=== PATIENT | male | born 1945 | race Caucasian/White ===

== ENCOUNTER 2019-08-21 16:12 | Inpatient (IN) ==
[2019-08-21] MEDS ORDERED: NITROGLYCERIN SL 0.4 MG/TAB TAB ONE (16:28)
[2019-08-21] MEDS: NITROGLYCERIN SL 0.4 MG/TAB TAB SL PRN ×3 (16:29→16:45)
[2019-08-21] MEDS ORDERED: ASPIRIN CHEW 324 MG PO STA (16:35)
--- NOTE | 2019-08-21 16:56 | XRay Report ---
XR chest 1V portable HISTORY: Atypical Chest Pain COMPARISON: Chest 07/01/2018. FINDINGS: The heart is mildly enlarged. There are poststernotomy changes. There are low lung volumes with elevation the right hemidiaphragm, unchanged. Suspect trace bilateral pleural effusions. Aggress clark interstitial and vascular thickening consistent with mild pulmonary edema. IMPRESSION: Cardiomegaly, trace bilateral pleural effusions, and mild interstitial pulmonary edema. ACT 112: Negative or not required by law. Electronically signed by: Thai Dixon M.D. 08/21/2019 4:55 PM
[2019-08-21] MEDS ORDERED: FUROSEMIDE 40 MG/4 ML VIAL IV STA (17:02)
[2019-08-21] MEDS ORDERED: NITROGLYCERIN 2% OINTMENT 30GM TUBE EXT ONE (17:22)
[2019-08-21] MEDS ORDERED: ONDANSETRON INJ 2 MG/ML 2 ML VIAL IV STA (17:40)
[2019-08-21] MEDS ORDERED: ONDANSETRON INJ 2 MG/ML 2 ML VIAL ONE (17:41)
[2019-08-21 17:42] LABS: Basophils # (auto) 0.01 K/uL (0-0.2); Basophils % (auto) 0.2 %; Eosinophils # (auto) 0.06 K/uL (0-0.5); Eosinophils % (auto) 1.3 %; Hematocrit (blood only) 28.6 % (42-52); Hemoglobin 9.6 g/dL (14.0-18.0); Immature Granulocytes # (auto) 0.04 K/uL (0.00-0.02); Immature Granulocytes % (auto) 0.9 %; Lymphocytes # (auto) 0.56 K/uL (1.2-3.4); Mean Corpuscular Hemoglobin 31.4 pg (25-34); Mean Corpuscular Hgb Conc 33.6 g/dL (32-36); Mean Corpuscular Volume 93.5 fL (80-100); Mean Platelet Volume 8.7 fL (7.4-10.4); Monocytes # (auto) 0.41 K/uL (0.11-0.59); Monocytes % (auto) 8.8 %; Neutrophils # (auto) 3.57 K/uL (1.4-6.5); Neutrophils % (auto) 76.8 %; Platelet Count 104 K/uL (130-400); RDW Standard Deviation 50.8 fL (36.4-46.3); Red Blood Count 3.06 M/uL (4.7-6.1); White Blood Count 4.65 K/uL (4.8-10.8)
[2019-08-21 17:53] LABS: INR 1.1 (0.9-1.1); Partial Thromboplastin Time 27.9 Seconds (21.0-31.0); Prothrombin Time 11.2 Seconds (9.0-12.0)
[2019-08-21 17:54] LABS: Albumin Level 3.6 gm/dl (3.4-5.0); Aspartate Aminotransferase 11 U/L (15-37); BUN Creatinine Ratio 19.9 (10-20); Blood Urea Nitrogen 33 mg/dl (7-18); Calcium 8.5 mg/dl (8.5-10.1); Carbon Dioxide 25 mmol/L (21-32); Chloride 111 mmol/L (98-107); Creatinine Clr Calc Pharmacy 38.5 ml/min; Est GFR (African American) 46.4; Glucose 149 mg/dl (70-99); Lipase 165 U/L (73-393); Sodium 140 mmol/L (136-145)
[2019-08-21 17:59] LABS: Alanine Aminotransferase 18 U/L (12-78); Albumin Globulin Ratio 1.3 (0.9-2); Alkaline Phosphatase 96 U/L (45-117); Bilirubin,Total 0.6 mg/dl (0.2-1); Globulin 2.7 gm/dl (2.5-4.0); Total Protein 6.3 gm/dl (6.4-8.2); Troponin I < 0.015 ng/ml (0-0.045)
[2019-08-21 18:01] LABS: Poikilocytosis Present
--- NOTE | 2019-08-21 19:51 | Emergency Department Note ---
Entered by Albina Hastings acting as a scribe for Soila Hayes MD History of Present Illness General Chief complaint: Chest Pain Stated complaint: CHEST PAIN Source: patient History of Present Illness Onset (ago): hour(s) (several) Location: chest (central) Radiation: non-radiation Severity: similar to prior episodes Pain Consistency: + other (persistent ) Associated symptoms: + other (positive worsening leg swelling); no shortness of breath The patient is a 74 year old male who presents to the Emergency Room with complaints of persistent central chest pain that began several hours prior to arrival. The patient denies radiation of his pain. The patient reports that this is similar to prior episodes of chest pain for him. He denies shortness of breath. The patient reports that he has worsening leg swelling. He states that he spilled half of his medication down the drain this morning and only took the medication that was remaining. The patient is not certain of exactly what pills he did take. The patient states that he has a history of heart disease. Home Medications Home Medications Medication Instructions Recorded Confirmed Type amlodipine [Norvasc] 10 mg PO QAM 03/24/18 08/21/19 History atorvastatin [Lipitor] 40 mg PO QAM 03/24/18 08/21/19 History clopidogrel [Plavix] 75 mg PO QAM 03/24/18 08/21/19 History cyanocobalamin (vitamin B-12) 1 ml IM MONTHLY 03/24/18 08/21/19 History isosorbide mononitrate 120 mg PO DAILY 03/24/18 08/21/19 History lisinopril 40 mg PO DAILY 03/24/18 08/21/19 History meclizine 25 mg PO TID PRN 03/24/18 08/21/19 History metformin 500 mg PO QAM 03/24/18 08/21/19 History nitroglycerin [Nitrostat] 0.4 mg SUBLINGUAL DIRECTED PRN 03/24/18 08/21/19 History potassium chloride [Klor-Con M10] 10 meq PO BID 03/24/18 08/21/19 History ranolazine [Ranexa] 500 mg PO BID 03/24/18 08/21/19 History tramadol 50 mg PO Q6H PRN 03/24/18 08/21/19 History aspirin 81 mg PO DAILY 08/21/19 08/21/19 History carvedilol 25 mg PO BID 08/21/19 08/21/19 History ferrous sulfate 325 mg PO Q OTHER DAY 08/21/19 08/21/19 History hydrochlorothiazide 25 mg PO QAM 08/21/19 08/21/19 History sucralfate 1 g PO BID 08/21/19 08/21/19 History Allergies Allergy/AdvReac Type Severity Reaction Status Date / Time hydralazine Allergy Hives Verified 08/21/19 18:56 Iodinated Contrast Media Allergy Unknown Verified 08/21/19 18:56 [Iodinated Contrast- Oral and IV Dye] Past Med/Surg History Medical History CAD (coronary artery disease) Chronic obstructive pulmonary disease mild--no inhaler Diabetes mellitus, type 2 History of common carotid artery stent placement 06/2017 @ [facility] [place], [place] Hyperlipidemia Hypertension Myocardial Infarction 1996 On anticoagulant therapy on plavix Osteoarthritis PVD (peripheral vascular disease) Stroke 08/27/2017--no deficits Thoracic ascending aortic aneurysm Surgical History Chest pain 07/09/18 CARDIAC CATH WITH 5 MORE HEART STENTS [place] [facility] [place] History of cardiac cath pt states he has had about 12 of them--last one "a couple years ago" History of cholecystectomy History of colonoscopy History of coronary artery bypass graft [place] [facility] [place] History of heart artery stent pt is unsure of how many heart stents, states around 39 stents total (including peripheral artery) History of left cataract extraction History of procedure for peripheral vascular disease pt states he has had about 6 with multiple stents placed History of tooth extraction wisdom teeth Family History Other Family history non-contributory Social History Preferred Language: Mongolian Communication Ability: Effective 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 and A total of 10 systems reviewed and were otherwise negative Physical Exam Vital Signs Vital Signs - 24 hr 08/21/19 16:22 08/21/19 16:25 08/21/19 16:29 Temperature 36.7 C Temperature Source Oral Pulse Rate 51 L 58 L Pulse Rate [Right Finger] Pulse Rate from SpO2 Sensor 51 L Pulse Rhythm Regular Pulse Strength Normal Respiratory Rate 23 22 Respiratory Effort / Characteristics Spontaneous Labored Non-Labored Spontaneous Respiratory Depth Retractive Normal Respiratory Pattern Regular Blood Pressure 171/78 H 171/78 H Blood Pressure [Right Arm] Blood Pressure Mean 113 109 Blood Pressure Mean [Right Arm] Blood Pressure Position Sitting Pulse Oximetry 92 90 92 Oxygen Delivery Method Room Air Room Air Oxygen Flow Rate 2 Sepsis Recent Fever Within 48 Hours No Sepsis New/Unexplained Change in Mental Status No Sepsis Action Taken by Nursing No Action Required Oxygen Flow Rate - Titration 2 Pulse Oximetry Post Tiitration 96 08/21/19 16:30 08/21/19 16:34 08/21/19 16:45 Temperature Temperature Source Pulse Rate 53 L 65 51 L Pulse Rate [Right Finger] Pulse Rate from SpO2 Sensor 53 L 54 L 51 L Pulse Rhythm Pulse Strength Respiratory Rate 22 23 19 Respiratory Effort / Characteristics Respiratory Depth Respiratory Pattern Blood Pressure 143/60 H Blood Pressure [Right Arm] Blood Pressure Mean 96 Blood Pressure Mean [Right Arm] Blood Pressure Position Pulse Oximetry 92 92 96 Oxygen Delivery Method Oxygen Flow Rate Sepsis Recent Fever Within 48 Hours Sepsis New/Unexplained Change in Mental Status Sepsis Action Taken by Nursing Oxygen Flow Rate - Titration Pulse Oximetry Post Tiitration 08/21/19 16:46 08/21/19 17:00 08/21/19 17:15 Temperature Temperature Source Pulse Rate 56 L 61 61 Pulse Rate [Right Finger] Pulse Rate from SpO2 Sensor 51 L 54 L 54 L Pulse Rhythm Pulse Strength Respiratory Rate 24 22 22 Respiratory Effort / Characteristics Respiratory Depth Respiratory Pattern Blood Pressure 152/59 H Blood Pressure [Right Arm] Blood Pressure Mean 110 Blood Pressure Mean [Right Arm] Blood Pressure Position Pulse Oximetry 96 98 98 Oxygen Delivery Method Oxygen Flow Rate Sepsis Recent Fever Within 48 Hours Sepsis New/Unexplained Change in Mental Status Sepsis Action Taken by Nursing Oxygen Flow Rate - Titration Pulse Oximetry Post Tiitration 08/21/19 17:16 08/21/19 17:30 08/21/19 17:31 Temperature Temperature Source Pulse Rate 61 Pulse Rate [Right Finger] Pulse Rate from SpO2 Sensor 53 L 53 L 54 L Pulse Rhythm Pulse Strength Respiratory Rate 21 20 21 Respiratory Effort / Characteristics Respiratory Depth Respiratory Pattern Blood Pressure 178/68 H 171/53 H Blood Pressure [Right Arm] Blood Pressure Mean 112 84 Blood Pressure Mean [Right Arm] Blood Pressure Position Pulse Oximetry 97 98 98 Oxygen Delivery Method Nasal Cannula Nasal Cannula Oxygen Flow Rate 2 2 Sepsis Recent Fever Within 48 Hours Sepsis New/Unexplained Change in Mental Status Sepsis Action Taken by Nursing Oxygen Flow Rate - Titration Pulse Oximetry Post Tiitration 08/21/19 17:45 08/21/19 17:46 08/21/19 18:00 Temperature Temperature Source Pulse Rate 53 L 53 L 48 L Pulse Rate [Right Finger] Pulse Rate from SpO2 Sensor Pulse Rhythm Pulse Strength Respiratory Rate 20 23 15 Respiratory Effort / Characteristics Respiratory Depth Respiratory Pattern Blood Pressure 181/72 H Blood Pressure [Right Arm] Blood Pressure Mean 100 Blood Pressure Mean [Right Arm] Blood Pressure Position Pulse Oximetry Oxygen Delivery Method Oxygen Flow Rate Sepsis Recent Fever Within 48 Hours Sepsis New/Unexplained Change in Mental Status Sepsis Action Taken by Nursing Oxygen Flow Rate - Titration Pulse Oximetry Post Tiitration 08/21/19 18:01 08/21/19 18:15 08/21/19 18:16 Temperature Temperature Source Pulse Rate 54 L 54 L 54 L Pulse Rate [Right Finger] Pulse Rate from SpO2 Sensor Pulse Rhythm Pulse Strength Respiratory Rate 22 17 24 Respiratory Effort / Characteristics Respiratory Depth Respiratory Pattern Blood Pressure 145/73 H 164/82 H Blood Pressure [Right Arm] Blood Pressure Mean 100 114 Blood Pressure Mean [Right Arm] Blood Pressure Position Pulse Oximetry Oxygen Delivery Method Oxygen Flow Rate Sepsis Recent Fever Within 48 Hours Sepsis New/Unexplained Change in Mental Status Sepsis Action Taken by Nursing Oxygen Flow Rate - Titration Pulse Oximetry Post Tiitration 08/21/19 18:30 08/21/19 18:31 08/21/19 19:06 Temperature Temperature Source Pulse Rate 52 L 53 L Pulse Rate [Right Finger] 52 L Pulse Rate from SpO2 Sensor Pulse Rhythm Pulse Strength Respiratory Rate 20 20 22 Respiratory Effort / Characteristics Respiratory Depth Respiratory Pattern Blood Pressure 183/82 H Blood Pressure [Right Arm] 195/87 H Blood Pressure Mean 97 Blood Pressure Mean [Right Arm] 123 Blood Pressure Position Pulse Oximetry 98 Oxygen Delivery Method Oxygen Flow Rate Sepsis Recent Fever Within 48 Hours Sepsis New/Unexplained Change in Mental Status Sepsis Action Taken by Nursing Oxygen Flow Rate - Titration Pulse Oximetry Post Tiitration Vital signs reviewed. General: Elderly, chronically ill-appearing 74 year old male, in no significant distress. HEENT: No scleral icterus, PERRLA, neck supple. Atraumatic. Cardiovascular: Regular rate and rhythm, no extra sounds. Pulmonary: Increased work of breathing, some accessory muscle use. Clear to auscultation bilaterally. Abdomen: Soft, nontender, nondistended, positive bowel sounds. Musculoskeletal: Atraumatic. Left greater than right lower extremity 2+ pitting edema. Neurologic: Patient awake alert and oriented x 3 Skin: Warm, dry, no rash Course Course 1631: Past medical records reviewed. The patient was evaluated in room B6. A complete history and physical exam was performed. 1908: I [facility] patient for further evaluation. Administered Medications Discontinued Medications Albuterol (Duoneb) 3 ml NEB NOW STA Stop: 08/22/19 01:16 Last Admin: 08/22/19 01:43 Dose: 3 ml Documented by: [id number] Amlodipine Besylate (Norvasc) 10 mg PO [facility] Stop: 09/21/19 00:14 Last Admin: 08/22/19 00:18 Dose: 10 mg Documented by: [id number] Aspirin (Aspirin) 324 mg PO NOW STA Stop: 08/21/19 16:36 Last Admin: 08/21/19 17:17 Dose: Not Given Documented by: [id number] Aspirin (Ecotrin Ectab) 81 mg PO DAILY [facility] Stop: 09/21/19 08:59 Last Admin: 08/22/19 10:40 Dose: 81 mg Documented by: [id number] At[facility]vastatin [facility] Stop: 09/21/19 08:59 Last Admin: 08/22/19 08:06 Dose: 40 mg Documented by: [id number] Carvedilol (Coreg) 25 mg PO BID [facility] Stop: 09/20/19 20:59 Last Admin: 08/22/19 08:07 Dose: 25 mg Documented by: [id number] Admin: 08/21/19 21:30 Dose: 25 mg Documented by: [id number] Clopidogrel Bis[facility]ate (Plavix) [facility] Stop: 09/21/19 08:59 Last Admin: 08/22/19 10:40 Dose: 75 mg Documented by: [id number] Ferrous Sulfate (Feosol) 325 mg PO Q2D QIAN Stop: 09/21/19 08:59 Last Admin: 08/22/19 08:07 Dose: Not Given Documented by: [id number] Furosemide (Lasix) 40 mg IV NOW STA Stop: 08/21/19 17:03 Last Admin: 08/21/19 17:33 Dose: 40 mg Documented by: [id number] Heparin Sodium/Dextrose () 1 ea IV Q15M [facility]; Protocol Stop: 08/22/19 08:30 Last Admin: 08/22/19 06:43 Dose: Not Given Documented by: [id number] Hydrochlorothiazide (Hctz) 12.5 mg PO NOW ONE Stop: 08/21/19 21:16 Last Admin: 08/21/19 21:32 Dose: 12.5 mg Documented by: [id number] Furosemide 60 mg/ Albumin (Human) 56 mls @ 54 mls/hr IV ONE ONE Stop: 08/22/19 02:15 Last Infusion: 08/22/19 02:47 Dose: 0 mls/hr Documented by: [id number] Admin: 08/22/19 01:59 Dose: 54 mls/hr Documented by: [id number] Heparin Sodium/Dextrose (Heparin Sodium/Dextrose) 25,000 units in 500 mls @ 21 mls/hr IV .[id number] [facility]; Protocol Stop: 09/21/19 06:29 Last Titration: 08/22/19 15:06 Dose: 1,050 units/hr, 21 mls/hr Documented by: [id number] Cosigned by: [id number] Titration: 08/22/19 13:26 Dose: 1,050 units/hr, 21 mls/hr Documented by: [id number] Cosigned by: [id number] Titration: 08/22/19 07:10 Dose: 900 units/hr, 18 mls/hr Documented by: [id number] Cosigned by: [id number] Admin: 08/22/19 06:41 Dose: 900 units/hr, 18 mls/hr Documented by: [id number] Cosigned by: [id number] Heparin Sodium (Porcine) 4,500 (units/ Syringe) 4.5 mls @ 10 mls/min IV NOW STA Stop: 08/22/19 13:31 Last Admin: 08/22/19 13:51 Dose: 10 mls/min Documented by: [id number] Cosigned by: [id number] Insulin Aspart (Novolog Flexpen) 0 units SC ACHS QIAN Stop: 09/20/19 20:59 Last Admin: 08/22/19 17:00 Dose: 2 units Documented by: [id number] Cosigned by: [id number] Admin: 08/22/19 11:47 Dose: Not Given Documented by: [id number] Cosigned by: [id number] Admin: 08/22/19 08:04 Dose: Not Given Documented by: [id number] Cosigned by: [id number] Admin: 08/21/19 21:31 Dose: Not Given Documented by: [id number] Cosigned by: [id number] Isosorbide Mononitrate (Imdur Extended Rel) 120 mg PO DAILY [facility] Stop: 09/21/19 02:29 Last Admin: 08/22/19 02:47 Dose: 120 mg Documented by: [id number] Levalbuterol HCl (Xopenex 1.25mg/3ml Neb) 1.25 mg INH Q4H PRN PRN Reason: Shortness Of Breath Or Wheezing Stop: 09/20/19 22:52 Last Admin: 08/22/19 17:13 Dose: 1.25 mg Documented by: [id number] Admin: 08/21/19 23:33 Dose: 1.25 mg Documented by: [id number] Metoprolol Tartrate (Lopressor) 2.5 mg IV NOW STA Stop: 08/22/19 01:00 Last Admin: 08/22/19 01:27 Dose: Not Given Documented by: [id number] Nitroglycerin (Nitrostat) 0.4 mg SL UD PRN PRN Reason: Chest Pain Stop: 09/20/19 16:25 Last Admin: 08/21/19 16:45 Dose: 0.4 mg Documented by: [id number] Admin: 08/21/19 16:35 Dose: 0.4 mg Documented by: [id number] Admin: 08/21/19 16:29 Dose: 0.4 mg Documented by: [id number] Nitroglycerin (Nitrostat) Confirm Administered Dose 1.2 mg .ROUTE .STK-MED ONE Stop: 08/21/19 16:29 Last Admin: 08/21/19 16:45 Dose: Not Given Documented by: [id number] Nitroglycerin (Nitro-Bid 2%) 1 inch EXT NOW ONE Stop: 08/21/19 17:23 Last Admin: 08/21/19 17:35 Dose: 1 inch Documented by: [id number] Nitroglycerin (Nitro-Bid 2%) 1 inch EXT Q6 QIAN Stop: 09/21/19 00:00 Last Admin: 08/22/19 11:50 Dose: 1 inch Documented by: [id number] Admin: 08/22/19 05:34 Dose: 1 inch Documented by: [id number] Admin: 08/22/19 00:15 Dose: 1 inch Documented by: [id number] Ondansetron HCl (Zofran) 4 mg IV NOW STA Stop: 08/21/19 17:41 Last Admin: 08/21/19 17:44 Dose: Not Given Documented by: [id number] Ondansetron HCl (Zofran) Confirm Administered Dose 4 mg .ROUTE .STK-MED ONE Stop: 08/21/19 17:42 Last Admin: 08/21/19 17:44 Dose: 4 mg Documented by: [id number] Ondansetron HCl (Zofran) 4 mg IV Q6H PRN PRN Reason: Nausea Stop: 09/20/19 20:46 Last Admin: 08/22/19 17:39 Dose: 4 mg Documented by: [id number] Potassium Chloride (Klor-Con M10) 10 meq PO BID QIAN Stop: 09/20/19 20:59 Last Admin: 08/21/19 21:30 Dose: 10 meq Documented by: [id number] Ranolazine (Ranexa) 500 mg PO BID [facility] Stop: 09/20/19 20:59 Last Admin: 08/22/19 08:07 Dose: 500 mg Documented by: [id number] Admin: 08/21/19 21:31 Dose: 500 mg Documented by: [id number] Sucralfate (Carafate Tab) 1 gm PO BID@0600,1800 [facility] Stop: 09/21/19 05:59 Last Admin: 08/22/19 05:29 Dose: 1 gm Documented by: [id number] Zolpidem Tartrate (Ambien) 5 mg PO HS PRN PRN Reason: Sleep Stop: 09/20/19 20:46 Last Admin: 08/21/19 21:38 Dose: 5 mg Documented by: [id number] Medical Decision Making Differential Diagnosis Differential diagnoses includes but is not limited to acute coronary syndrome, myocardial infarction, pericarditis, pulmonary embolus, aortic dissection, pneumonia, pneumothorax, musculoskeletal, shingles, esophageal. Medical Records Attestation: I reviewed the patient's medical records. Home Medications Current Medication List: was personally reviewed by me Laboratory Data Attestation: I reviewed the patient's lab results. Result diagrams: 08/22/19 03:58 08/22/19 03:58 Lab Results 08/21/19 08/21/19 08/21/19 Range/Units 17:31 17:31 17:31 WBC 4.65 L (4.8-10.8) K/uL RBC 3.06 L (4.7-6.1) M/uL Hgb 9.6 L (14.0-18.0) g/dL Hct 28.6 L (42-52) % MCV 93.5 (80-100) fL MCH 31.4 (25-34) pg MCHC 33.6 (32-36) g/dL RDW Std Deviation 50.8 H (36.4-46.3) fL RDW Coeff of Dary 15.0 H (11.5-14.5) % Plt Count 104 L (130-400) K/uL MPV 8.7 (7.4-10.4) fL Immature Gran % (Auto) 0.9 % Neut % (Auto) 76.8 % Lymph % (Auto) 12.0 % Rains % (Auto) 8.8 % Eos % (Auto) 1.3 % Baso % (Auto) 0.2 % Immature Gran # (Auto) 0.04 H (0.00-0.02) K/uL Neut # (Auto) 3.57 (1.4-6.5) K/uL Lymph # (Auto) 0.56 L (1.2-3.4) K/uL Rains # (Auto) 0.41 (0.11-0.59) K/uL Eos # (Auto) 0.06 (0-0.5) K/uL Baso # (Auto) 0.01 (0-0.2) K/uL Platelet Estimate (Normal) Poikilocytosis Present Tear Drop Cells PT 11.2 (9.0-12.0) Seconds INR 1.1 (0.9-1.1) APTT 27.9 (21.0-31.0) Seconds PTT Ratio 1.0 ABG pH (7.35-7.45) ABG pCO2 (35-46) mmHg ABG pO2 (80-95) mmHg ABG HCO3 (19-24) mmol/L ABG O2 Saturation (90-95) % ABG Base Excess (-9-1.8) mEq/L Ronnie Test (Pos) Barometric Pressure mm/Hg Oxygen Given Sodium 140 (136-145) mmol/L Potassium 5.0 (3.5-5.1) mmol/L Chloride 111 H (98-107) mmol/L Carbon Dioxide 25 (21-32) mmol/L Anion Gap 5.0 (3-11) BUN 33 H (7-18) mg/dl Creatinine 1.64 H (0.6-1.4) mg/dl Est Cr Clr Drug Dosing 38.5 ml/min Est GFR ( Amer) 46.4 Est GFR (Non-Af Amer) 40.0 BUN/Creatinine Ratio 19.9 (10-20) Glucose 149 H (70-99) mg/dl POC Glucose (70-99) mg/dl Calcium 8.5 (8.5-10.1) mg/dl Magnesium (1.8-2.4) mg/dl Total Bilirubin 0.6 (0.2-1) mg/dl AST 11 L (15-37) U/L ALT 18 (12-78) U/L Alkaline Phosphatase 96 (45-117) U/L Troponin I < 0.015 (0-0.045) ng/ml Total Protein 6.3 L (6.4-8.2) gm/dl Albumin 3.6 (3.4-5.0) gm/dl Globulin 2.7 (2.5-4.0) gm/dl Albumin/Globulin Ratio 1.3 (0.9-2) Lipase 165 (73-393) U/L TSH (0.300-4.500) uIu/ml 08/21/19 08/21/19 08/22/19 Range/Units 20:44 22:50 01:35 WBC (4.8-10.8) K/uL RBC (4.7-6.1) M/uL Hgb (14.0-18.0) g/dL Hct (42-52) % MCV (80-100) fL MCH (25-34) pg MCHC (32-36) g/dL RDW Std Deviation (36.4-46.3) fL RDW Coeff of Dary (11.5-14.5) % Plt Count (130-400) K/uL MPV (7.4-10.4) fL Immature Gran % (Auto) % Neut % (Auto) % Lymph % (Auto) % Rains % (Auto) % Eos % (Auto) % Baso % (Auto) % Immature Gran # (Auto) (0.00-0.02) K/uL Neut # (Auto) (1.4-6.5) K/uL Lymph # (Auto) (1.2-3.4) K/uL Rains # (Auto) (0.11-0.59) K/uL Eos # (Auto) (0-0.5) K/uL Baso # (Auto) (0-0.2) K/uL Platelet Estimate (Normal) Poikilocytosis Tear Drop Cells PT (9.0-12.0) Seconds INR (0.9-1.1) APTT (21.0-31.0) Seconds PTT Ratio ABG pH 7.42 (7.35-7.45) ABG pCO2 38 (35-46) mmHg ABG pO2 77 L (80-95) mmHg ABG HCO3 24 (19-24) mmol/L ABG O2 Saturation 95.7 H (90-95) % ABG Base Excess 0.0 (-9-1.8) mEq/L Ronnie Test POS (Pos) Barometric Pressure 726.0 mm/Hg Oxygen Given 4 L Sodium (136-145) mmol/L Potassium (3.5-5.1) mmol/L Chloride (98-107) mmol/L Carbon Dioxide (21-32) mmol/L Anion Gap (3-11) BUN (7-18) mg/dl Creatinine (0.6-1.4) mg/dl Est Cr Clr Drug Dosing ml/min Est GFR ( Amer) Est GFR (Non-Af Amer) BUN/Creatinine Ratio (10-20) Glucose (70-99) mg/dl POC Glucose 133 H (70-99) mg/dl Calcium (8.5-10.1) mg/dl Magnesium (1.8-2.4) mg/dl Total Bilirubin (0.2-1) mg/dl AST (15-37) U/L ALT (12-78) U/L Alkaline Phosphatase (45-117) U/L Troponin I 0.909 H* (0-0.045) ng/ml Total Protein (6.4-8.2) gm/dl Albumin (3.4-5.0) gm/dl Globulin (2.5-4.0) gm/dl Albumin/Globulin Ratio (0.9-2) Lipase (73-393) U/L TSH (0.300-4.500) uIu/ml 08/22/19 08/22/19 08/22/19 Range/Units 03:58 03:58 03:58 WBC 4.20 L (4.8-10.8) K/uL RBC 2.93 L (4.7-6.1) M/uL Hgb 9.1 L (14.0-18.0) g/dL Hct 27.5 L (42-52) % MCV 93.9 (80-100) fL MCH 31.1 (25-34) pg MCHC 33.1 (32-36) g/dL RDW Std Deviation 51.2 H (36.4-46.3) fL RDW Coeff of Dary 15.0 H (11.5-14.5) % Plt Count 94 L (130-400) K/uL MPV 8.3 (7.4-10.4) fL Immature Gran % (Auto) 0.7 % Neut % (Auto) 72.0 % Lymph % (Auto) 15.6 % Rains % (Auto) 10.4 % Eos % (Auto) 1.1 % Baso % (Auto) 0.2 % Immature Gran # (Auto) 0.03 H (0.00-0.02) K/uL Neut # (Auto) 3.24 (1.4-6.5) K/uL Lymph # (Auto) 0.70 L (1.2-3.4) K/uL Rains # (Auto) 0.47 (0.11-0.59) K/uL Eos # (Auto) 0.05 (0-0.5) K/uL Baso # (Auto) 0.01 (0-0.2) K/uL Platelet Estimate Decreased L (Normal) Poikilocytosis Tear Drop Cells 1+ PT (9.0-12.0) Seconds INR (0.9-1.1) APTT 28.1 (21.0-31.0) Seconds PTT Ratio 1.0 ABG pH (7.35-7.45) ABG pCO2 (35-46) mmHg ABG pO2 (80-95) mmHg ABG HCO3 (19-24) mmol/L ABG O2 Saturation (90-95) % ABG Base Excess (-9-1.8) mEq/L Ronnie Test (Pos) Barometric Pressure mm/Hg Oxygen Given Sodium 142 (136-145) mmol/L Potassium 4.7 (3.5-5.1) mmol/L Chloride 110 H (98-107) mmol/L Carbon Dioxide 28 (21-32) mmol/L Anion Gap 4.0 (3-11) BUN 33 H (7-18) mg/dl Creatinine 1.73 H (0.6-1.4) mg/dl Est Cr Clr Drug Dosing 38.0 ml/min Est GFR ( Amer) 43.5 Est GFR (Non-Af Amer) 37.5 BUN/Creatinine Ratio 18.8 (10-20) Glucose 101 H (70-99) mg/dl POC Glucose (70-99) mg/dl Calcium 8.5 (8.5-10.1) mg/dl Magnesium 2.2 (1.8-2.4) mg/dl Total Bilirubin (0.2-1) mg/dl AST (15-37) U/L ALT (12-78) U/L Alkaline Phosphatase (45-117) U/L Troponin I (0-0.045) ng/ml Total Protein (6.4-8.2) gm/dl Albumin (3.4-5.0) gm/dl Globulin (2.5-4.0) gm/dl Albumin/Globulin Ratio (0.9-2) Lipase (73-393) U/L TSH (0.300-4.500) uIu/ml 08/22/19 08/22/19 08/22/19 Range/Units 03:58 03:58 07:26 WBC (4.8-10.8) K/uL RBC (4.7-6.1) M/uL Hgb (14.0-18.0) g/dL Hct (42-52) % MCV (80-100) fL MCH (25-34) pg MCHC (32-36) g/dL RDW Std Deviation (36.4-46.3) fL RDW Coeff of Dary (11.5-14.5) % Plt Count (130-400) K/uL MPV (7.4-10.4) fL Immature Gran % (Auto) % Neut % (Auto) % Lymph % (Auto) % Rains % (Auto) % Eos % (Auto) % Baso % (Auto) % Immature Gran # (Auto) (0.00-0.02) K/uL Neut # (Auto) (1.4-6.5) K/uL Lymph # (Auto) (1.2-3.4) K/uL Rains # (Auto) (0.11-0.59) K/uL Eos # (Auto) (0-0.5) K/uL Baso # (Auto) (0-0.2) K/uL Platelet Estimate (Normal) Poikilocytosis Tear Drop Cells PT (9.0-12.0) Seconds INR (0.9-1.1) APTT (21.0-31.0) Seconds PTT Ratio ABG pH (7.35-7.45) ABG pCO2 (35-46) mmHg ABG pO2 (80-95) mmHg ABG HCO3 (19-24) mmol/L ABG O2 Saturation (90-95) % ABG Base Excess (-9-1.8) mEq/L Ronnie Test (Pos) Barometric Pressure mm/Hg Oxygen Given Sodium (136-145) mmol/L Potassium (3.5-5.1) mmol/L Chloride (98-107) mmol/L Carbon Dioxide (21-32) mmol/L Anion Gap (3-11) BUN (7-18) mg/dl Creatinine (0.6-1.4) mg/dl Est Cr Clr Drug Dosing ml/min Est GFR ( Amer) Est GFR (Non-Af Amer) BUN/Creatinine Ratio (10-20) Glucose (70-99) mg/dl POC Glucose 119 H (70-99) mg/dl Calcium (8.5-10.1) mg/dl Magnesium (1.8-2.4) mg/dl Total Bilirubin (0.2-1) mg/dl AST (15-37) U/L ALT (12-78) U/L Alkaline Phosphatase (45-117) U/L Troponin I 4.970 H* (0-0.045) ng/ml Total Protein (6.4-8.2) gm/dl Albumin (3.4-5.0) gm/dl Globulin (2.5-4.0) gm/dl Albumin/Globulin Ratio (0.9-2) Lipase (73-393) U/L TSH 1.100 (0.300-4.500) uIu/ml Imaging Data Radiologist's Impression: Radiology results as stated below per my review and the radiologist's interpretation: XR chest 1V portable HISTORY: Atypical Chest Pain COMPARISON: Chest 07/01/2018. FINDINGS: The heart is mildly enlarged. There are poststernotomy changes. There are low lung volumes with elevation the right hemidiaphragm, unchanged. Suspect trace bilateral pleural effusions. Aggressive interstitial and vascular t hickening consistent with mild pulmonary edema. IMPRESSION: Cardiomegaly, trace bilateral pleural effusions, and mild interstitial pulmonary edema. ACT 112: Negative or not required by law. Electronically signed by: Thai Dixon M.D. 08/21/2019 4:55 PM ECG Data Attestation: I personally reviewed and interpreted this ECG as follows: Indication: + chest pain Rate (beats per minute): 54 Rhythm: + sinus rhythm ECG Intervals/blocks: + First degree AV block and + Normal QT-c (447) ECG ST segments: + Nonspecific ST abnormalities Comparison ECG Date: from (07/02/18) Change: the following changes noted (T wave inversions are resolved in the anterior lateral leads) Additional Comments: REPEAT ECG: Sinus bradycardia with a rate of 52. 1st degree AV block. Normal QTC at 440. No significant change from previous. Blood Pressure Blood Pressure Findings: Elevated blood pressure Blood Pressure Disposition: further management by hospitalist DELMA Narrative This patient was evaluated and appeared to be in no significant distress. IV access was obtained and laboratory work was drawn. 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 Patient was given 324 mg of aspirin to chew. He was given sublingual nitroglycerin with some relief of his discomfort after 3 tablets. Topical nitroglycerin was placed. Patient's chest x-ray is read as pulmonary vascular congestion which fits the patient's clinical picture. He was given 40 mg of IV Lasix. Patient's laboratory work reveals a negative troponin. EKG reveals a sinus rhythm with a first-degree AV block and nonspecific ST abnormalities. There is no significant change from previous. Patient was reevaluated and was feeling improved. He was advised of the findings and agrees with the plan for hospitalization. Patient will be evaluated by the hospitalist service for further management. Impression & Plan Substernal chest pain, CHF (congestive heart failure) Discharge Plan Visit Data *Final* Discharge Date/Time: 08/21/19 20:30 Chief Complaint: Chest Pain Stated Complaint: CHEST PAIN ED Provider: Soila Hayes Discharge Problem: Substernal chest pain, CHF (congestive heart failure) Patient Disposition: Admitted As Inpatient Discharge Instructions Interventions: ED Discharge Assessment Last Done: 08/21/19 20:30 Discharge Problem: CHF (congestive heart failure) Qualifiers: Heart failure type: unspecified Heart failure chronicity: acute Qualified Code(s): I50.9 - Heart failure, unspecified The scribe's documentation has been prepared under my direction and personally reviewed by me in its entirety. I confirm that the note above accurately ref lects all work, treatment, procedures, and medical decision making performed by me.
[2019-08-21] MEDS ORDERED: NITROGLYCERIN SL 0.4 MG/TAB TAB SL PRN ×2 (20:47)
[2019-08-21] MEDS ORDERED: ALBUTEROL HFA 8 GM INHALER INH PRN (20:47)
[2019-08-21] MEDS ORDERED: MoRPHine SULFATE 2 MG/ML CARP IV PRN (20:47)
[2019-08-21] MEDS ORDERED: ACETAMINOPHEN 325 MG TAB PO PRN (20:47)
[2019-08-21] MEDS ORDERED: ONDANSETRON INJ 2 MG/ML 2 ML VIAL IV PRN (20:47)
[2019-08-21] MEDS ORDERED: ZOLPIDEM TARTRATE 5 MG TAB PO PRN (20:47)
[2019-08-21] MEDS ORDERED: TRAMADOL HCL 50 MG TABLET PO PRN (20:47)
[2019-08-21] MEDS ORDERED: MECLIZINE HCL 25 MG TAB PO PRN (20:56)
[2019-08-21] MEDS ORDERED: POTASSIUM CHLORIDE 10 MEQ TABCR PO SCH (21:00)
[2019-08-21] MEDS ORDERED: hydroCHLOROthiazide 25 MG TAB PO ONE (21:15)
--- NOTE | 2019-08-21 21:23 | Ultrasound Report ---
LEFT LOWER EXTREMITY VENOUS DOPPLER HISTORY: increasing edema of left lower extremity COMPARISON STUDY: None. FINDINGS: There is normal compressibility, flow, and augmentation within the left lower extremity norah p venous system. IMPRESSION: No DVT within the left lower extremity. ACT 112: Negative or not required by law. Electronically signed by: Thai Dixon M.D. 08/21/2019 9:21 PM
[2019-08-21] MEDS: carvediloL 25 MG TAB PO SCH (21:30)
[2019-08-21] MEDS: RANOLAZINE 500 MG ER TAB PO SCH (21:31)
[2019-08-21] MEDS: INSULIN ASPART 100 UNITS/ML 3 ML PEN SC SCH (21:31)
[2019-08-21] MEDS ORDERED: CARBOHYDRATES FOR HYPOGLYCEMIA PO PRN (21:45)
[2019-08-21] MEDS ORDERED: DEXTROSE 50% 50 ML SYRINGE IV PRN (21:45)
[2019-08-21] MEDS ORDERED: GLUCOSE 40% GEL 15 GM TUBE PO PRN (21:45)
[2019-08-21] MEDS ORDERED: GLUCAGON FOR INJ 1 MG VIAL SQ PRN (21:45)
[2019-08-21] MEDS ORDERED: GLUCOSE 10 TABS/TUBE PO PRN (21:45)
[2019-08-21] MEDS: LEVALBUTEROL HCL 1.25 MG/3 ML NEB INH PRN (23:33)
--- NOTE | 2019-08-22 00:07 | History and Physical Report ---
DATE OF ADMISSION: 08/21/2019 CHIEF COMPLAINT: Chest pain. HISTORY OF PRESENT ILLNESS: This is a 74-year-old male with past medical history significant for severe peripheral artery disease with multiple lower extremity interventions where he received drug-eluting balloon, drug-eluting stent to left popliteal and SFA; history of pancytopenia; history of hypertension; hyperlipidemia; type 2 diabetes; aortic insufficiency; carotid artery stenosis and status post right internal carotid artery stenting in 02/2018; renal artery stenosis and history of CABG in 1996 with multiple cardiac catheterizations. He was admitted to the [facility] on 07/02/2018 with chest pain. 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 A cardiac cath was done, which showed occluded bypass grafts and left main blockages and he was transferred to [place] for further intervention. In [place], he was deemed not a candidate for CABG and he was status post 5 stents placements. Since then, he is doing fine. He just recently had a workup with Cardiology, had says everything was looking okay and today after his lunch at 1:00 p.m., he noticed chest pain all over the chest, severe in nature, was sweating at that time. Denies any shortness of breath. He is always dizzy, but nothing more than his usual. He took his nitro at home, but nitro was old and it did not help him, so he came to the ER. In the ER, he was given nitro and nitro paste. The pain is much improved. He thinks the pain could also be from acid reflux as it happened after eating his lunch. Currently resting comfortably. Blood pressure somewhat running high. He states he still has discomfort and he says acid reflux medication might help.. Denies any cough. No headache, no blurred vision, no earache, no runny nose, no sore throat. Appetite is okay. No dysphagia. No nausea, no vomiting, no abdominal pain. Normal bowel and bladder movements. No hematuria or burning micturition. No black stools or blood in the stool. He complains his left lower extremity is more swollen than usual since last 1 week, but denies any pain in the lower extremities. He has chronic pain in the legs if he ambulates for long distance. ALLERGIES: HYDRALAZINE, IODINATED DIAGNOSTIC AGENTS. PAST MEDICAL HISTORY: As mentioned above. PAST SURGICAL HISTORY: Right common iliac angioplasty, right external iliac stent placement and right common femoral endarterectomy with Hemashield patch angioplasty in 2004, CABG in 1996, cardiac cath with drug-eluting stent first marginal branch in 02/2010 and drug-eluting stent to right coronary artery in 02/2010 and drug-eluting stent to ostial medial branch of left circumflex in 04/2011 and drug-eluting stent to ostium renal, PTCA and PDA in 02/2014. In 11/2007, he has PTCA with 6 stents placement. In 2005, he had drainage of right groin hematoma, EGDs, stent to SFA and popliteal, balloon angio to SFA in 2014, multiple angioplasties coronary and lower extremities, cataract surgeries, cholecystectomy, right external iliofemoral bypass, right carotid stent placement. MEDICATIONS: The patient currently is on hydrochlorothiazide 25 mg p.o. daily, aspirin 81 mg p.o. daily, Coreg 37.5 mg p.o. b.i.d., vitamin B12 as directed, ferrous sulfate 325 mg p.o. every other day, metformin ER 500 mg p.o. daily, tramadol 50 mg p.o. p.r.n., nitroglycerin 0.4 mg sublingual p.r.n., amlodipine 10 mg p.o. daily, atorvastatin 40 mg p.o. daily, Plavix 75 mg p.o. daily, Imdur 120 mg p.o. daily, lisinopril 40 mg p.o. daily, potassium chloride ER 10 mEq p.o. b.i.d., Ranexa 500 mg p.o. b.i.d., sucralfate 1 gram p.o. b.i.d., meclizine 25 mg p.o. t.i.d. p.r.n., albuterol p.r.n. FAMILY HISTORY: Significant for mother had cervical cancer, father had emphysema, brother has heart disorder, sister has heart attack and other sister has melanoma. SOCIAL HISTORY: , lives alone, walks with a cane and sometimes walker. Daughter lives close by. Former smoker, quit in 1995. Smoked 2 packs a day for 40 years, currently snuffs tobacco. No alcohol use, no drug use. REVIEW OF SYMPTOMS: As per HPI. Rest of the symptoms negative. PHYSICAL EXAMINATION: GENERAL: The patient is of moderate build, not in acute distress. VITAL SIGNS: Temperature 36.7, pulse 52, respiratory rate 22, blood pressure 195/87, oxygen 98% on 2 liters. HEENT: No pallor, no icterus. Pupils equal, round, reactive to light. NECK: No JVD, no neck masses, no carotid bruits. CARDIOVASCULAR SYSTEM: S1, S2 heard. Regular rate and rhythm. Bradycardia. No murmurs. RESPIRATORY SYSTEM: Normal AP diameter. No accessory muscle use. No wheezing, no crackles. ABDOMEN: Soft, bowel sounds present, nontender. No distention. CENTRAL NERVOUS SYSTEM: Cranial nerves II-XII grossly nonfocal. EXTREMITIES: lower extremity edema present more on left lower extremity. No erythema seen. LABORATORY DATA: WBC 4.6, hemoglobin 9.6, hematocrit 28.6, platelets 104. PT 11.2, INR 1.1, APTT 27.9. Sodium 140, potassium 5, chloride 111, CO2 25, BUN 33, creatinine 1.64, serum glucose 149, calcium 8.4. Total bilirubin 0.6, AST 11, ALT 18, alkaline phosphatase 96. Troponin I less than 0.015. Lipase 165. Chest x-ray: Cardiomegaly, trace bilateral pleural effusions and mild interstitial pulmonary edema. EKG: Junctional rhythm at 54, T-wave inversions seen at anterolateral leads. ASSESSMENT AND PLAN: This is a 74-year-old male who presents with chest pain. 1. Chest pain. History of multiple coronary interventions, CABG in 1996, multiple stents placed and last one in 06/2018. 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 Cardiac cath showed occluded CABG grafts and left main disease. He was transferred to [place] where he underwent 5 stents placement. He says he is doing okay. Recently seen by Cardiology where workup was negative. Currently, his EKG has showed some junctional rhythm, nonspecific changes and troponin is negative. Nitro paste helped his pain, which we will continue with the nitro paste and we will follow serial cardiac enzymes and echocardiogram and continue his home medications of aspirin, Plavix, statin, Coreg, Imdur and closely monitor and consult Cardiology in a.m. for further recommendations. 2. Possible CHF. He has lower extremity edema and chest x-ray with mild congestion. He got a dose of iv Lasix in the ER, recently hctz was increased to 25 mg daily which we will continue and we will follow his echocardiogram and closely monitor.Await cardio input. 3. Gastroesophageal reflux disease. The patient has sucralfate at home. He thinks the symptoms started after eating his lunch, so we will try Maalox. Continue sucralfate. 4. Peripheral vascular disease, multiple lower extremity intervention and also right coronary artery stent, on aspirin, Plavix and statin. 5. Diabetes, on metformin which we will hold and place on insulin sliding scale. Follow HbA1c. Follow blood sugars in the hospital. 6. History of chronic obstructive pulmonary disease, mild. Albuterol p.r.n. 7. History of hypertension. On hydrochlorothiazide, lisinopril, amlodipine, Imdur. Coreg dose 25 mg p.o. b.i.d. vs 37.5 mg b.i.d., now we will continue 25 mg b.i.d. as his heart rate is on the lower side and also the patient is continued on nitro paste. We will closely monitor his blood pressure and adjust the medications. 8. Hyperlipidemia. Continue statin. 9. Acute kidney injury on chronic kidney disease stage III, baseline creatinine around 1.4, prior creatinine 1.6. We will follow the labs in a.m. 10. History of CVA. On Plavix and statin. 11. History of pancytopenia, status post bone marrow biopsy in 2005 and was thought to be from pernicious anemia. Since then he is on vitamin B12 shots. Follows with Hem/Onc. Thought it could be multifactorial secondary to vitamin B12 deficiency, iron deficiency and chronic kidney disease and possibly splenomegaly is playing a role. 12. Left lower extremity edema, possible from CHF with left lower extremity more swollen than right, rule out deep venous thrombosis. Got a dose of Lasix. Follow echocardiogram. 13. Deep venous thrombosis prophylaxis. SCDs. DISPOSITION: Closely monitor in the tele floor. Level 1 full code. MTDD
[2019-08-22] MEDS ORDERED: HYDROmorphone INJ 0.5 MG/0.5 ML SYR IV PRN (00:11)
[2019-08-22] MEDS: NITROGLYCERIN 2% OINTMENT 30GM TUBE EXT SCH ×3 (00:15→11:50)
[2019-08-22] MEDS ORDERED: AMLODIPINE BESYLATE 5 MG TAB PO SCH ×2 (00:15→09:00)
[2019-08-22] MEDS ORDERED: METOPROLOL TARTRATE 1 MG/ML VIAL IV STA (00:59)
[2019-08-22] MEDS ORDERED: ALBUMIN 25% 50 ML with FUROSEMIDE 60 MG IV ONE (01:13)
[2019-08-22] MEDS ORDERED: ALBUT/IPRATROP 3MG/0.5MG NEB 3 ML VIAL NEB STA (01:15)
[2019-08-22 02:16] LABS: Allen Test POS (Pos); HCO3 ABG 24 mmol/L (19-24); Oxygen Saturation ABG 95.7 % (90-95); PCO2 ABG 38 mmHg (35-46); PO2 ABG 77 mmHg (80-95); pH ABG 7.42 (7.35-7.45)
[2019-08-22] MEDS ORDERED: ISOSORBIDE MONO EXTENDED REL 60 MG TABCR PO SCH ×2 (02:30→09:00)
[2019-08-22 04:22] LABS: Hematocrit (blood only) 27.5 % (42-52); Hemoglobin 9.1 g/dL (14.0-18.0); Mean Corpuscular Hemoglobin 31.1 pg (25-34); Mean Corpuscular Hgb Conc 33.1 g/dL (32-36); Mean Corpuscular Volume 93.9 fL (80-100); RDW Standard Deviation 51.2 fL (36.4-46.3); Red Blood Count 2.93 M/uL (4.7-6.1)
[2019-08-22 04:40] LABS: BUN Creatinine Ratio 18.8 (10-20); Calcium 8.5 mg/dl (8.5-10.1); Est GFR (African American) 43.5; Est GFR (Non-African American) 37.5; Magnesium 2.2 mg/dl (1.8-2.4); Partial Thromboplastin Time 28.1 Seconds (21.0-31.0); Potassium 4.7 mmol/L (3.5-5.1)
[2019-08-22 05:04] LABS: Basophils # (auto) 0.01 K/uL (0-0.2); Basophils % (auto) 0.2 %; Eosinophils # (auto) 0.05 K/uL (0-0.5); Eosinophils % (auto) 1.1 %; Immature Granulocytes # (auto) 0.03 K/uL (0.00-0.02); Immature Granulocytes % (auto) 0.7 %; Lymphocytes % (auto) 15.6 %; Mean Platelet Volume 8.3 fL (7.4-10.4); Monocytes # (auto) 0.47 K/uL (0.11-0.59); Monocytes % (auto) 10.4 %; Neutrophils # (auto) 3.24 K/uL (1.4-6.5); Platelet Count 94 K/uL (130-400); Platelet Estimate Decreased (Normal); Tear Drop Cells 1+
[2019-08-22] MEDS ORDERED: ATROPINE SULFATE 0.1 MG/ML 5ML SYR IV PRN (05:34)
[2019-08-22] MEDS ORDERED: SUCRALFATE 1 GM TAB PO SCH (06:00)
[2019-08-22] MEDS ORDERED: HEPARIN SODIUM/DEXTROSE 25,000 UNITS/500 ML BAG IV SCH (06:30)
[2019-08-22] MEDS ORDERED: Heparin IV Low Dose *NO* Bolus IV SCH (06:30)
--- NOTE | 2019-08-22 07:24 | XRay Report ---
XR chest 1V portable CLINICAL HISTORY: 74 years-old Male presenting with sob. TECHNIQUE: Portable upright AP view of the chest was obtained. COMPARISON: 08/21/2019. FINDINGS: Median sternotomy wires noted. Atherosclerosis of the aortic arch. Cardiac silhouette moderately enla rged as on prior exam. Mild pulmonary vascular prominence. Increased minimal bibasilar opacity. [place] tion of right hemidiaphragm unchanged. Trace left pleural effusion not excluded. No large pneumothora x. No advanced degenerative changes of the right glenohumeral joint. Upper abdomen normal. IMPRESSION: 1. Cardiomegaly. Minimal volume overload may be present. 2. Minimal vague bibasilar opacities likely atelectasis. 3. Suspected trace left pleural effusion. ACT 112: Negative or not required by law. Electronically signed by: Blayne Gunn M.D. 08/22/2019 7:22 AM
[2019-08-22] MEDS: INSULIN ASPART 100 UNITS/ML 3 ML PEN SC SCH ×3 (08:04→17:00)
[2019-08-22] MEDS: carvediloL 25 MG TAB PO SCH (08:07)
[2019-08-22] MEDS: RANOLAZINE 500 MG ER TAB PO SCH (08:07)
[2019-08-22] MEDS ORDERED: ALUMINUM/MAGNESIUM/SIMETH (MAALOX MAX) 30 ML UDC PO PRN (08:16)
[2019-08-22] MEDS ORDERED: ASPIRIN 81 MG ECTAB PO SCH (09:00)
[2019-08-22] MEDS ORDERED: hydroCHLOROthiazide 25 MG TAB PO SCH (09:00)
[2019-08-22] MEDS ORDERED: CLOPIDOGREL BISULFATE 75 MG TAB PO SCH (09:00)
[2019-08-22] MEDS ORDERED: lisinopriL 40 MG TAB PO SCH (09:00)
[2019-08-22] MEDS ORDERED: FERROUS SULFATE 325 MG TAB PO SCH (09:00)
[2019-08-22] MEDS ORDERED: ATORVASTATIN 40 MG TAB PO SCH (09:00)
--- NOTE | 2019-08-22 11:44 | Electrocardiogram Report ---
Test Reason : Blood Pressure : / mmHG Vent. Rate : 054 BPM Atrial Rate : 053 BPM P-R Int : 000 ms QRS Dur : 094 ms QT Int : 472 ms P-R-T Axes : 000 -19 116 degrees QTc Int : 447 ms Sinus bradycardia with 1st degree A-V block Abnormal ECG When compared with ECG of 02-JUL-2018 06:57, ST no longer depressed in Anterior leads T wave inversion less evident in Anterolateral leads Confirmed by Mayo Martel ([id number]) on 08/22/2019 11:44:42 AM Referred By: REFERRED SELF Confirmed By:Mayo Martel
--- NOTE | 2019-08-22 11:47 | Electrocardiogram Report ---
Test Reason : Blood Pressure : / mmHG Vent. Rate : 052 BPM Atrial Rate : 052 BPM P-R Int : 288 ms QRS Dur : 102 ms QT Int : 474 ms P-R-T Axes : 095 -13 119 degrees QTc Int : 440 ms Sinus bradycardia with 1st degree A-V block Abnormal ECG When compared with ECG of 21-AUG-2019 16:21, (unconfirmed) No significant change Confirmed by Mayo Martel ([id number]) on 08/22/2019 11:46:55 AM Referred By: REFERRED SELF Confirmed By:Mayo Martel
--- NOTE | 2019-08-22 12:03 | Cardiology Consultation ---
Date of Consultation August 22, 2019 Assessment & Plan (1) NSTEMI (non-ST elevated myocardial infarction): Continue current medication therapy with aspirin, clopidogrel, carvedilol, amlodipine, isosorbide mononitrate, Ranexa, and heparin infusion. He is to remain on atorvastatin. I had a long discussion with the patient as well as his daughter, Bailee, by phone. I recommend transfer to tertiary center for high risk cardiac catheterization which can be performed after his renal function is optimized. Patient and family were agreeable. I spoke to Dr. Rudi Jenkins ironing worker for the inpatient clinical cardiology service at [facility] who accepts the patient in transfer pending availability of bed. Patient is to be transferred by [facility] ground when a bed is available. His diet has been resumed for now. (2) HARJEET (acute kidney injury): Continue supportive care. He received furosemide yesterday. For now, rather than giving him IV fluids or diuretics, will hold off and follow his renal function panel. His creatinine is 1.7 at present, and his typical baseline is 1.4. (3) Contrast media allergy: He has a contrast allergy, and contrast prophylaxis is recommended. History of Present Illness Attending Physician: Zahraa Jacome, History of Present Illness Wilberto Jo is a 74 year old male seen in cardiology consultation per the request of Dr Portillo for the evaluation of a non-ST segment elevation acute coronary syndrome. The patient had previously lived in the [facility] and moved to [place] approximately 2 years ago after the of his spouse in order to be closer to his family here in [facility]. He has a history of complex coronary heart disease and peripheral arterial disease and has had the majority of his interventions performed at [facility] where he still follows with Dr Conrado Case whom he had most recently seen on 06/28/2019. The patient was in his normal state of health yesterday when he had a heavy meal that had been delivered by [employer]. At approximately 1 PM he developed symptoms that he felt were indigestion, with epigastric discomfort. He subsequently took 3-4 nitroglycerin tablets with only partial palliation of his discomfort and therefore he presented to the emergency room. EKG tracings perf ormed on a serial basis thus far since arrival have revealed sinus rhythm sinus bradycardia with lateral ST changes, that are less pronounced than the significant diffuse ST segment depression and T wave inversions noted when he was previously hospitalized at [facility] in June,. His initial troponin I was negative. It is subsequently trended up to 0.909, and 4.97 NG per mL. An echocardiogram performed this morning reveals a new septal and apical inferior wall motion abnormality compared to 2018, with low normal LVEF. The patient was comfortable at the time of my assessment, on a heparin infusion. With no reproduction of his angina. He does have a history of chronic stable angina and typically takes 1-2 nitroglycerin tablets per month, but his symptoms yesterday were out of proportion to his ordinary symptoms and more severe and lasted longer. Past Cardiac / Vascular History: Longstanding history of peripheral arterial disease with multiple lower extre mity interventions the most recent of which was performed in 2016 with drug- eluting balloon angioplasty and drug-eluting stenting of the left popliteal artery and SFA. He has a history of carotid artery stenosis status post stenting of the right internal carotid artery in February 2018 Chronic coronary heart disease with coronary artery bypass grafting in 1996 followed by multiple percutaneous coronary interventions. His most recent cardiac catheterization procedures to place in June 2018 at [facility] and [facility] at which time his grafts were noted to be occluded with significant progression of [place] vessel disease. He underwent bifurcating stenting of the distal left main into the ostium of the LAD and circumflex, drug-eluting stent to the mid right coronary artery, and 2 drug-eluting stents to the mid LAD. An attempt to cross a chronic total occlusion of the OM branch of the circumflex was unsuccessful, these interventions were performed at [facility] on 07/08/2018. Allergies Allergy/AdvReac Type Severity Reaction Status Date / Time hydralazine Allergy Hives Verified 08/21/19 18:56 Iodinated Contrast Media Allergy Unknown Verified 08/21/19 18:56 [Iodinated Contrast- Oral and IV Dye] Home Medications Home Medications Medication Instructions Recorded Confirmed Type amlodipine [Norvasc] 10 mg PO QAM 03/24/18 08/21/19 History atorvastatin [Lipitor] 40 mg PO QAM 03/24/18 08/21/19 History clopidogrel [Plavix] 75 mg PO QAM 03/24/18 08/21/19 History cyanocobalamin (vitamin B-12) 1 ml IM MONTHLY 03/24/18 08/21/19 History isosorbide mononitrate 120 mg PO DAILY 03/24/18 08/21/19 History lisinopril 40 mg PO DAILY 03/24/18 08/21/19 History meclizine 25 mg PO TID PRN 03/24/18 08/21/19 History metformin 500 mg PO QAM 03/24/18 08/21/19 History nitroglycerin [Nitrostat] 0.4 mg SUBLINGUAL DIRECTED PRN 03/24/18 08/21/19 History potassium chloride [Klor-Con M10] 10 meq PO BID 03/24/18 08/21/19 History ranolazine [Ranexa] 500 mg PO BID 03/24/18 08/21/19 History tramadol 50 mg PO Q6H PRN 03/24/18 08/21/19 History aspirin 81 mg PO DAILY 08/21/19 08/21/19 History carvedilol 25 mg PO BID 08/21/19 08/21/19 History ferrous sulfate 325 mg PO Q OTHER DAY 08/21/19 08/21/19 History hydrochlorothiazide 25 mg PO QAM 08/21/19 08/21/19 History sucralfate 1 g PO BID 08/21/19 08/21/19 History Patient History Medical History CAD (coronary artery disease) Chronic obstructive pulmonary disease mild--no inhaler Diabetes mellitus, type 2 History of common carotid artery stent placement 06/2017 @ [facility] [place], [place] Hyperlipidemia Hypertension Myocardial Infarction 1996 On anticoagulant therapy on plavix Osteoarthritis PVD (peripheral vascular disease) Stroke 08/27/2017--no deficits Thoracic ascending aortic aneurysm Surgical History Chest pain 07/09/18 CARDIAC CATH WITH 5 MORE HEART STENTS PLACED [facility] History of cardiac cath pt states he has had about 12 of them--last one "a couple years ago" History of cholecystectomy History of colonoscopy History of coronary artery bypass graft 1996 @ [facility] quadruple bypass History of heart artery stent pt is unsure of how many heart stents, states around 39 stents total (including peripheral artery) History of left cataract extraction History of procedure for peripheral vascular disease pt states he has had about 6 with multiple stents placed History of tooth extraction wisdom teeth Family History Other Family history non-contributory Social History Preferred Language: [place] Communication Ability: Effective Fitting Room Inspector Required: No Beliefs That Will Affect Care: None marital status: Single Current Living Situation: Family Current Living Situation Comment: LIVES AT [facility] Other Information That Helps Us Care for You: No Feels Safe at Home: Yes Safety Concerns: Feels Safe At This Time Smoking Status: Unknown if ever smoked Hx Alcohol Use: No Hx Substance Use: No Review of Systems Review of Systems: All systems reviewed & are unremarkable except as noted in HPI & below Physical Exam Physical Exam: Temp Pulse Resp BP Pulse Ox 36.5 C 46 L 18 118/60 95 08/22/19 07:41 08/22/19 11:10 08/22/19 07:41 08/22/19 07:41 08/22/19 07:41 Constitutional: WD/WN, vitals as above Respiratory: normal respiratory effort, lungs clear to auscultation Cardiovascular: RRR, no murmur, no edema Heart Sounds: no murmur Vessels: no JVD Extremities: + edema (Trace lower extremity edema) Gastrointestinal (Abdomen): normal bowel sounds, soft, nontender, no hepatosplenomegaly Neurologic: PERRL, EOMI, accommodation nl, no face palsy, no dysarthria Results & Data Vital Signs (Past 12 Hours) Vital Signs Temp Pulse Pulse Pulse Resp BP BP 08/22/19 11:10 46 L 08/22/19 07:41 36.5 C 63 18 118/60 08/22/19 05:38 152/64 H 08/22/19 04:08 37.0 C 56 L 19 145/71 H 08/22/19 02:48 139/56 L 08/22/19 01:43 57 L 22 08/22/19 01:27 53 L 159/67 H 08/22/19 01:10 52 L 08/22/19 00:06 60 22 169/85 H BP Pulse Ox 08/22/19 11:10 08/22/19 07:41 95 08/22/19 05:38 08/22/19 04:08 96 08/22/19 02:48 08/22/19 01:43 97 08/22/19 01:27 08/22/19 01:10 159/67 H 08/22/19 00:06 93 Laboratory Results Cardiac Enzymes 08/21/19 08/21/19 08/22/19 Range/Units 17:31 22:50 03:58 AST 11 L (15-37) U/L Troponin I < 0.015 0.909 H* 4.970 H* (0-0.045) ng/ml Coagulation 08/21/19 08/22/19 Range/Units 17:31 03:58 PT 11.2 (9.0-12.0) Seconds APTT 27.9 28.1 (21.0-31.0) Seconds CBC 08/21/19 08/22/19 Range/Units 17:31 03:58 WBC 4.65 L 4.20 L (4.8-10.8) K/uL RBC 3.06 L 2.93 L (4.7-6.1) M/uL Hgb 9.6 L 9.1 L (14.0-18.0) g/dL Hct 28.6 L 27.5 L (42-52) % Plt Count 104 L 94 L (130-400) K/uL Neut # (Auto) 3.57 3.24 (1.4-6.5) K/uL Lymph # (Auto) 0.56 L 0.70 L (1.2-3.4) K/uL [place] # (Auto) 0.41 0.47 (0.11-0.59) K/uL Eos # (Auto) 0.06 0.05 (0-0.5) K/uL Baso # (Auto) 0.01 0.01 (0-0.2) K/uL Comprehensive Metabolic Panel 08/21/19 08/22/19 Range/Units 17:31 03:58 Sodium 140 142 (136-145) mmol/L Potassium 5.0 4.7 (3.5-5.1) mmol/L Chloride 111 H 110 H (98-107) mmol/L Carbon Dioxide 25 28 (21-32) mmol/L BUN 33 H 33 H (7-18) mg/dl Creatinine 1.64 H 1.73 H (0.6-1.4) mg/dl Glucose 149 H 101 H (70-99) mg/dl Calcium 8.5 8.5 (8.5-10.1) mg/dl AST 11 L (15-37) U/L ALT 18 (12-78) U/L Alkaline Phosphatase 96 (45-117) U/L Total Protein 6.3 L (6.4-8.2) gm/dl Albumin 3.6 (3.4-5.0) gm/dl Intake and Output 08/21/19 08/22/19 08/22/19 22:59 06:59 14:59 Intake Total 150 / 206 56 / 206 8.7 / 8.7 Output Total 350 / 1130 780 / 1130 710 / 710 Balance -200 / -924 -724 / -924 -701.3 / -701.3 Intake: IV 56 / 56 8.7 / 8.7 Albumin 25% 50 ml @ 54 mls/hr 56 / 56 IV ONE ONE with Lasix 60 mg Rx# :[id number] HEPARIN SODIUM/DEXTROSE 25,000 8.7 / 8.7 units In 500 ml @ 900 UNITS/HR 18 mls/hr IV .Q[facility]H [facility] Rx#: [id number] Oral 150 / 150 Output: Urine 350 / 1130 780 / 1130 710 / 710 Other: Weight 89.18 kg 83.5 kg Diagnostic Findings Transthoracic echocardiogram performed today 08/22/2019 and reviewed independently: Mild concentric left ventricular hypertrophy is present. There is a moderate sized apical, septal, and anteroseptal wall motion abnormality with hypokinesis of the segments. The left ventricular ejection fraction is mildly reduced, 45-50%. Borderline to mild aortic valve stenosis is present. There is mild mitral regurgitation. There is mild tricuspid regurgitation. Mild pulmonary hypertension is present with pulmonary artery systolic pressure estimated to be 43 mmHg. Compared to the images obtained at the time of the prior study performed 07/01/2018 the septal wall motion abnormality is new. EKG performed today 08/22/2019 at 12:03 AM revealed sinus rhythm at 65 bpm with occasional PACs, lateral ST segment depression, less pronounced compared to 2018
--- NOTE | 2019-08-22 12:16 | Electrocardiogram Report ---
Test Reason : Blood Pressure : / mmHG Vent. Rate : 065 BPM Atrial Rate : 065 BPM P-R Int : 196 ms QRS Dur : 088 ms QT Int : 452 ms P-R-T Axes : 021 -12 127 degrees QTc Int : 470 ms Sinus rhythm with occasional Premature ventricular complexes and Premature atrial complexes Prolonged QT Abnormal ECG When compared with ECG of 21-AUG-2019 17:31, (unconfirmed) Premature ventricular complexes are now Present Premature atrial complexes are now Present HI interval has decreased T wave inversion more evident in Lateral leads Confirmed by Mayo Martel ([id number]) on 08/22/2019 12:15:29 PM Referred By: REFERRED SELF Confirmed By:Mayo Martel
--- NOTE | 2019-08-22 12:27 | Electrocardiogram Report ---
Test Reason : Blood Pressure : / mmHG Vent. Rate : 061 BPM Atrial Rate : 061 BPM P-R Int : 196 ms QRS Dur : 090 ms QT Int : 454 ms P-R-T Axes : 018 -16 143 degrees QTc Int : 457 ms Sinus rhythm with occasional Premature ventricular complexes Abnormal ECG When compared with ECG of 22-AUG-2019 00:03, (unconfirmed) Premature atrial complexes are no longer Present T wave inversion now evident in Anterior leads Confirmed by Mayo Martel ([id number]) on 08/22/2019 12:26:31 PM Referred By: REFERRED SELF Confirmed By:Mayo Martel
--- NOTE | 2019-08-22 12:35 | Discharge Summary ---
Date of Service August 22, 2019 Admission HPI Per Admitting Provider HISTORY OF PRESENT ILLNESS: This is a 74-year-old male with past medical history significant for severe peripheral artery disease with multiple lower extremity interventions where he received drug-eluting balloon, drug-eluting stent to left popliteal and SFA; history of pancytopenia; history of hypertension; hyperlipidemia; type 2 diabetes; aortic insufficiency; carotid artery stenosis and status post right internal carotid artery stenting in 02/2018; renal artery stenosis and history of CABG in 1996 with multiple cardiac catheterizations. He was admitted to the [facility] on 07/02/2018 with chest pain. 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 A cardiac cath was done, which showed occluded bypass grafts and left main blockages and he was transferred to [place] for further intervention. In [place], he was deemed not a candidate for CABG and he was status post 5 stents placements. Since then, he is doing fine. He just recently had a workup with Cardiology, had says everything was looking okay and today after his lunch at 1:00 p.m., he noticed chest pain all over the chest, severe in nature, was sweating at that time. Denies any shortness of breath. He is always dizzy, but nothing more than his usual. He took his nitro at home, but nitro was old and it did not help him, so he came to the ER. In the ER, he was given nitro and nitro paste. The pain is much improved. He thinks the pain could also be from acid reflux as it happened after eating his lunch. Currently resting comfortably. Blood pressure somewhat running high. He states he still has discomfort and he says acid reflux medication might help.. Denies any cough. No headache, no blurred vision, no earache, no runny nose, no sore throat. Appetite is okay. No dysphagia. No nausea, no vomiting, no abdominal pain. Normal bowel and bladder movements. No hematuria or burning micturition. No black stools or blood in the stool. He complains his left lower extremity is more swollen than usual since last 1 week, but denies any pain in the lower extremities. He has chronic pain in the legs if he ambulates for long distance. Admission Exam Per Admitting Provider PHYSICAL EXAMINATION: GENERAL: The patient is of moderate build, not in acute distress. VITAL SIGNS: Temperature 36.7, pulse 52, respiratory rate 22, blood pressure 195/87, oxygen 98% on 2 liters. HEENT: No pallor, no icterus. Pupils equal, round, reactive to light. NECK: No JVD, no neck masses, no carotid bruits. CARDIOVASCULAR SYSTEM: S1, S2 heard. Regular rate and rhythm. Bradycardia. No murmurs. RESPIRATORY SYSTEM: Normal AP diameter. No accessory muscle use. No wheezing, no crackles. ABDOMEN: Soft, bowel sounds present, nontender. No distention. CENTRAL NERVOUS SYSTEM: Cranial nerves II-XII grossly nonfocal. EXTREMITIES: lower extremity edema present more on left lower extremity. No erythema seen. Principal Diagnosis NSTEMI Discharge Data Allergies Allergy/AdvReac Type Severity Reaction Status Date / Time hydralazine Allergy Hives Verified 08/21/19 18:56 Iodinated Contrast Media Allergy Unknown Verified 08/21/19 18:56 [Iodinated Contrast- Oral and IV Dye] Consultations 08/21/19 19:13 ED Decision to Admit Stat 08/21/19 20:47 Consult Case Management - Discharge Planning Routine 08/22/19 08:00 Consult Cardiology Routine 08/22/19 12:30 Burn CD for patient Stat Ordered Studies 08/21/19 20:47 US venous doppler LE Routine Hospital Course (1) NSTEMI (non-ST elevated myocardial infarction): (2) HARJEET (acute kidney injury): 74-year-old man with known complex heart history presented with chest pain and was found to have a non-ST elevated myocardial infarction. A chest x-ray revealed trace bilateral effusions and mild interstitial pulmonary edema and 40 mg of Lasix IV was given. Additionally the patient reported increasing edema of the left lower extremity so a Doppler was performed revealing no evidence of DVT within the left lower extremity. EKG tracings during this hospitalization have revealed sinus rhythm with occasional bradycardia with lateral ST changes that are less pronounced in the significant diffuse ST segment depression and T wave inversions noted when he was previously hospitalized at this facility in June 2018. His troponin was initially negative and trended up to 0.909 and then 4.97. An echocardiogram revealed a new septal and inferior wall motion abnormality compared to 2018 with a low normal EF. A heparin drip was started overnight. He was continued on aspirin, clopidogrel, carvedilol, amlodipine, isosorbide mononitrate, Ranexa and atorvastatin. Cardiology was consulted and recommended transfer to tertiary care center for high risk cardiac cathete rization which could be performed after his renal function was optimized. The patient also has a contrast allergy, complicating the situation. His creatinine at admission was 1.6, the next morning was 1.7 with a baseline of 1.4. At time of discharge he was hemodynamically stable and afebrile and tolerating p.o. He was mentating and ambulating at baseline. He reported a 1 out of 10 chest pain that was significantly improved since admission. He was discharged to [facility] for further work-up and treatment. Close primary care follow-up was recommended once discharge from the hospital. Total Time Total Time Spent Total Time Spent (In Minutes): 60 Total Time Includes: Examination of the Patient, Discharge Planning, Medication Reconciliation and Communication With Other Providers Discharge Plan Discharge Items Patient Disposition: Transfer Acute Care Hospital Reason For Visit: CHEST PAIN Discharge Diagnosis: NSTEMI Activity: As commented below Activity Comment: per receiving facility Non-emergency contact: Primary Care Provider Call non-emergency contact if: you have any medication questions, your symptoms worsen, your pain is not controlled, your pain is worsening, your pain is unusual for you, your pain is concerning for you and you have a fever Follow-up/Referrals: Dalila Viera MD [Primary Care Provider] - 08/25/19 12:45 pm Diet: Carb Consistent or DM2 and Heart Healthy Addtl Attending Provider Instructions: You are being transferred to [facility] in [place], [place] for further workup and treatment of your chest pain. It is recommended that you follow-up with your primary care physician within one week of discharge from the hospital. It was a pleasure taking care of you! Please call if you have any questions or problems. You can reach a [facility] hospitalist on duty at [facility] 24 hours a day by calling [phone]. Take care of yourself. Zahraa Jacome, [facility]ist Pending Studies at Discharge: No Stand-Alone Forms: Call Back Authorization, My [facility] Skilled Items Patient informed of condition?: Yes DNR: No Discharge Level of Care: Other Communicable Disease: No Discharge Prognosis: Stable Lines: Peripheral IV Urinary Catheter: No Medications and DC Order Prescriptions: Continued atorvastatin [Lipitor] 40 mg Tablet 40 mg PO QAM RF: 0 metformin 500 mg Tablet 500 mg PO QAM RF: 0 clopidogrel [Plavix] 75 mg Tablet 75 mg PO QAM RF: 0 tramadol 50 mg Tablet 50 mg PO Q6H PRN (Reason: Pain) RF: 0 isosorbide mononitrate 60 mg Tablet Extended Release 24 Hr 120 mg PO DAILY RF: 0 meclizine 25 mg Tablet 25 mg PO TID PRN (Reason: Dizziness) RF: 0 amlodipine [Norvasc] 10 mg Tablet 10 mg PO QAM RF: 0 cyanocobalamin (vitamin B-12) 1,000 mcg/mL Solution 1 ml IM MONTHLY RF: 0 nitroglycerin [Nitrostat] 0.4 mg Tablet, Sublingual 0.4 mg Sublingual DIRECTED PRN (Reason: Chest Pain) RF: 0 lisinopril 40 mg Tablet 40 mg PO DAILY RF: 0 potassium chloride [Klor-Con M10] 10 mEq Tablet,Er Particles/Crystals 10 meq PO BID RF: 0 ranolazine [Ranexa] 1,000 mg Tablet Extended Release 12 Hr 500 mg PO BID RF: 0 sucralfate 1 gram tablet 1 g PO BID RF: 0 ferrous sulfate 325 mg (65 mg iron) tablet 325 mg PO Q OTHER DAY RF: 0 aspirin 81 mg tablet,chewable 81 mg PO DAILY RF: 0 hydrochlorothiazide 12.5 mg tablet 25 mg PO QAM RF: 0 carvedilol 25 mg tablet 25 mg PO BID RF: 0 Discharge Orders: Discharge Order (Routine); Ordered 08/22/19 Ordered By: Zahraa Jacome Admission Data Admit Date/Time: 08/22/19 09:20 Attending Provider: Zahraa Jacome Admit Provider: Damion Portillo Primary Care Provider: Dalila Viera Other Providers: Damion Portillo ; Noe Bacon ; Deric Smith ; Tommy Rock ; Ranjit Casarez ; Andreas Myers ; Timothy Puente ; Nupur Koenig ; Kaitlin Castro ; Beka Welch Other Interventions: Discharge Summary Assessment (RN) Last Done: 08/22/19 17:59 DC Date/Time DO NOT enter until pt leaves facility: 08/22/19 18:02
[2019-08-22 13:03] LABS: Partial Thromboplastin Ratio 1.4; Partial Thromboplastin Time 38.7 Seconds (21.0-31.0)
[2019-08-22] MEDS ORDERED: HEPARIN IV BOLUS 4,500 UNITS in SYRINGE 0 ML IV STA (13:30)
--- NOTE | 2019-08-22 17:01 | Hospitalist Progress Note ---
Date of Service August 22, 2019 Assessment & Plan (1) NSTEMI (non-ST elevated myocardial infarction): (2) HARJEET (acute kidney injury): 74-year-old man with known complex heart history presented with chest pain and was found to have a non-ST elevated myocardial infarction. A chest x-ray revealed trace bilateral effusions and mild interstitial pulmonary edema and 40 mg of Lasix IV was given. Additionally the patient reported increasing edema of the left lower extremity so a Doppler was performed revealing no evidence of DVT within the left lower extremity. EKG tracings during this hospitalization have revealed sinus rhythm with occasional bradycardia with lateral ST changes that are less pronounced in the significant diffuse ST segment depression and T wave inversions noted when he was previously hospitalized at this facility in June 2018. His troponin was initially negative and trended up to 0.909 and then 4.97. An echocardiogram revealed a new septal and inferior wall motion abnormality compared to 2018 with a low normal EF. A heparin drip was started overnight. He was continued on aspirin, clopidogrel, carvedilol, amlodipine, isosorbide mononitrate, Ranexa and atorvastatin. Cardiology was consulted and recommended transfer to tertiary care center for high risk cardiac catheterization which could be performed after his renal function was optimized. The patient also has a contrast allergy, complicating the situation. His creatinine at admission was 1.6, the next morning was 1.7 with a baseline of 1.4. At time of discharge he was hemodynamically stable and afebrile and tolerating p.o. He was mentating and ambulating at baseline. He reported a 1 out of 10 chest pain that was significantly improved since admission. He was discharged to [facility] for further work-up and treatment. Close primary care follow-up was recommended once discharge from the hospital. Results & Data ([facility]) Vital Signs (Past 12 Hours) Vital Signs Temp Pulse Pulse Pulse Resp BP Pulse Ox 08/22/19 16:00 59 L 08/22/19 15:49 36.4 C L 68 18 148/61 H 94 08/22/19 12:07 36.8 C 88 18 152/76 H 96 08/22/19 11:10 46 L 08/22/19 07:41 36.5 C 63 18 118/60 95 08/22/19 05:38 152/64 H
[2019-08-22] MEDS: LEVALBUTEROL HCL 1.25 MG/3 ML NEB INH PRN (17:13)
== END 2019-08-22 18:02 | disposition short-term general hospital (02) | DRG 281 ==
LOC: ED 16:12 → 2E 16:12

== ENCOUNTER 2019-09-16 09:24 | Inpatient (IN) ==
[2019-09-16] MEDS ORDERED: DIPHTHERIA/TETANUS/PERTUSSIS 0.5 ML SYR/VIAL IM ONE (09:33)
[2019-09-16] MEDS ORDERED: LIDOCAINE/EPINEPH/TETRACAINE 1 EA SYR EXT ONE (09:33)
[2019-09-16] MEDS ORDERED: LIDOCAINE/EPINEPH/TETRACAINE 1 EA SYR EXT STA (09:33)
--- NOTE | 2019-09-16 09:43 | Emergency Department Note ---
Entered by Albina Hastings acting as a scribe for Mayo Smith DO History of Present Illness General Chief complaint: Fall Stated complaint: fall/ facial lac Time Seen by Provider: 09/16/19 09:26 Source: patient and EMS Mode of arrival: EMS History of Present Illness Onset (ago): hour(s) (just prior to arrival ) Location: head (general) Pain Consistency: + other (episode ) Quality: + other (fall) Associated symptoms: + weakness (now resolved ) and + other (positive now resolved lightheaded; negative dizziness; negative leg swelling; negative neck pain; negative back pain; negative abdominal pain); no chest pain and no shortness of breath The patient is a 74 year old male who presents to the Emergency Room with complaints of an episode of a fall that occurred just prior to arrival. The patient reports that just prior to his fall he began to feel lightheaded and wea k. He states that he was going to take a shower but felt lightheaded so he went to lay down, but states that he did not make it to his bed. The patient states that he hurt his face at this time, but denies any other pain from his fall. He denies chest pain, shortness of breath, leg swelling, leg pain, neck pain, back pain, abdominal pain, and dizziness currently. The patient states that he was seen in the ED last month for an AK and had a stent placed. He reports that he was started on several new medications at this time. The patient reports that some of his medication was reduced last week. Per EMS, the patient had several empty bottles of Nitroglycerin at his bedside, but the patient denies taking this. The patient reports a history of a heart murmur. The patient states that he is unsure if his tetanus is up to date. Home Medications Home Medications Medication Instructions Recorded Confirmed Type amlodipine [Norvasc] 10 mg PO DAILY 03/24/18 09/16/19 History cyanocobalamin (vitamin B-12) 1 ml IM MONTHLY 03/24/18 09/16/19 History meclizine 25 mg PO TID PRN 03/24/18 09/16/19 History nitroglycerin [Nitrostat] 0.4 mg SUBLINGUAL DIRECTED PRN 03/24/18 09/16/19 History potassium chloride [Klor-Con M10] 10 meq PO BID 03/24/18 09/16/19 History ranolazine [Ranexa] 500 mg PO BID 03/24/18 09/16/19 History tramadol 50 mg PO Q6H PRN 03/24/18 09/16/19 History aspirin 81 mg PO QAM 08/21/19 09/16/19 History carvedilol 25 mg PO BID 08/21/19 09/16/19 History ferrous sulfate 325 mg PO Q2D 08/21/19 09/16/19 History atorvastatin 80 mg PO QAM 09/16/19 09/16/19 History furosemide 80 mg PO QAM 09/16/19 09/16/19 History isosorbide mononitrate 60 mg PO QAM 09/16/19 09/16/19 History ticagrelor [Brilinta] 90 mg PO BID 09/16/19 09/16/19 History Allergies Allergy/AdvReac Type Severity Reaction Status Date / Time hydralazine Allergy Hives Verified 09/16/19 11:07 Iodinated Contrast Media Allergy Unknown Verified 09/16/19 11:07 [Iodinated Contrast- Oral and IV Dye] Past Med/Surg History Medical History CAD (coronary artery disease) Chronic obstructive pulmonary disease mild--no inhaler Diabetes mellitus, type 2 History of common carotid artery stent placement 06/2017 @ [facility] [place], [place] Hyperlipidemia Hypertension Myocardial Infarction 1996 On anticoagulant therapy on plavix Osteoarthritis PVD (peripheral vascular disease) Stroke 08/27/2017--no deficits Thoracic ascending aortic aneurysm Surgical History Chest pain 07/09/18 [place]AC [place] WITH 5 MORE HE[place] [facility] [place] of cardiac cath pt states he has had about 12 of them--last one "a couple years ago" History of cholecystectomy History of colonoscopy History of coronary artery [place] [facility] [place] History of heart artery stent pt is unsure of how many heart stents, states around 39 stents total (including peripheral artery) History of left cataract extraction History of procedure for peripheral vascular disease pt states he has had about 6 with multiple stents placed History of tooth extraction wisdom teeth Family History Other Cancer Coronary heart disease Social History Preferred Language: Belarusian Communication Ability: Effective Director Of Laboratory Operations Required: No Beliefs That Will Affect Care: None marital status: Single Current Living Situation: Alone Current Living Situation Comment: [facility] Other Information That Helps Us Care for You: No Feels Safe at Home: Yes Smoking Status: Never smoker Tobacco Type: smokeless tobacco ; Cigarettes Per Day: quit 1997 ; Do You Dip or Chew Tobacco: Yes ; Second Hand Exposure: No ; Hx Alcohol Use: No Hx Substance Use: No Review of Systems See HPI for pertinent positives & negatives. and A total of 10 systems reviewed and were otherwise negative Physical Exam Vital Signs Vital Signs - 24 hr 09/16/19 09:33 09/16/19 10:45 09/16/19 12:00 Temperature 36.8 C Temperature Source Oral Pulse Rate 55 L Pulse Rate [Right Finger] 49 L 55 L Respiratory Rate 18 20 18 Respiratory Effort / Characteristics Non-Labored Spontaneous Non-Labored Spontaneous Non-Labored Spontaneous Respiratory Depth Normal Normal Normal Respiratory Pattern Regular Regular Blood Pressure 107/59 L Blood Pressure [Left Arm] 116/52 L 137/57 L Blood Pressure Mean 75 Blood Pressure Mean [Left Arm] 73 83 Blood Pressure Position Lying Blood Pressure Position [Left Arm] Sitting Lying Pulse Oximetry 95 98 94 Oxygen Delivery Method Room Air Room Air Room Air Sepsis Recent Fever Within 48 Hours No Sepsis New/Unexplained Change in Mental Status No Sepsis Action Taken by Nursing No Action Required GENERAL: The patient is awake and alert. He is somewhat anxious appearing and uncomfortable. EYES: The conjunctivae are clear. The pupils are round and reactive. EARS, NOSE, MOUTH AND THROAT: There is abrasions and lacerations noted to the face. There is laceration lateral to the right eyebrow. There is also a laceration on the right side of the nose. There is a small abrasion on the bridge of nose with significant swelling. There is clotted blood in both nares. No active bleeding was noted. NECK: The neck is nontender and supple. RESPIRATORY: Diminished breath sounds are noted throughout. There are rales noted in the right lung field. CARDIOVASCULAR: Bradycardic rate was noted to auscultation. There was a sys tolic murmur suggested. GASTROINTESTINAL: The abdomen is soft. Abdomen is nontender. MUSCULOSKELETAL/EXTREMITIES: There is no evidence of gross deformity full range of motion is noted in the hips and shoulders. SKIN: There is no obvious evidence of any rash. There is ecchymosis noted over the extremities upper and lower extremities. NEUROLOGIC: Patient is awake alert and oriented x3. Strength was symmetric. Procedures Laceration Laceration 1: Site: face (lateral to right eyebrow ) Side (If applicable): right Size (cm): 2 Description: linear Depth: simple, single layer Local Anesthetic: other anesthetic (let gel) Amount of anesthesia used (mL): 5 Pre-repair: irrigated extensively Skin layer closed with: other (dermabond) Laceration 2: Site: face (lateral border of right side of nose ) Side (If applicable): right Size (cm): 1 Description: linear Depth: simple, single layer Local Anesthetic: other anesthetic (let gel) Amount of anesthesia used (mL): 5 Pre-repair: irrigated extensively Skin layer closed with: other (dermabond) Course Course 0928: Past medical records reviewed. The patient was evaluated in room B2. A complete history and physical exam was performed. 1135: I checked on and updated the patient. I cleaned the patient up and put Dermabond on his face. 1138: Mercy Glynn PA-C was made aware of the patient. 1144: I discussed the case with Mercy Glynn PA-C who accepts the patient for further evaluation under Dr. Hernandez Hospitalist service. Administered Medications Amlodipine Besylate (Norvasc) 10 mg PO DAILY [facility] Stop: 10/17/19 08:59 Last Admin: 09/17/19 07:47 Dose: 10 mg Documented by: [id number] Aspirin (Ecotrin Ectab) 81 mg PO QAM QIAN Stop: 10/17/19 08:59 Last Admin: 09/17/19 07:47 Dose: 81 mg Documented by: [id number] Atorvastatin Calcium (Lipitor) 80 mg PO QAM QIAN Stop: 10/17/19 08:59 Last Admin: 09/17/19 07:47 Dose: 80 mg Documented by: [id number] Carvedilol (Coreg) 25 mg PO BID QIAN Stop: 10/16/19 20:59 Last Admin: 09/16/19 20:22 Dose: 25 mg Documented by: [id number] Ferrous Sulfate (Feosol) 325 mg PO Q2D@0900 [facility] Stop: 10/17/19 08:59 Last Admin: 09/17/19 07:47 Dose: 325 mg Documented by: [id number] Insulin Aspart (Novolog Flexpen) 0 units SC ACHS [facility] Stop: 10/16/19 16:29 Last Admin: 09/17/19 07:49 Dose: 4 units Documented by: [id number] Cosigned by: [id number] Admin: 09/16/19 20:22 Dose: 1 units Documented by: [id number] Cosigned by: [id number] Admin: 09/16/19 17:10 Dose: 3 units Documented by: [id number] Cosigned by: [id number] Isosorbide Mononitrate (Imdur Extended Rel) 60 mg PO QAM [facility] Stop: 10/17/19 08:59 Last Admin: 09/17/19 07:47 Dose: 60 mg Documented by: [id number] Ranolazine (Ranexa) 500 mg PO BID [facility] Stop: 10/16/19 20:59 Last Admin: 09/17/19 07:48 Dose: 500 mg Documented by: [id number] Admin: 09/16/19 20:22 Dose: 500 mg Documented by: [id number] Ticagrelor (Brilinta) 90 mg PO BID [facility] Stop: 10/16/19 20:59 Last Admin: 09/17/19 07:46 Dose: 90 mg Documented by: [id number] Admin: 09/16/19 20:22 Dose: 90 mg Documented by: [id number] Discontinued Medications Diphtheria/Pertussis/Tetanus Vacc (Adacel) 0.5 ml IM .ONCE ONE Stop: 09/16/19 09:34 Last Admin: 09/16/19 10:01 Dose: 0.5 ml Documented by: [id number] Sodium Chloride (Nss 1000ml) 500 mls @ 999 mls/hr IV .Q31M ONE Stop: 09/16/19 11:06 Last Infusion: 09/16/19 11:18 Dose: 0 mls/hr Documented by: [id number] Admin: 09/16/19 10:42 Dose: 999 mls/hr Documented by: [id number] Lidocaine (Let Gel 4%/1:100/0.5%) Confirm Administered Dose 1 ea EXT .STK-MED ONE Stop: 09/16/19 09:34 Last Admin: 09/16/19 09:45 Dose: Not Given Documented by: [id number] Lidocaine (Let Gel 4%/1:100/0.5%) 1 ea EXT NOW STA Stop: 09/16/19 09:34 Last Admin: 09/16/19 09:45 Dose: 1 ea Documented by: [id number] Medical Decision Making Differential Diagnosis Differential diagnosis includes etiologies such as vasovagal event, infection, hypoglycemia, electrolyte abnormalities, cardiac sources, intracerebral event, toxicologic, neurologic, as well as others were entertained. Medical Records Attestation: I reviewed the patient's medical records. Home Medications Current Medication List: was personally reviewed by me Laboratory Data Attestation: I reviewed the patient's lab results. Result diagrams: 09/17/19 05:57 09/17/19 05:57 Lab Results 09/16/19 09/16/19 09/16/19 Range/Units 09:45 09:45 09:45 WBC 7.88 (4.8-10.8) K/uL RBC 3.52 L (4.7-6.1) M/uL Hgb 10.8 L (14.0-18.0) g/dL Hct 32.6 L (42-52) % MCV 92.6 (80-100) fL MCH 30.7 (25-34) pg MCHC 33.1 (32-36) g/dL RDW Std Deviation 48.5 H (36.4-46.3) fL RDW Coeff of Dary 14.5 (11.5-14.5) % Plt Count 155 (130-400) K/uL MPV 8.6 (7.4-10.4) fL Immature Gran % (Auto) 1.0 % Neut % (Auto) 83.8 % Lymph % (Auto) 6.9 % [place] % (Auto) 7.5 % Eos % (Auto) 0.5 % Baso % (Auto) 0.3 % Immature Gran # (Auto) 0.08 H (0.00-0.02) K/uL Neut # (Auto) 6.61 H (1.4-6.5) K/uL Lymph # (Auto) 0.54 L (1.2-3.4) K/uL [place] # (Auto) 0.59 (0.11-0.59) K/uL Eos # (Auto) 0.04 (0-0.5) K/uL Baso # (Auto) 0.02 (0-0.2) K/uL PT 11.0 (9.0-12.0) Seconds INR 1.1 (0.9-1.1) Sodium 138 (136-145) mmol/L Potassium 4.6 (3.5-5.1) mmol/L Chloride 105 (98-107) mmol/L Carbon Dioxide 24 (21-32) mmol/L Anion Gap 9.0 (3-11) BUN 48 H (7-18) mg/dl Creatinine 2.75 H (0.6-1.4) mg/dl Est Cr Clr Drug Dosing 21.4 ml/min Est GFR ( Amer) 24.8 Est GFR (Non-Af Amer) 21.4 BUN/Creatinine Ratio 17.5 (10-20) Glucose 228 H (70-99) mg/dl Calcium 8.7 (8.5-10.1) mg/dl Magnesium 2.6 H (1.8-2.4) mg/dl Total Bilirubin 0.9 (0.2-1) mg/dl AST 13 L (15-37) U/L ALT 26 (12-78) U/L Alkaline Phosphatase 111 (45-117) U/L Total Creatine Kinase 55 (39-308) U/L CK-MB (CK-2) 1.4 (0.5-3.6) ng/ml CK/CKMB % Calc 2.5 (0-3.0) Troponin I < 0.015 (0-0.045) ng/ml Total Protein 6.9 (6.4-8.2) gm/dl Albumin 3.5 (3.4-5.0) gm/dl Globulin 3.4 (2.5-4.0) gm/dl Albumin/Globulin Ratio 1.0 (0.9-2) TSH 2.810 (0.300-4.500) uIu/ml Imaging Data Radiologist's Impression: Radiology results as stated below per my review and the radiologist's interpretation: SINGLE VIEW CHEST CLINICAL HISTORY: Generalized weakness. FINDINGS: An AP, portable, upright chest radiograph is compared to study dated 08/22/2019. The examination is degraded by portable technique and patient rotation. The patient is status post midline sternotomy. The heart is mildly en larged noting atherosclerotic calcification of the thoracic aorta. The pulmonary vasculature is noncongested. There is chronic elevation of the right hemidiaphragm with bibasilar scarring/atelectasis. No airspace consolidation or large pleural effusion is identified. No pneumothorax is seen. The skeletal structures are osteopenic. The bony thorax is grossly intact. Advanced arthritic change is noted in the right shoulder. Cholecystectomy clips are seen in the right upper quadrant. IMPRESSION: Mild cardiac enlargement with no acute cardiopulmonary abnormality. ACT 112: Negative or not required by law. Electronically signed by: J Carlos Whipple M.D. 09/16/2019 10:[address] SCAN OF THE BRAIN WITHOUT IV CONTRAST CLINICAL HISTORY: Fall. COMPARISON STUDY: No priors. TECHNIQUE: Unenhanced axial CT scan of the brain is performed from the vertex to the skull base. A dose lowering technique was utilized adhering to the principles of ALARA. FINDINGS: Brain parenchyma: There are age-related involutional changes noting mild subcortical and periventricular microangiopathic change. Left parieto-occipital encephalomalacia is consistent with a remote insult. A chronic lacunar infarct is identified in the right centrum semiovale. Chronic lacunar infarcts are also seen in the cerebellar hemispheres and the right internal capsule. There is no hemorrhage, mass effect, or evidence of acute territorial ischemia by CT criteria. West-white matter differentiation is preserved. No extra-axial fluid collection is seen. Ventricles, sulci, cisterns: Prominent secondary to involutional change. Intracranial vasculature: There is advanced atherosclerotic calcification of the cavernous carotid and vertebral arteries. Calvarium: The skeletal structures are osteopenic. There is no depressed calvarial fracture. Soft tissues: There is a small occipital scalp contusion. Sinuses and mastoids: Trace mucosal thickening is noted in the left maxillary antrum and the left sphenoid sinus. The remaining visualized paranasal sinuses are clear. The mastoid air cells are well pneumatized. Orbits: The bony orbits are grossly intact. There is evidence of bilateral ocular lens surgery. IMPRESSION: There is no hemorrhage, mass effect, or evidence of acute territorial ischemia by CT criteria. ACT 112: Negative or not required by law. Electronically signed by: J Carlos Whipple M.D. 09/16/2019 10:[address] SCAN OF THE FACIAL BONES WITHOUT IV CONTRAST CLINICAL HISTORY: Fall. COMPARISON STUDY: CT of the brain performed concurrently on 09/16/2019. TECHNIQUE: High-resolution CT scan of the facial bones is performed. Images are reviewed in the axial, sagittal, and coronal planes. IV contrast was not administered for this examination. A dose lowering technique was utilized adhering to the principles of ALARA. CT DOSE: 1718.28 mGy.cm FINDINGS: The skeletal structures are osteopenic. There is no evidence of facial bone fracture. The bony orbits are intact and the orbital contents are within normal limits noting previous bilateral ocular lens surgery. The zygomatic arches, nasal bones, and pterygoid plates are preserved. The maxilla and mandible are intact. Moderate to advanced degenerative change is noted at the temporomandibular joints. There are no layering blood products within the paranasal sinuses. There is trace mucosal thickening within the maxillary antra in the right frontal sinus. Mild mucosal thickening is noted in the left sphenoid sinus. The mastoid air cells are well pneumatized. Cerumen is noted in the external auditory canals. The visualized calvarium and upper cervical spine are maintained. Left parieto-occipital encephalomalacia is noted and consistent with a remote insult. Advanced atherosclerotic plaque is noted in the carotid bulbs. A stent is noted in the right internal carotid artery. Several dental caries are identified. Minimal soft tissue contusion overlies the right mandibular ramus. IMPRESSION: 1. There is no evidence of facial bone fracture. 2. There are numerous dental caries. Nonemergent follow-up with dentistry is recommended. ACT 112: Negative or not required by law. Electronically signed by: J Carlos Whipple M.D. 09/16/2019 11:[address] SCAN OF THE CERVICAL SPINE CLINICAL HISTORY: Fall. COMPARISON STUDY: No priors. TECHNIQUE: CT scan of the cervical spine is performed from the skull base to the upper thoracic spine. Images are reviewed in the axial, sagittal, and coronal planes. IV contrast was not administered for this examination. A dose lowering technique was utilized adhering to the principles of ALARA. FINDINGS: Skeletal structures: The skeletal structures are osteopenic. There is no evidence of fracture or subluxation involving the cervical spine. Vertebral body height is maintained. There is minimal anterolisthesis at C3-C4. Alignment is otherwise preserved. Small anterior osteophytes are seen throughout. The odontoid process and lateral masses are intact. The atlantoaxial articulation is preserved noting productive degenerative change. The spinous processes appear intact. There is moderate multilevel cervical spondylosis. Uncovertebral and facet arthropathy contribute to neural foraminal stenosis at several levels. Intervertebral discs: There is moderate disc space narrowing at C4-C5, C5-C6, and C6-C7. Central canal: Small posterior disc osteophyte complexes at C4-C5 and C5-C6 may contribute to minimal acquired compromise of the central canal. Soft tissues: The prevertebral and paraspinous soft tissues are within normal limits. There is advanced atherosclerotic calcification of the carotid arteries. Internal carotid artery stent is noted on the right. Calvarium: The visualized calvarium at the skull base appears intact. Brain parenchyma: Partially visualized brain parenchyma the skull base is within normal limits. Sinuses and mastoids: Mild mucosal thickening is noted in the maxillary antra and the left sphenoid sinus. The mastoid air cells are well pneumatized. Lung apices: Clear as visualized. IMPRESSION: 1. There is no evidence of fracture or subluxation involving the cervical spine. 2. Osteopenia and spondylotic change as above. ACT 112: Negative or not required by law. Electronically signed by: J Carlos Whipple M.D. 09/16/2019 10:44 AM ECG Data Attestation: I personally reviewed and interpreted this ECG as follows: Indication: + weakness Rate (beats per minute): 50 Rhythm: + sinus bradycardia ECG ST segments: + T-wave inversions (lateral and apical) ECG Findings: + LVH (bi voltage criteria ); no PACs and no PVCs Comparison ECG Date: from (08/22/19) Change: no significant change Blood Pressure Blood Pressure Findings: Low blood pressure Blood Pressure Disposition: further management by hospitalist [facility] Narrative The patient is a 74-year-old male who presented to the emergency department by ambulance after a fall. The patient's been having problems with weakness and dizziness especially upon standing. The patient was recently diagnosed with a cardiac condition and was started on multiple new medications including blood pressure medications as well as blood thinners. The patient had significant facial injury with lacerations over his face. The lacerations were repaired in usual fashion using Dermabond and let gel. I discussed the patient's laboratory and radiographic studies with him. He was treated with IV fluids in the e mergency department. He also had his tetanus shot updated. I discussed the patient's condition with him. At this time I do feel it is likely the new medications he was started on are the cause of the patient's dizziness. He was also found to have an elevation in his creatinine compared to baseline which could also lend itself to the patient's dizziness and falling. I was very concerned for the patient's overall condition. I discussed the patient's condition with the on-call [facility] hospitalist group. They have agreed to evaluate the patient in the emergency department for further management disposition. Impression & Plan Dizziness, Acute kidney injury, Fall, Facial contusion, Facial laceration, Bradycardia, Hypotension Discharge Plan Visit Data *Final* Discharge Date/Time: 09/16/19 12:52 Chief Complaint: Fall Stated Complaint: fall/ facial lac ED Provider: Mayo Smith Discharge Problem: Dizziness, Acute kidney injury, Fall, Facial contusion, Facial laceration, Bradycardia, Hypotension Patient Disposition: Admitted As Inpatient Discharge Instructions Interventions: ED Discharge Assessment Last Done: 09/16/19 12:52 Discharge Problem: Fall Qualifiers: Encounter type: initial encounter Qualified Code(s): W19.XXXA - Unspecified fall, initial encounter Facial contusion Qualifiers: Encounter type: initial encounter Qualified Code(s): S00.83XA - Contusion of other part of head, initial encounter Facial laceration Qualifiers: Encounter type: initial encounter Qualified Code(s): S01.81XA - Laceration without foreign body of other part of head, initial encounter Hypotension Qualifiers: Hypotension type: unspecified hypotension type Qualified Code(s): I95.9 - Hypotension, unspecified The scribe's documentation has been prepared under my direction and personally reviewed by me in its entirety. I confirm that the note above accurately reflects all work, treatment, procedures, and medical decision making performed by me.
[2019-09-16 09:58] LABS: Basophils # (auto) 0.02 K/uL (0-0.2); Basophils % (auto) 0.3 %; Eosinophils # (auto) 0.04 K/uL (0-0.5); Eosinophils % (auto) 0.5 %; Hematocrit (blood only) 32.6 % (42-52); Hemoglobin 10.8 g/dL (14.0-18.0); Immature Granulocytes # (auto) 0.08 K/uL (0.00-0.02); Lymphocytes # (auto) 0.54 K/uL (1.2-3.4); Lymphocytes % (auto) 6.9 %; Mean Corpuscular Hemoglobin 30.7 pg (25-34); Mean Corpuscular Hgb Conc 33.1 g/dL (32-36); Mean Corpuscular Volume 92.6 fL (80-100); Mean Platelet Volume 8.6 fL (7.4-10.4); Monocytes # (auto) 0.59 K/uL (0.11-0.59); Monocytes % (auto) 7.5 %; Neutrophils # (auto) 6.61 K/uL (1.4-6.5); Neutrophils % (auto) 83.8 %; Platelet Count 155 K/uL (130-400); RDW Coefficient of Variation 14.5 % (11.5-14.5); RDW Standard Deviation 48.5 fL (36.4-46.3); Red Blood Count 3.52 M/uL (4.7-6.1); White Blood Count 7.88 K/uL (4.8-10.8)
[2019-09-16 10:08] LABS: INR 1.1 (0.9-1.1)
--- NOTE | 2019-09-16 10:10 | XRay Report ---
SINGLE VIEW CHEST CLINICAL HISTORY: Generalized weakness. FINDINGS: An AP, portable, upright chest radiograph is compared to study dated 08/22/2019. The examinat ion is degraded by portable technique and patient rotation. The patient is status post midline sterno angel. The heart is mildly enlarged noting atherosclerotic calcification of the thoracic aorta. The pu lmonary vasculature is noncongested. There is chronic elevation of the right hemidiaphragm with bibas ilar scarring/atelectasis. No airspace consolidation or large pleural effusion is identified. No pneu mothorax is seen. The skeletal structures are osteopenic. The bony thorax is grossly intact. Advanced arthritic change is noted in the right shoulder. Cholecystectomy clips are seen in the right upper q uadrant. IMPRESSION: Mild cardiac enlargement with no acute cardiopulmonary abnormality. ACT 112: Negative or not required by law. Electronically signed by: J Carlos Whipple M.D. 09/16/2019 10:09 AM
[2019-09-16 10:16] LABS: Alanine Aminotransferase 26 U/L (12-78); Albumin Level 3.5 gm/dl (3.4-5.0); Aspartate Aminotransferase 13 U/L (15-37); BUN Creatinine Ratio 17.5 (10-20); Blood Urea Nitrogen 48 mg/dl (7-18); Calcium 8.7 mg/dl (8.5-10.1); Carbon Dioxide 24 mmol/L (21-32); Chloride 105 mmol/L (98-107); Creatinine Clr Calc Pharmacy 21.4 ml/min; Est GFR (African American) 24.8; Est GFR (Non-African American) 21.4; Glucose 228 mg/dl (70-99); Magnesium 2.6 mg/dl (1.8-2.4); Potassium 4.6 mmol/L (3.5-5.1); Sodium 138 mmol/L (136-145)
[2019-09-16 10:27] LABS: Alkaline Phosphatase 111 U/L (45-117); Bilirubin,Total 0.9 mg/dl (0.2-1); Creatine Kinase 55 U/L (39-308); Creatine Kinase MB 1.4 ng/ml (0.5-3.6); Globulin 3.4 gm/dl (2.5-4.0); Total Protein 6.9 gm/dl (6.4-8.2); Troponin I < 0.015 ng/ml (0-0.045)
[2019-09-16] MEDS ORDERED: SODIUM CHLORIDE 0.9% 1000ML 500 ML IV ONE (10:36)
--- NOTE | 2019-09-16 10:46 | CT Scan Report ---
CT SCAN OF THE CERVICAL SPINE CLINICAL HISTORY: Fall. COMPARISON STUDY: No priors. TECHNIQUE: CT scan of the cervical spine is performed from the skull base to the upper thoracic spine . Images are reviewed in the axial, sagittal, and coronal planes. IV contrast was not administered fo r this examination. A dose lowering technique was utilized adhering to the principles of ALARA. FINDINGS: Skeletal structures: The skeletal structures are osteopenic. There is no evidence of fracture or subl uxation involving the cervical spine. Vertebral body height is maintained. There is minimal anterolis thesis at C3-C4. Alignment is otherwise preserved. Small anterior osteophytes are seen throughout. Th e odontoid process and lateral masses are intact. The atlantoaxial articulation is preserved noting p roductive degenerative change. The spinous processes appear intact. There is moderate multilevel cerv ical spondylosis. Uncovertebral and facet arthropathy contribute to neural foraminal stenosis at jayshree ral levels. Intervertebral discs: There is moderate disc space narrowing at C4-C5, C5-C6, and C6-C7. Central canal: Small posterior disc osteophyte complexes at C4-C5 and C5-C6 may contribute to minimal acquired compromise of the central canal. Soft tissues: The prevertebral and paraspinous soft tissues are within normal limits. There is advanc ed atherosclerotic calcification of the carotid arteries. Internal carotid artery stent is noted on t he right. Calvarium: The visualized calvarium at the skull base appears intact. Brain parenchyma: Partially visualized brain parenchyma the skull base is within normal limits. Sinuses and mastoids: Mild mucosal thickening is noted in the maxillary antra and the left sphenoid s inus. The mastoid air cells are well pneumatized. Lung apices: Clear as visualized. IMPRESSION: 1. There is no evidence of fracture or subluxation involving the cervical spine. 2. Osteopenia and spondylotic change as above. ACT 112: Negative or not required by law. Electronically signed by: J Carlos Whipple M.D. 09/16/2019 10:44 AM
--- NOTE | 2019-09-16 10:49 | CT Scan Report ---
CT SCAN OF THE BRAIN WITHOUT IV CONTRAST CLINICAL HISTORY: Fall. COMPARISON STUDY: No priors. TECHNIQUE: Unenhanced axial CT scan of the brain is performed from the vertex to the skull base. A do se lowering technique was utilized adhering to the principles of ALARA. FINDINGS: Brain parenchyma: There are age-related involutional changes noting mild subcortical and periventric ular microangiopathic change. Left parieto-occipital encephalomalacia is consistent with a remote ins ult. A chronic lacunar infarct is identified in the right centrum semiovale. Chronic lacunar infarcts are also seen in the cerebellar hemispheres and the right internal capsule. There is no hemorrhage, mass effect, or evidence of acute territorial ischemia by CT criteria. West-white matter differentiat ion is preserved. No extra-axial fluid collection is seen. Ventricles, sulci, cisterns: Prominent secondary to involutional change. Intracranial vasculature: There is advanced atherosclerotic calcification of the cavernous carotid an d vertebral arteries. Calvarium: The skeletal structures are osteopenic. There is no depressed calvarial fracture. Soft tissues: There is a small occipital scalp contusion. Sinuses and mastoids: Trace mucosal thickening is noted in the left maxillary antrum and the left sph enoid sinus. The remaining visualized paranasal sinuses are clear. The mastoid air cells are well pne umatized. Orbits: The bony orbits are grossly intact. There is evidence of bilateral ocular lens surgery. IMPRESSION: There is no hemorrhage, mass effect, or evidence of acute territorial ischemia by CT allison shirley. ACT 112: Negative or not required by law. Electronically signed by: J Carlos Whipple M.D. 09/16/2019 10:47 AM
--- NOTE | 2019-09-16 11:03 | CT Scan Report ---
CT SCAN OF THE FACIAL BONES WITHOUT IV CONTRAST CLINICAL HISTORY: Fall. COMPARISON STUDY: CT of the brain performed concurrently on 09/16/2019. TECHNIQUE: High-resolution CT scan of the facial bones is performed. Images are reviewed in the axia l, sagittal, and coronal planes. IV contrast was not administered for this examination. A dose lower ing technique was utilized adhering to the principles of ALARA. CT DOSE: 1718.28 mGy.cm FINDINGS: The skeletal structures are osteopenic. There is no evidence of facial bone fracture. The b thai orbits are intact and the orbital contents are within normal limits noting previous bilateral ocu lar lens surgery. The zygomatic arches, nasal bones, and pterygoid plates are preserved. The maxilla and mandible are intact. Moderate to advanced degenerative change is noted at the temporomandibular j oints. There are no layering blood products within the paranasal sinuses. There is trace mucosal thic kening within the maxillary antra in the right frontal sinus. Mild mucosal thickening is noted in the left sphenoid sinus. The mastoid air cells are well pneumatized. Cerumen is noted in the external au ditory canals. The visualized calvarium and upper cervical spine are maintained. Left parieto-occipit al encephalomalacia is noted and consistent with a remote insult. Advanced atherosclerotic plaque is noted in the carotid bulbs. A stent is noted in the right internal carotid artery. Several dental car ies are identified. Minimal soft tissue contusion overlies the right mandibular ramus. IMPRESSION: 1. There is no evidence of facial bone fracture. 2. There are numerous dental caries. Nonemergent follow-up with dentistry is recommended. ACT 112: Negative or not required by law. Electronically signed by: J Carlos Whipple M.D. 09/16/2019 11:02 AM
--- NOTE | 2019-09-16 12:46 | History & Physical Report ---
Date of Service September 16, 2019 Assessment & Plan (1) Dizziness: (2) Fall: Pt is 74 y/o M with PMH significant CAD s/p CABG 1996, s/p angioplasty and stent to LAD in 08/2019, combined CHF, ischemic cardiomyopathy, DM II, HTN, HLD, carotid artery stenosis s/p right internal carotid artery stent 2017, PAD s/p stent left popliteal and SFA, pancytopenia, GERD, CKD III presented to ER with complaint of dizziness and fall. Patient reports chronic dizziness and lightheadedness, this morning walking in house when increased lightheaded and thinks passed out and fell hitting face on ground. Did not take BSG this morning, ate muffin for breakfast prior to fall. In ER afebrile, P: 55, R: 18, BP: 107/59, 94% on RA. No leukocytosis, H/H: 10.8/32.6, glucose: 228. Negative initial troponin. -In ER given 500ml NSS. Had facial lacerations closed with tissue adhesive. -Orthostatics -Tele to monitor to r/o arrhythmias, severe bradycardia -fall precautions -Trend troponin -CBC, BMP in am (3) Acute kidney injury: HARJEET on CKD III. Cr: 2.75. Recent Cr: 2.0 on 09/04/2019 and 2.4 on 08/26/2019 -Hold lasix for now -Monitor renal functions -Avoid nephrotoxic agents when possible -Nephrology consult (4) CAD (coronary artery disease): S/P CABG. Recent hospitalization at [facility] 08/21/2019-08/22/2019 for chest pain, and NSTEMI and was transferred to [facility] there he had balloon to LMCA and LAD with stent LAD. He developed acute respiratory failure thought secondary to fluid overload and was treated aggressively with diuretics. Patient followed up with his through freight engineer Dr Conrado [facility] on 09/06/2019 and his Imdur was decreased to 60 mg daily secondary to his reported dizziness. Denies CP Troponin negative -Continue atorvastatin, aspirin, Imdur, Ranexa, Brilinta, carvedilol -Trend troponin, if increasing consider cardiology consult (5) CHF (congestive heart failure): H/O combined CHF Echo 08/23/2019: Apical LV wall motion abnormality. Moderate LVH, EF: 40%, moderate enlargement of ascending aorta. Moderate pulmonary HTN. Currently appears euvolemic -Hold lasix for now and reassess in the morning (6) Diabetes mellitus, type 2: A1c: 5.2 on 08/23/2019 Off metformin secondary to worsening renal functions -Novolog sliding scale per protocol (7) Hypertension: -Continue amlodipine, carvedilol with holding parameters (8) Chronic anemia: H/H: 10.8/32. Hgb baseline 9-10 -monitor CBC DVT Prophylaxis -SCD Full Code as per discussion with pt Follows with Dr Nagel for routine care Pt was seen and care coordinated with Dr Garcia. See addendum History of Present Illness Chief Complaint: Dizziness and fall Primary Care Provider: Dalila Viera MD Pt is 74 y/o M with PMH significant CAD s/p CABG 1996, s/p angioplasty and stent to LAD in 08/2019, combined CHF, ischemic cardiomyopathy, DM II, HTN, HLD, carotid artery stenosis s/p right internal carotid artery stent 2017, PAD s/p stent left popliteal and SFA, pancytopenia, GERD, CKD III presented to ER with complaint of dizziness and fall. Patient reports chronic dizziness and lightheadedness which he thinks is sometimes worse with standing. Patient states this morning he ate muffin for breakfast. Around 8:00 AM he stood up to walk through his house when he became increasingly lightheaded and fell. Patient states he thinks he might of "blacked out" for a couple of seconds as he woke up on the floor. Patient denies any headache, vision changes. He denies any chest pain, palpitations prior to fall. Patient reports chronic intermittent shortness of breath at baseline and denies any increased shortness of breath. During transport to ER patient reports vomited twice. She reports chronic right shoulder pain denies any increased pain after fall. Patient denies neck pain. Reports has chronic pain in tailbone and denies any increased pain since fall. Denies any other pain to extremities. Denies fever/chills, diaphoresis, CALL, vision changes, neck pain, orthopnea, palpitations, cough, sore throat, choking, otalgia, rhinorrhea, abdominal pain, paresthesias, weakness, extremity weakness, extremity edema, rashes, urinary symptoms. Recent hospitalization at [facility] 08/21/2019-08/22/2019 for chest pain, and NSTEMI and was transferred to [facility] there he had balloon to LMCA and LAD with stent LAD. He developed acute respiratory failure thought secondary to fluid overload and was treated aggressively with diuretics. Patient reports since discharge no further chest pain. Patient followed up with his through freight engineer Dr Conrado Levi on 09/06/2019 and his Imdur was decreased to 60 mg daily secondary to his reported dizziness. There was discussion about brachytherapy however patient was not interested. Echo 08/23/2019: Apical LV wall motion abnormality. Moderate LVH, EF: 40%, moderate enlargement of ascending aorta. Moderate pulmonary HTN. Allergies Allergy/AdvReac Type Severity Reaction Status Date / Time hydralazine Allergy Hives Verified 09/16/19 11:07 Iodinated Contrast Media Allergy Unknown Verified 09/16/19 11:07 [Iodinated Contrast- Oral and IV Dye] Home Medications Home Medications Medication Instructions Recorded Confirmed Type amlodipine [Norvasc] 10 mg PO DAILY 03/24/18 09/16/19 History cyanocobalamin (vitamin B-12) 1 ml IM MONTHLY 03/24/18 09/16/19 History meclizine 25 mg PO TID PRN 03/24/18 09/16/19 History nitroglycerin [Nitrostat] 0.4 mg SUBLINGUAL DIRECTED PRN 03/24/18 09/16/19 History potassium chloride [Klor-Con M10] 10 meq PO BID 03/24/18 09/16/19 History ranolazine [Ranexa] 500 mg PO BID 03/24/18 09/16/19 History tramadol 50 mg PO Q6H PRN 03/24/18 09/16/19 History aspirin 81 mg PO QAM 08/21/19 09/16/19 History carvedilol 25 mg PO BID 08/21/19 09/16/19 History ferrous sulfate 325 mg PO Q2D 08/21/19 09/16/19 History atorvastatin 80 mg PO QAM 09/16/19 09/16/19 History furosemide 80 mg PO QAM 09/16/19 09/16/19 History isosorbide mononitrate 60 mg PO QAM 09/16/19 09/16/19 History ticagrelor [Brilinta] 90 mg PO BID 09/16/19 09/16/19 History Past Med/Surg History Medical History CAD (coronary artery disease) Chronic obstructive pulmonary disease mild--no inhaler Diabetes mellitus, type 2 History of common carotid artery stent placement 06/2017 @ [facility] [place], [place] Hyperlipidemia Hypertension Myocardial Infarction 1996 On anticoagulant therapy on plavix Osteoarthritis PVD (peripheral vascular disease) Stroke 08/27/2017--no deficits Thoracic ascending aortic aneurysm Surgical History Chest pain 07/09/18 CARDIAC CATH WITH 5 MORE HEART STENTS PLACED [facility] History of cardiac cath pt states he has had about 12 of them--last one "a couple years ago" History of cholecystectomy History of colonoscopy History of coronary artery bypass graft 1996 @ [facility] quadruple bypass History of heart artery stent pt is unsure of how many heart stents, states around 39 stents total (including peripheral artery) History of left cataract extraction History of procedure for peripheral vascular disease pt states he has had about 6 with multiple stents placed History of tooth extraction wisdom teeth Family History Other Cancer Coronary heart disease Social History Preferred Language: [place] Communication Ability: Effective Epic Willow Specialist Required: No Beliefs That Will Affect Care: None marital status: Single Current Living Situation: Alone Current Living Situation Comment: [facility] Other Information That Helps Us Care for You: No Feels Safe at Home: Yes Smoking Status: Never smoker Tobacco Type: smokeless tobacco ; Cigarettes Per Day: quit 1997 ; Do You Dip or Chew Tobacco: Yes ; Second Hand Exposure: No ; Hx Alcohol Use: No Hx Substance Use: No Review of Systems Review of Systems: All systems reviewed & are unremarkable except as noted in HPI & below Physical Exam Physical Exam: General: no acute distress, chronic ill appearing, WDWN Head: normocephalic, face: +Scattered petechiae, ecchymosis right lateral eye orbit, laceration right lateral orbit closed with tissue adhesive, +laceration right lateral nasal fold closed with tissue adhesive Eyes: PERRL, EOM's intact, conjunctiva non-injected, anicteric ENT: normal inspection external ears, nose, mucous membranes moist Neck: supple, trachea midline, non-tender, ROM intact Lungs: clear, no respiratory distress, no wheezing/rhonchi/rales CV: rate 52, regular rhythm, no JVD, no pretibial edema Abd: normal BS, soft, non-tender Back: No spinous process tenderness to palpation, no skin discoloration Ext: no cyanosis, no calf tenderness Neuro: A&O x 3, no focal deficits noted, normal affect Skin: warm, dry; green ecchymosis right anterior shoulder, ecchymosis bilateral dorsal hands, petechiae face, chest Results & Data Vital Signs (Past 12 Hours) Vital Signs Temp Pulse Pulse Resp BP BP Pulse Ox 09/16/19 12:00 55 L 18 137/57 L 94 09/16/19 10:45 49 L 20 116/52 L 98 09/16/19 09:33 36.8 C 55 L 18 107/59 L 95 Laboratory Results Short CBC 09/16/19 Range/Units 09:45 WBC 7.88 (4.8-10.8) K/uL Hgb 10.8 L (14.0-18.0) g/dL Hct 32.6 L (42-52) % Plt Count 155 (130-400) K/uL BMP 09/16/19 09:45 Sodium 138 Potassium 4.6 Chloride 105 Carbon Dioxide 24 BUN 48 H Creatinine 2.75 H Glucose 228 H Calcium 8.7 Cardiac Enzymes 09/16/19 09/16/19 Range/Units 09:45 14:58 Total Creatine Kinase 55 (39-308) U/L CK-MB (CK-2) 1.4 (0.5-3.6) ng/ml Troponin I < 0.015 < 0.015 (0-0.045) ng/ml Liver Function 09/16/19 Range/Units 09:45 Total Bilirubin 0.9 (0.2-1) mg/dl AST 13 L (15-37) U/L ALT 26 (12-78) U/L Alkaline Phosphatase 111 (45-117) U/L Albumin 3.5 (3.4-5.0) gm/dl Diagnostic Findings CT HEAD: IMPRESSION: There is no hemorrhage, mass effect, or evidence of acute territorial ischemia by CT criteria. CT FACE: IMPRESSION: 1. There is no evidence of facial bone fracture. 2. There are numerous dental caries. Nonemergent follow-up with dentistry is recommended. CT C-SPINE: IMPRESSION: 1. There is no evidence of fracture or subluxation involving the cervical spine. 2. Osteopenia and spondylotic change as above. CXR: IMPRESSION: Mild cardiac enlargement with no acute cardiopulmonary abnormality. ECG Rate (beats per minute): 50 Rhythm: sinus bradycardia Findings: + 1st degree AV block, + Q waves (Inferior) and + T-wave inversion (Septal, anterior, lateral ) Code Status & VTE Plan VTE Prophylaxis Plan VTE Prophylaxis will be ordered: Yes Supervising Physician Co-Signing Physician Notes I saw this patient with the physician dyer assistant, I participated in the history, physical, review of systems, and physical exam. I reviewed the medications with the patient and the physician dyer assistant and helped reconcile the medications. I helped take a detailed family and social history as well. I formulated the assessment and plan personally with the physician dyer assistant and went over it with the patient. Physical Exam Gen-AAO x 3, NAD, Afebrile Head-Head and Facial Trauma, EOMI, PERRLA, Anicteric Sclera, No Posterior Pharyngeal Erythema Neck-Supple, No JVD, No Thyromegaly, No Masses, No LAD, No Bruits Lungs-Clear to Auscultation Bilaterally, No Rales, No Rhonchi, No Wheezing, No Crepitus Chest-No S4, +S1, +S2, No S3, No Murmurs, No Rubs, No Gallops, No Ectopy Abdomen-Soft, Bowel Sounds Present, Non Tender, Non Distended, No Hepatomegaly, No Splenomegaly, No Palpable Masses, No Rebound, No Rigidity, No Guarding Musculoskeletal-Full Range of Motion Bilaterally, No CVAT Extremities-No Cyanosis, No Clubbing, No Edema Nuero-Cranial Nerves II-XII grossly intact, Motor WNL, DTRs WNL, Strength WNL, Non Focal Psych-Normal Mood (1) CHF (congestive heart failure) Heart failure chronicity: acute Heart failure type: unspecified Qualified Code(s): I50.9 - Heart failure, unspecified (2) Fall Encounter type: initial encounter Qualified Code(s): W19.XXXA - Unspecified fall, initial encounter
--- NOTE | 2019-09-16 12:53 | Electrocardiogram Report ---
Test Reason : Blood Pressure : / mmHG Vent. Rate : 050 BPM Atrial Rate : 050 BPM P-R Int : 312 ms QRS Dur : 100 ms QT Int : 520 ms P-R-T Axes : 075 -28 166 degrees QTc Int : 474 ms Sinus bradycardia with 1st degree A-V block Left ventricular hypertrophy with repolarization abnormality Inferior infarct , age undetermined ST and T changes consider anterolateral ischemia Abnormal ECG When compared with ECG of 22-AUG-2019 06:40, Premature ventricular complexes are no longer Present IN interval has increased Inferior infarct is now Present T wave inversion now evident in Inferior leads Confirmed by Tucker Foss ([id number]) on 09/16/2019 12:53:01 PM Referred By: REFERRED SELF Confirmed By:Tucker Foss
[2019-09-16] MEDS ORDERED: GLUCOSE 40% GEL 15 GM TUBE PO PRN (13:17)
[2019-09-16] MEDS ORDERED: GLUCAGON FOR INJ 1 MG VIAL SQ PRN (13:17)
[2019-09-16] MEDS ORDERED: NITROGLYCERIN SL 0.4 MG/TAB TAB SL PRN (13:17)
[2019-09-16] MEDS ORDERED: ACETAMINOPHEN 325 MG TAB PO PRN (13:17)
[2019-09-16] MEDS ORDERED: DEXTROSE 50% 50 ML SYRINGE IV PRN (13:17)
[2019-09-16] MEDS ORDERED: CARBOHYDRATES FOR HYPOGLYCEMIA PO PRN (13:17)
[2019-09-16] MEDS ORDERED: GLUCOSE 10 TABS/TUBE PO PRN (13:17)
[2019-09-16] MEDS: INSULIN ASPART 100 UNITS/ML 3 ML PEN SC SCH ×2 (17:10→20:22)
[2019-09-16] MEDS: RANOLAZINE 500 MG ER TAB PO SCH (20:22)
[2019-09-16] MEDS: TICAGRELOR 90 MG TAB PO SCH (20:22)
[2019-09-16] MEDS ORDERED: carvediloL 25 MG TAB PO SCH (21:00)
--- NOTE | 2019-09-17 00:58 | Communication Note ---
Date of Service: September 17, 2019 Made aware by RN all intermittent 2AV block Mobitz type II on the monitor since 11 PM last night. Patient comfortable as per RN. AP ? Symptomatic bradycardia as etiology of dizziness symptoms/possible syncopal event PCU transfer for closer monitoring Hold Coreg Pacer pads on Cardiology consult RE episodic 2AVB Mobitz type II Will relay to AM provider.
[2019-09-17 06:19] LABS: Hematocrit (blood only) 30.1 % (42-52); Hemoglobin 9.8 g/dL (14.0-18.0); Mean Corpuscular Hemoglobin 30.2 pg (25-34); Mean Corpuscular Hgb Conc 32.6 g/dL (32-36); Mean Corpuscular Volume 92.9 fL (80-100); Mean Platelet Volume 8.2 fL (7.4-10.4); Platelet Count 107 K/uL (130-400); RDW Coefficient of Variation 14.5 % (11.5-14.5); RDW Standard Deviation 49.3 fL (36.4-46.3); Red Blood Count 3.24 M/uL (4.7-6.1); White Blood Count 4.19 K/uL (4.8-10.8)
[2019-09-17 06:51] LABS: BUN Creatinine Ratio 17.2 (10-20); Calcium 8.7 mg/dl (8.5-10.1); Est GFR (African American) 27.2; Est GFR (Non-African American) 23.5; Magnesium 2.6 mg/dl (1.8-2.4); Potassium 4.5 mmol/L (3.5-5.1)
[2019-09-17 06:52] LABS: Phosphorus 4.1 mg/dl (2.5-4.9)
[2019-09-17] MEDS: TICAGRELOR 90 MG TAB PO SCH ×2 (07:46→21:16)
[2019-09-17] MEDS: ASPIRIN 81 MG ECTAB PO SCH (07:47)
[2019-09-17] MEDS: AMLODIPINE BESYLATE 5 MG TAB PO SCH (07:47)
[2019-09-17] MEDS: FERROUS SULFATE 325 MG TAB PO SCH (07:47)
[2019-09-17] MEDS: ISOSORBIDE MONO EXTENDED REL 60 MG TABCR PO SCH (07:47)
[2019-09-17] MEDS: ATORVASTATIN 40 MG TAB PO SCH (07:47)
[2019-09-17] MEDS: RANOLAZINE 500 MG ER TAB PO SCH ×2 (07:48→21:05)
[2019-09-17] MEDS: INSULIN ASPART 100 UNITS/ML 3 ML PEN SC SCH ×4 (07:49→22:04)
[2019-09-17 08:03] LABS: Appearance Urine Clear (Clear); Bacteria Urine Automated 1+ (Negative); Bilirubin Urine Negative (Negative); Blood Urine Negative (Negative); Color Urine Dark Yellow; Glucose Urine UA Negative (Negative); Ketones Urine Negative (Negative); Leukocyte Esterase Urine Trace (Negative); Nitrite Urine Negative (Negative); Protein Urine Negative (Negative); RBC Urine Automated 0-4 /hpf (0-4); Specific Gravity Urine 1.015 (1.000-1.030); Urobilinogen Urine Negative (Negative); pH Urine 5.5 (4.5-7.5)
--- NOTE | 2019-09-17 08:34 | Hospitalist Progress Note ---
Date of Service September 17, 2019 Assessment & Plan (1) Dizziness: (2) Fall: Pt is 74 y/o M with PMH significant CAD s/p CABG 1996, s/p angioplasty and stent to LAD in 08/2019, combined CHF, ischemic cardiomyopathy, DM II, HTN, HLD, carotid artery stenosis s/p right internal carotid artery stent 2017, PAD s/p stent left popliteal and SFA, pancytopenia, GERD, CKD III presented to ER with complaint of dizziness and fall. Patient reports chronic dizziness and lightheadedness, this morning walking in house when increased lightheaded and thinks passed out and fell hitting face on ground. Did not take BSG this morning, ate muffin for breakfast prior to fall. In ER afebrile, P: 55, R: 18, BP: 107/59, 94% on RA. No leukocytosis, H/H: 10.8/32.6, glucose: 228. Negative initial troponin. -In ER given 500ml NSS. Had facial lacerations closed with tissue adhesive. -Orthostatics -Tele to monitor to r/o arrhythmias, severe bradycardia -fall precautions (3) Acute kidney injury: HARJEET on CKD III. Cr: 2.75. Recent Cr: 2.0 on 09/04/2019 and 2.4 on 08/26/2019 -Hold lasix for now -Monitor renal functions -Avoid nephrotoxic agents when possible -Nephrology consult (4) CAD (coronary artery disease): S/P CABG. Recent hospitalization at [facility] 08/21/2019-08/22/2019 for chest pain, and NSTEMI and was transferred to [facility] there he had balloon to LMCA and LAD with stent LAD. He developed acute respiratory failure thought secondary to fluid overload and was treated aggressively with diuretics. Patient followed up with his mold cooler Dr Conrado Levi on 09/06/2019 and his Imdur was decreased to 60 mg daily secondary to his reported dizziness. Denies CP Troponin negative -Continue atorvastatin, aspirin, Imdur, Ranexa, Brilinta -Coreg Held and Cardiology Consulted (5) CHF (congestive heart failure): H/O combined CHF Echo 08/23/2019: Apical LV wall motion abnormality. Moderate LVH, EF: 40%, moderate enlargement of ascending aorta. Moderate pulmonary HTN. (6) Diabetes mellitus, type 2: A1c: 5.2 on 08/23/2019 Off metformin secondary to worsening renal functions -Novolog sliding scale per protocol (7) Hypertension: -Continue amlodipine, carvedilol with holding parameters (8) Chronic anemia: Hgb baseline 9-10 -monitor CBC DVT Prophylaxis -SCD Full Code as per discussion with pt Follows with Dr Nagel for routine care Admission and Anticipated Discharge Date Admission Date: September 16, 2019 Supervising Physician Co-Signing Physician Notes ROS-No Headache, No Visual Changes, No Nausea, No Vomiting, No Fever, No Chills, No Neck Pain or Stiffness, No Chest Pain, No Palpitations, No SOB, No HEBERT, No Cough, No Sputum, No Wheezing, No Abdominal Pain, No Diarrhea, No Hematemesis, No Hemoptysis, No Unexpected Weight Loss, No Flank pain, No Melena, No Hematochezia, No Frequency, No Urgency, No Burning, No Hematuria, No Rashes, No Diaphoresis. Appetite is Normal General: no acute distress, chronic ill appearing Head: normocephalic, face: +Scattered petechiae, ecchymosis right lateral eye orbit, laceration right lateral orbit closed with tissue adhesive, +laceration right lateral nasal fold closed with tissue adhesive Eyes: PERRL, EOM's intact, conjunctiva non-injected, anicteric ENT: normal inspection external ears, nose, mucous membranes moist Neck: supple, trachea midline, non-tender, ROM intact Lungs: clear, no respiratory distress, no wheezing/rhonchi/rales CV: rate 52, regular rhythm, no JVD, no pretibial edema Abd: normal BS, soft, non-tender Back: No spinous process tenderness to palpation, no skin discoloration Ext: no cyanosis, no calf tenderness Neuro: A&O x 3, no focal deficits noted, normal affect Skin: warm, dry; green ecchymosis right anterior shoulder, ecchymosis bilateral dorsal hands, petechiae face, chest Results & Data ([facility]) Vital Signs (Past 12 Hours) Vital Signs Temp Pulse Pulse Resp BP Pulse Ox 09/17/19 07:17 36.5 C 63 22 177/79 H 100 09/17/19 03:44 36.3 C L 58 L 20 135/81 95 09/17/19 02:00 66 09/16/19 22:42 36.8 C 61 19 119/75 90 09/16/19 22:36 61 (1) Fall Encounter type: initial encounter Qualified Code(s): W19.XXXA - Unspecified fall, initial encounter (2) CHF (congestive heart failure) Heart failure chronicity: acute Heart failure type: unspecified Qualified Code(s): I50.9 - Heart failure, unspecified
--- NOTE | 2019-09-17 10:09 | Cardiology Consultation ---
Date of Consultation September 17, 2019 Assessment & Plan (1) Syncope: Given clinical description and significant facial trauma this is concerning for an arrhythmogenic event. Patient states he has been chronically lightheaded for approximately 1 month now but this is his first syncopal event. Has had very brief episodes of Mobitz 1 with only a few dropped beats but no sustained arrhythmias. We will hold carvedilol today and likely restart at a lower dose in the a.m. The patient does have acute kidney injury and is orthostatic. Appreciate our nephrology colleagues input and will hold diuretics for now. We will follow volume status clinically. We will continue to monitor on telemetry. (2) Mobitz type 1 second degree atrioventricular block: Very transient in nature without any sustained periods We will continue to follow on telemetry. (3) Arteriosclerotic cardiovascular disease: Extensive history but stable at this time. (4) PAD (peripheral artery disease): Extensive history but stable at this time. (5) HARJEET (acute kidney injury): Appreciate our nephrology colleagues input. History of Present Illness Reason for Consultation: Transient 2nd degree AV block Requesting Physician: Dr. Garcia Attending Physician: Jeet Garcia, DO History of Present Illness It was my pleasure to see Mr. Jo in consultation today September 17, 2019. He is a very pleasant 74-year-old gentleman who normally follows with Dr. Case of [facility] cardiology practice for his history of complex coronary artery disease and peripheral arterial disease. He presented to [facility] on 09/16/2019 with a complaint of a syncopal event. He states that he has been lightheaded ever since discharge from [facility] earlier this month after he underwent intervention to his left main and LAD. He was seen in follow-up with Dr. Case and his Imdur was decreased which she states improved lightheadedness for a day or so however then it returns. He states he just feels lightheaded all the time but it is worsened with standing or quick movement of his head. Then on the morning of 09/16/2019 the patient had a small breakfast in his kitchen then was walking across his apartment when his lightheadedness suddenly worsened and he lost consciousness. He fell and suffered a significant contusion/abrasion of his right upper orbit. He summoned help from his assisted living facility and was transferred to [facility] emergency department. In the ER his work-up was unremarkable and he was admitted to telemetry. On telemetry he was found to have transient Mobitz 1 heart block and cardiology was consulted. His carvedilol has been held and he states that his lightheadedness has continued uninterrupted. He denies any other cardiac complaint of chest pain, shortness of breath, palpitations or dizziness. He states he is been compliant with his medications as an outpatient. PMHX: 1. extensive CAD (left main and significant 3 vessel disease w/ noted in-stent stenosis, c/b [place] in past s/p CABG x 3 1996 (all known to be occluded)), 2. peripheral vascular disease s/p stenting, carotid artery stenosis s/p stenting of right carotid artery 02/2018 2a. severe peripheral arterial disease with multiple prior lower extremity interventions, the most recent of which was performed in 2016 resulting in drug eluting balloon angioplasty and drug-eluting stenting and left popliteal artery and SFA, carotid artery stenosis status post SARAH stenting in February 2018, renal artery stenosis, 3. CVA in 2018 (no residual deficits), 4. mild COPD, 5. type 2 DM c/b peripheral neuropathy, 6. CKD stage III, 7. normocytic anemia, 8. HTN, 9. HLD 10. tobacco use history Allergies Allergy/AdvReac Type Severity Reaction Status Date / Time hydralazine Allergy Hives Verified 09/16/19 11:07 Iodinated Contrast Media Allergy Unknown Verified 09/16/19 11:07 [Iodinated Contrast- Oral and IV Dye] Home Medications Home Medications Medication Instructions Recorded Confirmed Type amlodipine [Norvasc] 10 mg PO DAILY 03/24/18 09/16/19 History cyanocobalamin (vitamin B-12) 1 ml IM MONTHLY 03/24/18 09/16/19 History meclizine 25 mg PO TID PRN 03/24/18 09/16/19 History nitroglycerin [Nitrostat] 0.4 mg SUBLINGUAL DIRECTED PRN 03/24/18 09/16/19 History potassium chloride [Klor-Con M10] 10 meq PO BID 03/24/18 09/16/19 History ranolazine [Ranexa] 500 mg PO BID 03/24/18 09/16/19 History tramadol 50 mg PO Q6H PRN 03/24/18 09/16/19 History aspirin 81 mg PO QAM 08/21/19 09/16/19 History carvedilol 25 mg PO BID 08/21/19 09/16/19 History ferrous sulfate 325 mg PO Q2D 08/21/19 09/16/19 History atorvastatin 80 mg PO QAM 09/16/19 09/16/19 History furosemide 80 mg PO QAM 09/16/19 09/16/19 History isosorbide mononitrate 60 mg PO QAM 09/16/19 09/16/19 History ticagrelor [Brilinta] 90 mg PO BID 09/16/19 09/16/19 History Patient History Medical History CAD (coronary artery disease) Chronic obstructive pulmonary disease mild--no inhaler Diabetes mellitus, type 2 History of common carotid artery stent placement 06/2017 @ [facility] [place], [place] Hyperlipidemia Hypertension Myocardial Infarction 1996 On anticoagulant therapy on plavix Osteoarthritis PVD (peripheral vascular disease) Stroke 08/27/2017--no deficits Thoracic ascending aortic aneurysm Surgical History Chest pain 07/09/18 CARDIAC CATH WITH 5 MORE HEART STENTS PLACED [facility] History of cardiac cath pt states he has had about 12 of them--last one "a couple years ago" History of cholecystectomy History of colonoscopy History of coronary artery bypass graft 1996 @ [facility] quadruple bypass History of heart artery stent pt is unsure of how many heart stents, states around 39 stents total (including peripheral artery) History of left cataract extraction History of procedure for peripheral vascular disease pt states he has had about 6 with multiple stents placed History of tooth extraction wisdom teeth Family History Other Cancer Coronary heart disease Social History Preferred Language: Telugu Communication Ability: Effective Underliner Required: No Beliefs That Will Affect Care: None marital status: Single Current Living Situation: Alone Current Living Situation Comment: [facility] Other Information That Helps Us Care for You: No Feels Safe at Home: Yes Smoking Status: Never smoker Tobacco Type: smokeless tobacco ; Cigarettes Per Day: quit 1997 ; Do You Dip or Chew Tobacco: Yes ; Second Hand Exposure: No ; Hx Alcohol Use: No Hx Substance Use: No Review of Systems Review of Systems: All systems reviewed & are unremarkable except as noted in HPI & below Physical Exam Physical Exam: General: Awake, alert and oriented x 3. No acute distress. HEENT: Normocephalic, atraumatic. Pupils equal, round and reactive to light and accommodation. Extraocular muscles are intact. Anicteric sclera. Moist mucous membranes. Neck: No JVD. No bruit. Cardiovascular: Regular. Positive S-4. Normal S-1 and S-2. No S-3. No murmurs or rubs. Pulmonary: Clear to auscultation B/L. No rales, rhonchi or wheezing Abdomen: Bowel sounds x 4, soft. No rebound, guarding or tenderness. No organomegaly. Extremities: No clubbing, cyanosis or edema. +2 pedal pulses bilaterally. Skin: Warm and dry. Results & Data ([facility]) Vital Signs (Past 12 Hours) Vital Signs Temp Pulse Pulse Resp BP Pulse Ox 09/17/19 08:00 60 09/17/19 07:17 36.5 C 63 22 177/79 H 100 09/17/19 03:44 36.3 C L 58 L 20 135/81 95 09/17/19 02:00 66 09/16/19 22:42 36.8 C 61 19 119/75 90 09/16/19 22:36 61 Diagnostic Findings Cardiac Catheterization 08/23/2019: 60% LMCA ISR s/p POT with a 4.5 x 12 mm NC balloon and kissing balloon inflation with a 3.0 x 12 mm NC balloons in the LMCA-LAD and LMCA-LCx at 8 kolton on each, 90% mid LAD ISR s/p POBA with 2.5 x 12 NC balloon 24 kolton, 90% distal LAD s/p PCI with a 2.5 x 15 mm resolute svetlana TAD SHANK SANDER of OM1 Mild luminal irregularities RCA patent prior stents TTE 08/23/2019: Interpretation Summary The examination is adequate to evaluate the referral indication. There is a new apical LV WMA. There is moderate LVH with EF qualitatively 40%. There is severe LA enlargement and significant LV diastolic dysfunction, The AV is better seen and significant is not present, There is moderate enlargement of the ascending aorta. There is moderate pulmonary HTN. The patient is on BIPAP. The rhythm is irregular probably sinus with frequent ectopy.
--- NOTE | 2019-09-17 10:53 | Consultation Report ---
DATE OF CONSULTATION: 09/17/2019 REASON FOR CONSULT: Acute renal failure on background CKD. HISTORY OF PRESENT ILLNESS: The patient is a 74-year-old male who presented to the hospital yesterday following a fall at home. He hit his face and has sustained some facial injury. In the Emergency Department, his creatinine was 2.75, which is slightly higher than his baseline of 2.0. Since admission, Lasix has been held. He did receive some IV fluid. This morning, labs is slightly better. Creatinine is down to 2.55. His blood pressure was low yesterday, but it is not low at this time. 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 Dose of Imdur was actually decreased just a week ago. Overnight, he was found to have second-degree Mobitz type block for which Cardiology has been consulted. The patient feels fairly good at this time. HOME MEDICATIONS: List was reviewed and includes amlodipine, vitamin B12, meclizine, nitroglycerin, potassium chloride 10 twice daily, Ranexa, tramadol, aspirin, carvedilol, iron sulfate, atorvastatin, Lasix 80 mg daily, isosorbide mononitrate, Brilinta. PAST MEDICAL AND SURGICAL HISTORY: Coronary artery disease, COPD, diabetes type 2, carotid artery stent placement, hyperlipidemia, hypertension, history of [place], history of stroke, peripheral vascular disease, thoracic ascending aortic aneurysm, cardiac catheterization with stents, cholecystectomy, coronary artery bypass graft. FAMILY HISTORY: Negative for renal disease. REVIEW OF SYSTEMS: As detailed in HPI and listed; otherwise, 12 systems reviewed and negative. SOCIAL HISTORY: The patient does not smoke, no alcohol. He is single after his . PHYSICAL EXAMINATION: GENERAL: Elderly white male who is not in any distress. He is awake, alert, oriented x3. HEENT: Mucous membrane moist. NECK: Supple. No jugular venous distention. CHEST: Bilateral clear to auscultation. CARDIOVASCULAR: S1, S2, regular. ABDOMEN: Soft, nontender. EXTREMITIES: Shows no edema. SKIN: Warm and dry. No rashes noted. LABORATORY TESTS: His baseline creatinine is anywhere from 1.7-2.0. On admission was slightly higher at 2.75, but this morning it is getting better and is down to 2.55. Blood work from this morning showed sodium 138, potassium 4.5, chloride 106, CO2 26, phosphorus 4.1, calcium 8.7, magnesium 2.6. Hemoglobin 9.8, platelet count 107. Chest x-ray unremarkable. ASSESSMENT AND PLAN: A 74-year-old male with significant cardiac disease, admitted following lightheadedness episode resulting in fall. He was found to have slight HARJEET on background CKD for which I have been consulted. 1. Acute renal failure. The acute component is fairly mild. His creatinine was 2.75 up from his baseline of around 2. At this time, he is urinating well and his creatinine has been trending towards his baseline. I expect further improvement. It is quite possible he may have been slightly volume depleted, but it does not appear he is actually volume depleted at this time. His blood pressure, if anything, is high and he has been eating and drinking fairly normally and has not had any diarrhea or vomiting, so I have hard time believing why he would get severely volume depleted. It is reasonable to hold Lasix for tonight; however, I do not think we should hold Lasix for too many days. 2. Syncope. Given that he was found to have second-degree AV block, we do have to rule out cardiac arrhythmia as the cause of his lightheadedness and syncope. RECOMMENDATIONS: 1. Continue to hold Lasix at least for today. 2. He will need to be restarted on Lasix within the next day or two. 3. Cardiology consult for possible cardiac arrhythmia. 4. Daily nephrology labs. [facility]
--- NOTE | 2019-09-17 12:54 | Electrocardiogram Report ---
Test Reason : Blood Pressure : / mmHG Vent. Rate : 064 BPM Atrial Rate : 064 BPM P-R Int : 342 ms QRS Dur : 096 ms QT Int : 446 ms P-R-T Axes : 078 -23 150 degrees QTc Int : 460 ms Sinus rhythm with 1st degree A-V block Left ventricular hypertrophy with repolarization abnormality Inferior infarct (cited on or before 16-SEP-2019) Diffuse T wave inversion consider anterior ishemia Abnormal ECG When compared with ECG of 16-SEP-2019 09:37, T wave inversion no longer evident in Inferior leads T wave inversion more evident in Lateral leads Confirmed by Tucker Foss ([id number] on 09/17/2019 12:53:39 PM Referred By: REFERRED SELF Confirmed By:Tucker Foss
[2019-09-18 06:43] LABS: Hematocrit (blood only) 30.9 % (42-52); Hemoglobin 10.2 g/dL (14.0-18.0); Mean Corpuscular Hemoglobin 30.6 pg (25-34); Mean Corpuscular Volume 92.8 fL (80-100); Mean Platelet Volume 8.3 fL (7.4-10.4); Platelet Count 109 K/uL (130-400); RDW Coefficient of Variation 14.7 % (11.5-14.5); RDW Standard Deviation 49.5 fL (36.4-46.3); Red Blood Count 3.33 M/uL (4.7-6.1); White Blood Count 4.06 K/uL (4.8-10.8)
[2019-09-18 07:23] LABS: BUN Creatinine Ratio 15.8 (10-20); Calcium 9.4 mg/dl (8.5-10.1); Creatinine Clr Calc Pharmacy 24.5 ml/min; Est GFR (African American) 29.3; Est GFR (Non-African American) 25.3; Potassium 4.1 mmol/L (3.5-5.1)
[2019-09-18] MEDS: TICAGRELOR 90 MG TAB PO SCH ×2 (07:55→20:07)
[2019-09-18] MEDS: RANOLAZINE 500 MG ER TAB PO SCH ×2 (07:55→20:07)
[2019-09-18] MEDS: ATORVASTATIN 40 MG TAB PO SCH (07:55)
[2019-09-18] MEDS: AMLODIPINE BESYLATE 5 MG TAB PO SCH (07:55)
[2019-09-18] MEDS: INSULIN ASPART 100 UNITS/ML 3 ML PEN SC SCH ×4 (07:56→20:09)
[2019-09-18] MEDS: ISOSORBIDE MONO EXTENDED REL 60 MG TABCR PO SCH (07:56)
[2019-09-18] MEDS: ASPIRIN 81 MG ECTAB PO SCH (07:56)
--- NOTE | 2019-09-18 08:24 | Hospitalist Progress Note ---
Date of Service September 18, 2019 Assessment & Plan (1) Dizziness: (2) Fall: Pt is 74 y/o M with PMH significant CAD s/p CABG 1996, s/p angioplasty and stent to LAD in 08/2019, combined CHF, ischemic cardiomyopathy, DM II, HTN, HLD, carotid artery stenosis s/p right internal carotid artery stent 2017, PAD s/p stent left popliteal and SFA, pancytopenia, GERD, CKD III presented to ER with complaint of dizziness and fall. Patient reports chronic dizziness and lightheadedness, this morning walking in house when increased lightheaded and thinks passed out and fell hitting face on ground. Did not take BSG this morning, ate muffin for breakfast prior to fall. In ER afebrile, P: 55, R: 18, BP: 107/59, 94% on RA. No leukocytosis, H/H: 10.8/32.6, glucose: 228. Negative initial troponin. -In ER given 500ml NSS. Had facial lacerations closed with tissue adhesive. -Orthostatics -+ bradycardia, coreg held, possibly restart at lower dose -fall precautions (3) Acute kidney injury: HARJEET on CKD III. Recent Cr: 2.0 on 09/04/2019 and 2.4 on 08/26/2019 -Hold lasix for now -Monitor renal functions -Avoid nephrotoxic agents when possible -Nephrology on case (4) CAD (coronary artery disease): S/P CABG. Recent hospitalization at [facility] 08/21/2019-08/22/2019 for chest pain, and NSTEMI and was transferred to [facility] there he had balloon to LMCA and LAD with stent LAD. He developed acute respiratory failure thought secondary to fluid overload and was treated aggressively with diuretics. 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 Denies CP Troponin negative -Continue atorvastatin, aspirin, Imdur, Ranexa, Brilinta -Coreg Held and Cardiology on case (5) CHF (congestive heart failure): H/O combined CHF Echo 08/23/2019: Apical LV wall motion abnormality. Moderate LVH, EF: 40%, moderate enlargement of ascending aorta. Moderate pulmonary HTN. (6) Diabetes mellitus, type 2: A1c: 5.2 on 08/23/2019 Off metformin secondary to worsening renal functions -Novolog sliding scale per protocol (7) Hypertension: -Continue amlodipine, Imdur, Add Hydralazine (8) Chronic anemia: Hgb baseline 9-10 -monitor CBC DVT Prophylaxis -SCD Full Code as per discussion with pt Follows with Dr Nagel for routine care Labs checked ROS-No Headache, No Visual Changes, No Nausea, No Vomiting, No Fever, No Chills, No Neck Pain or Stiffness, No Chest Pain, No Palpitations, No SOB, No HEBERT, No Cough, No Sputum, No Wheezing, No Abdominal Pain, No Diarrhea, No Hematemesis, No Hemoptysis, No Unexpected Weight Loss, No Flank pain, No Melena, No Hematochezia, No Frequency, No Urgency, No Burning, No Hematuria, No Rashes, No Diaphoresis. Appetite is Normal, feels a lot better Physical Exam Gen-AAO x 3, NAD, Afebrile, looks better Head-NCAT, EOMI, PERRLA, Anicteric Sclera, No Posterior Pharyngeal Erythema Neck-Supple, No JVD, No Thyromegaly, No Masses, No LAD, No Bruits Lungs-Clear to Auscultation Bilaterally, No Rales, No Rhonchi, No Wheezing, No Crepitus Chest-No S4, +S1, +S2, No S3, No Murmurs, No Rubs, No Gallops, No Ectopy Abdomen-Soft, Bowel Sounds Present, Non Tender, Non Distended, No Hepatomegaly, No Splenomegaly, No Palpable Masses, No Rebound, No Rigidity, No Guarding Musculoskeletal-Full Range of Motion Bilaterally, No CVAT Extremities-No Cyanosis, No Clubbing, No Edema Nuero-Cranial Nerves II-XII grossly intact, Motor WNL, DTRs WNL, Strength WNL, Non Focal Psych-Normal Mood Admission and Anticipated Discharge Date Admission Date: September 16, 2019 Results & Data ([facility]) Vital Signs (Past 12 Hours) Vital Signs Temp Pulse Pulse Resp BP Pulse Ox 09/18/19 07:45 36.4 C L 18 97 09/18/19 07:40 36.8 C 58 L 18 180/62 H 99 09/18/19 04:44 36.7 C 60 18 142/75 H 95 09/18/19 00:20 68 (1) CHF (congestive heart failure) Heart failure chronicity: acute Heart failure type: unspecified Qualified Code(s): I50.9 - Heart failure, unspecified (2) Fall Encounter type: initial encounter Qualified Code(s): W19.XXXA - Unspecified fall, initial encounter
--- NOTE | 2019-09-18 11:13 | Electrocardiogram Report ---
Test Reason : Blood Pressure : / mmHG Vent. Rate : 064 BPM Atrial Rate : 064 BPM P-R Int : 258 ms QRS Dur : 098 ms QT Int : 458 ms P-R-T Axes : 054 -25 155 degrees QTc Int : 472 ms Sinus rhythm with 1st degree A-V block with occasional Premature ventricular complexes Left ventricular hypertrophy with repolarization abnormality Inferior infarct (cited on or before 16-SEP-2019) Abnormal ECG When compared with ECG of 17-SEP-2019 01:05, Premature ventricular complexes are now Present Confirmed by Mayo Martel ([id number]) on 09/18/2019 11:12:32 AM Referred By: REFERRED SELF Confirmed By:Mayo Martel
[2019-09-18] MEDS: AMPICILLIN 1,000 MG in SODIUM CHLOR 0.9% AD-VAN 50 ML IV SCH ×3 (12:08→23:26)
--- NOTE | 2019-09-18 13:33 | Cardiology Progress Note ---
Date of Service September 18, 2019 Assessment & Plan (1) Syncope: Given clinical description and significant facial trauma this is concerning for an arrhythmogenic event. Patient states he has been chronically lightheaded for approximately 1 month now but this is his first syncopal event. Has had very brief episodes of Mobitz 1 with only a few dropped beats but no sustained arrhythmias. Doubt this arrhythmia caused a syncopal event. We will restart carvedilol at 12.5 mg and follow. The patient does have acute kidney injury and is orthostatic. Appreciate our nephrology colleagues input and will hold diuretics for now. We will follow volume status clinically. We will continue to monitor on telemetry. (2) Mobitz type 1 second degree atrioventricular block: Very transient in nature without any sustained periods We will continue to follow on telemetry. (3) Arteriosclerotic cardiovascular disease: Extensive history but stable at this time. (4) PAD (peripheral artery disease): Extensive history but stable at this time. (5) HARJEET (acute kidney injury): Appreciate our nephrology colleagues input. (6) BPV (benign positional vertigo): Based on his description of his lightheadedness/dizziness and continued symptoms I do believe there is a component of vertigo. I will ask physical therapy to evaluate him with Hallpike and Pablo maneuvers. Subjective Patient seen and examined states that he is doing okay. Continues to remain lightheaded particularly worsened with head movements. Denies any recurrent presyncope nor is he been experiencing any chest pain, shortness of breath, palpitations or syncope. Telemetry reviewed: Normal sinus rhythm/sinus bradycardia in the 50s. No sustained AV block no other arrhythmias. Review of Systems Review of Systems: All systems reviewed & are unremarkable except as noted in HPI & below Physical Exam Physical Exam: General: Awake, alert and oriented x 3. No acute distress. HEENT: Normocephalic, atraumatic. Pupils equal, round and reactive to light and accommodation. Extraocular muscles are intact. Anicteric sclera. Moist mucous membranes. Neck: No JVD. No bruit. Cardiovascular: Regular. Positive S-4. Normal S-1 and S-2. No S-3. 3/6 mid to late systolic ejection murmur, greatest at the right sternal border, second intercostal space with radiation to the bilateral carotids. No rubs. Pulmonary: Clear to auscultation bilaterally. No rales, rhonchi, or wheezing. Abdomen: Bowel sounds x 4, soft. No rebound, guarding or tenderness. No organomegaly. Extremities: No clubbing, cyanosis or edema. +2 pedal pulses bilaterally. Skin: Warm and dry. Results & Data Vital Signs (Past 12 Hours) Vital Signs Temp Pulse Resp BP BP Pulse Ox 09/18/19 11:50 37.0 C 92 H 18 129/58 L 95 09/18/19 07:45 36.4 C L 18 97 09/18/19 07:40 36.8 C 58 L 18 180/62 H 99 09/18/19 04:44 36.7 C 60 18 142/75 H 95
--- NOTE | 2019-09-18 17:17 | Nephrology Progress Note ---
Date of Service September 18, 2019 Assessment & Plan (1) Acute kidney injury: Patient with the acute kidney injury on CKD. Baseline creatinine of 1.7. Creatinine today at 2.4 which is slightly better than yesterday. Etiology of worsening renal function likely due to orthostasis. -continue holding Lasix. -no need for IV fluids as patient appears euvolemic now. -daily BMP and avoid nephrotoxins unless life saving. (2) Hypertension: Blood pressure is above target but given continuing orthostasis, avoid aggressive blood pressure control. Target systolic of 150-160 (3) Syncope: Patient with the syncope and found have Morbitz 2. Cardiology following patient closely and holding Coreg today. Appreciate recommendations from Cardiology Admission and Anticipated Discharge Date Admission Date: September 16, 2019 Subjective Patient feels dizzy on standing. He was also orthostatic at the time of my visit with the physical therapy. No shortness of breath. Creatinine is stable at 2.4. Review of Systems Review of Systems: All systems reviewed & are unremarkable except as noted in HPI & below Physical Exam Physical Exam: General exam: Appears comfortable, no acute distress HEENT: Pupils are equal and reactive to light. Has a bruise on the right eye Neck: No JVD, neck is supple trachea is midline Respiratory system: Clear breath sounds bilaterally. Gastrointestinal: Abdomen is soft, non distended, non tender, bowel sounds are present CVS: Regular rate and rhythm. No murmurs, rubs or gallops Musculoskeletal: No joint or muscle tenderness Extremities: Non tender, no edema, peripheral pulses are present Neuro: Oriented, no tremors, no focal neurological deficits Skin: No rashes Results & Data ([facility]) Vital Signs (Past 12 Hours) Vital Signs Temp Pulse Resp BP BP Pulse Ox 09/18/19 15:07 36.8 C 116 H 18 165/64 H 92 09/18/19 11:50 37.0 C 92 H 18 129/58 L 95 09/18/19 07:45 36.4 C L 18 97 09/18/19 07:40 36.8 C 58 L 18 180/62 H 99 Laboratory Results 09/18/19 06:10 09/18/19 06:10 WBC 4.06 L RBC 3.33 L MCV 92.8 MCH 30.6 MCHC 33.0 RDW Std Deviation 49.5 H RDW Coeff of Dary 14.7 H Plt Count 109 L MPV 8.3
[2019-09-19] MEDS: AMPICILLIN 1,000 MG in SODIUM CHLOR 0.9% AD-VAN 50 ML IV SCH ×4 (04:59→23:14)
[2019-09-19 06:23] LABS: Hematocrit (blood only) 29.1 % (42-52); Hemoglobin 9.5 g/dL (14.0-18.0); Mean Corpuscular Hemoglobin 30.3 pg (25-34); Mean Corpuscular Hgb Conc 32.6 g/dL (32-36); Mean Corpuscular Volume 92.7 fL (80-100); Mean Platelet Volume 8.4 fL (7.4-10.4); Platelet Count 100 K/uL (130-400); RDW Coefficient of Variation 14.7 % (11.5-14.5); RDW Standard Deviation 49.6 fL (36.4-46.3); Red Blood Count 3.14 M/uL (4.7-6.1)
[2019-09-19 06:49] LABS: BUN Creatinine Ratio 22.1 (10-20); Calcium 8.9 mg/dl (8.5-10.1); Creatinine Clr Calc Pharmacy 29.1 ml/min; Est GFR (African American) 36.1; Est GFR (Non-African American) 31.1; Potassium 4.1 mmol/L (3.5-5.1)
[2019-09-19 06:51] LABS: Albumin Globulin Ratio 0.9 (0.9-2); Bilirubin,Total 0.6 mg/dl (0.2-1); Globulin 3.2 gm/dl (2.5-4.0); Total Protein 6.2 gm/dl (6.4-8.2)
--- NOTE | 2019-09-19 06:54 | Hospitalist Progress Note ---
Date of Service September 19, 2019 Assessment & Plan (1) Dizziness: (2) Fall: Pt is 74 y/o M with PMH significant CAD s/p CABG 1996, s/p angioplasty and stent to LAD in 08/2019, combined CHF, ischemic cardiomyopathy, DM II, HTN, HLD, carotid artery stenosis s/p right internal carotid artery stent 2017, PAD s/p stent left popliteal and SFA, pancytopenia, GERD, CKD III presented to ER with complaint of dizziness and fall. Patient reports chronic dizziness and lightheadedness, this morning walking in house when increased lightheaded and thinks passed out and fell hitting face on ground. Did not take BSG this morning, ate muffin for breakfast prior to fall. In ER afebrile, P: 55, R: 18, BP: 107/59, 94% on RA. No leukocytosis, H/H: 10.8/32.6, glucose: 228. Negative initial troponin. -In ER given 500ml NSS. Had facial lacerations closed with tissue adhesive. -Orthostatics -+ bradycardia, coreg held, possibly restart at lower dose -fall precautions (3) Acute kidney injury: HARJEET on CKD III. Recent Cr: 2.0 on 09/04/2019 and 2.4 on 08/26/2019 -Hold lasix for now -Monitor renal functions -Avoid nephrotoxic agents when possible -Nephrology on case (4) CAD (coronary artery disease): S/P CABG. Recent hospitalization at [facility] 08/21/2019-08/22/2019 for chest pain, and NSTEMI and was transferred to [facility] [place] there he had balloon to LMCA and LAD with stent LAD. He developed acute respiratory failure thought secondary to fluid overload and was treated aggressively with diuretics. Patient followed up with his muffle operator Dr Conrado Levi on 09/06/2019 and his Imdur was decreased to 60 mg daily secondary to his reported dizziness. Denies CP Troponin negative -Continue atorvastatin, aspirin, Imdur, Ranexa, Brilinta -Coreg Held and Cardiology on case 7 Beat run of VT last night-check Lytes (5) CHF (congestive heart failure): Chronic combined systolic and diastolic CHF Echo 08/23/2019: Apical LV wall motion abnormality. Moderate LVH, EF: 40%, moderate enlargement of ascending aorta. Moderate pulmonary HTN. (6) Diabetes mellitus, type 2: A1c: 5.2 on 08/23/2019 Off metformin secondary to worsening renal functions -Novolog sliding scale per protocol (7) Hypertension: -Continue amlodipine, Imdur-BP control per Cards and Renal (8) Chronic anemia: Hgb baseline 9-10 -monitor CBC L Great toe pain-Check Uric acid and XRay DVT Prophylaxis -SCD Full Code as per discussion with pt Follows with Dr Nagel for routine care Labs checked ROS-No Headache, No Visual Changes, No Nausea, No Vomiting, No Fever, No Chills, No Neck Pain or Stiffness, No Chest Pain, No Palpitations, No SOB, No HEBERT, No Cough, No Sputum, No Wheezing, No Abdominal Pain, No Diarrhea, No Hematemesis, No Hemoptysis, No Unexpected Weight Loss, No Flank pain, No Melena, No Hematochezia, No Frequency, No Urgency, No Burning, No Hematuria, No Rashes, No Diaphoresis. Appetite is Normal, feels a lot better, c/o sever L great toe pain Physical Exam Gen-AAO x 3, NAD, Afebrile, looks better Head-NCAT, EOMI, PERRLA, Anicteric Sclera, No Posterior Pharyngeal Erythema Neck-Supple, No JVD, No Thyromegaly, No Masses, No LAD, No Bruits Lungs-Clear to Auscultation Bilaterally, No Rales, No Rhonchi, No Wheezing, No Crepitus Chest-No S4, +S1, +S2, No S3, No Murmurs, No Rubs, No Gallops, No Ectopy Abdomen-Soft, Bowel Sounds Present, Non Tender, Non Distended, No Hepatomegaly, No Splenomegaly, No Palpable Masses, No Rebound, No Rigidity, No Guarding Musculoskeletal-Full Range of Motion Bilaterally, No CVAT Extremities-No Cyanosis, No Clubbing, No Edema, L Great toe c Erythema Medially, +Eschar Nuero-Cranial Nerves II-XII grossly intact, Motor WNL, DTRs WNL, Strength WNL, Non Focal Psych-Normal Mood Admission and Anticipated Discharge Date Admission Date: September 16, 2019 Results & Data ([facility]) Vital Signs (Past 12 Hours) Vital Signs Temp Pulse Pulse Resp BP BP Pulse Ox 09/19/19 03:15 36.5 C 62 18 148/76 H 97 03/02/20 23:33 36.6 C 58 L 18 152/67 H 98 09/18/19 23:10 62 09/18/19 19:22 36.6 C 62 19 136/73 99 (1) Fall Encounter type: initial encounter Qualified Code(s): W19.XXXA - Unspecified fall, initial encounter (2) CHF (congestive heart failure) Heart failure chronicity: acute Heart failure type: unspecified Qualified Code(s): I50.9 - Heart failure, unspecified
[2019-09-19] MEDS: FERROUS SULFATE 325 MG TAB PO SCH (08:22)
[2019-09-19] MEDS: ASPIRIN 81 MG ECTAB PO SCH (08:22)
[2019-09-19] MEDS: TICAGRELOR 90 MG TAB PO SCH ×2 (08:22→19:55)
[2019-09-19] MEDS: ATORVASTATIN 40 MG TAB PO SCH (08:22)
[2019-09-19] MEDS: RANOLAZINE 500 MG ER TAB PO SCH ×2 (08:23→19:53)
[2019-09-19] MEDS: carvediloL 12.5 MG TAB PO SCH ×2 (08:28→19:53)
[2019-09-19] MEDS: INSULIN ASPART 100 UNITS/ML 3 ML PEN SC SCH ×4 (08:28→22:05)
--- NOTE | 2019-09-19 08:28 | Hospitalist Progress Note ---
Date of Service September 19, 2019 Assessment & Plan (1) Dizziness: (2) Fall: Pt is 74 y/o M with PMH significant CAD s/p CABG 1996, s/p angioplasty and stent to LAD in 08/2019, combined CHF, ischemic cardiomyopathy, DM II, HTN, HLD, carotid artery stenosis s/p right internal carotid artery stent 2017, PAD s/p stent left popliteal and SFA, pancytopenia, GERD, CKD III presented to ER with complaint of dizziness and fall. Patient reports chronic dizziness and lightheadedness, this morning walking in house when increased lightheaded and thinks passed out and fell hitting face on ground. Did not take BSG this morning, ate muffin for breakfast prior to fall. In ER afebrile, P: 55, R: 18, BP: 107/59, 94% on RA. No leukocytosis, H/H: 10.8/32.6, glucose: 228. Negative initial troponin. -In ER given 500ml NSS. Had facial lacerations closed with tissue adhesive. -Orthostatics -+ bradycardia, coreg held, possibly restart at lower dose -fall precautions (3) Acute kidney injury: HARJEET on CKD III. Recent Cr: 2.0 on 09/04/2019 and 2.4 on 08/26/2019 -Hold lasix for now -Monitor renal functions -Avoid nephrotoxic agents when possible -Nephrology on case (4) CAD (coronary artery disease): S/P CABG. Recent hospitalization at [facility] 08/21/2019-08/22/2019 for chest pain, and NSTEMI and was transferred to [facility] [place] there he had balloon to LMCA and LAD with stent LAD. He developed acute respiratory failure thought secondary to fluid overload and was treated aggressively with diuretics. Patient followed up with his stain maker Dr Conrado Levi on 09/06/2019 and his Imdur was decreased to 60 mg daily secondary to his reported dizziness. Denies CP Troponin negative -Continue atorvastatin, aspirin, Imdur, Ranexa, Brilinta -Coreg Held and Cardiology on case 7 Beat run of VT last night-check Lytes (5) CHF (congestive heart failure): Chronic combined systolic and diastolic CHF Echo 08/23/2019: Apical LV wall motion abnormality. Moderate LVH, EF: 40%, moderate enlargement of ascending aorta. Moderate pulmonary HTN. (6) Diabetes mellitus, type 2: A1c: 5.2 on 08/23/2019 Off metformin secondary to worsening renal functions -Novolog sliding scale per protocol (7) Hypertension: -Continue amlodipine, Imdur-BP control per Cards and Renal (8) Chronic anemia: Hgb baseline 9-10 -monitor CBC L Great toe pain-Check Uric acid and XRay DVT Prophylaxis -SCD Full Code as per discussion with pt Follows with Dr Nagel for routine care Labs checked ROS-No Headache, No Visual Changes, No Nausea, No Vomiting, No Fever, No Chills, No Neck Pain or Stiffness, No Chest Pain, No Palpitations, No SOB, No HEBERT, No Cough, No Sputum, No Wheezing, No Abdominal Pain, No Diarrhea, No Hematemesis, No Hemoptysis, No Unexpected Weight Loss, No Flank pain, No Melena, No Hematochezia, No Frequency, No Urgency, No Burning, No Hematuria, No Rashes, No Diaphoresis. Appetite is Normal, feels a lot better, c/o sever L great toe pain Physical Exam Gen-AAO x 3, NAD, Afebrile, looks better Head-NCAT, EOMI, PERRLA, Anicteric Sclera, No Posterior Pharyngeal Erythema Neck-Supple, No JVD, No Thyromegaly, No Masses, No LAD, No Bruits Lungs-Clear to Auscultation Bilaterally, No Rales, No Rhonchi, No Wheezing, No Crepitus Chest-No S4, +S1, +S2, No S3, No Murmurs, No Rubs, No Gallops, No Ectopy Abdomen-Soft, Bowel Sounds Present, Non Tender, Non Distended, No Hepatomegaly, No Splenomegaly, No Palpable Masses, No Rebound, No Rigidity, No Guarding Musculoskeletal-Full Range of Motion Bilaterally, No CVAT Extremities-No Cyanosis, No Clubbing, No Edema, L Great toe c Erythema Medially, +Eschar Nuero-Cranial Nerves II-XII grossly intact, Motor WNL, DTRs WNL, Strength WNL, Non Focal Psych-Normal Mood Admission and Anticipated Discharge Date Admission Date: September 16, 2019 Results & Data ([facility]) Vital Signs (Past 12 Hours) Vital Signs Temp Pulse Pulse Resp BP BP Pulse Ox 09/19/19 07:31 36.5 C 62 18 112/70 98 09/19/19 03:15 36.5 C 62 18 148/76 H 97 09/18/19 23:33 36.6 C 58 L 18 152/67 H 98 09/18/19 23:10 62 (1) Fall Encounter type: initial encounter Qualified Code(s): W19.XXXA - Unspecified fall, initial encounter (2) CHF (congestive heart failure) Heart failure chronicity: acute Heart failure type: unspecified Qualified Code(s): I50.9 - Heart failure, unspecified
[2019-09-19] MEDS: ISOSORBIDE MONO EXTENDED REL 60 MG TABCR PO SCH (08:51)
[2019-09-19] MEDS: AMLODIPINE BESYLATE 5 MG TAB PO SCH (08:51)
--- NOTE | 2019-09-19 11:10 | Electrocardiogram Report ---
Test Reason : Blood Pressure : / mmHG Vent. Rate : 063 BPM Atrial Rate : 063 BPM P-R Int : 248 ms QRS Dur : 110 ms QT Int : 448 ms P-R-T Axes : 060 -24 138 degrees QTc Int : 458 ms Sinus rhythm with 1st degree A-V block Left ventricular hypertrophy with repolarization abnormality Inferior infarct (cited on or before 16-SEP-2019) Abnormal ECG When compared with ECG of 18-SEP-2019 09:04, Premature ventricular complexes are no longer Present Confirmed by Mayo Martel ([id number]) on 09/19/2019 11:09:40 AM Referred By: REFERRED SELF Confirmed By:Mayo Martel
--- NOTE | 2019-09-19 11:47 | XRay Report ---
LEFT FIRST TOE 3 VIEWS HISTORY: Left Great toe pain COMPARISON: None. FINDINGS: There is no fracture or dislocation. Mild soft tissues of the first MTP joint. Moderate car tilage space narrowing with subchondral sclerosis and marginal osteophytes at the first MTP joint con sistent with degenerative change. Small focal subchondral lucency at the head of the first metatarsal may be due to the chronic degenerative change. Vascular calcifications are noted. No radiopaque fore ign bodies. 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 No fractures within the left first toe. ACT 112: Negative or not required by law. Electronically signed by: Thai Dixon M.D. 09/19/2019 11:46 AM
--- NOTE | 2019-09-19 12:49 | Cardiology Progress Note ---
Date of Service September 19, 2019 Assessment & Plan (1) Syncope: Given clinical description and significant facial trauma this is concerning for an arrhythmogenic event. Patient states he has been chronically lightheaded for approximately 1 month now but this is his first syncopal event. Has had very brief episodes of Mobitz 1 with only a few dropped beats but no sustained arrhythmias. Doubt this arrhythmia caused a syncopal event. Carvedilol restarted without significant bradycardia or block. At this point I am starting to question whether or not there was not significant components of vertigo and orthostasis to this event. No significant arrhythmias on telemetry. Okay to discharge from a cardiac standpoint on lower dose of carvedilol. We will arrange for outpatient telemetry monitoring upon discharge to be placed at our [facility] office. Would then recommend following up with primary geological e logger Dr. Case in the next 2 to 4 weeks. Okay to discharge from a cardiac standpoint. (2) Mobitz type 1 second degree atrioventricular block: Very transient in nature without any sustained periods We will continue to follow on telemetry. (3) Arteriosclerotic cardiovascular disease: Extensive history but stable at this time. (4) PAD (peripheral artery disease): Extensive history but stable at this time. (5) HARJEET (acute kidney injury): Appreciate our nephrology colleagues input. (6) BPV (benign positional vertigo): Symptoms greatly improved after first session with physical therapy. For further therapy today. Subjective Patient seen and examined states he is feeling much better today. States that his lightheadedness significantly improved after treatment with physical therapy on 09/18/2019 and is scheduled for further therapy today. Denies any chest pain, shortness of breath, palpitations or presyncope. Telemetry reviewed: Normal sinus rhythm without sustained arrhythmias or AV block. Review of Systems Review of Systems: All systems reviewed & are unremarkable except as noted in HPI & below Physical Exam Physical Exam: General: Awake, alert and oriented x 3. No acute distress. HEENT: Normocephalic, atraumatic. Pupils equal, round and reactive to light and accommodation. Extraocular muscles are intact. Anicteric sclera. Moist mucous membranes. Neck: No JVD. No bruit. Cardiovascular: Regular. Positive S-4. Normal S-1 and S-2. No S-3. 3/6 mid to late systolic ejection murmur, greatest at the right sternal border, second intercostal space with radiation to the bilateral carotids. No rubs. Pulmonary: Clear to auscultation bilaterally. No rales, rhonchi, or wheezing. Abdomen: Bowel sounds x 4, soft. No rebound, guarding or tenderness. No organomegaly. Extremities: No clubbing, cyanosis or edema. +2 pedal pulses bilaterally. Skin: Warm and dry. Results & Data Vital Signs (Past 12 Hours) Vital Signs Temp Pulse Resp BP BP Pulse Ox 09/19/19 12:15 36.4 C L 59 L 18 140/71 97 09/19/19 07:31 36.5 C 62 18 112/70 98 09/19/19 03:15 36.5 C 62 18 148/76 H 97
--- NOTE | 2019-09-19 14:09 | Nephrology Progress Note ---
Date of Service September 19, 2019 Assessment & Plan (1) Acute kidney injury: Patient with the acute kidney injury on CKD. Baseline creatinine of 1.7. Creatinine today at 2 from 2.4 yesterday. Etiology of worsening renal function likely due to orthostasis. -continue holding Lasix. -no need for IV fluids as patient appears euvolemic now. -daily BMP and avoid nephrotoxins unless life saving. (2) Hypertension: Blood pressure is acceptable, avoid aggressive blood pressure control. Target systolic of 140-150 (3) Syncope: Patient with the syncope and found have Morbitz 2. Cardiology following patient closely and holding Coreg today. Appreciate recommendations from Cardiology Admission and Anticipated Discharge Date Admission Date: September 16, 2019 Subjective Patient feels better today denies any shortness of breath or leg swelling. No dizziness on ambulating. Blood pressure is controlled now. Review of Systems Review of Systems: All systems reviewed & are unremarkable except as noted in HPI & below Physical Exam Physical Exam: General exam: Appears comfortable, no acute distress HEENT: Pupils are equal and reactive to light. Bruises on the right eye improving. Neck: No JVD, neck is supple trachea is midline Respiratory system: Clear breath sounds bilaterally. Gastrointestinal: Abdomen is soft, non distended, non tender, bowel sounds are present CVS: Regular rate and rhythm. No murmurs, rubs or gallops Musculoskeletal: No joint or muscle tenderness Extremities: Non tender, no edema, peripheral pulses are present Neuro: Oriented, no tremors, no focal neurological deficits Skin: No rashes Results & Data ([facility]) Vital Signs (Past 12 Hours) Vital Signs Temp Pulse Pulse Resp BP BP Pulse Ox 09/19/19 12:15 36.4 C L 59 L 18 140/71 97 09/19/19 08:00 64 09/19/19 07:31 36.5 C 62 18 112/70 98 09/19/19 03:15 36.5 C 62 18 148/76 H 97 Laboratory Results 09/19/19 06:01 09/19/19 09/19/19 06:01 06:01 WBC 5.50 RBC 3.14 L MCV 92.7 MCH 30.3 MCHC 32.6 RDW Std Deviation 49.6 H RDW Coeff of Dary 14.7 H Plt Count 100 L MPV 8.4 Albumin 3.0 L
[2019-09-19] MEDS: SODIUM CHLORIDE 0.9% 500 ML IV SCH (16:42)
[2019-09-19] MEDS: POLYETHYLENE (MIRALAX) 17 GM PACK PO PRN (19:52)
[2019-09-20] MEDS: SODIUM CHLORIDE 0.9% 500 ML IV SCH ×2 (04:50→17:17)
[2019-09-20] MEDS: AMPICILLIN 1,000 MG in SODIUM CHLOR 0.9% AD-VAN 50 ML IV SCH ×3 (04:50→16:57)
[2019-09-20] MEDS: INSULIN ASPART 100 UNITS/ML 3 ML PEN SC SCH ×3 (08:38→16:58)
[2019-09-20] MEDS: TICAGRELOR 90 MG TAB PO SCH ×2 (08:41→21:01)
[2019-09-20] MEDS: carvediloL 12.5 MG TAB PO SCH ×2 (08:42→20:39)
[2019-09-20] MEDS: ASPIRIN 81 MG ECTAB PO SCH (08:43)
[2019-09-20] MEDS: ISOSORBIDE MONO EXTENDED REL 60 MG TABCR PO SCH (08:44)
[2019-09-20] MEDS: ATORVASTATIN 40 MG TAB PO SCH (08:44)
[2019-09-20] MEDS: AMLODIPINE BESYLATE 5 MG TAB PO SCH (08:44)
[2019-09-20] MEDS: POLYETHYLENE (MIRALAX) 17 GM PACK PO PRN (08:46)
[2019-09-20] MEDS: RANOLAZINE 500 MG ER TAB PO SCH ×2 (08:46→20:39)
[2019-09-20 09:10] LABS: Hematocrit (blood only) 29.8 % (42-52); Hemoglobin 9.7 g/dL (14.0-18.0); Mean Corpuscular Hemoglobin 30.1 pg (25-34); Mean Corpuscular Hgb Conc 32.6 g/dL (32-36); Mean Corpuscular Volume 92.5 fL (80-100); RDW Coefficient of Variation 14.8 % (11.5-14.5); RDW Standard Deviation 49.3 fL (36.4-46.3); Red Blood Count 3.22 M/uL (4.7-6.1); White Blood Count 4.96 K/uL (4.8-10.8)
[2019-09-20 09:37] LABS: Mean Platelet Volume 8.2 fL (7.4-10.4); Platelet Count 93 K/uL (130-400)
[2019-09-20 09:38] LABS: Platelet Estimate Decreased (Normal)
[2019-09-20 09:43] LABS: BUN Creatinine Ratio 21.8 (10-20); Calcium 8.6 mg/dl (8.5-10.1); Creatinine Clr Calc Pharmacy 33.4 ml/min; Est GFR (African American) 42.6; Est GFR (Non-African American) 36.7; Potassium 4.4 mmol/L (3.5-5.1)
--- NOTE | 2019-09-20 15:21 | Nephrology Progress Note ---
Date of Service September 20, 2019 Assessment & Plan (1) Acute kidney injury: Patient with the acute kidney injury on CKD. Baseline creatinine of 1.7. Creatinine today at 1.7 from 2 yesterday. Etiology of worsening renal function likely due to orthostasis. -continue holding Lasix. -Consider stopping IV fluids as patient appears euvolemic now. -daily BMP and avoid nephrotoxins unless life saving. (2) Hypertension: Blood pressure is controlled, no orthostatic drop today, avoid aggressive blood pressure control. Target systolic of 140-150 (3) Syncope: Patient with the syncope and found have Morbitz 2. Cardiology following patient closely and adjusting Coreg dose. Appreciate recommendations from Cardiology Admission and Anticipated Discharge Date Admission Date: September 16, 2019 Subjective Still gets light headed on standing. No SOB or pain. Getting saline at 80/hr. Review of Systems Review of Systems: All systems reviewed & are unremarkable except as noted in HPI & below Physical Exam Physical Exam: General exam: Appears comfortable, no acute distress HEENT: Pupils are equal and reactive to light Neck: No JVD, neck is supple trachea is midline Respiratory system: Clear breath sounds bilaterally. Gastrointestinal: Abdomen is soft, non distended, non tender, bowel sounds are present CVS: Regular rate and rhythm. No murmurs, rubs or gallops Musculoskeletal: No joint or muscle tenderness Extremities: Non tender, no edema, peripheral pulses are present Neuro: Oriented, no tremors, no focal neurological deficits Skin: No rashes Results & Data ([facility]) Vital Signs (Past 12 Hours) Vital Signs Temp Pulse Pulse Resp BP Pulse Ox 09/20/19 13:14 100 09/20/19 11:10 36.6 C 65 18 121/69 100 09/20/19 08:12 60 09/20/19 07:42 36.6 C 65 16 152/77 H 99 Laboratory Results 09/20/19 08:54 09/20/19 08:54 WBC 4.96 RBC 3.22 L MCV 92.5 MCH 30.1 MCHC 32.6 RDW Std Deviation 49.3 H RDW Coeff of Dary 14.8 H Plt Count 93 L MPV 8.2
--- NOTE | 2019-09-20 16:29 | Cardiology Progress Note ---
Date of Service September 20, 2019 Assessment & Plan (1) Syncope: I am starting to question whether or not there was not significant components of vertigo and orthostasis to this event. No significant arrhythmias on telemetry even with reinstituting carvedilol. Lightheadedness significantly improved but not yet resolved. From my end I will decrease his amlodipine to 5 mg daily in the a.m., however, the patient was counseled the concern would be for recurrent chronic stable angina with further medication titration. We will arrange for outpatient telemetry monitoring upon discharge to be placed at our [place] office. Would then recommend following up with primary grill attendant Dr. Case in the next 2 to 4 weeks. Okay to discharge from a cardiac standpoint once patient feels appropriate for discharge. (2) Mobitz type 1 second degree atrioventricular block: Very transient in nature without any sustained periods We will continue to follow on telemetry. (3) Arteriosclerotic cardiovascular disease: Extensive history but stable at this time. (4) PAD (peripheral artery disease): Extensive history but stable at this time. (5) HARJEET (acute kidney injury): Appreciate our nephrology colleagues input. (6) BPV (benign positional vertigo): Symptoms greatly improved after first session with physical therapy. For further therapy today. Subjective Patient seen and examined states he is feeling much better today. States that his lightheadedness significantly improved after constellation of physical therapy, IV fluids and medication adjustments. Still with some lightheadedness particularly upon standing and vital signs remained orthostatic. Denies any chest pain, shortness of breath, palpitations or presyncope. Telemetry reviewed: Normal sinus rhythm without sustained arrhythmias or AV block. Review of Systems Review of Systems: All systems reviewed & are unremarkable except as noted in HPI & below Physical Exam Physical Exam: General: Awake, alert and oriented x 3. No acute distress. HEENT: Normocephalic, atraumatic. Pupils equal, round and reactive to light and accommodation. Extraocular muscles are intact. Anicteric sclera. Moist mucous membranes. Neck: No JVD. No bruit. Cardiovascular: Regular. Positive S-4. Normal S-1 and S-2. No S-3. 3/6 mid to late systolic ejection murmur, greatest at the right sternal border, second intercostal space with radiation to the bilateral carotids. No rubs. Pulmonary: Clear to auscultation bilaterally. No rales, rhonchi, or wheezing. Abdomen: Bowel sounds x 4, soft. No rebound, guarding or tenderness. No organomegaly. Extremities: No clubbing, cyanosis or edema. +2 pedal pulses bilaterally. Skin: Warm and dry. Results & Data Vital Signs (Past 12 Hours) Vital Signs Temp Pulse Pulse Resp BP Pulse Ox 09/20/19 15:53 36.5 C 61 16 130/68 99 09/20/19 13:14 100 09/20/19 11:10 36.6 C 65 18 121/69 100 09/20/19 08:12 60 09/20/19 07:42 36.6 C 65 16 152/77 H 99
--- NOTE | 2019-09-20 17:24 | Hospitalist Progress Note ---
Date of Service September 20, 2019 Assessment & Plan (1) Syncope: Syncopal event thought possibly 2/2 cardiac event, however, brief heart block resolved, and has not been an issue. He is still having orthostatic hypotension associated with dizziness, however. He is euvolemic so stopping fluids now. Consideration was given to adrenal insufficiency, however, patient is not severely hypotensive or bradycardic. TSH was within normal limits. There may be some autonomic dysfunction either related to age or to h/o diabetes. Cont with adjustment of medications and encouraged oral hydration with fluids. Appreciate Cardiology input. Cont monitoring on telemetry with outpatient cardiac followup as recommended. (2) Orthostatic dizziness: Plan as above. Cont checking orthostatics for now. (3) Acute kidney injury: Nephrology consulted. Cont holding Lasix and monitor renal function which is improving. (4) Fall: Fall 2/2 syncope and collapse. Minor head trauma to eye, wound is closed and healing well. (5) CAD (coronary artery disease): s/p CABG 08/22/2019 after transfer to [facility] for an NSTEMI. During the hospitalization he developed acute respiratory failure from fluid overload and was treated aggressively with diuretics. 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 No evidence of ACS this admission. Cont medical management with atorvastatin, ASA, Imdur, Ranexa and Brillinta. Coreg back on board at lower dose. (6) Diabetes mellitus, type 2: He is not a diabetic. Would discontinue metformin at discharge. (7) UTI (urinary tract infection): 2/2 E faecalis. Ampicillin x 3 days, change to Amoxicillin PO for an additional 4 days. (8) Hypertension: at goal, cont amlodipine at reduced dose 5mg daily and Imdur. Low sodium diet. (9) CHF (congestive heart failure): Chronic combined systolic and diastolic CHF. Appears euvolemic on exam. Echo 08/23/2019: Apical LV wall motion abnormality. Moderate LVH, EF: 40%, moderate enlargement of ascending aorta. Moderate pulmonary HTN. Cont holding Lasix (10) Chronic anemia: Multifactorial including recent hospitalization and major surgery. (11) DVT prophylaxis: SCDs. Will add heparin Full Code Dispo-to home when medically stable and Nephrology has cleared him to return home. Zahraa Jacome DO [facility] Hospitalist Admission and Anticipated Discharge Date Admission Date: September 16, 2019 Subjective Pt states he is feeling clinically better overall Describes his syncopal event as rising to a standing position too fast consistently positive orthostatics and reported lightheadedness by patient Tele reviewed with no events overnight and in sinus rhythm. On reduced amt of coreg. He is tolerating PO, denies chest pain, SOB Eye/head wound is healing well Review of Systems Review of Systems: All systems reviewed & are unremarkable except as noted in Subjective Physical Exam Physical Exam: CONSTITUTIONAL: WNWD, vitals as above, generally well- appearing EYES: normal conjunctivae, no scleral icterus ENT: MMM RESPIRATORY: clear to auscultation bilaterally, no crackles, rales or wheezes, normal respiratory effort CARDIOVASCULAR: regular rate and rhythm, S1 and 2 heard without murmurs, gallops or rubs, no JVD, no peripheral edema GASTROINTESTINAL: normal bowel sounds, soft, nontender, nondistended MUSCULOSKELETAL: strength 5/5 throughout, head is normocephalic with trauma over the left eye, well healed wound SKIN: warm and dry, wound as above, closed, no surrounding erythema. NEUROLOGIC: CN 2-12 grossly intact, no sensory deficit, normal cognition, normal speech, no gross neurologic deficits. PSYCHIATRIC: alert cooperative and oriented to person, place and time. Results & Data ([facility]) Vital Signs (Past 12 Hours) Vital Signs Temp Pulse Pulse Resp BP Pulse Ox 09/20/19 15:53 36.5 C 61 16 130/68 99 09/20/19 13:14 100 09/20/19 11:10 36.6 C 65 18 121/69 100 09/20/19 08:12 60 09/20/19 07:42 36.6 C 65 16 152/77 H 99 Laboratory Results Short CBC 09/20/19 Range/Units 08:54 WBC 4.96 (4.8-10.8) K/uL Hgb 9.7 L (14.0-18.0) g/dL Hct 29.8 L (42-52) % Plt Count 93 L (130-400) K/uL BMP 09/20/19 08:54 Sodium 136 Potassium 4.4 Chloride 107 Carbon Dioxide 23 BUN 38 H Creatinine 1.76 H Glucose 187 H Calcium 8.6 Medications Administered Current Inpatient Medications Acetaminophen (Tylenol) 650 mg PO Q4H PRN PRN Reason: Pain or Fever Stop: 10/16/19 13:16 Last Admin: 09/19/19 05:06 Dose: 650 mg Documented by: Amlodipine Besylate (Norvasc) 5 mg PO DAILY [facility] Stop: 10/21/19 08:59 Aspirin ([facility]rin [facility]ab) [facility] Stop: 10/17/19 08:59 Last Admin: 09/20/19 08:43 Dose: 81 mg Documented by: Atorvastatin Calcium (Lipitor) [facility] Stop: 10/17/19 08:59 Last Admin: 09/20/19 08:44 Dose: 80 mg Documented by: Carvedilol (Coreg) 25 mg PO BID [facility] Stop: 10/16/19 20:59 Last Admin: 09/16/19 20:22 Dose: 25 mg Documented by: Carvedilol (Coreg) 12.5 mg PO BID [facility] Stop: 10/19/19 08:59 Last Admin: 09/20/19 08:42 Dose: 12.5 mg Documented by: Dextrose (Dextrose 50%) 25 - 50 ml IV UD PRN; Protocol PRN Reason: Hypoglycemia Protocol Stop: 10/16/19 13:16 Ferrous Sulfate (Feosol) 325 mg PO Q2D@0900 [facility] Stop: 10/17/19 08:59 Last Admin: 09/19/19 08:22 Dose: 325 mg Documented by: Glucagon (Glucagen) 1 mg SQ UD PRN; Protocol PRN Reason: Hypoglycemia Protocol Stop: 10/16/19 13:16 Glucose (Dex4 Glucose) 4 - 8 tabs PO UD PRN; Protocol PRN Reason: Hypoglycemia Protocol Stop: 10/16/19 13:16 Glucose (Glucose 40%) 15 - 30 gm PO UD PRN; Protocol PRN Reason: Hypoglycemia Protocol Stop: 10/16/19 13:16 Ampicillin Sodium 1,000 mg/ (Sodium Chloride) 50 mls @ 100 mls/hr IV Q6H [facility]; Protocol Stop: 09/28/19 10:59 Last Admin: 09/20/19 16:57 Dose: 100 mls/hr Documented by: Insulin Aspart (Novolog Flexpen) 0 units SC ACHS [facility] Stop: 10/16/19 16:29 Last Admin: 09/20/19 16:58 Dose: 4 units Documented by: Isosorbide Mononitrate (Imdur Extended Rel) 60 mg PO QAM [facility] Stop: 10/17/19 08:59 Last Admin: 09/20/19 08:44 Dose: 60 mg Documented by: Miscellaneous (Carbohydrates For Hypoglycemia) 15 - 30 gm PO UD PRN PRN Reason: Hypoglycemia Protocol Stop: 10/16/19 13:16 Nitroglycerin (Nitrostat) 0.4 mg SL UD PRN PRN Reason: Chest Pain Stop: 10/16/19 13:16 Polyethylene Glycol (Miralax Powder Packet) 17 gm PO DAILY PRN PRN Reason: Constipation Stop: 10/16/19 13:16 Last Admin: 09/20/19 08:46 Dose: 17 gm Documented by: Ranolazine (Ranexa) 500 mg PO BID [facility] Stop: 10/16/19 20:59 Last Admin: 09/20/19 08:46 Dose: 500 mg Documented by: Ticagrelor (Brilinta) 90 mg PO BID [facility] Stop: 10/16/19 20:59 Last Admin: 09/20/19 08:41 Dose: 90 mg Documented by: (1) CHF (congestive heart failure) Heart failure chronicity: acute Heart failure type: unspecified Qualified Code(s): I50.9 - Heart failure, unspecified (2) Fall Encounter type: initial encounter Qualified Code(s): W19.XXXA - Unspecified fall, initial encounter
[2019-09-20] MEDS: AMOXICILLIN 500 MG CAP PO SCH (20:39)
[2019-09-21] MEDS: SODIUM CHLORIDE 0.9% 500 ML IV SCH (00:52)
[2019-09-21 08:03] LABS: Hematocrit (blood only) 28.7 % (42-52); Hemoglobin 9.4 g/dL (14.0-18.0); Mean Corpuscular Hemoglobin 30.6 pg (25-34); Mean Corpuscular Hgb Conc 32.8 g/dL (32-36); Mean Corpuscular Volume 93.5 fL (80-100); Mean Platelet Volume 8.6 fL (7.4-10.4); Platelet Count 100 K/uL (130-400); RDW Coefficient of Variation 14.9 % (11.5-14.5); RDW Standard Deviation 50.3 fL (36.4-46.3); Red Blood Count 3.07 M/uL (4.7-6.1); White Blood Count 4.29 K/uL (4.8-10.8)
[2019-09-21 08:04] LABS: BUN Creatinine Ratio 18.6 (10-20); Calcium 8.5 mg/dl (8.5-10.1); Creatinine Clr Calc Pharmacy 33.8 ml/min; Est GFR (African American) 43.2; Est GFR (Non-African American) 37.3
[2019-09-21] MEDS: RANOLAZINE 500 MG ER TAB PO SCH ×2 (08:31→20:13)
[2019-09-21] MEDS: carvediloL 12.5 MG TAB PO SCH (08:31)
[2019-09-21] MEDS: ASPIRIN 81 MG ECTAB PO SCH (08:32)
[2019-09-21] MEDS: FERROUS SULFATE 325 MG TAB PO SCH (08:32)
[2019-09-21] MEDS: AMOXICILLIN 500 MG CAP PO SCH ×2 (08:32→20:14)
[2019-09-21] MEDS: ATORVASTATIN 40 MG TAB PO SCH (08:32)
[2019-09-21] MEDS: TICAGRELOR 90 MG TAB PO SCH ×2 (08:32→20:13)
[2019-09-21] MEDS ORDERED: AMLODIPINE BESYLATE 5 MG TAB PO SCH (09:00)
--- NOTE | 2019-09-21 14:15 | Cardiology Progress Note ---
Date of Service September 21, 2019 Assessment & Plan (1) Syncope: Likely a combination of vertigo and orthostasis to this event. No significant arrhythmias on telemetry even with reinstituting carvedilol. Lightheadedness worsened today despite discontinuation of Imdur and decreasing amlodipine to 5 mg daily. I am not quite sure what to make of his continued lightheadedness at this point. No longer orthostatic Given the fact that he did have a head injury and question whether or not he may be suffering from a concussion at this point? We will discontinue amlodipine completely at this time so the patient is only on carvedilol 12.5 mg p.o. twice daily. Could further decrease dose however given his complex underlying coronary artery disease and discontinuation of all other antianginal medications would be concerned about recurrent angina. We will arrange for outpatient telemetry monitoring upon discharge to be placed at our [facility] office. Would then recommend following up with primary bed placement coordinator Dr. Case in the next 2 to 4 weeks. Okay to discharge from a cardiac standpoint once patient feels appropriate for discharge. (2) Mobitz type 1 second degree atrioventricular block: Very transient in nature without any sustained periods We will continue to follow on telemetry. (3) Arteriosclerotic cardiovascular disease: Extensive history but stable at this time. (4) PAD (peripheral artery disease): Extensive history but stable at this time. (5) HARJEET (acute kidney injury): Appreciate our nephrology colleagues input. Resolved, creatinine at baseline. (6) BPV (benign positional vertigo): Status post physical therapy Subjective Patient seen and examined states he is not feeling as well as today as he did yesterday. States he is more lightheaded and dizzy today. And still feels weak. Denies complaints of chest pain, shortness of breath, palpitations or syncope. Telemetry reviewed: Normal sinus rhythm without arrhythmia occasional PACs Review of Systems Review of Systems: All systems reviewed & are unremarkable except as noted in HPI & below Physical Exam Physical Exam: General: Awake, alert and oriented x 3. No acute distress. HEENT: Normocephalic, atraumatic. Pupils equal, round and reactive to light and accommodation. Extraocular muscles are intact. Anicteric sclera. Moist mucous membranes. Neck: No JVD. No bruit. Cardiovascular: Regular. Positive S-4. Normal S-1 and S-2. No S-3. 3/6 mid to late systolic ejection murmur, greatest at the right sternal border, second intercostal space with radiation to the bilateral carotids. No rubs. Pulmonary: Clear to auscultation bilaterally. No rales, rhonchi, or wheezing. Abdomen: Bowel sounds x 4, soft. No rebound, guarding or tenderness. No organomegaly. Extremities: No clubbing, cyanosis or edema. +2 pedal pulses bilaterally. Skin: Warm and dry. Results & Data Vital Signs (Past 12 Hours) Vital Signs Temp Pulse Resp BP BP Pulse Ox 09/21/19 11:14 36.4 C L 60 18 124/69 100 09/21/19 10:51 36.6 C 60 12 157/73 H 100 09/21/19 06:18 36.5 C 63 18 185/69 H 99 09/21/19 03:52 36.7 C 57 L 19 125/56 L 96
--- NOTE | 2019-09-21 15:49 | Nephrology Progress Note ---
Date of Service September 21, 2019 Assessment & Plan (1) Acute kidney injury: Patient with the acute kidney injury on CKD. Baseline creatinine of 1.7. Creatinine today at 1.7 stable. Etiology of worsening renal function likely due to orthostasis. -continue holding Lasix. -daily BMP and avoid nephrotoxins unless life saving. (2) Hypertension: Blood pressure is controlled although patient intermittently symptomatic, no orthostatic drop today, avoid aggressive blood pressure control. Target systolic of 140-150 (3) Syncope: Patient with the syncope and found have [place] 2. Cardiology following patient closely and adjusting Coreg dose versus switching to metoprolol. Case discussed with Dr. Bacon and Dr. Jacome Admission and Anticipated Discharge Date Admission Date: September 16, 2019 Subjective Patient feels better but intermittently getting lightheaded. No shortness of breath Review of Systems Review of Systems: All systems reviewed & are unremarkable except as noted in HPI & below Physical Exam Physical Exam: General exam: Appears comfortable, no acute distress HEENT: Pupils are equal and reactive to light Neck: No JVD, neck is supple trachea is midline Respiratory system: Clear breath sounds bilaterally. Gastrointestinal: Abdomen is soft, non distended, non tender, bowel sounds are present CVS: Regular rate and rhythm. No murmurs, rubs or gallops Musculoskeletal: No joint or muscle tenderness Extremities: Non tender, no edema, peripheral pulses are present Neuro: Oriented, no tremors, no focal neurological deficits Skin: No rashes Results & Data ([facility]) Vital Signs (Past 12 Hours) Vital Signs Temp Pulse Resp BP BP Pulse Ox 09/21/19 15:24 36.1 C L 58 L 18 150/76 H 98 09/21/19 14:53 100 09/21/19 11:14 36.4 C L 60 18 124/69 100 09/21/19 10:51 36.6 C 60 12 157/73 H 100 09/21/19 06:18 36.5 C 63 18 185/69 H 99 09/21/19 03:52 36.7 C 57 L 19 125/56 L 96 Laboratory Results 09/21/19 07:09 09/21/19 07:09 WBC 4.29 L RBC 3.07 L MCV 93.5 MCH 30.6 MCHC 32.8 RDW Std Deviation 50.3 H RDW Coeff of Dary 14.9 H Plt Count 100 L MPV 8.6
--- NOTE | 2019-09-21 16:09 | Hospitalist Progress Note ---
Date of Service September 21, 2019 Assessment & Plan (1) Syncope: Syncopal event thought possibly 2/2 cardiac event, however, brief heart block resolved, and has not been an issue. He had been diuresed during recent hospitalization, and was admitting in renal failure here, which may have also co ntributed or been a cause for his syncope and collapse. Some worsened dizziness today compared to yesterday. Cards stopping Imdur and Norvasc altogether. Pt wishes to stay until he is feeling better. Orthostatic hypotension resolved when rechecked in late morning. Will also decrease Coreg by 50% in setting of persistent symptoms and bradycardia overnight on telemetry. (2) Orthostatic dizziness: Plan as above. Still with some persistent dizziness with resolution of orthostatic hypotension. (3) Acute kidney injury: Nephrology consulted. Cont holding Lasix and monitor renal function which is improved overall but about the same today as yesterday-1.7 (4) Fall: Fall 2/2 syncope and collapse. Minor head trauma to eye, wound is closed and healing well. (5) CAD (coronary artery disease): s/p angioplasty with stent placement 08/22/2019 after transfer to [facility] for an NSTEMI. Has h/o CABG 20 years ago. During the hospitalization he developed acute respiratory failure from fluid overload and was treated ag gressively with diuretics. He reported dizziness at his Cardiology followup on 09/06/2019 and his beater lead reduced his Imdur to 60mg PO daily. No evidence of ACS this admission. Cont medical management with atorvastatin, ASA, Ranexa and Brillinta. Reduce Coreg to 6.25mg BID (6) Diabetes mellitus, type 2: He is not a diabetic. Would discontinue metformin at discharge. (7) UTI (urinary tract infection): 2/2 E faecalis. Ampicillin x 3 days, changed to Amoxicillin PO for an additional 4 days. (8) Hypertension: at goal 140-150 systolic until syncopal episodes have resolved consistently. Low sodium diet. (9) CHF (congestive heart failure): Chronic combined systolic and diastolic CHF. Appears euvolemic on exam. Echo 08/23/2019: Apical LV wall motion abnormality. Moderate LVH, EF: 40%, moderate enlargement of ascending aorta. Moderate pulmonary HTN. Cont holding Lasix (10) Chronic anemia: Multifactorial including recent hospitalization and major surgery. (11) Thrombocytopenia: chronic, workup as outpatient. (12) DVT prophylaxis: SCDs. Hold chemoprophylaxis in setting of thrombocytopenia. Full Code Dispo-to home when medically stable and Nephrology has cleared him to return home. DO [facility] Admission and Anticipated Discharge Date Admission Date: September 16, 2019 Subjective pt doing well today but reports an increased amount of lightheadedness +orthostatics in the morning which resolved in the later morning when rechecked. tele review reviewed some dropped beats and blocked PACs with the heart rate in the 40-60 bpm range denies chest pain Review of Systems Review of Systems: All systems reviewed & are unremarkable except as noted in Subjective Physical Exam Physical Exam: CONSTITUTIONAL: WNWD, vitals as above, generally well- appearing EYES: normal conjunctivae, no scleral icterus ENT: MMM RESPIRATORY: clear to auscultation bilaterally, no crackles, rales or wheezes, normal respiratory effort CARDIOVASCULAR: regular rate and rhythm, S1 and 2 heard without murmurs, gallops or rubs, no JVD, no peripheral edema GASTROINTESTINAL: normal bowel sounds, soft, nontender, nondistended MUSCULOSKELETAL: strength 5/5 throughout, head is normocephalic with trauma over the left eye, well healed wound SKIN: warm and dry, wound as above, closed, no surrounding erythema. NEUROLOGIC: CN 2-12 grossly intact, no sensory deficit, normal cognition, normal speech, no gross neurologic deficits. PSYCHIATRIC: alert cooperative and oriented to person, place and time. Results & Data ([facility]) Vital Signs (Past 12 Hours) Vital Signs Temp Pulse Resp BP BP Pulse Ox 09/21/19 15:24 36.1 C L 58 L 18 150/76 H 98 09/21/19 14:53 100 09/21/19 11:14 36.4 C L 60 18 124/69 100 09/21/19 10:51 36.6 C 60 12 157/73 H 100 09/21/19 06:18 36.5 C 63 18 185/69 H 99 Laboratory Results Short CBC 09/21/19 Range/Units 07:09 WBC 4.29 L (4.8-10.8) K/uL Hgb 9.4 L (14.0-18.0) g/dL Hct 28.7 L (42-52) % Plt Count 100 L (130-400) K/uL BMP 09/21/19 07:09 Sodium 138 Potassium 4.0 Chloride 110 H Carbon Dioxide 22 BUN 32 H Creatinine 1.74 H Glucose 121 H Calcium 8.5 Medications Administered Current Inpatient Medications Acetaminophen (Tylenol) 650 mg PO Q4H PRN PRN Reason: Pain or Fever Stop: 10/16/19 13:16 Last Admin: 09/19/19 05:06 Dose: 650 mg Documented by: Amoxicillin (Amoxil) 1,000 mg PO BID [facility]; Protocol Stop: 09/24/19 09:01 Last Admin: 09/21/19 08:32 Dose: 1,000 mg Documented by: Aspirin (Ecotrin Ectab) [facility] Stop: 10/17/19 08:59 Last Admin: 09/21/19 08:32 Dose: 81 mg Documented by: Atorvastatin Calcium (Lipitor) 80 [facility] Stop: 10/17/19 08:59 Last Admin: 09/21/19 08:32 Dose: 80 mg Documented by: Carvedilol (Coreg) 6.25 mg PO BID [facility] Stop: 10/21/19 20:59 Ferrous Sulfate (Feosol) 325 mg PO Q2D@0900 [facility] Stop: 10/17/19 08:59 Last Admin: 09/21/19 08:32 Dose: 325 mg Documented by: Nitroglycerin (Nitrostat) 0.4 mg SL UD PRN PRN Reason: Chest Pain Stop: 10/16/19 13:16 Polyethylene Glycol (Miralax Powder Packet) 17 gm PO DAILY PRN PRN Reason: Constipation Stop: 10/16/19 13:16 Last Admin: 09/20/19 08:46 Dose: 17 gm Documented by: Ranolazine (Ranexa) 500 mg PO BID [facility] Stop: 10/16/19 20:59 Last Admin: 09/21/19 08:31 Dose: 500 mg Documented by: Ticagrelor (Brilinta) 90 mg PO BID [facility] Stop: 10/16/19 20:59 Last Admin: 09/21/19 08:32 Dose: 90 mg Documented by: (1) CHF (congestive heart failure) Heart failure chronicity: acute Heart failure type: unspecified Qualified Code(s): I50.9 - Heart failure, unspecified (2) Fall Encounter type: initial encounter Qualified Code(s): W19.XXXA - Unspecified fall, initial encounter
[2019-09-21] MEDS: carvediloL 6.25 MG TAB PO SCH (20:16)
[2019-09-22 07:32] LABS: BUN Creatinine Ratio 18.7 (10-20); Creatinine Clr Calc Pharmacy 34.8 ml/min; Est GFR (African American) 44.7; Est GFR (Non-African American) 38.6; Potassium 4.1 mmol/L (3.5-5.1)
[2019-09-22] MEDS: carvediloL 6.25 MG TAB PO SCH (08:10)
[2019-09-22] MEDS: ATORVASTATIN 40 MG TAB PO SCH (08:10)
[2019-09-22] MEDS: RANOLAZINE 500 MG ER TAB PO SCH (08:11)
[2019-09-22] MEDS: TICAGRELOR 90 MG TAB PO SCH (08:11)
[2019-09-22] MEDS: ASPIRIN 81 MG ECTAB PO SCH (08:11)
[2019-09-22] MEDS: AMOXICILLIN 500 MG CAP PO SCH (08:11)
--- NOTE | 2019-09-22 12:47 | Cardiology Progress Note ---
Date of Service September 22, 2019 Assessment & Plan (1) Syncope: Likely a combination of vertigo and orthostasis to this event. No significant arrhythmias on telemetry even with reinstituting carvedilol. Now on only minimal medication including carvedilol 6.25 mg twice daily. Lightheadedness has finally resolved. No anginal symptoms. Would not make any medication changes at this time. Given that the patient has been on telemetry since August I do not believe outpatient telemetry is necessary at this point. Would recommend following up with primary inspector line Dr. Case in the next 2 to 4 weeks. Okay to discharge from a cardiac standpoint once patient feels appropriate for discharge. (2) Mobitz type 1 second degree atrioventricular block: Resolved with decreased beta-ramona dose (3) Arteriosclerotic cardiovascular disease: Extensive history but stable at this time. (4) PAD (peripheral artery disease): Extensive history but stable at this time. (5) HARJEET (acute kidney injury): Appreciate our nephrology colleagues input. Resolved, creatinine at baseline. (6) BPV (benign positional vertigo): Status post physical therapy Subjective Patient seen and examined, states he feels well today. States that lighthea dedness is almost not noticeable and feeling well. Denies any chest pain, shortness of breath, palpitations, lightheadedness, dizziness or syncope. Telemetry reviewed: Normal sinus rhythm without arrhythmia. Review of Systems Review of Systems: All systems reviewed & are unremarkable except as noted in HPI & below Physical Exam Physical Exam: General: Awake, alert and oriented x 3. No acute distress. HEENT: Normocephalic, atraumatic. Pupils equal, round and reactive to light and accommodation. Extraocular muscles are intact. Anicteric sclera. Moist mucous membranes. Neck: No JVD. No bruit. Cardiovascular: Regular. Positive S-4. Normal S-1 and S-2. No S-3. No murmurs or rubs. Pulmonary: Clear to auscultation B/L. No rales, rhonchi or wheezing Abdomen: Bowel sounds x 4, soft. No rebound, guarding or tenderness. No organomegaly. Extremities: No clubbing, cyanosis or edema. +2 pedal pulses bilaterally. Skin: Warm and dry. Results & Data Vital Signs (Past 12 Hours) Vital Signs Temp Pulse Pulse Resp BP BP Pulse Ox 03/06/20 11:03 36.7 C 57 L 19 187/74 H 100 09/22/19 08:00 63 09/22/19 07:44 36.6 C 65 18 152/78 H 95 09/22/19 06:08 36.5 C 69 18 185/80 H 98 09/22/19 03:36 36.9 C 55 L 20 158/73 H 98 09/22/19 01:31 56 L
--- NOTE | 2019-09-22 16:03 | Electrocardiogram Report ---
Test Reason : Blood Pressure : / mmHG Vent. Rate : 059 BPM Atrial Rate : 059 BPM P-R Int : 254 ms QRS Dur : 106 ms QT Int : 466 ms P-R-T Axes : 063 -24 210 degrees QTc Int : 461 ms Sinus bradycardia with 1st degree A-V block with occasional Premature ventricular complexes Left ventricular hypertrophy with repolarization abnormality ( R in aVL , [place] product ) Abnormal ECG When compared with ECG of 19-SEP-2019 08:27, Premature ventricular complexes are now Present T wave inversion now evident in Inferior leads Confirmed by Mayo Martel ([id number]) on 09/22/2019 4:03:13 PM Referred By: REFERRED SELF Confirmed By:Mayo Martel
[2019-09-22] MEDS ORDERED: cloNIDine HCL 0.1 MG TAB PO STA (16:09)
[2019-09-22] MEDS ORDERED: AMLODIPINE BESYLATE 5 MG TAB PO STA (16:18)
--- NOTE | 2019-09-22 16:40 | Nephrology Progress Note ---
Date of Service September 22, 2019 Assessment & Plan (1) Acute kidney injury: Patient with the acute kidney injury on CKD. Baseline creatinine of 1.7. Creatinine today at 1.7 stable. Etiology of worsening renal function likely due to orthostasis. -continue holding Lasix. -daily BMP and avoid nephrotoxins unless life saving. -from renal standpoint patient can be discharged. He can follow up in the renal Clinic with myself or 1 of my colleagues in 2-4 weeks. (2) Hypertension: Blood pressure is a little high today after reducing Coreg to 6.25 twice daily. Amlodipine 2.5 mg was added this afternoon, avoid aggressive blood pressure control. Target systolic of 140-150 (3) Syncope: Patient with the syncope and found have [place] 2. Cardiology following patient closely and adjusting Coreg dose. Case discussed with Dr. Bacon and Dr. Jacome Admission and Anticipated Discharge Date Admission Date: September 16, 2019 Subjective Patient feels better today no dizziness. Creatinine is stable. He is eager to be discharged but blood pressure is still fluctuating. Review of Systems Review of Systems: All systems reviewed & are unremarkable except as noted in HPI & below Physical Exam Physical Exam: General exam: Appears comfortable, no acute distress HEENT: Pupils are equal and reactive to light. Bruise on the right eye Neck: No JVD, neck is supple trachea is midline Respiratory system: Clear breath sounds bilaterally. Gastrointestinal: Abdomen is soft, non distended, non tender, bowel sounds are present CVS: Regular rate and rhythm. No murmurs, rubs or gallops Musculoskeletal: No joint or muscle tenderness Extremities: Non tender, no edema, peripheral pulses are present Neuro: Oriented, no tremors, no focal neurological deficits Skin: No rashes Results & Data ([facility]) Vital Signs (Past 12 Hours) Vital Signs Temp Pulse Pulse Resp BP BP Pulse Ox 09/22/19 16:36 58 L 09/22/19 16:09 171/81 H 09/22/19 15:08 36.7 C 56 L 18 182/68 H 100 09/22/19 11:03 36.7 C 57 L 19 187/74 H 100 09/22/19 08:00 63 09/22/19 07:44 36.6 C 65 18 152/78 H 95 09/22/19 06:08 36.5 C 69 18 185/80 H 98 Laboratory Results 09/22/19 06:47
[2019-09-22] MEDS ORDERED: AMLODIPINE BESYLATE 5 MG TAB PO ONE (17:00)
--- NOTE | 2019-09-22 17:30 | Discharge Summary ---
Date of Service September 22, 2019 Admission HPI Per Admitting Provider Pt is 74 y/o M with PMH significant CAD s/p CABG 1996, s/p angioplasty and stent to LAD in 08/2019, combined CHF, ischemic cardiomyopathy, DM II, HTN, HLD, carotid artery stenosis s/p right internal carotid artery stent 2017, PAD s/p stent left popliteal and SFA, pancytopenia, GERD, CKD III presented to ER with complaint of dizziness and fall. Patient reports chronic dizziness and lightheadedness which he thinks is sometimes worse with standing. Patient states this morning he ate muffin for breakfast. Around 8:00 AM he stood up to walk through his house when he became increasingly lightheaded and fell. Patient states he thinks he might of "blacked out" for a couple of seconds as he woke up on the floor. Patient denies any headache, vision changes. He denies any chest pain, palpitations prior to fall. Patient reports chronic intermittent shortness of breath at baseline and denies any increased shortness of breath. During transport to ER patient reports vomited twice. She reports chronic right shoulder pain denies any increased pain after fall. Patient denies neck pain. Reports has chronic pain in tailbone and denies any increased pain since fall. Denies any other pain to extremities. Denies fever/chills, diaphoresis, CALL, vision changes, neck pain, orthopnea, palpitations, cough, sore throat, choking, otalgia, rhinorrhea, abdominal pain, paresthesias, weakness, extremity weakness, extremity edema, rashes, urinary symptoms. Recent hospitalization at [facility] 08/21/2019-08/22/2019 for chest pain, and NSTEMI and was transferred to [facility] there he had balloon to LMCA and LAD with stent LAD. He developed acute respiratory failure thought secondary to fluid overload and was treated aggressively with diuretics. Patient reports since discharge no further chest pain. Patient followed up with his mail room clerk Dr Conrado Levi on 09/06/2019 and his Imdur was decreased to 60 mg daily secondary to his reported dizziness. There was discussion about brachytherapy however patient was not interested. Echo 08/23/2019: Apical LV wall motion abnormality. Moderate LVH, EF: 40%, moderate enlargement of ascending aorta. Moderate pulmonary HTN. Admission Exam Per Admitting Provider General: no acute distress, chronic ill appearing, WDWN Head: normocephalic, face: +Scattered petechiae, ecchymosis right lateral eye orbit, laceration right lateral orbit closed with tissue adhesive, +laceration right lateral nasal fold closed with tissue adhesive Eyes: PERRL, EOM's intact, conjunctiva non-injected, anicteric ENT: normal inspection external ears, nose, mucous membranes moist Neck: supple, trachea midline, non-tender, ROM intact Lungs: clear, no respiratory distress, no wheezing/rhonchi/rales CV: rate 52, regular rhythm, no JVD, no pretibial edema Abd: normal BS, soft, non-tender Back: No spinous process tenderness to palpation, no skin discoloration Ext: no cyanosis, no calf tenderness Neuro: A&O x 3, no focal deficits noted, normal affect Skin: warm, dry; green ecchymosis right anterior shoulder, ecchymosis bilateral dorsal hands, petechiae face, chest Principal Diagnosis Syncope Orthostatic dizziness HTN Head laceration 2/2 fall HARJEET UTI Thrombocytopenia Discharge Exam CONSTITUTIONAL: WNWD, vitals as above, generally well-appearing EYES: normal conjunctivae, no scleral icterus ENT: MMM RESPIRATORY: clear to auscultation bilaterally, no crackles, rales or wheezes, normal respiratory effort CARDIOVASCULAR: regular rate and rhythm, S1 and 2 heard without murmurs, gallops or rubs, no JVD, no peripheral edema GASTROINTESTINAL: normal bowel sounds, soft, nontender, nondistended MUSCULOSKELETAL: strength 5/5 throughout, head is normocephalic with trauma over the left eye, well healed wound SKIN: warm and dry, wound as above, closed, no surrounding erythema. NEUROLOGIC: CN 2-12 grossly intact, no sensory deficit, normal cognition, normal speech, no gross neurologic deficits. PSYCHIATRIC: alert cooperative and oriented to person, place and time. Discharge Data Allergies Allergy/AdvReac Type Severity Reaction Status Date / Time hydralazine Allergy Hives Verified 09/16/19 11:07 Iodinated Contrast Media Allergy Unknown Verified 09/16/19 11:07 [Iodinated Contrast- Oral and IV Dye] Consultations 09/16/19 11:47 ED Decision to Admit Stat 09/16/19 13:17 Consult Case Management - Discharge Planning Routine 09/16/19 14:41 Consult Nephrology Routine 09/17/19 04:44 Consult Cardiology Routine Ordered Studies 09/16/19 09:33 CT cervical spine wo con Stat CT facial bones wo con Stat CT head/brain wo con Stat Hospital Course (1) Syncope: Syncopal event thought possibly 2/2 cardiac event, however, brief heart block resolved, and has not been an issue. He had been diuresed during recent hospitalization, and was admitting in renal failure here, which may have also contributed or been a cause for his syncope and collapse. Some persistent dizziness during hospitalization was likely multifactorial including medication side effect-amlodipine, imdur and coreg were adjusted during stay--and persistent orthostatic hypotension. The patient was also using metformin, however, has a consistent A1C in the low 5s, and this was discontinued at discharge. UTI was also found and treated this admission. Cards stopping Imdur and Norvasc altogether. Orthostatic hypotension resolved with medication adjustments and fluids. (2) Orthostatic dizziness: (3) Acute kidney injury: Resolved to baseline creatinine 1.7. Lasix was discontinued at discharge with [facility] Nephrology followup recommended in 1-2 weeks. (4) Fall: Minor head trauma to eye, wound is closed and healing well. (5) CAD (coronary artery disease): s/p angioplasty with stent placement 08/22/2019 after transfer to [facility] for an NSTEMI. Has h/o CABG 20 years ago. During this previous hospitalization he had developed acute respiratory failure from fluid overload and was treated aggressively with diuretics. He reported dizziness at his Cardiology followup on 09/06/2019 and his mail room clerk reduced his Imdur to 60mg PO daily. This was all [employer]ELOPER to this facility for the current admission. No evidence of ACS this admission. CAD was managed medically during this admis andre. (6) UTI (urinary tract infection): 2/2 E faecalis. Ampicillin x 3 days, changed to Amoxicillin PO for an additional 4 days. Total Time Total Time Spent Total Time Spent (In Minutes): 60 Total Time Includes: Examination of the Patient, Discharge Planning, Medication Reconciliation and Communication With Other Providers Discharge Plan Discharge Items Patient Disposition: Transfer Snf Fac Reason For Visit: HARJEET Discharge Diagnosis: Syncope Orthostatic dizziness HTN Head laceration 2/2 fall HARJEET UTI Thrombocytopenia Condition on Discharge: Good Activity: Resume your previous activity Non-emergency contact: Primary Care Provider Call non-emergency contact if: you have any medication questions, your symptoms worsen, your pain is not controlled, your pain is worsening, your pain is unusual for you, your pain is concerning for you and you have a fever Follow-up/Referrals: Dalila Viera MD [Primary Care Provider] - Diet: Low Sodium (2gm) Addtl Attending Provider Instructions: Please take all medications as instructed on discharge list below. It is recommended that you have a follow-up with your primary care provider within one week to recheck your blood pressure, ensure you are doing well after leaving the hospital, monitor your dizziness symptoms and recheck orthostatic vitals signs on you. Please follow-up with your primary mail room clerk to adjust your cardiac medications within the next 4 weeks. It was a pleasure taking care of you! Please call if you have any questions or problems. You can reach a [facility] hospitalist on duty at [facility] 24 hours a day by calling [phone]. Take care of yourself. Zahraa Jacome, [place] Hospitalist Pending Studies at Discharge: No Stand-Alone Forms: [facility] Skilled Items Patient informed of condition?: Yes DNR: No Discharge Level of Care: Skilled Communicable Disease: No Discharge Prognosis: Stable Lines: None Urinary Catheter: No Medications and DC Order Prescriptions: New carvedilol 6.25 mg Tablet 6.25 mg PO BID Qty: 60 RF: 0 amlodipine [Norvasc] 2.5 mg tablet 2.5 mg PO DAILY Qty: 30 RF: 1 Continued tramadol 50 mg Tablet 50 mg PO Q6H PRN (Reason: Pain) RF: 0 cyanocobalamin (vitamin B-12) 1,000 mcg/mL Solution 1 ml IM MONTHLY RF: 0 nitroglycerin [Nitrostat] 0.4 mg Tablet, Sublingual 0.4 mg Sublingual DIRECTED PRN (Reason: Chest Pain) RF: 0 ranolazine [Ranexa] 1,000 mg Tablet Extended Release 12 Hr 500 mg PO BID RF: 0 atorvastatin 80 mg tablet 80 mg PO QAM RF: 0 Brilinta 90 mg tablet 90 mg PO BID RF: 0 ferrous sulfate 325 mg (65 mg iron) tablet 325 mg PO Q2D RF: 0 aspirin 81 mg tablet,chewable 81 mg PO QAM RF: 0 Discontinued meclizine 25 mg Tablet 25 mg PO TID PRN (Reason: Dizziness) RF: 0 amlodipine [Norvasc] 10 mg Tablet 10 mg PO DAILY RF: 0 potassium chloride [Klor-Con M10] 10 mEq Tablet,Er Particles/Crystals 10 meq PO BID RF: 0 furosemide 40 mg tablet 80 mg PO QAM RF: 0 isosorbide mononitrate 30 mg tablet extended release 24 hr 60 mg PO QAM RF: 0 carvedilol 25 mg tablet 25 mg PO BID RF: 0 Discharge Orders: Discharge Order (Routine); Ordered 09/22/19 Ordered By: Zahraa Jacome Admission Data Admit Date/Time: 09/16/19 12:27 Attending Provider: Zahraa Jacome Admit Provider: Jeet Garcia Primary Care Provider: Dalila Viera Other Providers: Marito Martinez ; Noe Bacon Other Interventions: Discharge Summary Assessment (RN) Last Done: 09/22/19 17:20 DC Date/Time DO NOT enter until pt leaves facility: 09/22/19 18:07
== END 2019-09-22 18:07 | DRG 682 ==
LOC: ED 09:24 → 2N 12:27 → SUATTDRO 12:27 → 2N 12:52 → 2S 09-17 01:59

== ENCOUNTER 2021-07-21 02:00 | Inpatient (IN) ==
[2021-07-21] MEDS ORDERED: ALBUT/IPRATROP 3MG/0.5MG NEB 3 ML VIAL NEB STA (02:06)
--- NOTE | 2021-07-21 02:15 | Emergency Department Note ---
History of Present Illness General Chief complaint: Shortness of Breath/Dyspnea Stated complaint: Weakness, SOB Time Seen by Provider: 07/21/21 02:01 History of Present Illness This 76-year-old history who tested negative for Covid recently presents to the ER complaining of increasing shortness of breath and cough for the past week. Patient is vaccinated and posted for Covid Location: Chest Quality: Hard to breathe Severity: Moderate Duration: Past few days Timing: Started a week ago Context: Symptoms got acutely worse and patient came in Modifying factors: better with albuterol; worse with activity Patient normally wears 2 L but sats in the low 90s and EMS bumped him up to 3- 1/2. He felt slightly better. EMS gave an albuterol nebulizer. Patient complains of cough and dyspnea with leg swelling. He is on Lasix daily for heart failure. Patient has chest pain, fevers, abdominal pain, vomiting, diarrhea. Home Medications Medication Instructions Recorded Confirmed Type albuterol sulfate 90 mcg/actuation 2 puff INHALATION Q4 PRN 07/21/21 07/21/21 History aerosol inhaler amlodipine 5 mg tablet 5 mg PO QPM 07/21/21 07/21/21 History atorvastatin 80 mg tablet 80 mg PO QAM 07/21/21 07/21/21 History calcium carbonate 600 mg-vitamin 1 tab PO DAILY 07/21/21 07/21/21 History D3 20 mcg (800 unit) tablet carvedilol 6.25 mg tablet 6.25 mg PO BID 07/21/21 07/21/21 History cholecalciferol (vitamin D3) 25 25 mcg PO DAILY 07/21/21 07/21/21 History mcg (1,000 unit) tablet (Vitamin D3) cilostazol 50 mg tablet 50 mg PO BID 07/21/21 07/21/21 History clopidogrel 75 mg tablet (Plavix) 75 mg PO DAILY 07/21/21 07/21/21 History cyanocobalamin (vitamin B-12) 1,000 mcg IM MO 07/21/21 07/21/21 History 1,000 mcg/mL injection solution dexamethasone 4 mg tablet 6 mg PO DAILY 07/21/21 07/21/21 History fluticasone propionate 220 2 puff INHALATION BID 07/21/21 07/21/21 History mcg/actuation HFA aerosol inhaler (Flovent HFA) guaifenesin 600 mg tablet, 600 mg PO Q12H PRN 07/21/21 07/21/21 History extended release 12 hr (Mucinex) iron,carbonyl 65 mg-vitamin C 125 1 tab PO Q OTHER DAY 07/21/21 07/21/21 History mg tablet,delayed release (Vitron-C) meclizine 12.5 mg tablet 12.5 mg PO BID 07/21/21 07/21/21 History mometasone 50 mcg/actuation nasal 2 spray INTRANASAL DAILY 07/21/21 07/21/21 History spray (Nasonex) nitroglycerin 0.4 mg sublingual 0.4 mg SUBLINGUAL UD PRN 07/21/21 07/21/21 History tablet (Nitrostat) potassium chloride 20 mEq 20 meq PO MOWEFR 07/21/21 07/21/21 History tablet,extended release(part/cryst) ranolazine 500 mg tablet,extended 500 mg PO BID 07/21/21 07/21/21 History release,12 hr sennosides 8.6 mg-docusate sodium 2 tab-cap PO BID 07/21/21 07/21/21 History 50 mg capsule (Senna Plus) torsemide 10 mg tablet 10 mg PO MOWEFR 07/21/21 07/21/21 History tramadol 50 mg tablet 50 mg PO DAILY PRN 07/21/21 07/21/21 History Allergies Allergy/AdvReac Type Severity Reaction Status Date / Time hydralazine Allergy Hives Verified 07/21/21 03:17 Iodinated Contrast Media Allergy Unknown Verified 07/21/21 03:17 [Iodinated Contrast- Oral and IV Dye] Past Med/Surg History Medical History (Updated 07/21/21 @ 03:01 by Nayeli Hartman PA-C) CAD (coronary artery disease) Chronic obstructive pulmonary disease mild--no inhaler Diabetes mellitus, type 2 History of common carotid artery stent placement 06/2017 @ [facility] [place] Hyperlipidemia Hypertension Myocardial Infarction 1996 On anticoagulant therapy on plavix Osteoarthritis PVD (peripheral vascular disease) Stroke 08/27/2017--no deficits Thoracic ascending aortic aneurysm Surgical History Chest pain 07/09/18 CARDIAC CATH WITH 5 MORE HEART STENTS [facility]ACED [facility] [place] History of cardiac cath pt states he has had about 12 of them--last one "a couple years ago" History of cholecystectomy History of colonoscopy History of coronary artery bypass graft 1996 @ [facility] [place] quadruple bypass History of heart artery stent pt is unsure of how many heart stents, states around 39 stents total (i ncluding peripheral artery) History of left cataract extraction History of procedure for peripheral vascular disease pt states he has had about 6 with multiple stents placed History of tooth extraction wisdom teeth Family History Other Cancer Coronary heart disease Social History Smoking Status: Unknown if ever smoked Tobacco Type: Cigarettes Cigarettes Per Day: quit 1997; Second Hand Exposure: No; Hx Alcohol Use: No Hx Substance Use: No Preferred Language: Latvian Communication Ability: Effective Informatics Consultant Required: No Beliefs That Will Affect Care: None marital status: Single Current Living Situation: Alone Current Living Situation Comment: [facility] Feels Safe at Home: Yes Assistive Devices: None Review of Systems A total of 10 systems reviewed and were otherwise negative Physical Exam Vital Signs Vital Signs - 24 hr 07/21/21 02:15 07/21/21 02:19 Temperature 37.4 C Temperature Source Oral Pulse Rate 91 H 90 Pulse Rate [Left Radial] 78 Pulse Rhythm Regular Regular Pulse Rhythm [Left Radial] Regular Pulse Strength Normal Pulse Strength [Left Radial] Normal Respiratory Rate 24 24 Respiratory Effort / Characteristics Grunting Labored Non-Labored Respiratory Depth Shallow Normal Respiratory Pattern Grunting Tachypnea Regular Blood Pressure 184/91 H Blood Pressure [Left Arm] 184/91 H Blood Pressure Mean 122 Blood Pressure Mean [Left Arm] 122 Blood Pressure Position Lying Blood Pressure Position [Left Arm] Lying Pulse Oximetry 91 91 Oxygen Delivery Method Nasal Cannula Nasal Cannula Oxygen Flow Rate 3 3 Sepsis Recent Fever Within 48 Hours No Sepsis New/Unexplained Change in Mental Status No Sepsis Action Taken by Nursing No Action Required VITALS: Vitals are noted on the nurse's note and reviewed by myself. Vital signs stable. GENERAL: Elderly male with audible wheeze working to breathe in moderate acute distress, SKIN: The skin was without rashes, erythema, edema, or bruising. There is no tenting of the skin. Capillary reflex less than 2 seconds. HEAD: Normocephalic atraumatic. EARS: External auditory canals clear, EYES: Pupils equal round and reactive to light and accommodation. Conjunctivae without injection, sclerae without icterus. Extraocular movements intact. NOSE: Patent, turbinates without inflammation or discharge. MOUTH: Mucous membranes moist. Pharynx without erythema or exudate. Uvula midline. Airway patent. Tongue does not deviate. NECK: Supple without nuchal rigidity. No lymphadenopathy. No thyromegaly. Cervical spine is nontender. No JVD. HEART: Regular rate and rhythm without murmurs gallops or rubs. LUNGS: Diffuse inspiratory and end expiratory wheezes, bibasilar rales, + accessory muscle use. ABDOMEN: Positive bowel sounds x 4. Normal tympanic percussion. Soft, nontender, without masses or organomegaly. Wilkerson sign negative. No guarding or rebound tenderness. No CVA tenderness MUSCULOSKELETAL: No muscle atrophy noted. +1 pitting edema up to the mid tib- fib bilaterally NEURO: Patient was alert and oriented to person place and time. Normal sen sation to light and sharp touch. No focal neurological deficits. Course Administered Medications Discontinued Medications Albuterol (Albut/Ipratrop 3mg/0.5mg Neb 3 Ml Vial) 3 ml NEB NOW STA; Protocol Stop: 07/21/21 02:07 Last Admin: 07/21/21 02:11 Dose: 3 ml Documented by: [id number] Furosemide (Furosemide 40 Mg/4 Ml Vial) 40 mg IV ONE ONE Stop: 07/21/21 02:32 Last Admin: 07/21/21 02:37 Dose: 40 mg Documented by: [id number] Methylprednisolone (Methylprednisolone 125 Mg/2 Ml Vial) 125 mg IV NOW STA Stop: 07/21/21 02:51 Last Admin: 07/21/21 02:54 Dose: 125 mg Documented by: [id number] Nitroglycerin (Nitroglycerin 2% Ointment 30gm Tube) 0.5 inch EXT NOW ONE Stop: 07/21/21 02:32 Last Admin: 07/21/21 02:37 Dose: 0.5 inch Documented by: [id number] Medical Decision Making Medical Records Attestation: I reviewed the patient's medical records. Home Medications Current Medication List: was personally reviewed by me Laboratory Data Attestation: I reviewed the patient's lab results. Result diagrams: 07/21/21 02:14 07/21/21 02:14 Lab Results 07/21/21 07/21/21 07/21/21 Range/Units 02:09 02:14 02:14 WBC 8.80 (4.8-10.8) K/uL RBC 4.33 L (4.7-6.1) M/uL Hgb 10.8 L (14.0-18.0) g/dL POC Hgb (14.0-18.0) g/dl Hct 35.4 L (42-52) % POC Hct (42-52) % MCV 81.8 (80-100) fL MCH 24.9 L (25-34) pg MCHC 30.5 L (32-36) g/dL RDW Std Deviation 52.6 H (36.4-46.3) fL RDW Coeff of Dary 17.4 H (11.5-14.5) % Plt Count 91 L (130-400) K/uL MPV 8.7 (7.4-10.4) fL Immature Gran % (Auto) 0.3 % Neut % (Auto) 88.8 % Lymph % (Auto) 4.3 % [place] % (Auto) 5.1 % Eos % (Auto) 1.5 % Baso % (Auto) 0.0 % Neut # (Auto) 7.81 H (1.4-6.5) K/uL Lymph # (Auto) 0.38 L (1.2-3.4) K/uL [place] # (Auto) 0.45 (0.11-0.59) K/uL Eos # (Auto) 0.13 (0-0.5) K/uL Baso # (Auto) 0.00 (0-0.2) K/uL Immature Gran # (Auto) 0.03 H (0.00-0.02) K/uL Platelet Estimate Decreased L (Normal) Echinocytes 1+ APTT (21.0-31.0) Seconds PTT Ratio POC Sodium (135-144) mmol/L Sodium 139 (136-145) mmol/L POC Potassium (3.3-5.0) mmol/L Potassium 4.4 (3.5-5.1) mmol/L POC Chloride (101-112) mmol/L Chloride 107 (98-107) mmol/L Carbon Dioxide 25 (21-32) mmol/L POC Total CO2 (24-31) mmol/L Anion Gap 7.0 (3-11) POC Anion Gap (16-25) mmol/L POC BUN (7-18) mg/dl BUN 33 H (7-18) mg/dl Creatinine 1.60 H (0.6-1.4) mg/dl POC Creatinine (0.6-1.3) mg/dl Est Cr Clr Drug Dosing 39.5 ml/min Est GFR ( Amer) 47.1 ml/min Est GFR (Non-Af Amer) 40.7 ml/min BUN/Creatinine Ratio 20.5 H (10-20) Glucose 250 H (70-99) mg/dl POC Glucose (70-99) mg/dl POC Glucose (other) (70-99) mg/dl Calcium 8.8 (8.5-10.1) mg/dl POC Ioniz Calcium Jason (1.12-1.32) mmol/l Magnesium 2.1 (1.8-2.4) mg/dl Total Bilirubin 0.7 (0.2-1) mg/dl AST 9 L (15-37) U/L ALT 20 (12-78) Alkaline Phosphatase 107 (45-117) U/L Troponin I 0.036 (0-0.045) ng/ml NT-Pro-B Natriuret Pep 20403 H (0-1800) pg/ml Total Protein 6.7 (6.4-8.2) gm/dl Albumin 3.2 L (3.4-5.0) gm/dl Globulin 3.5 (2.5-4.0) gm/dl Albumin/Globulin Ratio 0.9 (0.9-2) Lipase 306 (73-393) U/L TSH 0.145 L (0.300-4.500) uIu/ml SARS-CoV-2 (PCR) POSITIVE A* (Negative) Influenza Type A (PCR) Negative (Neg) Influenza Type B (PCR) Negative (Neg) RSV (RT-PCR) Negative (Neg) 07/21/21 07/21/21 07/21/21 Range/Units 02:15 02:19 04:15 WBC (4.8-10.8) K/uL RBC (4.7-6.1) M/uL Hgb (14.0-18.0) g/dL POC Hgb 11.6 L (14.0-18.0) g/dl Hct (42-52) % POC Hct 34 L (42-52) % MCV (80-100) fL MCH (25-34) pg MCHC (32-36) g/dL RDW Std Deviation (36.4-46.3) fL RDW Coeff of Dary (11.5-14.5) % Plt Count (130-400) K/uL MPV (7.4-10.4) fL Immature Gran % (Auto) % Neut % (Auto) % Lymph % (Auto) % [place] % (Auto) % Eos % (Auto) % Baso % (Auto) % Neut # (Auto) (1.4-6.5) K/uL Lymph # (Auto) (1.2-3.4) K/uL [place] # (Auto) (0.11-0.59) K/uL Eos # (Auto) (0-0.5) K/uL Baso # (Auto) (0-0.2) K/uL Immature Gran # (Auto) (0.00-0.02) K/uL Platelet Estimate (Normal) Echinocytes APTT 27.1 (21.0-31.0) Seconds PTT Ratio 1.0 POC Sodium 140 (135-144) mmol/L Sodium (136-145) mmol/L POC Potassium 4.3 (3.3-5.0) mmol/L Potassium (3.5-5.1) mmol/L POC Chloride 104 (101-112) mmol/L Chloride (98-107) mmol/L Carbon Dioxide (21-32) mmol/L POC Total CO2 23 L (24-31) mmol/L Anion Gap (3-11) POC Anion Gap 18.0 (16-25) mmol/L POC BUN 31 H (7-18) mg/dl BUN (7-18) mg/dl Creatinine (0.6-1.4) mg/dl POC Creatinine 1.5 H (0.6-1.3) mg/dl Est Cr Clr Drug Dosing ml/min Est GFR ( Amer) ml/min Est GFR (Non-Af Amer) ml/min BUN/Creatinine Ratio (10-20) Glucose (70-99) mg/dl POC Glucose 204 H (70-99) mg/dl POC Glucose (other) 249 H (70-99) mg/dl Calcium (8.5-10.1) mg/dl POC Ioniz Calcium Jason 1.23 (1.12-1.32) mmol/l Magnesium (1.8-2.4) mg/dl Total Bilirubin (0.2-1) mg/dl AST (15-37) U/L ALT (12-78) Alkaline Phosphatase (45-117) U/L Troponin I (0-0.045) ng/ml NT-Pro-B Natriuret Pep (0-1800) pg/ml Total Protein (6.4-8.2) gm/dl Albumin (3.4-5.0) gm/dl Globulin (2.5-4.0) gm/dl Albumin/Globulin Ratio (0.9-2) Lipase (73-393) U/L TSH (0.300-4.500) uIu/ml SARS-CoV-2 (PCR) (Negative) Influenza Type A (PCR) (Neg) Influenza Type B (PCR) (Neg) RSV (RT-PCR) (Neg) Imaging Data Attestation: I personally reviewed and interpreted this imaging study as follows: MDM Narrative Prior records/ancillary studies reviewed. Triage Nursing notes reviewed. Additional history obtained from EMS The patient's history was concerning for respiratory difficulties. Differential diagnosis: Etiologies such as infections, reactive airway disease, pneumonia, pneumothorax, COPD, CHF, cardiac ischemia, pulmonary embolism, musculoskeletal, gastrointestinal, as well as others were entertained. Physical examination: As above. ER treatment provided: An order was placed for continuous cardiac monitoring. The monitor shows a rate of 60-1 20 with a sinus rhythm. Nebulizer, steroids, nitro, Lasix On reassessment the patient felt better. Diagnostic interpretation by me: The electrocardiogram was ordered for dyspnea EKG: Normal sinus, left axis, poor baseline, Q waves in the inferior leads, T wave inversions in 1 and aVL, rate of 92. EKG compared to prior EKG from 2019 with no acute changes noted. Impression normal sinus rhythm with left axis deviation and persistent T wave inversions in the anterior leads interpreted by myself I think arrhythmia is unlikely. EKG shows normal sinus rhythm with no interval abnormalities such as QT prolongation or WPW. There are no findings to suggest Brugada syndrome. Cardiac monitoring in the emergency department reveals no tachycardic or bradycardic dysrhythmia. Hypertrophic cardiomyopathy was considered but there are no clear historical elements pointing toward this. EKG is not suggestive. The QRS voltage is not extremely large and there are no suggestive Q waves. The labs revealed elevated BNP. Hyperglycemia w/o DKA. Positive Covid Imaging studies: Chest x-ray with pulmonary congestion concerning for CHF without pneumothorax per my interpretation Consultation: A consultation was placed with the hospitalist. The case was discussed and diagnostics were reviewed. The patient was evaluated in the ER for further treatment. This appears to be consistent with CHF exacerbation with COPD and Covid. Patient is vaccinated. He felt much better to be medicated as above. His breathing greatly improved. Medicine was consulted. He will be admitted. By the evaluation outlined above emergent etiologies such as pneumothorax, musculoskeletal, serious bacterial infections, as well as others were deemed relatively unlikely. The pt informed about the findings as listed above. All questions were answered and pleased with the treatment. The chart was completed utilizing [employer] Speech voice recognition software. Grammatical errors, random word insertions, pronoun errors, and incomplete sentences are an occassional consequence of this system due to software limitations, ambient noise, and hardware issues. Any formal questions or concerns about the content, text, or information contained within the body of this dictation should be directly addressed to the physician research program assistant for clarification. Impression & Plan COVID-19, CHF (congestive heart failure), Acute exacerbation of chronic obstructive airways disease Discharge Plan Visit Data Chief Complaint: Shortness of Breath/Dyspnea Stated Complaint: Weakness, SOB ED Provider: Soila Hayes ED Midlevel Provider: Nayeli Hartman Discharge Problem: COVID-19, CHF (congestive heart failure), Acute exacerbation of chronic obstructive airways disease Patient Disposition: Admitted As Inpatient Condition: Fair Forms Stand Alone Forms: My [facility] [employer] Prescriptions Prescriptions: No Action atorvastatin 80 mg tablet 80 mg PO QAM RF: 0 carvedilol 6.25 mg tablet 6.25 mg PO BID RF: 0 torsemide 10 mg tablet 10 mg PO MOWEFR RF: 0 meclizine 12.5 mg Tablet 12.5 mg PO BID RF: 0 clopidogrel [Plavix] 75 mg Tablet 75 mg PO DAILY RF: 0 amlodipine 5 mg tablet 5 mg PO QPM RF: 0 tramadol 50 mg Tablet 50 mg PO DAILY PRN (Reason: Pain) RF: 0 potassium chloride 20 mEq tablet,ER particles/crystals 20 meq PO MOWEFR RF: 0 cyanocobalamin (vitamin B-12) 1,000 mcg/mL Solution 1,000 mcg IM MO RF: 0 dexamethasone 4 mg tablet 6 mg PO DAILY RF: 0 nitroglycerin [Nitrostat] 0.4 mg Tablet, Sublingual 0.4 mg sublingual UD PRN (Reason: Chest Pain) RF: 0 mometasone [Nasonex] 50 mcg/actuation [place],Non-Aerosol 2 spray INTRANASAL DAILY RF: 0 Flovent HFA 220 mcg/actuation HFA aerosol inhaler 2 puff INHALATION BID RF: 0 albuterol sulfate 90 mcg/actuation HFA aerosol inhaler 2 puff INHALATION Q4 PRN (Reason: Wheezing) RF: 0 ranolazine 500 mg tablet extended release 12 hr 500 mg PO BID RF: 0 cholecalciferol (vitamin D3) [Vitamin D3] 25 mcg (1,000 unit) Tablet 25 mcg PO DAILY RF: 0 calcium carbonate-vitamin D3 600 mg-20 mcg (800 unit) tablet 1 tab PO DAILY RF: 0 Vitron-C 65 mg iron- 125 mg tablet,delayed release (DR/EC) 1 tab PO Q OTHER DAY RF: 0 guaifenesin [Mucinex] 600 mg Tablet Extended Release 12hr 600 mg PO Q12H PRN (Reason: Congestion) RF: 0 Senna Plus 8.6-50 mg Capsule 2 tab-cap PO BID RF: 0 cilostazol 50 mg tablet 50 mg PO BID RF: 0 Referrals Referrals: Dalila Viera MD [Primary Care Provider] -
[2021-07-21 02:31] LABS: iSTAT Creatinine 1.5 mg/dl (0.6-1.3); iSTAT Hemoglobin 11.6 g/dl (14.0-18.0); iSTAT Ionized Calcium 1.23 mmol/l (1.12-1.32); iSTAT Potassium 4.3 mmol/L (3.3-5.0)
[2021-07-21] MEDS ORDERED: FUROSEMIDE 40 MG/4 ML VIAL IV ONE ×2 (02:31→13:42)
[2021-07-21] MEDS ORDERED: NITROGLYCERIN 2% OINTMENT 30GM TUBE EXT ONE (02:31)
--- NOTE | 2021-07-21 02:33 | Emergency Department Note ---
ED Visit Note I have personally seen and evaluated the patient with the PA. Pt's CXR is c/w CHF. Pt has tested positive for COVID 19. He was feeling improved after a duoneb tx and IV steroids. He was also given IV lasix. I agree with the diagnosis and management decisions and have been personally involved in the case. Pt was d/w the hospitalist service for further management. Please see Peggy Hartman PA-C's notes for further details of the history, physical and visit. .
[2021-07-21 02:40] LABS: Albumin Level 3.2 gm/dl (3.4-5.0); BUN Creatinine Ratio 20.5 (10-20); Calcium 8.8 mg/dl (8.5-10.1); Creatinine Clr Calc Pharmacy 39.5 ml/min; Est GFR (African American) 47.1 ml/min; Est GFR (Non-African American) 40.7 ml/min; Potassium 4.4 mmol/L (3.5-5.1)
[2021-07-21 02:45] LABS: Albumin Globulin Ratio 0.9 (0.9-2); Bilirubin,Total 0.7 mg/dl (0.2-1); Globulin 3.5 gm/dl (2.5-4.0); Total Protein 6.7 gm/dl (6.4-8.2); Troponin I 0.036 ng/ml (0-0.045)
[2021-07-21 02:46] LABS: Hematocrit (blood only) 35.4 % (42-52); Hemoglobin 10.8 g/dL (14.0-18.0); Mean Corpuscular Hemoglobin 24.9 pg (25-34); Mean Corpuscular Hgb Conc 30.5 g/dL (32-36); Mean Corpuscular Volume 81.8 fL (80-100); Mean Platelet Volume 8.7 fL (7.4-10.4); Platelet Count 91 K/uL (130-400); RDW Coefficient of Variation 17.4 % (11.5-14.5); RDW Standard Deviation 52.6 fL (36.4-46.3); Red Blood Count 4.33 M/uL (4.7-6.1)
[2021-07-21 02:48] LABS: Echinocytes 1+; Eosinophils # (auto) 0.13 K/uL (0-0.5); Eosinophils % (auto) 1.5 %; Immature Granulocytes # (auto) 0.03 K/uL (0.00-0.02); Immature Granulocytes % (auto) 0.3 %; Lymphocytes # (auto) 0.38 K/uL (1.2-3.4); Lymphocytes % (auto) 4.3 %; Monocytes # (auto) 0.45 K/uL (0.11-0.59); Monocytes % (auto) 5.1 %; Neutrophils # (auto) 7.81 K/uL (1.4-6.5); Neutrophils % (auto) 88.8 %; Platelet Estimate Decreased (Normal)
[2021-07-21] MEDS ORDERED: methylPREDNISolone 125 MG/2 ML VIAL IV STA (02:50)
[2021-07-21 02:54] LABS: Influenza A virus by PCR Negative (Neg); Influenza B virus by PCR Negative (Neg); RSV by PCR Negative (Neg)
[2021-07-21 02:57] LABS: SARS CoV2 RNA(COVID-19) InHosp POSITIVE (Negative)
[2021-07-21 03:21] LABS: Magnesium 2.1 mg/dl (1.8-2.4)
[2021-07-21] MEDS ORDERED: amLODIPine BESYLATE 5 MG TAB PO STA (03:23)
[2021-07-21 03:26] LABS: Partial Thromboplastin Time 27.1 Seconds (21.0-31.0)
[2021-07-21] MEDS ORDERED: DOXYCYCLINE HYCLATE 100 MG in DEXTROSE 5% 100 ML IV STA (03:50)
[2021-07-21] MEDS ORDERED: INSULIN GLARGINE SOLOSTAR 100 UNITS/ML 3 ML PEN SC STA (03:50)
[2021-07-21] MEDS ORDERED: GLUCOSE 10 TABS/TUBE PO PRN (04:00)
[2021-07-21] MEDS ORDERED: DEXTROSE 50% 50 ML SYRINGE IV PRN (04:00)
[2021-07-21] MEDS ORDERED: GLUCAGON FOR INJ 1 MG VIAL SQ PRN (04:00)
[2021-07-21] MEDS ORDERED: CARBOHYDRATES FOR HYPOGLYCEMIA PO PRN (04:00)
[2021-07-21] MEDS ORDERED: GLUCOSE 40% GEL 15 GM TUBE PO PRN (04:00)
--- NOTE | 2021-07-21 04:03 | History & Physical Report ---
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 hx CAD status post CABG/PVD status post surgery HTN, elevated secondary to illness DM 2 diet-controlled, patient hyperglycemic secondary to outpatient Decadron Rx, hemoglobin A1c of 5.22 February 2021 chronic anemia, hemoglobin at baseline chronic thrombocytopenia past tobacco abuse Medical telemetry Supplemental O2 Baseline ABG Decadron, doxycycline, MDI RTC Pulmonary consult if without improvement Follow troponin; TTE, Cardiology consult if with progression Facilitate home BP meds, may need titration Basal insulin, ISS BG goal 1 10-1 40, carb count coverage, update hemoglobin A1c DVT prophylaxis Heparin subcu Full code Text document was generated using [employer] voice recognition software. It may contain grammatical or spelling errors. Kindly contact undersigned for clarification of any documentation item in question. History of Present Illness Chief Complaint: Worsening cough, shortness of breath Primary Care Provider: Dalila Viera MD History obtained from patient, family, and records. Medical history significant for chronic systolic heart failure (EF 45 to 50%, TTE 2020), valvular heart disease (mild AR/MR, severe on recent TTE), pulmonary hypertension, CAD status post CABG, PVD status post surgery, HTN, COPD, DM 2 diet-controlled, CRI (baseline creatinine 1.5-1.6), BPH, chronic anemia (baseline hemoglobin 9-10), chronic thrombocytopenia, past tobacco abuse. Last confinement September 2019 for syncope secondary to orthostatic dizziness. 1 week history of cough symptoms later noted to be junky with a headache, nausea, body aches, worsening shortness of breath on exertion. O2 sats 87% while walking at home. Possible COVID-19 exposure. Patient has completed COVID-19 vaccination along with booster. Outpatient COVID-19 test was negative. Outpatient CXR showed improving congestion as per note. No fluid retention as per patient. Weight stable as per patient. Decadron initiated for bronchitis by outpatient provider. Patient had worsening symptoms over the last week without chest pain or fluid retention. No fever, no chills. At the ER, patient given Solu-Medrol, neb treatment for COPD exacerbation. Nitropaste and Lasix given for possible CHF. 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 Allergies Allergy/AdvReac Type Severity Reaction Status Date / Time hydralazine Allergy Hives Verified 07/21/21 03:17 Iodinated Contrast Media Allergy Unknown Verified 07/21/21 03:17 [Iodinated Contrast- Oral and IV Dye] Home Medications Medication Instructions Recorded Confirmed Type albuterol sulfate 90 mcg/actuation 2 puff INHALATION Q4 PRN 07/21/21 07/21/21 History aerosol inhaler amlodipine 5 mg tablet 5 mg PO QPM 07/21/21 07/21/21 History atorvastatin 80 mg tablet 80 mg PO QAM 07/21/21 07/21/21 History calcium carbonate 600 mg-vitamin 1 tab PO DAILY 07/21/21 07/21/21 History D3 20 mcg (800 unit) tablet carvedilol 6.25 mg tablet 6.25 mg PO BID 07/21/21 07/21/21 History cholecalciferol (vitamin D3) 25 25 mcg PO DAILY 07/21/21 07/21/21 History mcg (1,000 unit) tablet (Vitamin D3) cilostazol 50 mg tablet 50 mg PO BID 07/21/21 07/21/21 History clopidogrel 75 mg tablet (Plavix) 75 mg PO DAILY 07/21/21 07/21/21 History cyanocobalamin (vitamin B-12) 1,000 mcg IM MO 07/21/21 07/21/21 History 1,000 mcg/mL injection solution dexamethasone 4 mg tablet 6 mg PO DAILY 07/21/21 07/21/21 History fluticasone propionate 220 2 puff INHALATION BID 07/21/21 07/21/21 History mcg/actuation HFA aerosol inhaler (Flovent HFA) guaifenesin 600 mg tablet, 600 mg PO Q12H PRN 07/21/21 07/21/21 History extended release 12 hr (Mucinex) iron,carbonyl 65 mg-vitamin C 125 1 tab PO Q OTHER DAY 07/21/21 07/21/21 History mg tablet,delayed release (Vitron-C) meclizine 12.5 mg tablet 12.5 mg PO BID 07/21/21 07/21/21 History mometasone 50 mcg/actuation nasal 2 spray INTRANASAL DAILY 07/21/21 07/21/21 History spray (Nasonex) nitroglycerin 0.4 mg sublingual 0.4 mg SUBLINGUAL UD PRN 07/21/21 07/21/21 History tablet (Nitrostat) potassium chloride 20 mEq 20 meq PO MOWEFR 07/21/21 07/21/21 History tablet,extended release(part/cryst) ranolazine 500 mg tablet,extended 500 mg PO BID 07/21/21 07/21/21 History release,12 hr sennosides 8.6 mg-docusate sodium 2 tab-cap PO BID 07/21/21 07/21/21 History 50 mg capsule (Senna Plus) torsemide 10 mg tablet 10 mg PO MOWEFR 07/21/21 07/21/21 History tramadol 50 mg tablet 50 mg PO DAILY PRN 07/21/21 07/21/21 History Past Med/Surg History Medical History (Updated 07/21/21 @ 08:04 by Mukesh Wise MD) CAD (coronary artery disease) Chronic obstructive pulmonary disease mild--no inhaler Diabetes mellitus, type 2 History of common carotid artery stent placement 06/2017 @ [facility] in [place], [place] Hyperlipidemia Hypertension Myocardial Infarction 1996 On anticoagulant therapy on plavix Osteoarthritis PVD (peripheral vascular disease) Stroke 08/27/2017--no deficits Thoracic ascending aortic aneurysm Surgical History Chest pain 07/09/18 CARDIAC CATH WITH 5 MORE HEART STENTS PLACED [facility] [place] History of cardiac cath pt states he has had about 12 of them--last one "a couple years ago" History of cholecystectomy History of colonoscopy History of coronary artery bypass graft 1996 @ [facility] – [place] quadruple bypass History of heart artery stent pt is unsure of how many heart stents, states around 39 stents total (including peripheral artery) History of left cataract extraction History of procedure for peripheral vascular disease pt states he has had about 6 with multiple stents placed History of tooth extraction wisdom teeth Family History Other Cancer Coronary heart disease Social History Smoking Status: Unknown if ever smoked Tobacco Type: Cigarettes Cigarettes Per Day: quit 1997; Second Hand Exposure: No; Hx Alcohol Use: No Hx Substance Use: No Preferred Language: Hungarian Communication Ability: Effective Rocket 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 Tester Required: No Beliefs That Will Affect Care: None marital status: Single Current Living Situation: Alone Current Living Situation Comment: [facility] Feels Safe at Home: Yes Assistive Devices: None Review of Systems Review of Systems: As per HPI, all 10 systems reviewed, all other ROS negative Physical Exam Physical Exam: GENERAL: uncomfortable, chronically ill, minimal respiratory distress SKIN: Pallor , warm HEENT: Bespectacled, pale palpebral conjunctivae, no ptosis, dry buccal mucosa, nasal cannula in place NECK : Supple, no tenderness CHEST : Decreased breath sounds, expiratory wheezes, no tenderness HEART : RRR, systolic murmur ABDOMEN: Some distention, nontender EXTREMITIES : Minimal LE swelling, no LE tenderness, no other conspicuous deformities noted NEUROLOGIC : Coherent, no facial asymmetry, no other gross focality Results & Data Results & Data ([facility]) Vital Signs (Past 12 Hours) Vital Signs Temp Pulse Pulse Resp BP BP Pulse Ox 07/21/21 02:19 90 78 24 184/91 H 91 07/21/21 02:15 37.4 C 91 H 24 184/91 H 91 Laboratory Results Laboratory Results WBC 8.80 K/uL (4.8-10.8) 07/21/21 02:14 RBC 4.33 M/uL (4.7-6.1) L 07/21/21 02:14 Hgb 10.8 g/dL (14.0-18.0) L 07/21/21 02:14 POC Hgb 11.6 g/dl (14.0-18.0) L 07/21/21 02:19 Hct 35.4 % (42-52) L 07/21/21 02:14 POC Hct 34 % (42-52) L 07/21/21 02:19 MCV 81.8 fL (80-100) 07/21/21 02:14 MCH 24.9 pg (25-34) L 07/21/21 02:14 MCHC 30.5 g/dL (32-36) L 07/21/21 02:14 RDW Std Deviation 52.6 fL (36.4-46.3) H 07/21/21 02:14 RDW Coeff of Dary 17.4 % (11.5-14.5) H 07/21/21 02:14 Plt Count 91 K/uL (130-400) L 07/21/21 02:14 MPV 8.7 fL (7.4-10.4) 07/21/21 02:14 Immature Gran % (Auto) 0.3 % 07/21/21 02:14 Neut % (Auto) 88.8 % 07/21/21 02:14 Lymph % (Auto) 4.3 % 07/21/21 02:14 [place] % (Auto) 5.1 % 07/21/21 02:14 Eos % (Auto) 1.5 % 07/21/21 02:14 Baso % (Auto) 0.0 % 07/21/21 02:14 Neut # (Auto) 7.81 K/uL (1.4-6.5) H 07/21/21 02:14 Lymph # (Auto) 0.38 K/uL (1.2-3.4) L 07/21/21 02:14 [place] # (Auto) 0.45 K/uL (0.11-0.59) 07/21/21 02:14 Eos # (Auto) 0.13 K/uL (0-0.5) 07/21/21 02:14 Baso # (Auto) 0.00 K/uL (0-0.2) 07/21/21 02:14 Immature Gran # (Auto) 0.03 K/uL (0.00-0.02) H 07/21/21 02:14 Platelet Estimate Decreased (Normal) L 07/21/21 02:14 Echinocytes 1+ 07/21/21 02:14 APTT 27.1 Seconds (21.0-31.0) 07/21/21 02:15 PTT Ratio 1.0 07/21/21 02:15 POC Sodium 140 mmol/L (135-144) 07/21/21 02:19 Sodium 139 mmol/L (136-145) 07/21/21 02:14 POC Potassium 4.3 mmol/L (3.3-5.0) 07/21/21 02:19 Potassium 4.4 mmol/L (3.5-5.1) 07/21/21 02:14 POC Chloride 104 mmol/L (101-112) 07/21/21 02:19 Chloride 107 mmol/L (98-107) 07/21/21 02:14 Carbon Dioxide 25 mmol/L (21-32) 07/21/21 02:14 POC Total CO2 23 mmol/L (24-31) L 07/21/21 02:19 Anion Gap 7.0 (3-11) 07/21/21 02:14 POC Anion Gap 18.0 mmol/L (16-25) 07/21/21 02:19 POC BUN 31 mg/dl (7-18) H 07/21/21 02:19 BUN 33 mg/dl (7-18) H 07/21/21 02:14 Creatinine 1.60 mg/dl (0.6-1.4) H 07/21/21 02:14 POC Creatinine 1.5 mg/dl (0.6-1.3) H 07/21/21 02:19 Est Cr Clr Drug Dosing 39.5 ml/min 07/21/21 02:14 Est GFR ( Amer) 47.1 ml/min 07/21/21 02:14 Est GFR (Non-Af Amer) 40.7 ml/min 07/21/21 02:14 BUN/Creatinine Ratio 20.5 (10-20) H 07/21/21 02:14 Glucose 250 mg/dl (70-99) H 07/21/21 02:14 POC Glucose (other) 249 mg/dl (70-99) H 07/21/21 02:19 Calcium 8.8 mg/dl (8.5-10.1) 07/21/21 02:14 POC Ioniz Calcium Jason 1.23 mmol/l (1.12-1.32) 07/21/21 02:19 Magnesium 2.1 mg/dl (1.8-2.4) 07/21/21 02:14 Total Bilirubin 0.7 mg/dl (0.2-1) 07/21/21 02:14 AST 9 U/L (15-37) L 07/21/21 02:14 ALT 20 (12-78) 07/21/21 02:14 Alkaline Phosphatase 107 U/L (45-117) 07/21/21 02:14 Troponin I 0.036 ng/ml (0-0.045) 07/21/21 02:14 NT-Pro-B Natriuret Pep 51632 pg/ml (0-1800) H 07/21/21 02:14 Total Protein 6.7 gm/dl (6.4-8.2) 07/21/21 02:14 Albumin 3.2 gm/dl (3.4-5.0) L 07/21/21 02:14 Globulin 3.5 gm/dl (2.5-4.0) 07/21/21 02:14 Albumin/Globulin Ratio 0.9 (0.9-2) 07/21/21 02:14 Lipase 306 U/L (73-393) 07/21/21 02:14 SARS-CoV-2 (PCR) POSITIVE (Negative) A* 07/21/21 02:09 Influenza Type A (PCR) Negative (Neg) 07/21/21 02:09 Influenza Type B (PCR) Negative (Neg) 07/21/21 02:09 RSV (RT-PCR) Negative (Neg) 07/21/21 02:09 Diagnostic Findings Chest x-ray as per my interpretation bilateral infiltrates EKG as per my interpretation :Rate 90, NSR, LAD, LAFB, 1 AVB, LVH, T wave abn ormalities lateral leads Code Status & VTE Plan VTE Prophylaxis Plan VTE Prophylaxis will be ordered: Yes
[2021-07-21 04:13] LABS: Thyroid Stimulating Hormone 0.145 uIu/ml (0.300-4.500)
[2021-07-21 04:26] LABS: T4 Free Thyroxine 1.24 ng/dl (0.8-1.6)
[2021-07-21] MEDS: INSULIN ASPART PER UNIT SC SCH ×4 (04:34→21:29)
[2021-07-21] MEDS ORDERED: NITROGLYCERIN SL 0.4 MG/TAB TAB SL PRN (05:28)
[2021-07-21] MEDS ORDERED: ACETAMINOPHEN 325 MG TAB PO PRN (05:28)
[2021-07-21] MEDS ORDERED: LEVALBUTEROL 1.25MG/0.5ML NEB INH PRN (05:28)
[2021-07-21] MEDS ORDERED: IPRATROPIUM BROMIDE NEB SOLN 0.02% 2.5 ML VIAL INH PRN (05:28)
[2021-07-21] MEDS ORDERED: PROMETHAZINE HCL 12.5 MG in SODIUM CHLORIDE 0.9% 50 ML IV PRN (05:28)
[2021-07-21] MEDS ORDERED: XOPENEX/ATROVENT 1.25mg/0.5MG NEB COMBO NEB PRN (05:28)
[2021-07-21] MEDS ORDERED: traMADol HCL 50 MG TABLET PO PRN (05:28)
[2021-07-21] MEDS: HEPARIN SOD 5,000 UNIT/0.5 ML VIAL SQ SCH ×3 (06:15→21:35)
[2021-07-21] MEDS ORDERED: carvediloL 6.25 MG TAB PO SCH ×2 (07:10→09:00)
[2021-07-21] MEDS: LEVALBUTEROL TARTRATE 15 GM HFA.AER.AD INH SCH ×2 (07:32→11:06)
[2021-07-21 07:38] LABS: Estimated Average Glucose 140 mg/dl; Hemoglobin A1C 6.5 % (4.5-5.6)
--- NOTE | 2021-07-21 08:37 | XRay Report ---
XR chest 1V portable CLINICAL HISTORY: Atypical chest pain TECHNIQUE: Single frontal radiograph of the chest was obtained. Comparison: Comparison is made to chest one view 10/06/2019 FINDINGS: No lines and tubes are seen. Cardiomegaly is noted. Bilateral airspace opacities are seen most promin ent in the right upper lobe and left lower lobe. No evidence of pleural effusion or pneumothorax. IMPRESSION: Multifocal airspace opacities may represent atelectasis, pneumonia, and/or aspiration. ACT 112: Negative or not required by law. Electronically signed by: Wyatt Arora M.D. 07/21/2021 8:36 AM
[2021-07-21] MEDS: RANOLAZINE 500 MG ER TAB PO SCH ×2 (08:52→21:37)
[2021-07-21] MEDS: ATORVASTATIN 40 MG TAB PO SCH (08:53)
[2021-07-21] MEDS: CLOPIDOGREL BISULFATE 75 MG TAB PO SCH (08:53)
[2021-07-21] MEDS: cilostazoL 100 MG TAB PO SCH ×2 (08:54→21:37)
[2021-07-21] MEDS: CYANOCOBALAMIN 1000 MCG/ML VIAL IM SCH (08:54)
[2021-07-21] MEDS: FLUTICASONE PROPIONATE NA SPR 16 GM BTL SCH (08:55)
[2021-07-21] MEDS ORDERED: RANOLAZINE 500 MG ER TAB PO SCH (09:00)
[2021-07-21] MEDS ORDERED: TORSEMIDE 10 MG TAB PO SCH (09:00)
[2021-07-21] MEDS: DOCUSATE SODIUM/SENNA 50/8.6MG TAB PO SCH ×2 (10:21→21:35)
--- NOTE | 2021-07-21 13:13 | Electrocardiogram Report ---
Test Reason : Blood Pressure : / mmHG Vent. Rate : 092 BPM Atrial Rate : 092 BPM P-R Int : 250 ms QRS Dur : 078 ms QT Int : 362 ms P-R-T Axes : 071 -24 134 degrees QTc Int : 447 ms Sinus rhythm with 1st degree A-V block with Premature supraventricular complexes Left ventricular hypertrophy with repolarization abnormality Abnormal ECG When compared with ECG of 06-OCT-2019 12:30, Premature ventricular complexes are no longer Present Premature supraventricular complexes are now Present Vent. rate has increased BY 31 BPM T wave inversion no longer evident in Anterior leads Confirmed by Mayo Martel ([id number]) on 07/21/2021 1:13:31 PM Referred By: REFERRED SELF Confirmed By:Mayo Martel
[2021-07-21] MEDS ORDERED: LABETALOL HCL IV 5 MG/ML 20ML IV STA (13:22)
[2021-07-21] MEDS ORDERED: guaiFENesin/CODEINE 100MG/10MG 5ML UDC PO ONE (13:41)
--- NOTE | 2021-07-21 14:17 | Hospitalist Progress Note ---
Date of Service July 21, 2021 Assessment & Plan (1) Hypertensive urgency: Plan: Elevated blood pressure in the 190s consistently overnight despite Lasix, Nitropaste, amlodipine. Steroids may be contributing. Has type I sensitivity to hydralazine. Will give labetalol now and continue close monitoring of blood pressure to get him within range. We will give an additional dose of Lasix now with increased work of breathing and slight trace edema. Patient also did not receive Torsemide which he typically takes on Mondays. He declines a urinary catheter and there is no output recorded. Encourage strict ins and outs in order to gauge patient's response to therapy. Daily weights and low-sodium diet. In setting of chronic systolic heart failure, known valvular disease, pulmonary HTN and cardiac disease, will consult cardiology to assist with management. (2) Pneumonia due to COVID-19 virus: Plan: cont steroids per plan below. (3) Hypoxia: Plan: Patient with underlying COPD and pulmonary hypertension presents with COVID-19 pneumonia. Mildly hypoxic and doing well on dexamethasone. Bronchodilator therapy as needed. There is no wheezing or evidence of COPD exacerbation at this time. Patient appears to have a viral pneumonia. Continue steroid therapy and supportive care. Rocephin AC as needed started. Patient encouraged to prone. (4) Chronic systolic heart failure: Plan: chronic systolic heart failure (EF 45 to 50%, TTE 2020), appears hypervolemic but not in acute failure. No evidence of acute pulmonary edema. Cont low salt diet, daily weights. 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 twice daily, ranolazine 500 mg p.o. twice daily, Plavix, Lipitor 80 mg p.o. every morning, cilostazol (for PAD) (6) Diabetes mellitus, type 2: Plan: DM 2 diet-controlled, patient hyperglycemic secondary to outpatient Decadron Rx, hemoglobin A1c of 5.22 February 2021. Will tighten insulin control to scale #3 while on IV steroids. (7) DVT prophylaxis: Plan: Heparin Full code Disposition-pending improvement medically, then per PT/OT recommendations. Zahraa Jacome DO [facility] Hospitalist Admission and Anticipated Discharge Date Admission Date: July 21, 2021 Subjective 76-year-old man presents with approximately 1 week of symptoms of malaise, shortness of breath, cough. Work-up reveals evidence of COVID-19 pneumonia. He is requiring approximately 2 L/min of oxygen supplementation and has some labored breathing. He has not yet prone but is eager to do this. He is hypertensive with a systolic blood pressure in the 190s. Overnight he received nitroglycerin 0.5 inch external paste and 40 mg of IV Lasix. Blood pressure did not improve and the patient experienced headache. Overall he denies symptoms of HTN, however, he is using accessory muscles to breathe. No urinary output has been recorded however patient reports that he has urinated frequently throughout the morning. Patient declines urinary catheter. Review of Systems Review of Systems: All systems were reviewed and negative except as indicated above. Physical Exam Physical Exam: CONSTITUTIONAL: WNWD, vitals as above, generally ill- appearing, using accessory muscles of respiration. EYES: PERRL, normal conjunctivae, no scleral icterus ENT: external ear and nose normal, MMM NECK: trachea midline RESPIRATORY: clear to auscultation bilaterally, no crackles, rales or wheezes, normal respiratory effort CARDIOVASCULAR: regular rate and rhythm, S1 and 2 heard without murmurs, gallops or rubs, no JVD, trace peripheral edema bilaterally/ CHEST: inspection of chest was normal GASTROINTESTINAL: soft, nontender, ND, no guarding MUSCULOSKELETAL: strength 5/5 throughout, head is normocephalic and atraumatic SKIN: warm and dry, NEUROLOGIC: CN 2-12 grossly intact, no sensory deficit, normal cognition, normal speech, no tremor, no gross focal deficits. PSYCHIATRIC: alert cooperative and oriented to person, place and time. Results & Data Results & Data ([facility]) Vital Signs (Past 12 Hours) Vital Signs Pulse Pulse Resp BP BP Pulse Ox 07/21/21 13:01 81 20 192/104 H 92 07/21/21 13:00 82 18 90 07/21/21 12:30 84 20 92 07/21/21 12:00 65 19 185/75 H 93 07/21/21 11:30 72 20 95 07/21/21 11:06 73 16 94 07/21/21 11:00 78 19 179/95 H 93 07/21/21 10:30 114 H 23 95 07/21/21 10:00 77 19 188/97 H 94 07/21/21 09:30 80 20 93 07/21/21 09:00 63 20 187/95 H 94 07/21/21 08:00 66 20 167/78 H 94 07/21/21 07:33 68 20 92 07/21/21 06:40 196/74 H 07/21/21 06:37 76 18 196/74 H 96 07/21/21 02:19 90 78 24 184/91 H 91 Laboratory Results Short CBC 07/21/21 Range/Units 02:14 WBC 8.80 (4.8-10.8) K/uL Hgb 10.8 L (14.0-18.0) g/dL Hct 35.4 L (42-52) % Plt Count 91 L (130-400) K/uL BMP 07/21/21 02:14 Sodium 139 Potassium 4.4 Chloride 107 Carbon Dioxide 25 BUN 33 H Creatinine 1.60 H Glucose 250 H Calcium 8.8 Cardiac Enzymes 07/21/21 07/21/21 Range/Units 02:14 04:06 Troponin I 0.036 0.028 (0-0.045) ng/ml Liver Function 07/21/21 Range/Units 02:14 Total Bilirubin 0.7 (0.2-1) mg/dl AST 9 L (15-37) U/L ALT 20 (12-78) Alkaline Phosphatase 107 (45-117) U/L Albumin 3.2 L (3.4-5.0) gm/dl Diagnostic Findings Chest X-Ray 07/21/21 02:06 XR chest 1V portable CLINICAL HISTORY: Atypical chest pain TECHNIQUE: Single frontal radiograph of the chest was obtained. Comparison: Comparison is made to chest one view 10/06/2019 FINDINGS: No lines and tubes are seen. Cardiomegaly is noted. Bilateral airspace opacities are seen most prominent in the right upper lobe and left lower lobe. No evidence of pleural effusion or pneumothorax. IMPRESSION: Multifocal airspace opacities may represent atelectasis, pneumonia, and/or aspiration. ACT 112: Negative or not required by law. Electronically signed by: Wyatt Arora M.D. 07/21/2021 8:36 AM Medications Administered Current Inpatient Medications Acetaminophen (Acetaminophen 325 Mg Tab) 650 mg PO Q4H PRN PRN Reason: Pain or Fever Stop: 08/20/21 05:27 Amlodipine Besylate (Amlodipine Besylate 5 Mg Tab) 5 mg PO QPM [facility] Stop: 08/20/21 20:59 Atorvastatin Calcium (Atorvastatin 40 Mg Tab) 80 mg PO QAM [facility] Stop: 08/20/21 08:59 Last Admin: 07/21/21 08:53 Dose: 80 mg Documented by: Carvedilol (Carvedilol 6.25 Mg Tab) 6.25 mg PO BID [facility] Stop: 08/20/21 07:09 Last Admin: 07/21/21 08:53 Dose: 6.25 mg Documented by: Cilostazol (Cilostazol 100 Mg Tab) 50 mg PO BID [facility] Stop: 08/20/21 08:59 Last Admin: 07/21/21 08:54 Dose: 50 mg Documented by: Clopidogrel Bisulfate (Clopidogrel Bisulfate 75 Mg Tab) 75 mg PO DAILY [facility] Stop: 08/20/21 08:59 Last Admin: 07/21/21 08:53 Dose: 75 mg Documented by: Cyanocobalamin (Cyanocobalamin 1000 Mcg/Ml Vial) 1,000 mcg IM MO [facility] Stop: 08/20/21 08:59 Last Admin: 07/21/21 08:54 Dose: 1,000 mcg Documented by: Dextrose (Dextrose 50% 50 Ml Syringe) 25 - 50 ml IV UD PRN; Protocol PRN Reason: Hypoglycemia Protocol Stop: 08/20/21 03:59 Doxycycline Hyclate (Doxycycline Hyclate 100 Mg Cap) 100 mg PO BID [facility] Stop: 07/28/21 20:59 Fluticasone Propionate (Fluticasone Propionate Na Spr 16 Gm Btl) 2 sprays NA DAILY [facility] Stop: 08/20/21 08:59 Last Admin: 07/21/21 08:55 Dose: 2 sprays Documented by: Glucagon (Glucagon For Inj 1 Mg Vial) 1 mg SQ UD PRN; Protocol PRN Reason: Hypoglycemia Protocol Stop: 08/20/21 03:59 Glucose (Glucose 10 Tabs/Tube) 4 - 8 tabs PO UD PRN; Protocol PRN Reason: Hypoglycemia Protocol Stop: 08/20/21 03:59 Glucose (Glucose 40% Gel 15 Gm Tube) 15 - 30 gm PO UD PRN; Protocol PRN Reason: Hypoglycemia Protocol Stop: 08/20/21 03:59 Guaifenesin/Codeine Phosphate (Guaifenesin/Codeine 200mg/20mg 10ml Udc) 10 ml PO Q6H PRN PRN Reason: Cough Stop: 08/20/21 13:40 Heparin Sodium (Porcine) (Heparin Sod 5,000 Unit/0.5 Ml Vial) 5,000 units SQ Q8 [facility] Stop: 08/20/21 05:59 Last Admin: 07/21/21 06:15 Dose: 5,000 units Documented by: Dexamethasone 6 mg/ Syringe 1.5 mls @ 1 mls/min IV DAILY [facility] Stop: 08/21/21 08:59 Promethazine HCl 12.5 mg/ (Sodium Chloride) 50.5 mls @ 202 mls/hr IV Q6H PRN PRN Reason: Nausea And Vomiting Stop: 08/20/21 05:27 Insulin Aspart (Insulin Aspart Per Unit) 0 units SC ACHS [facility] Stop: 08/20/21 03:59 Last Admin: 07/21/21 04:34 Dose: 3 units Documented by: Insulin Glargine (Insulin Glargine Solostar 100 Units/Ml 3 Ml Pen) 10 units SC DAILY [facility] Stop: 08/21/21 08:59 Ipratropium Simpson (Ipratropium Simpson Neb Soln 0.02% 2.5 Ml Vial) 0.5 mg INH Q4H PRN PRN Reason: sob/wheezing Stop: 08/20/21 05:27 Levalbuterol HCl (Levalbuterol 1.25mg/0.5ml Neb) 1.25 mg INH Q4H PRN PRN Reason: sob/wheezing Stop: 08/20/21 05:27 Miscellaneous (Carbohydrates For Hypoglycemia ) 15 - 30 gm PO UD PRN PRN Reason: Hypoglycemia Protocol Stop: 08/20/21 03:59 Nitroglycerin (Nitroglycerin Sl 0.4 Mg/Tab Tab) 0.4 mg SL UD PRN PRN Reason: Chest Pain Stop: 08/20/21 05:27 Ranolazine (Ranolazine 500 Mg Er Tab) 500 mg PO BID [facility] Stop: 08/20/21 07:09 Last Admin: 07/21/21 08:52 Dose: 500 mg Documented by: Senna/Docusate Sodium (Docusate Sodium/Senna 50/8.6mg Tab) 2 tab PO BID [facility] Stop: 08/20/21 08:59 Last Admin: 07/21/21 10:21 Dose: Not Given Documented by: Torsemide (Torsemide 10 Mg Tab) 10 mg PO MOWEFR [facility] Stop: 08/22/21 08:59 Tramadol HCl (Tramadol Hcl 50 Mg Tablet) 25 - 50 mg PO Q4H PRN PRN Reason: Pain Stop: 08/20/21 05:27
--- NOTE | 2021-07-21 15:42 | Cardiology Consultation ---
Date of Consultation July 21, 2021 Assessment & Plan (1) ASVD (arteriosclerotic vascular disease): (2) CAD (coronary artery disease): (3) Ischemic cardiomyopathy: (4) Pneumonia due to COVID-19 virus: (5) PAD (peripheral artery disease): (6) Renal vascular disease: This patient has severe diffuse vascular disease as outlined in HPI. He also has a history of COPD with pulmonary hypertension. Difficult to control systemic hypertension due to renal vascular disease. He now has tested positive for Covid and likely had's Covid pneumonia. He is being treated for the Covid. From a cardiovascular standpoint he is clinically stable however he does have marked hypertension which will be difficult to control due to the renal vascular disease. I have increased his carvedilol to 12.5 mg twice daily and increased his amlodipine to 10 mg daily. Otherwise he is clinically stable. History of Present Illness Attending Physician: Zahraa Jacome, History of Present Illness This is a 76-year-old male patient with an extensive cardiovascular history and COPD. He is usually followed by [facility] cardiology. He has a history of an ischemic cardiomyopathy with an estimated left ventricular ejection fraction of around 40%. He has known pulmonary hypertension from previous COPD and is status post CVA. He has had multiple coronary interventions and previous coronary artery bypass surgery, he has had stenting of his right carotid and a history of renal artery stenosis. Multiple interventions on his lower extremities due to peripheral vascular disease. In the past he has been followed by [facility] at home due to his high risk of readmission. The patient has not felt well for approximately the past 7 to 10 days. He did have symptoms that he felt was consistent with Covid and was tested last week with the testing being negative. He continued to have symptoms with a headache myalgias and progressive shortness of breath. He presented to the emergency department and this time he tested positive for Covid. He has had no chest pain and he states from a cardiac standpoint he is doing well. Allergies Allergy/AdvReac Type Severity Reaction Status Date / Time hydralazine Allergy Hives Verified 07/21/21 03:17 Iodinated Contrast Media Allergy Unknown Verified 07/21/21 03:17 [Iodinated Contrast- Oral and IV Dye] Home Medications Medication Instructions Recorded Confirmed Type albuterol sulfate 90 mcg/actuation 2 puff INHALATION Q4 PRN 07/21/21 07/21/21 History aerosol inhaler amlodipine 5 mg tablet 5 mg PO QPM 07/21/21 07/21/21 History atorvastatin 80 mg tablet 80 mg PO QAM 07/21/21 07/21/21 History calcium carbonate 600 mg-vitamin 1 tab PO DAILY 07/21/21 07/21/21 History D3 20 mcg (800 unit) tablet carvedilol 6.25 mg tablet 6.25 mg PO BID 07/21/21 07/21/21 History cholecalciferol (vitamin D3) 25 25 mcg PO DAILY 07/21/21 07/21/21 History mcg (1,000 unit) tablet (Vitamin D3) cilostazol 50 mg tablet 50 mg PO BID 07/21/21 07/21/21 History clopidogrel 75 mg tablet (Plavix) 75 mg PO DAILY 07/21/21 07/21/21 History cyanocobalamin (vitamin B-12) 1,000 mcg IM MO 07/21/21 07/21/21 History 1,000 mcg/mL injection solution dexamethasone 4 mg tablet 6 mg PO DAILY 07/21/21 07/21/21 History fluticasone propionate 220 2 puff INHALATION BID 07/21/21 07/21/21 History mcg/actuation HFA aerosol inhaler (Flovent HFA) guaifenesin 600 mg tablet, 600 mg PO Q12H PRN 07/21/21 07/21/21 History extended release 12 hr (Mucinex) iron,carbonyl 65 mg-vitamin C 125 1 tab PO Q OTHER DAY 07/21/21 07/21/21 History mg tablet,delayed release (Vitron-C) meclizine 12.5 mg tablet 12.5 mg PO BID 07/21/21 07/21/21 History mometasone 50 mcg/actuation nasal 2 spray INTRANASAL DAILY 07/21/21 07/21/21 History spray (Nasonex) nitroglycerin 0.4 mg sublingual 0.4 mg SUBLINGUAL UD PRN 07/21/21 07/21/21 History tablet (Nitrostat) potassium chloride 20 mEq 20 meq PO MOWEFR 07/21/21 07/21/21 History tablet,extended release(part/cryst) ranolazine 500 mg tablet,extended 500 mg PO BID 07/21/21 07/21/21 History release,12 hr sennosides 8.6 mg-docusate sodium 2 tab-cap PO BID 07/21/21 07/21/21 History 50 mg capsule (Senna Plus) torsemide 10 mg tablet 10 mg PO MOWEFR 07/21/21 07/21/21 History tramadol 50 mg tablet 50 mg PO DAILY PRN 07/21/21 07/21/21 History Patient History Medical History (Updated 07/21/21 @ 16:14 by Andreas Myers DO) CAD (coronary artery disease) Chronic obstructive pulmonary disease mild--no inhaler Diabetes mellitus, type 2 History of common carotid artery stent placement 06/2017 @ [facility] in [place], [place] Hyperlipidemia Hypertension Myocardial Infarction 1996 On anticoagulant therapy on plavix Osteoarthritis PVD (peripheral vascular disease) Stroke 08/27/2017--no deficits Thoracic ascending aortic aneurysm Surgical History Chest pain 07/09/18 CARDIAC CATH WITH 5 MORE HEART STENTS [place] [facility] [place] of cardiac cath pt states he has had about 12 of them--last one "a couple years ago" History of cholecystectomy History of colonoscopy History of coronary artery bypass graft [place] [facility] [place] History of heart artery stent pt is unsure of how many heart stents, states around 39 stents total (including peripheral artery) History of left cataract extraction History of procedure for peripheral vascular disease pt states he has had about 6 with multiple stents placed History of tooth extraction wisdom teeth Family History Other Cancer Coronary heart disease Social History Smoking Status: Former smoker Tobacco Type: Cigarettes Cigarettes Per Day: quit 1997; Second Hand Exposure: No; Hx Alcohol Use: No Hx Substance Use: No Preferred Language: Uzbek Communication Ability: Effective Insights Manager Required: No Beliefs That Will Affect Care: None marital status: Single Current Living Situation: Alone Current Living Situation Comment: [facility] Feels Safe at Home: Yes Safety Concerns: Feels Safe At This Time Assistive Devices: Glasses and Walker Review of Systems Review of Systems: Review of Systems: See HPI for pertinent positives. All other 10 point review of systems are negative. Physical Exam Physical Exam: General: no acute distress and stated age Head: normocephalic, no masses, lesions, tenderness or abnormalities Eyes: conjunctiva are pink and non-injected, sclera clear Neck: supple, no adenopathy, no bruits, normal jugular venous pulse, no hepatojugular reflux Chest: normal shape and normal respiratory effort Lungs: clear to auscultation and percussion Cardiac Exam: - regular rate & rhythm, no murmurs gallops or rubs - normal S1, normal S2 Pulses: 2(+) throughout Abdomen: abdomen soft, non-tender, no abnormal masses and no hepatosplenomegaly Musculoskeletal: no gait disturbance, no joint inflammation, no deforming arthritis Extremities: no edema and no cyanosis Neuro: grossly normal exam Results & Data ([facility]) Vital Signs (Past 12 Hours) Vital Signs Pulse Pulse Resp BP BP Pulse Ox 07/21/21 13:01 81 20 192/104 H 92 07/21/21 13:00 82 18 90 07/21/21 12:30 84 20 92 07/21/21 12:00 65 19 185/75 H 93 07/21/21 11:30 72 20 95 07/21/21 11:06 73 16 94 07/21/21 11:00 78 19 179/95 H 93 07/21/21 10:30 114 H 23 95 07/21/21 10:00 77 19 188/97 H 94 07/21/21 09:30 80 20 93 07/21/21 09:00 63 20 187/95 H 94 07/21/21 08:00 66 20 167/78 H 94 07/21/21 07:33 68 20 92 07/21/21 06:40 196/74 H 07/21/21 06:37 76 18 196/74 H 96 Laboratory Results Laboratory Results - last 24 hr 07/21/21 07/21/21 07/21/21 02:09 02:14 02:14 WBC 8.80 RBC 4.33 L Hgb 10.8 L POC Hgb Hct 35.4 L POC Hct MCV 81.8 MCH 24.9 L MCHC 30.5 L RDW Std Deviation 52.6 H RDW Coeff of Dary 17.4 H Plt Count 91 L MPV 8.7 Immature Gran % (Auto) 0.3 Neut % (Auto) 88.8 Lymph % (Auto) 4.3 Dixon % (Auto) 5.1 Eos % (Auto) 1.5 Baso % (Auto) 0.0 Neut # (Auto) 7.81 H Lymph # (Auto) 0.38 L Dixon # (Auto) 0.45 Eos # (Auto) 0.13 Baso # (Auto) 0.00 Immature Gran # (Auto) 0.03 H Platelet Estimate Decreased L Echinocytes 1+ APTT PTT Ratio ABG pH ABG pCO2 ABG pO2 ABG HCO3 ABG O2 Saturation ABG Base Excess Ronnie Test Barometric Pressure Oxygen Given POC Sodium Sodium 139 POC Potassium Potassium 4.4 POC Chloride Chloride 107 Carbon Dioxide 25 POC Total CO2 Anion Gap 7.0 POC Anion Gap POC BUN BUN 33 H Creatinine 1.60 H POC Creatinine Est Cr Clr Drug Dosing 39.5 Est GFR ( Amer) 47.1 Est GFR (Non-Af Amer) 40.7 BUN/Creatinine Ratio 20.5 H Glucose 250 H POC Glucose POC Glucose (other) Estimat Average Glucose Hemoglobin A1c Calcium 8.8 POC Ioniz Calcium Jason Magnesium 2.1 Total Bilirubin 0.7 AST 9 L ALT 20 Alkaline Phosphatase 107 Troponin I 0.036 NT-Pro-B Natriuret Pep 79309 H Total Protein 6.7 Albumin 3.2 L Globulin 3.5 Albumin/Globulin Ratio 0.9 Lipase 306 TSH 0.145 L Free T4 1.24 SARS-CoV-2 (PCR) POSITIVE A* Influenza Type A (PCR) Negative Influenza Type B (PCR) Negative RSV (RT-PCR) Negative 07/21/21 07/21/21 07/21/21 02:14 02:15 02:19 WBC RBC Hgb POC Hgb 11.6 L Hct POC Hct 34 L MCV MCH MCHC RDW Std Deviation RDW Coeff of Dary Plt Count MPV Immature Gran % (Auto) Neut % (Auto) Lymph % (Auto) Dixon % (Auto) Eos % (Auto) Baso % (Auto) Neut # (Auto) Lymph # (Auto) Dixon # (Auto) Eos # (Auto) Baso # (Auto) Immature Gran # (Auto) Platelet Estimate Echinocytes APTT 27.1 PTT Ratio 1.0 ABG pH ABG pCO2 ABG pO2 ABG HCO3 ABG O2 Saturation ABG Base Excess Ronnie Test Barometric Pressure Oxygen Given POC Sodium 140 Sodium POC Potassium 4.3 Potassium POC Chloride 104 Chloride Carbon Dioxide POC Total CO2 23 L Anion Gap POC Anion Gap 18.0 POC BUN 31 H BUN Creatinine POC Creatinine 1.5 H Est Cr Clr Drug Dosing Est GFR ( Amer) Est GFR (Non-Af Amer) BUN/Creatinine Ratio Glucose POC Glucose POC Glucose (other) 249 H Estimat Average Glucose 140 Hemoglobin A1c 6.5 H Calcium POC Ioniz Calcium Jason 1.23 Magnesium Total Bilirubin AST ALT Alkaline Phosphatase Troponin I NT-Pro-B Natriuret Pep Total Protein Albumin Globulin Albumin/Globulin Ratio Lipase TSH Free T4 SARS-CoV-2 (PCR) Influenza Type A (PCR) Influenza Type B (PCR) RSV (RT-PCR) 07/21/21 07/21/21 07/21/21 04:06 04:06 04:15 WBC RBC Hgb POC Hgb Hct POC Hct MCV MCH MCHC RDW Std Deviation RDW Coeff of Dary Plt Count MPV Immature Gran % (Auto) Neut % (Auto) Lymph % (Auto) Dixon % (Auto) Eos % (Auto) Baso % (Auto) Neut # (Auto) Lymph # (Auto) Dixon # (Auto) Eos # (Auto) Baso # (Auto) Immature Gran # (Auto) Platelet Estimate Echinocytes APTT PTT Ratio ABG pH Cancelled ABG pCO2 Cancelled ABG pO2 Cancelled ABG HCO3 Cancelled ABG O2 Saturation Cancelled ABG Base Excess Cancelled Ronnie Test Cancelled Barometric Pressure Cancelled Oxygen Given Cancelled POC Sodium Sodium POC Potassium Potassium POC Chloride Chloride Carbon Dioxide POC Total CO2 Anion Gap POC Anion Gap POC BUN BUN Creatinine POC Creatinine Est Cr Clr Drug Dosing Est GFR ( Amer) Est GFR (Non-Af Amer) BUN/Creatinine Ratio Glucose POC Glucose 204 H POC Glucose (other) Estimat Average Glucose Hemoglobin A1c Calcium POC Ioniz Calcium Jason Magnesium Total Bilirubin AST ALT Alkaline Phosphatase Troponin I 0.028 NT-Pro-B Natriuret Pep Total Protein Albumin Globulin Albumin/Globulin Ratio Lipase TSH Free T4 SARS-CoV-2 (PCR) Influenza Type A (PCR) Influenza Type B (PCR) RSV (RT-PCR) 07/21/21 07/21/21 08:51 15:54 WBC RBC Hgb POC Hgb Hct POC Hct MCV MCH MCHC RDW Std Deviation RDW Coeff of Dary Plt Count MPV Immature Gran % (Auto) Neut % (Auto) Lymph % (Auto) Dixon % (Auto) Eos % (Auto) Baso % (Auto) Neut # (Auto) Lymph # (Auto) Dixon # (Auto) Eos # (Auto) Baso # (Auto) Immature Gran # (Auto) Platelet Estimate Echinocytes APTT PTT Ratio ABG pH ABG pCO2 ABG pO2 ABG HCO3 ABG O2 Saturation ABG Base Excess Ronnie Test Barometric Pressure Oxygen Given POC Sodium Sodium POC Potassium Potassium POC Chloride Chloride Carbon Dioxide POC Total CO2 Anion Gap POC Anion Gap POC BUN BUN Creatinine POC Creatinine Est Cr Clr Drug Dosing Est GFR ( Amer) Est GFR (Non-Af Amer) BUN/Creatinine Ratio Glucose POC Glucose 183 H 311 H* POC Glucose (other) Estimat Average Glucose Hemoglobin A1c Calcium POC Ioniz Calcium Jason Magnesium Total Bilirubin AST ALT Alkaline Phosphatase Troponin I NT-Pro-B Natriuret Pep Total Protein Albumin Globulin Albumin/Globulin Ratio Lipase TSH Free T4 SARS-CoV-2 (PCR) Influenza Type A (PCR) Influenza Type B (PCR) RSV (RT-PCR) Medications Administered Current Inpatient Medications Acetaminophen (Acetaminophen 325 Mg Tab) 650 mg PO Q4H PRN PRN Reason: Pain or Fever Stop: 08/20/21 05:27 Amlodipine Besylate (Amlodipine Besylate 5 Mg Tab) 5 mg PO QPM QIAN Stop: 08/20/21 20:59 Atorvastatin Calcium (Atorvastatin 40 Mg Tab) 80 mg PO QAM QIAN Stop: 08/20/21 08:59 Last Admin: 07/21/21 08:53 Dose: 80 mg Documented by: Carvedilol (Carvedilol 6.25 Mg Tab) 6.25 mg PO BID QIAN Stop: 08/20/21 07:09 Last Admin: 07/21/21 08:53 Dose: 6.25 mg Documented by: Cilostazol (Cilostazol 100 Mg Tab) 50 mg PO BID QIAN Stop: 08/20/21 08:59 Last Admin: 07/21/21 08:54 Dose: 50 mg Documented by: Clopidogrel Bisulfate (Clopidogrel Bisulfate 75 Mg Tab) 75 mg PO DAILY QIAN Stop: 08/20/21 08:59 Last Admin: 07/21/21 08:53 Dose: 75 mg Documented by: Cyanocobalamin (Cyanocobalamin 1000 Mcg/Ml Vial) 1,000 mcg IM MO QIAN Stop: 08/20/21 08:59 Last Admin: 07/21/21 08:54 Dose: 1,000 mcg Documented by: Dextrose (Dextrose 50% 50 Ml Syringe) 25 - 50 ml IV UD PRN; Protocol PRN Reason: Hypoglycemia Protocol Stop: 08/20/21 03:59 Doxycycline Hyclate (Doxycycline Hyclate 100 Mg Cap) 100 mg PO BID [facility] Stop: 07/28/21 20:59 Fluticasone Propionate (Fluticasone Propionate Na Spr 16 Gm Btl) 2 sprays NA DAILY QIAN Stop: 08/20/21 08:59 Last Admin: 07/21/21 08:55 Dose: 2 sprays Documented by: Glucagon (Glucagon For Inj 1 Mg Vial) 1 mg SQ UD PRN; Protocol PRN Reason: Hypoglycemia Protocol Stop: 08/20/21 03:59 Glucose (Glucose 10 Tabs/Tube) 4 - 8 tabs PO UD PRN; Protocol PRN Reason: Hypoglycemia Protocol Stop: 08/20/21 03:59 Glucose (Glucose 40% Gel 15 Gm Tube) 15 - 30 gm PO UD PRN; Protocol PRN Reason: Hypoglycemia Protocol Stop: 08/20/21 03:59 Guaifenesin/Codeine Phosphate (Guaifenesin/Codeine 200mg/20mg 10ml Udc) 10 ml PO Q6H PRN PRN Reason: Cough Stop: 08/20/21 13:40 Heparin Sodium (Porcine) (Heparin Sod 5,000 Unit/0.5 Ml Vial) 5,000 units SQ Q8 QIAN Stop: 08/20/21 05:59 Last Admin: 07/21/21 15:41 Dose: 5,000 units Documented by: Dexamethasone 6 mg/ Syringe 1.5 mls @ 1 mls/min IV DAILY [facility] Stop: 08/21/21 08:59 Promethazine HCl 12.5 mg/ (Sodium Chloride) 50.5 mls @ 202 mls/hr IV Q6H PRN PRN Reason: Nausea And Vomiting Stop: 08/20/21 05:27 Insulin Aspart (Insulin Aspart Per Unit) 0 units SC ACHS [facility] Stop: 08/20/21 03:59 Last Admin: 07/21/21 04:34 Dose: 3 units Documented by: Insulin Glargine (Insulin Glargine Solostar 100 Units/Ml 3 Ml Pen) 20 units SC BID [facility] Stop: 08/20/21 20:59 Ipratropium [place] (Ipratropium [place] Neb Soln 0.02% 2.5 Ml Vial) 0.5 mg INH Q4H PRN PRN Reason: sob/wheezing Stop: 08/20/21 05:27 Levalbuterol HCl (Levalbuterol 1.25mg/0.5ml Neb) 1.25 mg INH Q4H PRN PRN Reason: sob/wheezing Stop: 08/20/21 05:27 Miscellaneous (Carbohydrates For Hypoglycemia ) 15 - 30 gm PO UD PRN PRN Reason: Hypoglycemia Protocol Stop: 08/20/21 03:59 Nitroglycerin (Nitroglycerin Sl 0.4 Mg/Tab Tab) 0.4 mg SL UD PRN PRN Reason: Chest Pain Stop: 08/20/21 05:27 Ranolazine (Ranolazine 500 Mg Er Tab) 500 mg PO BID [facility] Stop: 08/20/21 07:09 Last Admin: 07/21/21 08:52 Dose: 500 mg Documented by: Senna/Docusate Sodium (Docusate Sodium/Senna 50/8.6mg Tab) 2 tab PO BID [facility] Stop: 08/20/21 08:59 Last Admin: 07/21/21 10:21 Dose: Not Given Documented by: Torsemide (Torsemide 10 Mg Tab) 10 mg PO MOWEFR [facility] Stop: 08/22/21 08:59 Tramadol HCl (Tramadol Hcl 50 Mg Tablet) 25 - 50 mg PO Q4H PRN PRN Reason: Pain Stop: 08/20/21 05:27
[2021-07-21] MEDS ORDERED: amLODIPine BESYLATE 5 MG TAB PO SCH (21:00)
[2021-07-21] MEDS: INSULIN GLARGINE SOLOSTAR 100 UNITS/ML 3 ML PEN SC SCH (21:29)
[2021-07-21] MEDS: amLODIPine BESYLATE 5 MG TAB PO SCH (21:36)
[2021-07-21] MEDS: DOXYCYCLINE HYCLATE 100 MG CAP PO SCH (21:36)
[2021-07-21] MEDS: carvediloL 12.5 MG TAB PO SCH (21:36)
[2021-07-22] MEDS: HEPARIN SOD 5,000 UNIT/0.5 ML VIAL SQ SCH ×3 (05:53→20:35)
[2021-07-22] MEDS: cilostazoL 100 MG TAB PO SCH ×2 (08:15→20:35)
[2021-07-22] MEDS: dexAMETHasone 6 MG in SYRINGE 0 ML IV SCH (08:16)
[2021-07-22] MEDS: carvediloL 12.5 MG TAB PO SCH ×2 (08:16→20:33)
[2021-07-22] MEDS: RANOLAZINE 500 MG ER TAB PO SCH ×2 (08:16→20:35)
[2021-07-22] MEDS: CLOPIDOGREL BISULFATE 75 MG TAB PO SCH (08:17)
[2021-07-22] MEDS: DOXYCYCLINE HYCLATE 100 MG CAP PO SCH ×2 (08:17→20:34)
[2021-07-22] MEDS: DOCUSATE SODIUM/SENNA 50/8.6MG TAB PO SCH ×2 (08:17→20:37)
[2021-07-22] MEDS: FLUTICASONE PROPIONATE NA SPR 16 GM BTL SCH (08:18)
[2021-07-22] MEDS: ATORVASTATIN 40 MG TAB PO SCH (08:18)
[2021-07-22] MEDS: INSULIN GLARGINE SOLOSTAR 100 UNITS/ML 3 ML PEN SC SCH ×2 (08:27→20:37)
[2021-07-22] MEDS: INSULIN ASPART PER UNIT SC SCH ×4 (08:27→20:28)
[2021-07-22] MEDS ORDERED: INSULIN GLARGINE SOLOSTAR 100 UNITS/ML 3 ML PEN SC SCH (09:00)
--- NOTE | 2021-07-22 18:20 | Hospitalist Progress Note ---
Date of Service July 22, 2021 Assessment & Plan (1) Hypertensive urgency: Plan: BP improved with adjustments per cardiology. Has type I sensitivity to hydralazine. Holding home torsemide and giving PRN Lasix now with increased work of breathing and worsened LE edema. Consider side effect of norvasc possibly contributing to edema?Continues with condom catheter which is helping with strict ins/outs. Daily weights and low-sodium diet. In setting of chronic systolic heart failure, known valvular disease, pulmonary HTN and cardiac disease, cardiology was consulted and feels he is at his baseline with respect to his chronic comorbidities. Cont close monitoring of BP. (2) Pneumonia due to COVID-19 virus: Plan: cont steroids per plan below. (3) Hypoxia: Plan: Patient with underlying COPD and pulmonary hypertension presents with COVID-19 pneumonia. Mildly hypoxic and doing well on dexamethasone. Bronchodilator ther apy as needed. There is no wheezing or evidence of COPD exacerbation at this time. Patient appears to have a viral pneumonia. Continue steroid therapy and supportive care. Rocephin AC as needed started. Patient encouraged to prone. (4) Chronic systolic heart failure: Plan: chronic systolic heart failure (EF 45 to 50%, TTE 2020), appears hypervolemic but not in acute failure. No evidence of acute pulmonary edema. Cont low salt diet, daily weights. valvular heart disease (mild AR/MR, severe ), patient follows with [facility] (5) CAD (coronary artery disease): Plan: hx CAD status post CABG/PVD status post surgery, cont medical management per home regimen including Coreg, ranolazine, Plavix, Lipitor and cilostazol. (6) Diabetes mellitus, type 2: Plan: DM 2 diet-controlled, patient hyperglycemic secondary to outpatient Decadron Rx, hemoglobin A1c of 5.22 February 2021. Will tighten insulin control to scale #3 while on IV steroids. May need to de-escalate if hypoglycemia is noted. (7) DVT prophylaxis: Plan: Heparin Full code Disposition-pending improvement medically, then per PT/OT recommendations. Zahraa Jacome DO [facility] Hospitalist Admission and Anticipated Discharge Date Admission Date: July 21, 2021 Subjective 76-year-old man presents with hypertensive urgency and Covid pneumonia. Patient reports feeling better and breathing better Noted continued use of accessory muscles with breathing Denies any chest pain Blood pressure is improved Tolerating p.o. Afebrile Review of Systems Review of Systems: All systems were reviewed and negative except as indicated above. Physical Exam Physical Exam: CONSTITUTIONAL: WNWD, vitals as above, NAD EYES: normal conjunctivae, no scleral icterus ENT: external ear and nose normal, MMM NECK: trachea midline RESPIRATORY: clear to auscultation bilaterally, no crackles, rales or wheezes, normal respiratory effort CARDIOVASCULAR: regular rate and rhythm, S1 and 2 heard without murmurs, gallops or rubs, no JVD, increased peripheral edema, now 3+ pitting edema bilaterally CHEST: inspection of chest was normal GASTROINTESTINAL: soft, nontender, ND, no guarding MUSCULOSKELETAL: strength 5/5 throughout, head is normocephalic and atraumatic SKIN: warm and dry, NEUROLOGIC: CN 2-12 grossly intact, no sensory deficit, normal cognition, normal speech, no tremor, no gross focal deficits. PSYCHIATRIC: alert cooperative and oriented to person, place and time. Results & Data Results & Data ([facility]) Vital Signs (Past 12 Hours) Vital Signs Temp Pulse Resp BP Pulse Ox 07/22/21 15:46 36.3 C L 74 18 134/75 98 07/22/21 13:35 97 07/22/21 11:13 36.9 C 74 20 157/76 H 95 07/22/21 08:02 36.7 C 77 18 163/73 H 96 Medications Administered Current Inpatient Medications Acetaminophen (Acetaminophen 325 Mg Tab) 650 mg PO Q4H PRN PRN Reason: Pain or Fever Stop: 08/20/21 05:27 Amlodipine Besylate (Amlodipine Besylate 5 Mg Tab) 10 mg PO QPM QIAN Stop: 08/20/21 20:59 Last Admin: 07/21/21 21:36 Dose: 10 mg Documented by: Atorvastatin Calcium (Atorvastatin 40 Mg Tab) 80 mg PO QAM QIAN Stop: 08/20/21 08:59 Last Admin: 07/22/21 08:18 Dose: 80 mg Documented by: Carvedilol (Carvedilol 12.5 Mg Tab) 12.5 mg PO BID QIAN Stop: 08/20/21 20:59 Last Admin: 07/22/21 08:16 Dose: 12.5 mg Documented by: Cilostazol (Cilostazol 100 Mg Tab) 50 mg PO BID QIAN Stop: 08/20/21 08:59 Last Admin: 07/22/21 08:15 Dose: 50 mg Documented by: Clopidogrel Bisulfate (Clopidogrel Bisulfate 75 Mg Tab) 75 mg PO DAILY [facility] Stop: 08/20/21 08:59 Last Admin: 07/22/21 08:17 Dose: 75 mg Documented by: Cyanocobalamin (Cyanocobalamin 1000 Mcg/Ml Vial) 1,000 mcg IM MO QIAN Stop: 08/20/21 08:59 Last Admin: 07/21/21 08:54 Dose: 1,000 mcg Documented by: Dextrose (Dextrose 50% 50 Ml Syringe) 25 - 50 ml IV UD PRN; Protocol PRN Reason: Hypoglycemia Protocol Stop: 08/20/21 03:59 Doxycycline Hyclate (Doxycycline Hyclate 100 Mg Cap) 100 mg PO BID [facility] Stop: 07/28/21 20:59 Last Admin: 07/22/21 08:17 Dose: 100 mg Documented by: Fluticasone Propionate (Fluticasone Propionate Na Spr 16 Gm Btl) 2 sprays NA DAILY QIAN Stop: 08/20/21 08:59 Last Admin: 07/22/21 08:18 Dose: 2 sprays Documented by: Glucagon (Glucagon For Inj 1 Mg Vial) 1 mg SQ UD PRN; Protocol PRN Reason: Hypoglycemia Protocol Stop: 08/20/21 03:59 Glucose (Glucose 10 Tabs/Tube) 4 - 8 tabs PO UD PRN; Protocol PRN Reason: Hypoglycemia Protocol Stop: 08/20/21 03:59 Glucose (Glucose 40% Gel 15 Gm Tube) 15 - 30 gm PO UD PRN; Protocol PRN Reason: Hypoglycemia Protocol Stop: 08/20/21 03:59 Guaifenesin/Codeine Phosphate (Guaifenesin/Codeine 200mg/20mg 10ml Udc) 10 ml PO Q6H PRN PRN Reason: Cough Stop: 08/20/21 13:40 Heparin Sodium (Porcine) (Heparin Sod 5,000 Unit/0.5 Ml Vial) 5,000 units SQ Q8 QIAN Stop: 08/20/21 05:59 Last Admin: 07/22/21 13:43 Dose: 5,000 units Documented by: Dexamethasone 6 mg/ Syringe 1.5 mls @ 1 mls/min IV DAILY [facility] Stop: 08/21/21 08:59 Last Admin: 07/22/21 08:16 Dose: 1 mls/min Documented by: Promethazine HCl 12.5 mg/ (Sodium Chloride) 50.5 mls @ 202 mls/hr IV Q6H PRN PRN Reason: Nausea And Vomiting Stop: 08/20/21 05:27 Insulin Aspart (Insulin Aspart Per Unit) 0 units SC ACHS [facility] Stop: 08/20/21 03:59 Last Admin: 07/22/21 17:09 Dose: 5 units Documented by: Insulin Glargine (Insulin Glargine Solostar 100 Units/Ml 3 Ml Pen) 20 units SC BID [facility] Stop: 08/20/21 20:59 Last Admin: 07/22/21 08:27 Dose: 20 units Documented by: Ipratropium [place] (Ipratropium [place] Neb Soln 0.02% 2.5 Ml Vial) 0.5 mg INH Q4H PRN PRN Reason: sob/wheezing Stop: 08/20/21 05:27 Levalbuterol HCl (Levalbuterol 1.25mg/0.5ml Neb) 1.25 mg INH Q4H PRN PRN Reason: sob/wheezing Stop: 08/20/21 05:27 Miscellaneous (Carbohydrates For Hypoglycemia ) 15 - 30 gm PO UD PRN PRN Reason: Hypoglycemia Protocol Stop: 08/20/21 03:59 Nitroglycerin (Nitroglycerin Sl 0.4 Mg/Tab Tab) 0.4 mg SL UD PRN PRN Reason: Chest Pain Stop: 08/20/21 05:27 Ranolazine (Ranolazine 500 Mg Er Tab) 500 mg PO BID [facility] Stop: 08/20/21 07:09 Last Admin: 07/22/21 08:16 Dose: 500 mg Documented by: Senna/Docusate Sodium (Docusate Sodium/Senna 50/8.6mg Tab) 2 tab PO BID [facility] Stop: 08/20/21 08:59 Last Admin: 07/22/21 08:17 Dose: 2 tab Documented by: Torsemide (Torsemide 10 Mg Tab) 10 mg PO MOWEFR [facility] Stop: 08/22/21 08:59 Tramadol HCl (Tramadol Hcl 50 Mg Tablet) 25 - 50 mg PO Q4H PRN PRN Reason: Pain Stop: 08/20/21 05:27
[2021-07-22] MEDS: amLODIPine BESYLATE 5 MG TAB PO SCH (20:33)
[2021-07-22] MEDS ORDERED: FUROSEMIDE INJ 20 MG/2 ML VIAL IV ONE (20:54)
[2021-07-23] MEDS: HEPARIN SOD 5,000 UNIT/0.5 ML VIAL SQ SCH ×3 (05:35→21:32)
[2021-07-23 06:50] LABS: BUN Creatinine Ratio 29.8 (10-20); Calcium 8.6 mg/dl (8.5-10.1); Creatinine Clr Calc Pharmacy 38.8 ml/min; Est GFR (African American) 46.8 ml/min; Est GFR (Non-African American) 40.4 ml/min; Potassium 3.8 mmol/L (3.5-5.1)
[2021-07-23 06:52] LABS: C Reactive Protein 4.47 mg/dl (0-0.29)
[2021-07-23 06:54] LABS: Hematocrit (blood only) 32.7 % (42-52); Hemoglobin 10.2 g/dL (14.0-18.0); Mean Corpuscular Hemoglobin 24.9 pg (25-34); Mean Corpuscular Hgb Conc 31.2 g/dL (32-36); Mean Corpuscular Volume 79.8 fL (80-100); Mean Platelet Volume 9.3 fL (7.4-10.4); Platelet Count 153 K/uL (130-400); RDW Standard Deviation 49.7 fL (36.4-46.3); White Blood Count 8.96 K/uL (4.8-10.8)
[2021-07-23] MEDS: CLOPIDOGREL BISULFATE 75 MG TAB PO SCH (08:33)
[2021-07-23] MEDS: ATORVASTATIN 40 MG TAB PO SCH (08:33)
[2021-07-23] MEDS: dexAMETHasone 6 MG in SYRINGE 0 ML IV SCH (08:33)
[2021-07-23] MEDS: DOXYCYCLINE HYCLATE 100 MG CAP PO SCH ×2 (08:33→21:32)
[2021-07-23] MEDS: carvediloL 12.5 MG TAB PO SCH (08:33)
[2021-07-23] MEDS: RANOLAZINE 500 MG ER TAB PO SCH ×2 (08:33→21:32)
[2021-07-23] MEDS: cilostazoL 100 MG TAB PO SCH ×2 (08:35→21:33)
[2021-07-23] MEDS: FLUTICASONE PROPIONATE NA SPR 16 GM BTL SCH (08:35)
[2021-07-23] MEDS: INSULIN ASPART PER UNIT SC SCH ×4 (08:38→20:35)
[2021-07-23] MEDS: DOCUSATE SODIUM/SENNA 50/8.6MG TAB PO SCH ×2 (08:39→21:32)
[2021-07-23] MEDS ORDERED: TORSEMIDE 10 MG TAB PO SCH (09:00)
--- NOTE | 2021-07-23 09:16 | XRay Report ---
XR chest 1V portable HISTORY: Shortness of breath. covid pneumonia, reassess vasc congestion COMPARISON: Chest 07/21/2021. FINDINGS: No pneumothorax. No pleural effusions. The heart is mildly enlarged. There are poststernoto my changes. Patchy hazy airspace opacities within the right midlung zone and left lower lobe have sli ghtly improved. No evidence for pulmonary edema. IMPRESSION: Slight improvement in the patchy bilateral airspace opacities consistent with a viral pneumonia. ACT 112: Negative or not required by law. Electronically signed by: Thai Dixon M.D. 07/23/2021 9:14 AM
[2021-07-23] MEDS ORDERED: FUROSEMIDE INJ 20 MG/2 ML VIAL IV ONE (10:14)
--- NOTE | 2021-07-23 12:19 | Cardiology Progress Note ---
Date of Service July 23, 2021 Assessment & Plan (1) ASVD (arteriosclerotic vascular disease): (2) CAD (coronary artery disease): (3) Ischemic cardiomyopathy: (4) Pneumonia due to COVID-19 virus: (5) PAD (peripheral artery disease): (6) Renal vascular disease: Plan: The patient is stable from a cardiac standpoint. He expresses no cardiac problems. He denies chest pain. His blood pressure does seem to be up a bit and I will increase his carvedilol. Admission and Anticipated Discharge Date Admission Date: July 21, 2021 Subjective The patient is alert and states he feels better. Review of Systems Review of Systems: Review of Systems: See HPI for pertinent positives. All other 10 point review of systems are negative. Physical Exam Physical Exam: General: no acute distress and stated age Head: normocephalic, no masses, lesions, tenderness or abnormalities Eyes: conjunctiva are pink and non-injected, sclera clear Neck: supple, no adenopathy, no bruits, normal jugular venous pulse, no hepatojugular reflux Chest: normal shape and normal respiratory effort Lungs: clear to auscultation and percussion Cardiac Exam: - regular rate & rhythm, no murmurs gallops or rubs - normal S1, normal S2 Pulses: 2(+) throughout Abdomen: abdomen soft, non-tender, no abnormal masses and no hepatosplenomegaly Musculoskeletal: no gait disturbance, no joint inflammation, no deforming arthritis Extremities: no edema and no cyanosis Neuro: grossly normal exam Results & Data ([facility]) Vital Signs (Past 12 Hours) Vital Signs Temp Pulse Pulse Resp BP BP Pulse Ox 07/23/21 11:23 36.4 C L 71 20 178/67 H 98 07/23/21 10:34 69 07/23/21 09:56 148/99 H 07/23/21 07:44 36.6 C 74 20 185/60 H 91 07/23/21 03:15 36.8 C 73 24 139/64 97 Laboratory Results Laboratory Results - last 24 hr 07/22/21 07/22/21 07/23/21 16:42 20:06 05:50 WBC 8.96 RBC 4.10 L Hgb 10.2 L Hct 32.7 L MCV 79.8 L MCH 24.9 L MCHC 31.2 L RDW Std Deviation 49.7 H RDW Coeff of Dary 17.0 H Plt Count 153 MPV 9.3 Sodium Potassium Chloride Carbon Dioxide Anion Gap BUN Creatinine Est Cr Clr Drug Dosing Est GFR ( Amer) Est GFR (Non-Af Amer) BUN/Creatinine Ratio Glucose POC Glucose 141 H 139 H Calcium C-Reactive Protein 07/23/21 07/23/21 07/23/21 05:50 07:56 07:58 WBC RBC Hgb Hct MCV MCH MCHC RDW Std Deviation RDW Coeff of Dary Plt Count MPV Sodium 137 Potassium 3.8 Chloride 107 Carbon Dioxide 23 Anion Gap 7.0 BUN 48 H Creatinine 1.61 H Est Cr Clr Drug Dosing 38.8 Est GFR ( Amer) 46.8 Est GFR (Non-Af Amer) 40.4 BUN/Creatinine Ratio 29.8 H Glucose 64 L POC Glucose 67 L* 71 Calcium 8.6 C-Reactive Protein 4.47 H 07/23/21 11:43 WBC RBC Hgb Hct MCV MCH MCHC RDW Std Deviation RDW Coeff of [place]ary Plt Count MPV Sodium Potassium Chloride Carbon Dioxide Anion Gap BUN Creatinine Est Cr Clr Drug Dosing Est GFR ( Amer) Est GFR (Non-Af Amer) BUN/Creatinine Ratio Glucose POC Glucose 111 H Calcium C-Reactive Protein Medications Administered Current Inpatient Medications Acetaminophen (Acetaminophen 325 Mg Tab) 650 mg PO Q4H PRN PRN Reason: Pain or Fever Stop: 08/20/21 05:27 Amlodipine Besylate (Amlodipine Besylate 5 Mg Tab) 10 mg PO QPM [facility] Stop: 08/20/21 20:59 Last Admin: 07/22/21 20:33 Dose: 10 mg Documented by: Atorvastatin Calcium (Atorvastatin 40 Mg Tab) 80 mg PO QAM [facility] Stop: 08/20/21 08:59 Last Admin: 07/23/21 08:33 Dose: 80 mg Documented by: Carvedilol (Carvedilol 12.5 Mg Tab) 12.5 mg PO BID [facility] Stop: 08/20/21 20:59 Last Admin: 07/23/21 08:33 Dose: 12.5 mg Documented by: Cilostazol (Cilostazol 100 Mg Tab) 50 mg PO BID [facility] Stop: 08/20/21 08:59 Last Admin: 07/23/21 08:35 Dose: 50 mg Documented by: Clopidogrel Bisulfate (Clopidogrel Bisulfate 75 Mg Tab) 75 mg PO DAILY [facility] Stop: 08/20/21 08:59 Last Admin: 07/23/21 08:33 Dose: 75 mg Documented by: Cyanocobalamin (Cyanocobalamin 1000 Mcg/Ml Vial) 1,000 mcg IM MO [facility] Stop: 08/20/21 08:59 Last Admin: 07/21/21 08:54 Dose: 1,000 mcg Documented by: Dextrose (Dextrose 50% 50 Ml Syringe) 25 - 50 ml IV UD PRN; Protocol PRN Reason: Hypoglycemia Protocol Stop: 08/20/21 03:59 Doxycycline Hyclate (Doxycycline Hyclate 100 Mg Cap) 100 mg PO BID [facility] Stop: 07/28/21 20:59 Last Admin: 07/23/21 08:33 Dose: 100 mg Documented by: Fluticasone Propionate (Fluticasone Propionate Na Spr 16 Gm Btl) 2 sprays NA DAILY [facility] Stop: 08/20/21 08:59 Last Admin: 07/23/21 08:35 Dose: 2 sprays Documented by: Glucagon (Glucagon For Inj 1 Mg Vial) 1 mg SQ UD PRN; Protocol PRN Reason: Hypoglycemia Protocol Stop: 08/20/21 03:59 Glucose (Glucose 10 Tabs/Tube) 4 - 8 tabs PO UD PRN; Protocol PRN Reason: Hypoglycemia Protocol Stop: 08/20/21 03:59 Glucose (Glucose 40% Gel 15 Gm Tube) 15 - 30 gm PO UD PRN; Protocol PRN Reason: Hypoglycemia Protocol Stop: 08/20/21 03:59 Guaifenesin/Codeine Phosphate (Guaifenesin/Codeine 200mg/20mg 10ml Udc) 10 ml PO Q6H PRN PRN Reason: Cough Stop: 08/20/21 13:40 Heparin Sodium (Porcine) (Heparin Sod 5,000 Unit/0.5 Ml Vial) 5,000 units SQ Q8 [facility] Stop: 08/20/21 05:59 Last Admin: 07/23/21 05:35 Dose: 5,000 units Documented by: Dexamethasone 6 mg/ Syringe 1.5 mls @ 1 mls/min IV DAILY [facility] Stop: 08/21/21 08:59 Last Admin: 07/23/21 08:33 Dose: 1 mls/min Documented by: Promethazine HCl 12.5 mg/ (Sodium Chloride) 50.5 mls @ 202 mls/hr IV Q6H PRN PRN Reason: Nausea And Vomiting Stop: 08/20/21 05:27 Insulin Aspart (Insulin Aspart Per Unit) 0 units SC ACHS [facility] Stop: 08/20/21 03:59 Last Admin: 07/23/21 08:38 Dose: Not Given Documented by: Insulin Glargine (Insulin Glargine Solostar 100 Units/Ml 3 Ml Pen) 10 units SC HS [facility] Stop: 08/22/21 20:59 Ipratropium [place] (Ipratropium [place] Neb Soln 0.02% 2.5 Ml Vial) 0.5 mg INH Q4H PRN PRN Reason: sob/wheezing Stop: 08/20/21 05:27 Levalbuterol HCl (Levalbuterol 1.25mg/0.5ml Neb) 1.25 mg INH Q4H PRN PRN Reason: sob/wheezing Stop: 08/20/21 05:27 Miscellaneous (Carbohydrates For Hypoglycemia ) 15 - 30 gm PO UD PRN PRN Reason: Hypoglycemia Protocol Stop: 08/20/21 03:59 Nitroglycerin (Nitroglycerin Sl 0.4 Mg/Tab Tab) 0.4 mg SL UD PRN PRN Reason: Chest Pain Stop: 08/20/21 05:27 Ranolazine (Ranolazine 500 Mg Er Tab) 500 mg PO BID [facility] Stop: 08/20/21 07:09 Last Admin: 07/23/21 08:33 Dose: 500 mg Documented by: Senna/Docusate Sodium (Docusate Sodium/Senna 50/8.6mg Tab) 2 tab PO BID [facility] Stop: 08/20/21 08:59 Last Admin: 07/23/21 08:39 Dose: 2 tab Documented by: Torsemide (Torsemide 10 Mg Tab) 10 mg PO MOWEFR [facility] Stop: 08/22/21 08:59 Tramadol HCl (Tramadol Hcl 50 Mg Tablet) 25 - 50 mg PO Q4H PRN PRN Reason: Pain Stop: 08/20/21 05:27
--- NOTE | 2021-07-23 17:05 | Hospitalist Progress Note ---
Date of Service July 23, 2021 Assessment & Plan (1) Hypertensive urgency: Plan: BP improved with adjustments per cardiology. Has type I sensitivity to hydralazine. Holding home torsemide and giving PRN Lasix now with increased work of breathing and worsened LE edema. Consider side effect of norvasc possibly contributing to edema? Continues with condom catheter which is helping with strict ins/outs. Good response to diuretics. Daily weights and low-sodium diet. In setting of chronic systolic heart failure, known valvular disease, pulmonary HTN and cardiac disease, cardiology was consulted and feels he is at his baseline with respect to his chronic comorbidities. Cont close monitoring of BP. (2) Pneumonia due to COVID-19 virus: Plan: cont steroids per plan below. (3) Hypoxia: Plan: Patient with underlying COPD and pulmonary hypertension presents with COVID-19 pneumonia. Mildly hypoxic and doing well on dexamethasone. Bronchodilator therapy as needed. There is no wheezing or evidence of COPD exacerbation at this time. Patient appears to have a viral pneumonia. Continue steroid therapy and supportive care. Rocephin AC as needed started. Patient encouraged to prone. (4) Chronic systolic heart failure: Plan: chronic systolic heart failure (EF 45 to 50%, TTE 2020), appears hypervolemic but not in acute failure. No evidence of acute pulmonary edema. Cont low salt diet, daily weights. valvular heart disease (mild AR/MR, severe ), patient follows with Melvin Levi crane manager (5) CAD (coronary artery disease): Plan: hx CAD status post CABG/PVD status post surgery, cont medical management per home regimen including Coreg, ranolazine, Plavix, Lipitor and cilostazol. (6) Diabetes mellitus, type 2: Plan: DM 2 diet-controlled, patient hyperglycemic secondary to outpatient Decadron Rx, hemoglobin A1c of 5.22 February 2021. Will de-escalate insulin to correction factor only with hypoglycemia this am. (7) DVT prophylaxis: Plan: Heparin Full code Disposition-pending resolution of hypoxia. I spoke with his daughter Bailee, by phone today and updated her on the plan. All questions were answered. She is in favor of him being hospitalized until his BP is better controlled and his hypoxia has resolved. [facility] and Anticipated Discharge Date Admission Date: July 21, 2021 Subjective 76-year-old man presents with hypertensive urgency and Covid pneumonia. Patient reports again feeling better and breathing better this morning Good output with Lasix IV overnight and will give additional this am, improvement noted in bilateral lower extremity edema which is still present. Denies any chest pain BP labile. Tolerating p.o. Afebrile Review of Systems Review of Systems: All systems were reviewed and negative except as indicated above. Physical Exam Physical Exam: CONSTITUTIONAL: WNWD, vitals as above, NAD EYES: normal conjunctivae, no scleral icterus ENT: external ear and nose normal, MMM NECK: trachea midline RESPIRATORY: clear to auscultation bilaterally, no crackles, rales or wheezes, normal respiratory effort CARDIOVASCULAR: regular rate and rhythm, S1 and 2 heard without murmurs, gallops or rubs, no JVD, increased peripheral edema, now 2+ pitting edema bilaterally-improved from yesterday CHEST: inspection of chest was normal GASTROINTESTINAL: soft, nontender, ND, no guarding MUSCULOSKELETAL: strength 5/5 throughout, head is normocephalic and atraumatic SKIN: warm and dry, NEUROLOGIC: CN 2-12 grossly intact, no sensory deficit, normal cognition, normal speech, no tremor, no gross focal deficits. PSYCHIATRIC: alert cooperative and oriented to person, place and time. Results & Data Results & Data ([facility]) Vital Signs (Past 12 Hours) Vital Signs Temp Pulse Pulse Resp BP BP Pulse Ox 07/23/21 15:24 36.5 C 73 20 138/73 95 07/23/21 11:23 36.4 C L 71 20 178/67 H 98 07/23/21 10:34 69 07/23/21 09:56 148/99 H 07/23/21 07:44 36.6 C 74 20 185/60 H 91 Laboratory Results Short CBC 07/23/21 Range/Units 05:50 WBC 8.96 (4.8-10.8) K/uL Hgb 10.2 L (14.0-18.0) g/dL Hct 32.7 L (42-52) % Plt Count 153 (130-400) K/uL BMP 07/23/21 05:50 Sodium 137 Potassium 3.8 Chloride 107 Carbon Dioxide 23 BUN 48 H Creatinine 1.61 H Glucose 64 L Calcium 8.6 Diagnostic Findings Chest X-Ray 07/23/21 08:20 XR chest 1V portable HISTORY: Shortness of breath. covid pneumonia, reassess vasc congestion COMPARISON: Chest 07/21/2021. FINDINGS: No pneumothorax. No pleural effusions. The heart is mildly enlarged. There are poststernotomy changes. Patchy hazy airspace opacities within the right midlung zone and left lower lobe have slightly improved. No evidence for pulmonary edema. IMPRESSION: Slight improvement in the patchy bilateral airspace opacities consistent with a viral pneumonia. ACT 112: Negative or not required by law. Electronically signed by: Thai Dixon M.D. 07/23/2021 9:14 AM Medications Administered Current Inpatient Medications Acetaminophen (Acetaminophen 325 Mg Tab) 650 mg PO Q4H PRN PRN Reason: Pain or Fever Stop: 08/20/21 05:27 Amlodipine Besylate (Amlodipine Besylate 5 Mg Tab) 10 mg PO QPM [facility] Stop: 08/20/21 20:59 Last Admin: 07/22/21 20:33 Dose: 10 mg Documented by: Atorvastatin Calcium (Atorvastatin 40 Mg Tab) 80 mg PO QAM [facility] Stop: 08/20/21 08:59 Last Admin: 07/23/21 08:33 Dose: 80 mg Documented by: Carvedilol (Carvedilol 25 Mg Tab) 25 mg PO BID [facility] Stop: 08/22/21 20:59 Cilostazol (Cilostazol 100 Mg Tab) 50 mg PO BID [facility] Stop: 08/20/21 08:59 Last Admin: 07/23/21 08:35 Dose: 50 mg Documented by: Clopidogrel Bisulfate (Clopidogrel Bisulfate 75 Mg Tab) 75 mg PO DAILY [facility] Stop: 08/20/21 08:59 Last Admin: 07/23/21 08:33 Dose: 75 mg Documented by: Cyanocobalamin (Cyanocobalamin 1000 Mcg/Ml Vial) 1,000 mcg IM MO [facility] Stop: 08/20/21 08:59 Last Admin: 07/21/21 08:54 Dose: 1,000 mcg Documented by: Dextrose (Dextrose 50% 50 Ml Syringe) 25 - 50 ml IV UD PRN; Protocol PRN Reason: Hypoglycemia Protocol Stop: 08/20/21 03:59 Doxycycline Hyclate (Doxycycline Hyclate 100 Mg Cap) 100 mg PO BID [facility] Stop: 07/28/21 20:59 Last Admin: 07/23/21 08:33 Dose: 100 mg Documented by: Fluticasone Propionate (Fluticasone Propionate Na Spr 16 Gm Btl) 2 sprays NA DAILY [facility] Stop: 08/20/21 08:59 Last Admin: 07/23/21 08:35 Dose: 2 sprays Documented by: Glucagon (Glucagon For Inj 1 Mg Vial) 1 mg SQ UD PRN; Protocol PRN Reason: Hypoglycemia Protocol Stop: 08/20/21 03:59 Glucose (Glucose 10 Tabs/Tube) 4 - 8 tabs PO UD PRN; Protocol PRN Reason: Hypoglycemia Protocol Stop: 08/20/21 03:59 Glucose (Glucose 40% Gel 15 Gm Tube) 15 - 30 gm PO UD PRN; Protocol PRN Reason: Hypoglycemia Protocol Stop: 08/20/21 03:59 Guaifenesin/Codeine Phosphate (Guaifenesin/Codeine 200mg/20mg 10ml Udc) 10 ml PO Q6H PRN PRN Reason: Cough Stop: 08/20/21 13:40 Heparin Sodium (Porcine) (Heparin Sod 5,000 Unit/0.5 Ml Vial) 5,000 units SQ Q8 [facility] Stop: 08/20/21 05:59 Last Admin: 07/23/21 15:31 Dose: 5,000 units Documented by: Dexamethasone 6 mg/ Syringe 1.5 mls @ 1 mls/min IV DAILY [facility] Stop: 08/21/21 08:59 Last Admin: 07/23/21 08:33 Dose: 1 mls/min Documented by: Promethazine HCl 12.5 mg/ (Sodium Chloride) 50.5 mls @ 202 mls/hr IV Q6H PRN PRN Reason: Nausea And Vomiting Stop: 08/20/21 05:27 Insulin Aspart (Insulin Aspart Per Unit) 0 units SC ACHS [facility] Stop: 08/20/21 03:59 Last Admin: 07/23/21 12:16 Dose: 6 units Documented by: Insulin Glargine (Insulin Glargine Solostar 100 Units/Ml 3 Ml Pen) 10 units SC HS [facility] Stop: 08/22/21 20:59 Ipratropium [place] (Ipratropium [place] Neb Soln 0.02% 2.5 Ml Vial) 0.5 mg INH Q4H PRN PRN Reason: sob/wheezing Stop: 08/20/21 05:27 Levalbuterol HCl (Levalbuterol 1.25mg/0.5ml Neb) 1.25 mg INH Q4H PRN PRN Reason: sob/wheezing Stop: 08/20/21 05:27 Miscellaneous (Carbohydrates For Hypoglycemia ) 15 - 30 gm PO UD PRN PRN Reason: Hypoglycemia Protocol Stop: 08/20/21 03:59 Nitroglycerin (Nitroglycerin Sl 0.4 Mg/Tab Tab) 0.4 mg SL UD PRN PRN Reason: Chest Pain Stop: 08/20/21 05:27 Ranolazine (Ranolazine 500 Mg Er Tab) 500 mg PO BID [facility] Stop: 08/20/21 07:09 Last Admin: 07/23/21 08:33 Dose: 500 mg Documented by: Senna/Docusate Sodium (Docusate Sodium/Senna 50/8.6mg Tab) 2 tab PO BID [facility] Stop: 08/20/21 08:59 Last Admin: 07/23/21 08:39 Dose: 2 tab Documented by: Torsemide (Torsemide 10 Mg Tab) 10 mg PO MOWEFR [facility] Stop: 08/22/21 08:59 Tramadol HCl (Tramadol Hcl 50 Mg Tablet) 25 - 50 mg PO Q4H PRN PRN Reason: Pain Stop: 08/20/21 05:27
[2021-07-23] MEDS ORDERED: INSULIN GLARGINE SOLOSTAR 100 UNITS/ML 3 ML PEN SC SCH (21:00)
[2021-07-23] MEDS: amLODIPine BESYLATE 5 MG TAB PO SCH (21:33)
[2021-07-23] MEDS: carvediloL 25 MG TAB PO SCH (21:33)
[2021-07-24] MEDS: HEPARIN SOD 5,000 UNIT/0.5 ML VIAL SQ SCH ×3 (05:44→21:43)
[2021-07-24 06:57] LABS: Hematocrit (blood only) 32.2 % (42-52); Hemoglobin 10.1 g/dL (14.0-18.0); Mean Corpuscular Hgb Conc 31.4 g/dL (32-36); Mean Corpuscular Volume 79.7 fL (80-100); Mean Platelet Volume 8.9 fL (7.4-10.4); Platelet Count 117 K/uL (130-400); RDW Coefficient of Variation 16.8 % (11.5-14.5); RDW Standard Deviation 49.2 fL (36.4-46.3); Red Blood Count 4.04 M/uL (4.7-6.1); White Blood Count 4.85 K/uL (4.8-10.8)
[2021-07-24 07:34] LABS: BUN Creatinine Ratio 30.5 (10-20); C Reactive Protein 2.48 mg/dl (0-0.29); Calcium 8.2 mg/dl (8.5-10.1); Creatinine Clr Calc Pharmacy 37.3 ml/min; Est GFR (African American) 44.1 ml/min; Est GFR (Non-African American) 38.1 ml/min; Potassium 3.9 mmol/L (3.5-5.1)
[2021-07-24] MEDS: cilostazoL 100 MG TAB PO SCH ×2 (09:44→21:44)
[2021-07-24] MEDS: carvediloL 25 MG TAB PO SCH ×2 (09:45→21:53)
[2021-07-24] MEDS: RANOLAZINE 500 MG ER TAB PO SCH ×2 (09:45→21:43)
[2021-07-24] MEDS: DOXYCYCLINE HYCLATE 100 MG CAP PO SCH ×2 (09:45→21:44)
[2021-07-24] MEDS: ATORVASTATIN 40 MG TAB PO SCH (09:46)
[2021-07-24] MEDS: CLOPIDOGREL BISULFATE 75 MG TAB PO SCH (09:47)
[2021-07-24] MEDS: FLUTICASONE PROPIONATE NA SPR 16 GM BTL SCH (09:48)
[2021-07-24] MEDS: dexAMETHasone 6 MG in SYRINGE 0 ML IV SCH (09:51)
[2021-07-24] MEDS: DOCUSATE SODIUM/SENNA 50/8.6MG TAB PO SCH ×2 (09:52→22:03)
[2021-07-24] MEDS: INSULIN ASPART PER UNIT SC SCH ×4 (09:55→22:00)
--- NOTE | 2021-07-24 18:48 | Hospitalist Progress Note ---
Date of Service July 24, 2021 Assessment & Plan (1) Hypertensive urgency: Plan: BP improved with adjustments per cardiology. Has type I sensitivity to hydralazine. Holding home torsemide and giving PRN Lasix now with increased work of breathing and worsened LE edema. Consider side effect of norvasc possibly contributing to edema? Continues with condom catheter which is helping with strict ins/outs. Good response to diuretics. Daily weights and low-sodium diet. In setting of chronic systolic heart failure, known valvular disease, pulmonary HTN and cardiac disease, cardiology was consulted and feels he is at his baseline with respect to his chronic comorbidities. Cont close monitoring of BP which is improved. (2) Pneumonia due to COVID-19 virus: Plan: cont steroids per plan below. (3) Hypoxia: Plan: Patient with underlying COPD and pulmonary hypertension presents with COVID-19 pneumonia. Mildly hypoxic and doing well on dexamethasone. Bronchodilator therapy as needed. There is no wheezing or evidence of COPD exacerbation at this time. Patient appears to have a viral pneumonia. Continue steroid therapy and supportive care. Rocephin AC as needed started. Patient encouraged to prone. Spoke with daughter, discharge when off oxygen. Although he was set up for home oxygen prior to admission, this was by [facility] at home nurse and was in response to covid, not for a chronic condition. (4) Chronic systolic heart failure: Plan: chronic systolic heart failure (EF 45 to 50%, TTE 2020), compensated. No evidence of acute pulmonary edema. Cont low salt diet, daily weights. valvular heart disease (mild AR/MR, severe ), patient follows with Melvin Levi digital art director (5) CAD (coronary artery disease): Plan: hx CAD status post CABG/PVD status post surgery, cont medical management per home regimen including Coreg, ranolazine, Plavix, Lipitor and cilostazol. (6) Diabetes mellitus, type 2: Plan: DM 2 diet-controlled, patient hyperglycemic secondary to outpatient Decadron Rx, hemoglobin A1c of 5.22 February 2021. Will de-escalate insulin to correction factor only with hypoglycemia this am. (7) DVT prophylaxis: Plan: Heparin Full code Disposition-pending resolution of hypoxia. [facility] and Anticipated Discharge Date Admission Date: July 21, 2021 Subjective 76-year-old man presents with hypertensive urgency and Covid pneumonia. No issues Reports breathing is overall fine and improved Tolerating PO afebrile Review of Systems Review of Systems: All systems were reviewed and negative except as indicated above. Physical Exam Physical Exam: CONSTITUTIONAL: WNWD, vitals as above, NAD EYES: normal conjunctivae, no scleral icterus ENT: external ear and nose normal, MMM NECK: trachea midline RESPIRATORY: clear to auscultation bilaterally, no crackles, rales or wheezes, normal respiratory effort CARDIOVASCULAR: regular rate and rhythm, S1 and 2 heard without murmurs, gallops or rubs, no JVD, increased peripheral edema, now 2+ pitting edema bilaterally-improved from yesterday CHEST: inspection of chest was normal GASTROINTESTINAL: soft, nontender, ND, no guarding MUSCULOSKELETAL: strength 5/5 throughout, head is normocephalic and atraumatic SKIN: warm and dry, NEUROLOGIC: CN 2-12 grossly intact, no sensory deficit, normal cognition, nor mal speech, no tremor, no gross focal deficits. PSYCHIATRIC: alert cooperative and oriented to person, place and time. Results & Data Results & Data ([facility]) Vital Signs (Past 12 Hours) Vital Signs Temp Pulse Pulse Resp BP BP Pulse Ox 07/24/21 16:00 65 07/24/21 15:47 36.7 C 70 20 160/73 H 90 07/24/21 11:16 36.5 C 76 20 110/78 91 07/24/21 08:00 59 L 07/24/21 07:14 36.7 C 67 22 154/81 H 95 Laboratory Results Short CBC 07/24/21 Range/Units 06:09 WBC 4.85 (4.8-10.8) K/uL Hgb 10.1 L (14.0-18.0) g/dL Hct 32.2 L (42-52) % Plt Count 117 L (130-400) K/uL BMP 07/24/21 06:09 Sodium 138 Potassium 3.9 Chloride 106 Carbon Dioxide 27 BUN 52 H Creatinine 1.69 H Glucose 103 H Calcium 8.2 L Medications Administered Current Inpatient Medications Acetaminophen (Acetaminophen 325 Mg Tab) 650 mg PO Q4H PRN PRN Reason: Pain or Fever Stop: 08/20/21 05:27 Amlodipine Besylate (Amlodipine Besylate 5 Mg Tab) 10 mg PO QPM [facility] Stop: 08/20/21 20:59 Last Admin: 07/23/21 21:33 Dose: 10 mg Documented by: Atorvastatin Calcium (Atorvastatin 40 Mg Tab) 80 mg PO QAM [facility] Stop: 08/20/21 08:59 Last Admin: 07/24/21 09:46 Dose: 80 mg Documented by: Carvedilol (Carvedilol 25 Mg Tab) 25 mg PO BID [facility] Stop: 08/22/21 20:59 Last Admin: 07/24/21 09:45 Dose: 25 mg Documented by: Cilostazol (Cilostazol 100 Mg Tab) 50 mg PO BID [facility] Stop: 08/20/21 08:59 Last Admin: 07/24/21 09:44 Dose: 50 mg Documented by: Clopidogrel Bisulfate (Clopidogrel Bisulfate 75 Mg Tab) 75 mg PO DAILY [facility] Stop: 08/20/21 08:59 Last Admin: 07/24/21 09:47 Dose: 75 mg Documented by: Cyanocobalamin (Cyanocobalamin 1000 Mcg/Ml Vial) 1,000 mcg IM MO [facility] Stop: 08/20/21 08:59 Last Admin: 07/21/21 08:54 Dose: 1,000 mcg Documented by: Dextrose (Dextrose 50% 50 Ml Syringe) 25 - 50 ml IV UD PRN; Protocol PRN Reason: Hypoglycemia Protocol Stop: 08/20/21 03:59 Doxycycline Hyclate (Doxycycline Hyclate 100 Mg Cap) 100 mg PO BID [facility] Stop: 07/28/21 20:59 Last Admin: 07/24/21 09:45 Dose: 100 mg Documented by: Fluticasone Propionate (Fluticasone Propionate Na Spr 16 Gm Btl) 2 sprays NA DAILY [facility] Stop: 08/20/21 08:59 Last Admin: 07/24/21 09:48 Dose: 2 sprays Documented by: Glucagon (Glucagon For Inj 1 Mg Vial) 1 mg SQ UD PRN; Protocol PRN Reason: Hypoglycemia Protocol Stop: 08/20/21 03:59 Glucose (Glucose 10 Tabs/Tube) 4 - 8 tabs PO UD PRN; Protocol PRN Reason: Hypoglycemia Protocol Stop: 08/20/21 03:59 Glucose (Glucose 40% Gel 15 Gm Tube) 15 - 30 gm PO UD PRN; Protocol PRN Reason: Hypoglycemia Protocol Stop: 08/20/21 03:59 Guaifenesin/Codeine Phosphate (Guaifenesin/Codeine 200mg/20mg 10ml Udc) 10 ml PO Q6H PRN PRN Reason: Cough Stop: 08/20/21 13:40 Heparin Sodium (Porcine) (Heparin Sod 5,000 Unit/0.5 Ml Vial) 5,000 units SQ Q8 [facility] Stop: 08/20/21 05:59 Last Admin: 07/24/21 14:54 Dose: 5,000 units Documented by: Dexamethasone 6 mg/ Syringe 1.5 mls @ 1 mls/min IV DAILY [facility] Stop: 08/21/21 08:59 Last Admin: 07/24/21 09:51 Dose: 1 mls/min Documented by: Promethazine HCl 12.5 mg/ (Sodium Chloride) 50.5 mls @ 202 mls/hr IV Q6H PRN PRN Reason: Nausea And Vomiting Stop: 08/20/21 05:27 Insulin Aspart (Insulin Aspart Per Unit) 0 units SC ACHS [facility] Stop: 08/20/21 03:59 Last Admin: 07/24/21 18:02 Dose: 9 units Documented by: Ipratropium [place] (Ipratropium [place] Neb Soln 0.02% 2.5 Ml Vial) 0.5 mg INH Q4H PRN PRN Reason: sob/wheezing Stop: 08/20/21 05:27 Levalbuterol HCl (Levalbuterol 1.25mg/0.5ml Neb) 1.25 mg INH Q4H PRN PRN Reason: sob/wheezing Stop: 08/20/21 05:27 Miscellaneous (Carbohydrates For Hypoglycemia ) 15 - 30 gm PO UD PRN PRN Reason: Hypoglycemia Protocol Stop: 08/20/21 03:59 Nitroglycerin (Nitroglycerin Sl 0.4 Mg/Tab Tab) 0.4 mg SL UD PRN PRN Reason: Chest Pain Stop: 08/20/21 05:27 Ranolazine (Ranolazine 500 Mg Er Tab) 500 mg PO BID [facility] Stop: 08/20/21 07:09 Last Admin: 07/24/21 09:45 Dose: 500 mg Documented by: Senna/Docusate Sodium (Docusate Sodium/Senna 50/8.6mg Tab) 2 tab PO BID [facility] Stop: 08/20/21 08:59 Last Admin: 07/24/21 09:52 Dose: 2 tab Documented by: Torsemide (Torsemide 10 Mg Tab) 10 mg PO MOWEFR [facility] Stop: 08/22/21 08:59 Tramadol HCl (Tramadol Hcl 50 Mg Tablet) 25 - 50 mg PO Q4H PRN PRN Reason: Pain Stop: 08/20/21 05:27
[2021-07-24] MEDS: amLODIPine BESYLATE 5 MG TAB PO SCH (21:45)
[2021-07-25] MEDS: HEPARIN SOD 5,000 UNIT/0.5 ML VIAL SQ SCH ×3 (05:59→21:58)
[2021-07-25] MEDS: dexAMETHasone 6 MG in SYRINGE 0 ML IV SCH (09:03)
[2021-07-25] MEDS: FLUTICASONE PROPIONATE NA SPR 16 GM BTL SCH (09:03)
[2021-07-25] MEDS: DOXYCYCLINE HYCLATE 100 MG CAP PO SCH ×2 (09:04→21:59)
[2021-07-25] MEDS: cilostazoL 100 MG TAB PO SCH ×2 (09:04→21:58)
[2021-07-25] MEDS: CLOPIDOGREL BISULFATE 75 MG TAB PO SCH (09:04)
[2021-07-25] MEDS: ATORVASTATIN 40 MG TAB PO SCH (09:05)
[2021-07-25] MEDS: carvediloL 25 MG TAB PO SCH ×2 (09:05→21:58)
[2021-07-25] MEDS: RANOLAZINE 500 MG ER TAB PO SCH ×2 (09:05→21:58)
[2021-07-25] MEDS: INSULIN ASPART PER UNIT SC SCH ×4 (09:10→21:47)
[2021-07-25] MEDS: DOCUSATE SODIUM/SENNA 50/8.6MG TAB PO SCH ×2 (09:14→22:00)
[2021-07-25] MEDS ORDERED: INSULIN GLARGINE SOLOSTAR 100 UNITS/ML 3 ML PEN SC STA (16:47)
[2021-07-25] MEDS: amLODIPine BESYLATE 5 MG TAB PO SCH (21:58)
--- NOTE | 2021-07-25 22:03 | Hospitalist Progress Note ---
Date of Service July 25, 2021 Assessment & Plan (1) Hypertensive urgency: Plan: BP improved with adjustments per cardiology. Has type I sensitivity to hydralazine. Restart torsemide but dose daily. Daily BMP. Consider side effect of norvasc possibly contributing to edema? Continues with condom catheter which is helping with strict ins/outs. Good response to diuretics. Daily weights and low-sodium diet. In setting of chronic systolic heart failure, known valvular disease, pulmonary HTN and cardiac disease, cardiology was consulted and feels he is at his baseline with respect to his chronic comorbidities. Cont close monitoring of BP which is improved. (2) Pneumonia due to COVID-19 virus: Plan: cont steroids per plan below. (3) Hypoxia: Plan: Patient with underlying COPD and pulmonary hypertension presents with COVID-19 pneumonia. Mildly hypoxic and doing well on dexamethasone. Bronchodilator therapy as needed. There is no wheezing or evidence of COPD exacerbation at this time. Patient appears to have a viral pneumonia. Continue steroid therapy and supportive care. Rocephin AC as needed started. Patient encouraged to prone. Spoke with daughter, discharge when off oxygen. Although he was set up for home oxygen prior to admission, this was by [facility] at home nurse and was in response to covid, not for a chronic condition. 2 step today reveals contiued needs. (4) Chronic systolic heart failure: Plan: chronic systolic heart failure (EF 45 to 50%, TTE 2020), compensated. No evidence of acute pulmonary edema. Cont low salt diet, daily weights. 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 (6) Diabetes mellitus, type 2: Plan: DM 2 diet-controlled, patient hyperglycemic secondary to steroids. Adjust insulin accordingly to tighten coverage. Cont to monitor closely. (7) DVT prophylaxis: Plan: Heparin Full code Disposition-pending resolution of hypoxia. DO Eren [facility]Los [facility] and Anticipated Discharge Date Admission Date: July 21, 2021 Subjective 76-year-old man presents with hypertensive urgency and Covid pneumonia. No issues Reports breathing is overall fine and improved Tolerating PO afebrile 2 step test this morning reveals continued oxygen needs Review of Systems Review of Systems: All systems were reviewed and negative except as indicated above. Physical Exam Physical Exam: CONSTITUTIONAL: WNWD, vitals as above, NAD EYES: normal conjunctivae, no scleral icterus ENT: external ear and nose normal, MMM NECK: trachea midline RESPIRATORY: clear to auscultation bilaterally, no crackles, rales or wheezes, normal respiratory effort CARDIOVASCULAR: regular rate and rhythm, S1 and 2 heard without murmurs, gallops or rubs, no JVD, increased peripheral edema, 2+ pitting edema bilaterally-continues to improve CHEST: inspection of chest was normal GASTROINTESTINAL: soft, nontender, ND, no guarding MUSCULOSKELETAL: strength 5/5 throughout, head is normocephalic and atraumatic SKIN: warm and dry, NEUROLOGIC: CN 2-12 grossly intact, no sensory deficit, normal cognition, normal speech, no tremor, no gross focal deficits. PSYCHIATRIC: alert cooperative and oriented to person, place and time. Results & Data Results & Data ([facility]) Vital Signs (Past 12 Hours) Vital Signs Temp Pulse Pulse Pulse Pulse Pulse Pulse 07/25/21 19:56 36.6 C 71 07/25/21 14:47 36.5 C 63 07/25/21 14:20 63 07/25/21 13:34 74 80 77 77 07/25/21 10:52 36.6 C 66 Pulse Resp Resp Resp Resp Resp Resp 07/25/21 19:56 20 07/25/21 14:47 18 07/25/21 14:20 07/25/21 13:34 64 18 18 20 20 18 07/25/21 10:52 18 BP BP Pulse Ox Pulse Ox Pulse Ox Pulse Ox Pulse Ox 07/25/21 19:56 134/74 98 07/25/21 14:47 119/71 97 07/25/21 14:20 07/25/21 13:34 92 91 86 L 94 07/25/21 10:52 153/70 H 95 Pulse Ox 07/25/21 19:56 07/25/21 14:47 07/25/21 14:20 07/25/21 13:34 87 L 07/25/21 10:52 Medications Administered Current Inpatient Medications Acetaminophen (Acetaminophen 325 Mg Tab) 650 mg PO Q4H PRN PRN Reason: Pain or Fever Stop: 08/20/21 05:27 Amlodipine Besylate (Amlodipine Besylate 5 Mg Tab) 10 mg PO QPM QIAN Stop: 08/20/21 20:59 Last Admin: 07/25/21 21:58 Dose: 10 mg Documented by: Atorvastatin Calcium (Atorvastatin 40 Mg Tab) 80 mg PO QAM QIAN Stop: 08/20/21 08:59 Last Admin: 07/25/21 09:05 Dose: 80 mg Documented by: Carvedilol (Carvedilol 25 Mg Tab) 25 mg PO BID QIAN Stop: 08/22/21 20:59 Last Admin: 07/25/21 21:58 Dose: 25 mg Documented by: Cilostazol (Cilostazol 100 Mg Tab) 50 mg PO BID QIAN Stop: 08/20/21 08:59 Last Admin: 07/25/21 21:58 Dose: 50 mg Documented by: Clopidogrel Bisulfate (Clopidogrel Bisulfate 75 Mg Tab) 75 mg PO DAILY QIAN Stop: 08/20/21 08:59 Last Admin: 07/25/21 09:04 Dose: 75 mg Documented by: Cyanocobalamin (Cyanocobalamin 1000 Mcg/Ml Vial) 1,000 mcg IM MO QIAN Stop: 08/20/21 08:59 Last Admin: 07/21/21 08:54 Dose: 1,000 mcg Documented by: Dextrose (Dextrose 50% 50 Ml Syringe) 25 - 50 ml IV UD PRN; Protocol PRN Reason: Hypoglycemia Protocol Stop: 08/20/21 03:59 Doxycycline Hyclate (Doxycycline Hyclate 100 Mg Cap) 100 mg PO BID QIAN Stop: 07/28/21 20:59 Last Admin: 07/25/21 21:59 Dose: 100 mg Documented by: Fluticasone Propionate (Fluticasone Propionate Na Spr 16 Gm Btl) 2 sprays NA DAILY QIAN Stop: 08/20/21 08:59 Last Admin: 07/25/21 09:03 Dose: 2 sprays Documented by: Glucagon (Glucagon For Inj 1 Mg Vial) 1 mg SQ UD PRN; Protocol PRN Reason: Hypoglycemia Protocol Stop: 08/20/21 03:59 Glucose (Glucose 10 Tabs/Tube) 4 - 8 tabs PO UD PRN; Protocol PRN Reason: Hypoglycemia Protocol Stop: 08/20/21 03:59 Glucose (Glucose 40% Gel 15 Gm Tube) 15 - 30 gm PO UD PRN; Protocol PRN Reason: Hypoglycemia Protocol Stop: 08/20/21 03:59 Guaifenesin/Codeine Phosphate (Guaifenesin/Codeine 200mg/20mg 10ml Udc) 10 ml PO Q6H PRN PRN Reason: Cough Stop: 08/20/21 13:40 Heparin Sodium (Porcine) (Heparin Sod 5,000 Unit/0.5 Ml Vial) 5,000 units SQ Q8 [facility] Stop: 08/20/21 05:59 Last Admin: 07/25/21 21:58 Dose: 5,000 units Documented by: Dexamethasone 6 mg/ Syringe 1.5 mls @ 1 mls/min IV DAILY [facility] Stop: 08/21/21 08:59 Last Admin: 07/25/21 09:03 Dose: 1 mls/min Documented by: Promethazine HCl 12.5 mg/ (Sodium Chloride) 50.5 mls @ 202 mls/hr IV Q6H PRN PRN Reason: Nausea And Vomiting Stop: 08/20/21 05:27 Insulin Aspart (Insulin Aspart Per Unit) 0 units SC ACHS [facility] Stop: 08/20/21 03:59 Last Admin: 07/25/21 21:47 Dose: 5 units Documented by: Ipratropium [place] (Ipratropium [place] Neb Soln 0.02% 2.5 Ml Vial) 0.5 mg INH Q4H PRN PRN Reason: sob/wheezing Stop: 08/20/21 05:27 Levalbuterol HCl (Levalbuterol 1.25mg/0.5ml Neb) 1.25 mg INH Q4H PRN PRN Reason: sob/wheezing Stop: 08/20/21 05:27 Miscellaneous (Carbohydrates For Hypoglycemia ) 15 - 30 gm PO UD PRN PRN Reason: Hypoglycemia Protocol Stop: 08/20/21 03:59 Nitroglycerin (Nitroglycerin Sl 0.4 Mg/Tab Tab) 0.4 mg SL UD PRN PRN Reason: Chest Pain Stop: 08/20/21 05:27 Ranolazine (Ranolazine 500 Mg Er Tab) 500 mg PO BID [facility] Stop: 08/20/21 07:09 Last Admin: 07/25/21 21:58 Dose: 500 mg Documented by: Senna/Docusate Sodium (Docusate Sodium/Senna 50/8.6mg Tab) 2 tab PO BID QIAN Stop: 08/20/21 08:59 Last Admin: 07/25/21 22:00 Dose: 2 tab Documented by: Torsemide (Torsemide 10 Mg Tab) 10 mg PO QAM [facility] Stop: 08/25/21 08:59 Tramadol HCl (Tramadol Hcl 50 Mg Tablet) 25 - 50 mg PO Q4H PRN PRN Reason: Pain Stop: 08/20/21 05:27
[2021-07-26] MEDS: HEPARIN SOD 5,000 UNIT/0.5 ML VIAL SQ SCH ×3 (06:16→22:00)
[2021-07-26 07:42] LABS: BUN Creatinine Ratio 31.3 (10-20); Calcium 8.3 mg/dl (8.5-10.1); Creatinine Clr Calc Pharmacy 31.5 ml/min; Magnesium 2.1 mg/dl (1.8-2.4); Potassium 4.1 mmol/L (3.5-5.1)
[2021-07-26 07:43] LABS: Phosphorus 3.3 mg/dl (2.5-4.9)
[2021-07-26] MEDS: CLOPIDOGREL BISULFATE 75 MG TAB PO SCH (08:52)
[2021-07-26] MEDS: ATORVASTATIN 40 MG TAB PO SCH (08:53)
[2021-07-26] MEDS: carvediloL 25 MG TAB PO SCH ×2 (08:54→21:57)
[2021-07-26] MEDS: cilostazoL 100 MG TAB PO SCH ×2 (08:56→21:56)
[2021-07-26] MEDS: DOXYCYCLINE HYCLATE 100 MG CAP PO SCH ×2 (08:57→21:59)
[2021-07-26] MEDS: RANOLAZINE 500 MG ER TAB PO SCH ×2 (08:58→21:58)
[2021-07-26] MEDS: FLUTICASONE PROPIONATE NA SPR 16 GM BTL SCH (08:58)
[2021-07-26] MEDS: TORSEMIDE 10 MG TAB PO SCH (08:59)
[2021-07-26] MEDS: dexAMETHasone 6 MG in SYRINGE 0 ML IV SCH (09:01)
[2021-07-26] MEDS: INSULIN ASPART PER UNIT SC SCH ×2 (09:22→12:48)
--- NOTE | 2021-07-26 09:22 | Hospitalist Progress Note ---
Date of Service July 26, 2021 Assessment & Plan (1) Hypertensive urgency: Plan: BP improved with adjustments per cardiology (Coreg and amlodipine increased) Has type I sensitivity to hydralazine. Restart torsemide but dose daily. Daily BMP. Consider side effect of norvasc possibly contributing to edema? Continues with condom catheter which is helping with strict ins/outs. Good response to diuretics. Daily weights and low-sodium diet. In setting of chronic systolic heart failure, known valvular disease, pulmonary HTN and cardiac disease, cardiology was consulted and feels he is at his baseline with respect to his chronic comorbidities. Cont close monitoring of BP which is improved. (2) Pneumonia due to COVID-19 virus: Plan: cont steroids per plan below. (3) Hypoxia: Plan: Patient with underlying COPD and pulmonary hypertension presents with COVID-19 pneumonia. Mildly hypoxic and doing well on dexamethasone. Bronchodilator therapy as needed. There is no wheezing or evidence of COPD exacerbation at this time. Patient appears to have a viral pneumonia. Continue steroid therapy and supportive care. Rocephin AC as needed started. Patient encouraged to prone. Spoke with daughter, discharge when off oxygen. Although he was set up for home oxygen prior to admission, this was by [facility] at home nurse and was in response to covid, not for a chronic condition. 2 step today revealed continued needs. (4) Chronic systolic heart failure: Plan: chronic systolic heart failure (EF 45 to 50%, TTE 2020), compensated. No evidence of acute pulmonary edema. Cont low salt diet, daily weights. 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 (6) Diabetes mellitus, type 2: Plan: DM 2 diet-controlled, patient hyperglycemic secondary to steroids. Adjust insulin accordingly to tighten coverage. Cont to monitor closely. (7) DVT prophylaxis: Plan: Heparin Full code Disposition-pending resolution of hypoxia. Admission and Anticipated Discharge Date Admission Date: July 21, 2021 Subjective 76 yo man presents with hypertensive urgency and Covid pneumonia. Currently in bed, in no acute distress, continues to use supplemental oxygen, currently on 2 L Reports breathing is overall ok and improved Denies fevers, chills, chest pain, abdominal pain, nausea vomiting Patient just had BM, says this is the 1st time since his admission Tolerating PO afebrile 2 step test yesterday revealed continued oxygen needs Patient lives alone, uses walker for ambulation Review of Systems Review of Systems: All systems reviewed & are unremarkable except as noted in Subjective Physical Exam Physical Exam: CONSTITUTIONAL: WN/WD elderly M in NAD EYES: normal conjunctivae, no scleral icterus ENT: external ear and nose normal, MMM NECK: supple RESPIRATORY: CTAB, minimal rhonchi no wheezes, normal respiratory effort, on 2L of O2 CARDIOVASCULAR: regular rate and rhythm, S1 and 2 heard without murmurs, gallops or rubs, no JVD, increased peripheral edema, 1+ pitting edema bilaterally-continues to improve CHEST: inspection of chest was normal GASTROINTESTINAL: soft, nontender, ND, no guarding MUSCULOSKELETAL: strength 5/5 throughout, head is normocephalic and atraumatic SKIN: warm and dry, NEUROLOGIC:Awake and alert, answers appropriately, no facial asymmetry, speech fluent, moves extremities PSYCHIATRIC: alert cooperative and oriented to person, place and time. Results & Data Results & Data ([facility]) Vital Signs (Past 12 Hours) Vital Signs Temp Pulse Resp BP Pulse Ox 07/26/21 07:39 36.5 C 70 19 173/75 H 92 07/26/21 03:42 36.7 C 64 18 104/87 98 07/25/21 23:18 36.6 C 67 20 162/72 H 96 Laboratory Results 07/26/21 07/26/21 07/25/21 Range/Units 07:24 06:04 20:08 Sodium 137 (136-145) mmol/L Potassium 4.1 (3.5-5.1) mmol/L Chloride 107 (98-107) mmol/L Carbon Dioxide 24 (21-32) mmol/L Anion Gap 6.0 (3-11) BUN 63 H (7-18) mg/dl Creatinine 2.00 H D (0.6-1.4) mg/dl Est Cr Clr Drug Dosing 31.5 ml/min Est GFR ( Amer) 36.0 ml/min Est GFR (Non-Af Amer) 31.0 ml/min BUN/Creatinine Ratio 31.3 H (10-20) Glucose 79 (70-99) mg/dl POC Glucose 84 265 H (70-99) mg/dl Calcium 8.3 L (8.5-10.1) mg/dl Phosphorus 3.3 (2.5-4.9) mg/dl Magnesium 2.1 (1.8-2.4) mg/dl 07/25/21 07/25/21 07/25/21 Range/Units 16:30 16:30 16:29 Sodium (136-145) mmol/L Potassium (3.5-5.1) mmol/L Chloride (98-107) mmol/L Carbon Dioxide (21-32) mmol/L Anion Gap (3-11) BUN (7-18) mg/dl Creatinine (0.6-1.4) mg/dl Est Cr Clr Drug Dosing ml/min Est GFR ( Amer) ml/min Est GFR (Non-Af Amer) ml/min BUN/Creatinine Ratio (10-20) Glucose (70-99) mg/dl POC Glucose 297 H 294 H 316 H* (70-99) mg/dl Calcium (8.5-10.1) mg/dl Phosphorus (2.5-4.9) mg/dl Magnesium (1.8-2.4) mg/dl 07/25/21 Range/Units 11:28 Sodium (136-145) mmol/L Potassium (3.5-5.1) mmol/L Chloride (98-107) mmol/L Carbon Dioxide (21-32) mmol/L Anion Gap (3-11) BUN (7-18) mg/dl Creatinine (0.6-1.4) mg/dl Est Cr Clr Drug Dosing ml/min Est GFR ( Amer) ml/min Est GFR (Non-Af Amer) ml/min BUN/Creatinine Ratio (10-20) Glucose (70-99) mg/dl POC Glucose 194 H (70-99) mg/dl Calcium (8.5-10.1) mg/dl Phosphorus (2.5-4.9) mg/dl Magnesium (1.8-2.4) mg/dl Medications Administered Current Inpatient Medications Acetaminophen (Acetaminophen 325 Mg Tab) 650 mg PO Q4H PRN PRN Reason: Pain or Fever Stop: 08/20/21 05:27 Amlodipine Besylate (Amlodipine Besylate 5 Mg Tab) 10 mg PO QPM QIAN Stop: 08/20/21 20:59 Last Admin: 07/25/21 21:58 Dose: 10 mg Documented by: Atorvastatin Calcium (Atorvastatin 40 Mg Tab) 80 mg PO QAM QIAN Stop: 08/20/21 08:59 Last Admin: 07/26/21 08:53 Dose: 80 mg Documented by: Carvedilol (Carvedilol 25 Mg Tab) 25 mg PO BID QIAN Stop: 08/22/21 20:59 Last Admin: 07/26/21 08:54 Dose: 25 mg Documented by: Cilostazol (Cilostazol 100 Mg Tab) 50 mg PO BID QIAN Stop: 08/20/21 08:59 Last Admin: 07/26/21 08:56 Dose: 50 mg Documented by: Clopidogrel Bisulfate (Clopidogrel Bisulfate 75 Mg Tab) 75 mg PO DAILY QIAN Stop: 08/20/21 08:59 Last Admin: 07/26/21 08:52 Dose: 75 mg Documented by: Cyanocobalamin (Cyanocobalamin 1000 Mcg/Ml Vial) 1,000 mcg IM MO QIAN Stop: 08/20/21 08:59 Last Admin: 07/21/21 08:54 Dose: 1,000 mcg Documented by: Dextrose (Dextrose 50% 50 Ml Syringe) 25 - 50 ml IV UD PRN; Protocol PRN Reason: Hypoglycemia Protocol Stop: 08/20/21 03:59 Doxycycline Hyclate (Doxycycline Hyclate 100 Mg Cap) 100 mg PO BID QIAN Stop: 07/28/21 20:59 Last Admin: 07/26/21 08:57 Dose: 100 mg Documented by: Fluticasone Propionate (Fluticasone Propionate Na Spr 16 Gm Btl) 2 sprays NA DAILY QIAN Stop: 08/20/21 08:59 Last Admin: 07/26/21 08:58 Dose: 2 sprays Documented by: Glucagon (Glucagon For Inj 1 Mg Vial) 1 mg SQ UD PRN; Protocol PRN Reason: Hypoglycemia Protocol Stop: 08/20/21 03:59 Glucose (Glucose 10 Tabs/Tube) 4 - 8 tabs PO UD PRN; Protocol PRN Reason: Hypoglycemia Protocol Stop: 08/20/21 03:59 Glucose (Glucose 40% Gel 15 Gm Tube) 15 - 30 gm PO UD PRN; Protocol PRN Reason: Hypoglycemia Protocol Stop: 08/20/21 03:59 Guaifenesin/Codeine Phosphate (Guaifenesin/Codeine 200mg/20mg 10ml Udc) 10 ml PO Q6H PRN PRN Reason: Cough Stop: 08/20/21 13:40 Heparin Sodium (Porcine) (Heparin Sod 5,000 Unit/0.5 Ml Vial) 5,000 units SQ Q8 [facility] Stop: 08/20/21 05:59 Last Admin: 07/26/21 06:16 Dose: Not Given Documented by: Dexamethasone 6 mg/ Syringe 1.5 mls @ 1 mls/min IV DAILY [facility] Stop: 08/21/21 08:59 Last Admin: 07/26/21 09:01 Dose: 1 mls/min Documented by: Promethazine HCl 12.5 mg/ (Sodium Chloride) 50.5 mls @ 202 mls/hr IV Q6H PRN PRN Reason: Nausea And Vomiting Stop: 08/20/21 05:27 Insulin Aspart (Insulin Aspart Per Unit) 0 units SC ACHS [facility] Stop: 08/20/21 03:59 Last Admin: 07/25/21 21:47 Dose: 5 units Documented by: Ipratropium [place] (Ipratropium [place] Neb Soln 0.02% 2.5 Ml Vial) 0.5 mg INH Q4H PRN PRN Reason: sob/wheezing Stop: 08/20/21 05:27 Levalbuterol HCl (Levalbuterol 1.25mg/0.5ml Neb) 1.25 mg INH Q4H PRN PRN Reason: sob/wheezing Stop: 08/20/21 05:27 Miscellaneous (Carbohydrates For Hypoglycemia ) 15 - 30 gm PO UD PRN PRN Reason: Hypoglycemia Protocol Stop: 08/20/21 03:59 Nitroglycerin (Nitroglycerin Sl 0.4 Mg/Tab Tab) 0.4 mg SL UD PRN PRN Reason: Chest Pain Stop: 08/20/21 05:27 Ranolazine (Ranolazine 500 Mg Er Tab) 500 mg PO BID [facility] Stop: 08/20/21 07:09 Last Admin: 07/26/21 08:58 Dose: 500 mg Documented by: Senna/Docusate Sodium (Docusate Sodium/Senna 50/8.6mg Tab) 2 tab PO BID QIAN Stop: 08/20/21 08:59 Last Admin: 07/25/21 22:00 Dose: 2 tab Documented by: Torsemide (Torsemide 10 Mg Tab) 10 mg PO QAM QIAN Stop: 08/25/21 08:59 Last Admin: 07/26/21 08:59 Dose: 10 mg Documented by: Tramadol HCl (Tramadol Hcl 50 Mg Tablet) 25 - 50 mg PO Q4H PRN PRN Reason: Pain Stop: 08/20/21 05:27
[2021-07-26] MEDS: DOCUSATE SODIUM/SENNA 50/8.6MG TAB PO SCH ×2 (09:24→22:02)
[2021-07-26] MEDS: ADVANCED PROBIOTIC 1250 MG CAPSULE PO SCH (14:54)
[2021-07-26] MEDS: INSULIN ASPART 100 UNITS/ML 3 ML PEN SC SCH ×2 (17:04→21:38)
[2021-07-26] MEDS: amLODIPine BESYLATE 5 MG TAB PO SCH (21:58)
[2021-07-26] MEDS: guaiFENesin 600 MG TABCR PO SCH (22:00)
[2021-07-27] MEDS: HEPARIN SOD 5,000 UNIT/0.5 ML VIAL SQ SCH ×3 (06:18→22:17)
[2021-07-27] MEDS: FLUTICASONE PROPIONATE NA SPR 16 GM BTL SCH (08:47)
[2021-07-27] MEDS: ADVANCED PROBIOTIC 1250 MG CAPSULE PO SCH (08:48)
[2021-07-27] MEDS: carvediloL 25 MG TAB PO SCH ×2 (08:48→20:27)
[2021-07-27] MEDS: RANOLAZINE 500 MG ER TAB PO SCH ×2 (08:49→20:25)
[2021-07-27] MEDS: CLOPIDOGREL BISULFATE 75 MG TAB PO SCH (08:50)
[2021-07-27] MEDS: DOXYCYCLINE HYCLATE 100 MG CAP PO SCH ×2 (08:50→20:26)
[2021-07-27] MEDS: ATORVASTATIN 40 MG TAB PO SCH (08:50)
[2021-07-27] MEDS: cilostazoL 100 MG TAB PO SCH ×2 (08:51→20:26)
[2021-07-27] MEDS: dexAMETHasone 6 MG in SYRINGE 0 ML IV SCH (08:57)
[2021-07-27] MEDS: INSULIN ASPART 100 UNITS/ML 3 ML PEN SC SCH ×4 (08:58→20:33)
[2021-07-27] MEDS: guaiFENesin 600 MG TABCR PO SCH ×2 (09:41→20:26)
[2021-07-27] MEDS: DOCUSATE SODIUM/SENNA 50/8.6MG TAB PO SCH ×2 (09:43→22:17)
[2021-07-27 10:10] LABS: BUN Creatinine Ratio 33.3 (10-20); Calcium 8.6 mg/dl (8.5-10.1); Creatinine Clr Calc Pharmacy 31.7 ml/min; Est GFR (African American) 36.2 ml/min; Est GFR (Non-African American) 31.2 ml/min; Magnesium 2.2 mg/dl (1.8-2.4); Phosphorus 3.1 mg/dl (2.5-4.9); Potassium 4.3 mmol/L (3.5-5.1)
--- NOTE | 2021-07-27 14:31 | Hospitalist Progress Note ---
Date of Service July 27, 2021 Assessment & Plan (1) Hypertensive urgency: Plan: BP improved with adjustments per cardiology (Coreg and amlodipine increased) Has type I sensitivity to hydralazine. Restart torsemide but dose daily. Daily BMP. Consider side effect of norvasc possibly contributing to edema? Continues with condom catheter which is helping with strict ins/outs. Good response to diuretics. Daily weights and low-sodium diet. In setting of chronic systolic heart failure, known valvular disease, pulmonary HTN and cardiac disease, cardiology was consulted and feels he is at his baseline with respect to his chronic comorbidities. Cont close monitoring of BP which is improved. (2) Pneumonia due to COVID-19 virus: Plan: cont steroids per plan below. (3) Hypoxia: Plan: Patient with underlying COPD and pulmonary hypertension presents with COVID-19 pneumonia. Mildly hypoxic and doing well on dexamethasone. Bronchodilator therapy as needed. Patient appears to have a viral pneumonia. Continue steroid therapy and supportive care. Started on doxy on admission, will cont. Patient encouraged to prone. Care discussed with daughter, discharge when off oxygen. Although he was set up for home oxygen prior to admission, this was by [facility] at home nurse and was in response to covid, not for a chronic condition. 2 step revealed continued needs. (4) Chronic systolic heart failure: Plan: chronic systolic heart failure (EF 45 to 50%, TTE 2020), compensated. No evidence of acute pulmonary edema. Cont low salt diet, daily weights. 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 (6) Diabetes mellitus, type 2: Plan: DM 2 diet-controlled, patient hyperglycemic secondary to steroids. Adjust insulin accordingly to tighten coverage. Cont to monitor closely. (7) DVT prophylaxis: Plan: Heparin Full code Disposition-pending resolution of hypoxia. Admission and Anticipated Discharge Date Admission Date: July 21, 2021 Subjective 76 yo M presents with hypertensive urgency and Covid pneumonia. Currently sitting up in chair,, in no acute distress, however felt more short of breath earlier, now s/p duoneb treatment He is on supplemental oxygen, currently on 2 L Denies fevers, chills, chest pain, abdominal pain, nausea vomiting Patient had BM yesterday, says this was the 1st time since his admission Tolerating PO afebrile 2 step test 2 days ago revealed continued oxygen needs Patient lives alone, uses walker for ambulation Review of Systems Review of Systems: All systems reviewed & are unremarkable except as noted in Subjective Physical Exam Physical Exam: CONSTITUTIONAL: WN/WD elderly M in NAD EYES: normal conjunctivae, no scleral icterus ENT: external ear and nose normal, MMM NECK: supple RESPIRATORY: CTAB, minimal rhonchi and mild exp. wheezes, normal respiratory effort, on 2L of O2 CARDIOVASCULAR: regular rate and rhythm, S1 and 2 heard without murmurs, gallops or rubs, no JVD, increased peripheral edema, 1+ pitting edema bilaterally- continues to improve CHEST: inspection of chest was normal GASTROINTESTINAL: soft, nontender, ND, no guarding MUSCULOSKELETAL: strength 5/5 throughout, head is normocephalic and atraumatic SKIN: warm and dry, NEUROLOGIC:Awake and alert, answers appropriately, no facial asymmetry, speech fluent, moves extremities PSYCHIATRIC: alert cooperative and oriented to person, place and time. Results & Data Results & Data ([facility]) Vital Signs (Past 12 Hours) Vital Signs Temp Pulse Pulse Resp BP Pulse Ox 07/27/21 11:33 36.6 C 66 20 149/73 H 90 07/27/21 07:37 36.6 C 64 20 166/64 H 94 07/27/21 06:32 56 L 07/27/21 03:06 36.7 C 63 20 156/70 H 99 Laboratory Results 07/27/21 07/27/21 07/27/21 Range/Units 11:23 08:42 07:30 Sodium 139 (136-145) mmol/L Potassium 4.3 (3.5-5.1) mmol/L Chloride 108 H (98-107) mmol/L Carbon Dioxide 25 (21-32) mmol/L Anion Gap 6.0 (3-11) BUN 66 H (7-18) mg/dl Creatinine 1.99 H (0.6-1.4) mg/dl Est Cr Clr Drug Dosing 31.7 ml/min Est GFR ( Amer) 36.2 ml/min Est GFR (Non-Af Amer) 31.2 ml/min BUN/Creatinine Ratio 33.3 H (10-20) Glucose 113 H (70-99) mg/dl POC Glucose 217 H 130 H (70-99) mg/dl Calcium 8.6 (8.5-10.1) mg/dl Phosphorus 3.1 (2.5-4.9) mg/dl Magnesium 2.2 (1.8-2.4) mg/dl 07/26/21 07/26/21 Range/Units 20:09 16:16 Sodium (136-145) mmol/L Potassium (3.5-5.1) mmol/L Chloride (98-107) mmol/L Carbon Dioxide (21-32) mmol/L Anion Gap (3-11) BUN (7-18) mg/dl Creatinine (0.6-1.4) mg/dl Est Cr Clr Drug Dosing ml/min Est GFR ( Amer) ml/min Est GFR (Non-Af Amer) ml/min BUN/Creatinine Ratio (10-20) Glucose (70-99) mg/dl POC Glucose 223 H 313 H* (70-99) mg/dl Calcium (8.5-10.1) mg/dl Phosphorus (2.5-4.9) mg/dl Magnesium (1.8-2.4) mg/dl Medications Administered Current Inpatient Medications Acetaminophen (Acetaminophen 325 Mg Tab) 650 mg PO Q4H PRN PRN Reason: Pain or Fever Stop: 08/20/21 05:27 Amlodipine Besylate (Amlodipine Besylate 5 Mg Tab) 10 mg PO QPM [facility] Stop: 08/20/21 20:59 Last Admin: 07/26/21 21:58 Dose: 10 mg Documented by: Atorvastatin Calcium (Atorvastatin 40 Mg Tab) 80 mg PO QAM [facility] Stop: 08/20/21 08:59 Last Admin: 07/27/21 08:50 Dose: 80 mg Documented by: Carvedilol (Carvedilol 25 Mg Tab) 25 mg PO BID [facility] Stop: 08/22/21 20:59 Last Admin: 07/27/21 08:48 Dose: 25 mg Documented by: Cilostazol (Cilostazol 100 Mg Tab) 50 mg PO BID [facility] Stop: 08/20/21 08:59 Last Admin: 07/27/21 08:51 Dose: 50 mg Documented by: Clopidogrel Bisulfate (Clopidogrel Bisulfate 75 Mg Tab) 75 mg PO DAILY [facility] Stop: 08/20/21 08:59 Last Admin: 07/27/21 08:50 Dose: 75 mg Documented by: Cyanocobalamin (Cyanocobalamin 1000 Mcg/Ml Vial) 1,000 mcg IM MO [facility] Stop: 08/20/21 08:59 Last Admin: 07/21/21 08:54 Dose: 1,000 mcg Documented by: Dextrose (Dextrose 50% 50 Ml Syringe) 25 - 50 ml IV UD PRN; Protocol PRN Reason: Hypoglycemia Protocol Stop: 08/20/21 03:59 Doxycycline Hyclate (Doxycycline Hyclate 100 Mg Cap) 100 mg PO BID [facility] Stop: 07/28/21 20:59 Last Admin: 07/27/21 08:50 Dose: 100 mg Documented by: Fluticasone Propionate (Fluticasone Propionate Na Spr 16 Gm Btl) 2 sprays NA DAILY [facility] Stop: 08/20/21 08:59 Last Admin: 07/27/21 08:47 Dose: 2 sprays Documented by: Glucagon (Glucagon For Inj 1 Mg Vial) 1 mg SQ UD PRN; Protocol PRN Reason: Hypoglycemia Protocol Stop: 08/20/21 03:59 Glucose (Glucose 10 Tabs/Tube) 4 - 8 tabs PO UD PRN; Protocol PRN Reason: Hypoglycemia Protocol Stop: 08/20/21 03:59 Glucose (Glucose 40% Gel 15 Gm Tube) 15 - 30 gm PO UD PRN; Protocol PRN Reason: Hypoglycemia Protocol Stop: 08/20/21 03:59 Guaifenesin (Guaifenesin 600 Mg Tabcr) 600 mg PO Q12 [facility] Stop: 08/25/21 20:59 Last Admin: 07/27/21 09:41 Dose: 600 mg Documented by: Guaifenesin/Codeine Phosphate (Guaifenesin/Codeine 200mg/20mg 10ml Udc) 10 ml PO Q6H PRN PRN Reason: Cough Stop: 08/20/21 13:40 Heparin Sodium (Porcine) (Heparin Sod 5,000 Unit/0.5 Ml Vial) 5,000 units SQ Q8 [facility] Stop: 08/20/21 05:59 Last Admin: 07/27/21 13:13 Dose: 5,000 units Documented by: Dexamethasone 6 mg/ Syringe 1.5 mls @ 1 mls/min IV DAILY [facility] Stop: 08/21/21 08:59 Last Admin: 07/27/21 08:57 Dose: 1 mls/min Documented by: Promethazine HCl 12.5 mg/ (Sodium Chloride) 50.5 mls @ 202 mls/hr IV Q6H PRN PRN Reason: Nausea And Vomiting Stop: 08/20/21 05:27 Insulin Aspart (Insulin Aspart 100 Units/Ml 3 Ml Pen) 0 units SC ACHS [facility] Stop: 08/25/21 16:29 Last Admin: 07/27/21 11:55 Dose: 6 units Documented by: Ipratropium [place] (Ipratropium [place] Neb Soln 0.02% 2.5 Ml Vial) 0.5 mg INH Q4H PRN PRN Reason: sob/wheezing Stop: 08/20/21 05:27 Lactobacillus Acidoph/Casei/Rhamnos (Advanced Probiotic 1250 Mg Capsule) 2 cap PO DAILY [facility] Stop: 08/25/21 13:59 Last Admin: 07/27/21 08:48 Dose: 2 cap Documented by: Levalbuterol HCl (Levalbuterol 1.25mg/0.5ml Neb) 1.25 mg INH Q4H PRN PRN Reason: sob/wheezing Stop: 08/20/21 05:27 Miscellaneous (Carbohydrates For Hypoglycemia ) 15 - 30 gm PO UD PRN PRN Reason: Hypoglycemia Protocol Stop: 08/20/21 03:59 Nitroglycerin (Nitroglycerin Sl 0.4 Mg/Tab Tab) 0.4 mg SL UD PRN PRN Reason: Chest Pain Stop: 08/20/21 05:27 Ranolazine (Ranolazine 500 Mg Er Tab) 500 mg PO BID [facility] Stop: 08/20/21 07:09 Last Admin: 07/27/21 08:49 Dose: 500 mg Documented by: Senna/Docusate Sodium (Docusate Sodium/Senna 50/8.6mg Tab) 2 tab PO BID [facility] Stop: 08/20/21 08:59 Last Admin: 07/27/21 09:43 Dose: 2 tab Documented by: Torsemide (Torsemide 10 Mg Tab) 10 mg PO QAM [facility] Stop: 08/25/21 08:59 Last Admin: 07/26/21 08:59 Dose: 10 mg Documented by: Tramadol HCl (Tramadol Hcl 50 Mg Tablet) 25 - 50 mg PO Q4H PRN PRN Reason: Pain Stop: 08/20/21 05:27
--- NOTE | 2021-07-27 14:52 | XRay Report ---
XR chest 1V portable HISTORY: follow up hypoxia, covid COMPARISON: Chest 07/23/2021. FINDINGS: Interval improvement in the patchy airspace opacities within the right midlung zone and lef t lower lung zone. The heart remains enlarged. There are poststernotomy changes. No pleural fusions. No pneumothorax. IMPRESSION: Interval improvement in the bilateral airspace opacities consistent with a resolving pneumonia. ACT 112: Negative or not required by law. Electronically signed by: Thai Dixon M.D. 07/27/2021 2:50 PM
[2021-07-27] MEDS ORDERED: PHARMACY GLYCEMIC MGMT CONSULT PRN (17:45)
[2021-07-27] MEDS ORDERED: INSULIN ASPART 100 UNITS/ML 3 ML PEN SC ONE (18:15)
[2021-07-27] MEDS: amLODIPine BESYLATE 5 MG TAB PO SCH (20:27)
[2021-07-27] MEDS ORDERED: INSULIN HUMAN REGULAR PER UNIT 5 UNITS in SYRINGE 4.95 ML IV ONE (20:30)
[2021-07-28] MEDS ORDERED: INSULIN ASPART 100 UNITS/ML 3 ML PEN SC SCH (02:00)
[2021-07-28] MEDS: HEPARIN SOD 5,000 UNIT/0.5 ML VIAL SQ SCH ×3 (05:08→21:36)
[2021-07-28 07:23] LABS: BUN Creatinine Ratio 33.3 (10-20); Calcium 8.5 mg/dl (8.5-10.1); Creatinine Clr Calc Pharmacy 33.2 ml/min; Est GFR (African American) 38.5 ml/min; Est GFR (Non-African American) 33.2 ml/min; Phosphorus 3.4 mg/dl (2.5-4.9); Potassium 4.1 mmol/L (3.5-5.1)
[2021-07-28] MEDS: dexAMETHasone 6 MG in SYRINGE 0 ML IV SCH (08:05)
[2021-07-28] MEDS: FLUTICASONE PROPIONATE NA SPR 16 GM BTL SCH (08:05)
[2021-07-28] MEDS: ATORVASTATIN 40 MG TAB PO SCH (08:06)
[2021-07-28] MEDS: CLOPIDOGREL BISULFATE 75 MG TAB PO SCH (08:06)
[2021-07-28] MEDS: carvediloL 25 MG TAB PO SCH ×2 (08:07→21:40)
[2021-07-28] MEDS: ADVANCED PROBIOTIC 1250 MG CAPSULE PO SCH (08:07)
[2021-07-28] MEDS: cilostazoL 100 MG TAB PO SCH ×2 (08:07→21:34)
[2021-07-28] MEDS: DOXYCYCLINE HYCLATE 100 MG CAP PO SCH (08:08)
[2021-07-28] MEDS: guaiFENesin 600 MG TABCR PO SCH ×2 (08:08→21:35)
[2021-07-28] MEDS: RANOLAZINE 500 MG ER TAB PO SCH ×2 (08:08→21:35)
[2021-07-28] MEDS: CYANOCOBALAMIN 1000 MCG/ML VIAL IM SCH (08:09)
[2021-07-28] MEDS: INSULIN ASPART 100 UNITS/ML 3 ML PEN SC SCH ×4 (08:14→21:38)
[2021-07-28] MEDS: INSULIN HUMAN NPH SC SCH (08:16)
[2021-07-28] MEDS: DOCUSATE SODIUM/SENNA 50/8.6MG TAB PO SCH ×3 (08:20→21:47)
--- NOTE | 2021-07-28 08:30 | Pharmacy Report ---
Pharmacy Glycemic Short Note 2 - Date of Service July 28, 2021 - Glycemic Short BSG Results (Last 24 hours): 07/27/21 07/27/21 07/27/21 08:42 11:23 16:47 Glucose 113 H POC Glucose 217 H 303 H* 07/27/21 07/27/21 07/28/21 20:08 20:08 01:56 Glucose POC Glucose 324 H* 311 H* 121 H 07/28/21 07/28/21 05:54 07:57 Glucose 91 POC Glucose 86 OUTPATIENT ANTIDIABETIC REGIMEN: * HbA1c: 6.5% (07/21/21) * No antidiabetic medications as an outpatient ASSESSMENT: * DESHAWN is a 76 year old male admitted on 07/21/21 with COVID-19 pneumonia * BSGs have been poorly controlled since that time, ranging 67-352 * Pharmacy consulted on evening of 07/27/21 for glycemic management * BSG of 311 mg/dL at time of consult - Novolog tightened with additional one- time IV insulin bolus * Patient continues on dexamethasone 6 mg IV daily - will initiate NPH today * Fasting BSG of 86 mg/dL this morning, will be conservative with first dose of NPH PLAN FOR INPATIENT GLYCEMIC CONTROL: * Basal insulin * NPH 20 units SC daily (give with IV dexamethasone) * Reassess in AM * Bolus insulin - continue tightened parameters * NovoLog per scale ACHS or Q6hrs while NPO * Goal Range: Low 110 mg/dL - High 140 mg/dL * Correction Factor: 20 mg/dL/unit * Nutritional / Prandial insulin per carb ratio of 1 unit per 6 grams CHO consumed PLAN FOR DISCHARGE: * HbA1c of 6.5% is at goal for patient * Hyperglycemia almost certainly related to IV steroid administration - no need for antidiabetic medications at discharge, provided no steroids at discharge
[2021-07-28] MEDS ORDERED: INSULIN HUMAN NPH SC SCH (09:00)
--- NOTE | 2021-07-28 09:08 | Hospitalist Progress Note ---
Date of Service July 28, 2021 Assessment & Plan (1) Hypertensive urgency: Plan: BP improved with adjustments per cardiology (Coreg and amlodipine increased) Has type I sensitivity to hydralazine. Restart torsemide but dose daily. Daily BMP. Consider side effect of norvasc possibly contributing to edema? Continues with condom catheter which is helping with strict ins/outs. Good response to diuretics. Daily weights and low-sodium diet. In setting of chronic systolic heart failure, known valvular disease, pulmonary HTN and cardiac disease, cardiology was consulted and feels he is at his baseline with respect to his chronic comorbidities. Cont close monitoring of BP which is improved. (2) Pneumonia due to COVID-19 virus: Plan: cont steroids per plan below. (3) Hypoxia: Plan: Patient with underlying COPD and pulmonary hypertension presents with COVID-19 pneumonia. Mildly hypoxic and doing well on dexamethasone. Bronchodilator therapy as needed. Patient appears to have a viral pneumonia. Continue steroid therapy and supportive care. Started on doxy on admission, will cont. Patient encouraged to prone. Care discussed with daughter, discharge when off oxygen. Although he was set up for home oxygen prior to admission, this was by [facility] at home nurse and was in response to covid, not for a chronic condition. 2 step revealed continued needs. Repeat CXR shows improvement, but pt cont. to be on 2L NSVT 07/28 -NSVT noted on telemetry patient asymptomatic, per RN, patient was using incentive spirometer at the time continues denies any chest pain, increase shortness of breath, dizziness lightheadedness electrolytes checked, will make sure that potassium is above 4 and magnesium above 2 (4) Chronic systolic heart failure: Plan: chronic systolic heart failure (EF 45 to 50%, TTE 2020), compensated. No evidence of acute pulmonary edema. Cont low salt diet, daily weights. 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 (6) Diabetes mellitus, type 2: Plan: DM 2 diet-controlled, patient hyperglycemic secondary to steroids. Adjust insulin accordingly to tighten coverage. Cont to monitor closely. (7) DVT prophylaxis: Plan: Heparin Full code Disposition-pending resolution of hypoxia. Admission and Anticipated Discharge Date Admission Date: July 21, 2021 Subjective 76 yo M presents with hypertensive urgency and Covid pneumonia. Currently sitting up in chair, in no acute distress He is on supplemental oxygen, currently on 2 L Denies fevers, chills, chest pain, abdominal pain, nausea vomiting He says he feels ok, but on tele NSVT reported - per RN pt was using incentive spirometer at the time 2 step test few days ago revealed continued oxygen needs Patient lives alone, uses walker for ambulation Review of Systems Review of Systems: All systems reviewed & are unremarkable except as noted in Subjective Physical Exam Physical Exam: CONSTITUTIONAL: WN/WD elderly M in NAD EYES: normal conjunctivae, no scleral icterus ENT: external ear and nose normal, MMM NECK: supple RESPIRATORY: CTAB, minimal rhonchi and no exp. wheezes, normal respiratory effort, on 2L of O2 CARDIOVASCULAR: regular rate and rhythm, S1 and 2 heard without murmurs, gallops or rubs, no JVD, increased peripheral edema, 1+ pitting edema bilaterally- continues to improve CHEST: inspection of chest was normal GASTROINTESTINAL: soft, nontender, ND, no guarding MUSCULOSKELETAL: strength 5/5 throughout, head is normocephalic and atraumatic SKIN: warm and dry, NEUROLOGIC:Awake and alert, answers appropriately, no facial asymmetry, speech fluent, moves extremities PSYCHIATRIC: alert cooperative and oriented to person, place and time. Results & Data Results & Data ([facility]) Vital Signs (Past 12 Hours) Vital Signs Temp Pulse Pulse Resp BP BP Pulse Ox 07/28/21 07:31 36.6 C 66 18 148/55 H 93 07/28/21 03:28 36.6 C 60 18 131/70 97 07/27/21 22:56 36.5 C 70 20 135/83 96 07/27/21 22:45 63 Laboratory Results 07/28/21 07/28/21 07/28/21 Range/Units 07:57 05:54 05:54 Sodium 140 (136-145) mmol/L Potassium 4.1 (3.5-5.1) mmol/L Chloride 108 H (98-107) mmol/L Carbon Dioxide 25 (21-32) mmol/L Anion Gap 7.0 (3-11) BUN 63 H (7-18) mg/dl Creatinine 1.89 H (0.6-1.4) mg/dl Est Cr Clr Drug Dosing 33.2 ml/min Est GFR ( Amer) 38.5 ml/min Est GFR (Non-Af Amer) 33.2 ml/min BUN/Creatinine Ratio 33.3 H (10-20) Glucose 91 (70-99) mg/dl POC Glucose 86 (70-99) mg/dl Calcium 8.5 (8.5-10.1) mg/dl Phosphorus 3.4 (2.5-4.9) mg/dl Magnesium 2.0 (1.8-2.4) mg/dl Procalcitonin 0.09 (0-0.5) ng/ml 07/28/21 07/27/21 07/27/21 Range/Units 01:56 20:08 20:08 Sodium (136-145) mmol/L Potassium (3.5-5.1) mmol/L Chloride (98-107) mmol/L Carbon Dioxide (21-32) mmol/L Anion Gap (3-11) BUN (7-18) mg/dl Creatinine (0.6-1.4) mg/dl Est Cr Clr Drug Dosing ml/min Est GFR ( Amer) ml/min Est GFR (Non-Af Amer) ml/min BUN/Creatinine Ratio (10-20) Glucose (70-99) mg/dl POC Glucose 121 H 311 H* 324 H* (70-99) mg/dl Calcium (8.5-10.1) mg/dl Phosphorus (2.5-4.9) mg/dl Magnesium (1.8-2.4) mg/dl Procalcitonin (0-0.5) ng/ml 07/27/21 07/27/21 07/27/21 Range/Units 16:47 11:23 08:42 Sodium 139 (136-145) mmol/L Potassium 4.3 (3.5-5.1) mmol/L Chloride 108 H (98-107) mmol/L Carbon Dioxide 25 (21-32) mmol/L Anion Gap 6.0 (3-11) BUN 66 H (7-18) mg/dl Creatinine 1.99 H (0.6-1.4) mg/dl Est Cr Clr Drug Dosing 31.7 ml/min Est GFR ( Amer) 36.2 ml/min Est GFR (Non-Af Amer) 31.2 ml/min BUN/Creatinine Ratio 33.3 H (10-20) Glucose 113 H (70-99) mg/dl POC Glucose 303 H* 217 H (70-99) mg/dl Calcium 8.6 (8.5-10.1) mg/dl Phosphorus 3.1 (2.5-4.9) mg/dl Magnesium 2.2 (1.8-2.4) mg/dl Procalcitonin (0-0.5) ng/ml Medications Administered Current Inpatient Medications Acetaminophen (Acetaminophen 325 Mg Tab) 650 mg PO Q4H PRN PRN Reason: Pain or Fever Stop: 08/20/21 05:27 Amlodipine Besylate (Amlodipine Besylate 5 Mg Tab) 10 mg PO QPM [facility] Stop: 08/20/21 20:59 Last Admin: 07/27/21 20:27 Dose: 10 mg Documented by: Atorvastatin Calcium (Atorvastatin 40 Mg Tab) 80 mg PO QAM [facility] Stop: 08/20/21 08:59 Last Admin: 07/28/21 08:06 Dose: 80 mg Documented by: Carvedilol (Carvedilol 25 Mg Tab) 25 mg PO BID [facility] Stop: 08/22/21 20:59 Last Admin: 07/28/21 08:07 Dose: 25 mg Documented by: Cilostazol (Cilostazol 100 Mg Tab) 50 mg PO BID [facility] Stop: 08/20/21 08:59 Last Admin: 07/28/21 08:07 Dose: 50 mg Documented by: Clopidogrel Bisulfate (Clopidogrel Bisulfate 75 Mg Tab) 75 mg PO DAILY [facility] Stop: 08/20/21 08:59 Last Admin: 07/28/21 08:06 Dose: 75 mg Documented by: Cyanocobalamin (Cyanocobalamin 1000 Mcg/Ml Vial) 1,000 mcg IM MO [facility] Stop: 08/20/21 08:59 Last Admin: 07/28/21 08:09 Dose: 1,000 mcg Documented by: Dextrose (Dextrose 50% 50 Ml Syringe) 25 - 50 ml IV UD PRN; Protocol PRN Reason: Hypoglycemia Protocol Stop: 08/20/21 03:59 Doxycycline Hyclate (Doxycycline Hyclate 100 Mg Cap) 100 mg PO BID [facility] Stop: 07/28/21 20:59 Last Admin: 07/28/21 08:08 Dose: 100 mg Documented by: Fluticasone Propionate (Fluticasone Propionate Na Spr 16 Gm Btl) 2 sprays NA DAILY [facility] Stop: 08/20/21 08:59 Last Admin: 07/28/21 08:05 Dose: 2 sprays Documented by: Glucagon (Glucagon For Inj 1 Mg Vial) 1 mg SQ UD PRN; Protocol PRN Reason: Hypoglycemia Protocol Stop: 08/20/21 03:59 Glucose (Glucose 10 Tabs/Tube) 4 - 8 tabs PO UD PRN; Protocol PRN Reason: Hypoglycemia Protocol Stop: 08/20/21 03:59 Glucose (Glucose 40% Gel 15 Gm Tube) 15 - 30 gm PO UD PRN; Protocol PRN Reason: Hypoglycemia Protocol Stop: 08/20/21 03:59 Guaifenesin (Guaifenesin 600 Mg Tabcr) 600 mg PO Q12 [facility] Stop: 08/25/21 20:59 Last Admin: 07/28/21 08:08 Dose: 600 mg Documented by: Guaifenesin/Codeine Phosphate (Guaifenesin/Codeine 200mg/20mg 10ml Udc) 10 ml PO Q6H PRN PRN Reason: Cough Stop: 08/20/21 13:40 Heparin Sodium (Porcine) (Heparin Sod 5,000 Unit/0.5 Ml Vial) 5,000 units SQ Q8 [facility] Stop: 08/20/21 05:59 Last Admin: 07/28/21 05:08 Dose: 5,000 units Documented by: Dexamethasone 6 mg/ Syringe 1.5 mls @ 1 mls/min IV DAILY [facility] Stop: 08/21/21 08:59 Last Admin: 07/28/21 08:05 Dose: 1 mls/min Documented by: Promethazine HCl 12.5 mg/ (Sodium Chloride) 50.5 mls @ 202 mls/hr IV Q6H PRN PRN Reason: Nausea And Vomiting Stop: 08/20/21 05:27 Insulin Aspart (Insulin Aspart 100 Units/Ml 3 Ml Pen) 0 units SC ACHS [facility] Stop: 08/25/21 16:29 Last Admin: 07/28/21 08:14 Dose: 6 units Documented by: Insulin Human NPH (Insulin Human Nph) 20 units SC DAILY [facility] Stop: 08/27/21 08:59 Last Admin: 07/28/21 08:16 Dose: 20 units Documented by: Ipratropium [place] (Ipratropium [place] Neb Soln 0.02% 2.5 Ml Vial) 0.5 mg INH Q4H PRN PRN Reason: sob/wheezing Stop: 08/20/21 05:27 Lactobacillus Acidoph/Casei/Rhamnos (Advanced Probiotic 1250 Mg Capsule) 2 cap PO DAILY [facility] Stop: 08/25/21 13:59 Last Admin: 07/28/21 08:07 Dose: 2 cap Documented by: Levalbuterol HCl (Levalbuterol 1.25mg/0.5ml Neb) 1.25 mg INH Q4H PRN PRN Reason: sob/wheezing Stop: 08/20/21 05:27 Miscellaneous (Carbohydrates For Hypoglycemia ) 15 - 30 gm PO UD PRN PRN Reason: Hypoglycemia Protocol Stop: 08/20/21 03:59 Miscellaneous Information (Pharmacy Glycemic Mgmt Consult) 1 ea N/A UD PRN PRN Reason: Consult Stop: 08/26/21 17:44 Nitroglycerin (Nitroglycerin Sl 0.4 Mg/Tab Tab) 0.4 mg SL UD PRN PRN Reason: Chest Pain Stop: 08/20/21 05:27 Ranolazine (Ranolazine 500 Mg Er Tab) 500 mg PO BID [facility] Stop: 08/20/21 07:09 Last Admin: 07/28/21 08:08 Dose: 500 mg Documented by: Senna/Docusate Sodium (Docusate Sodium/Senna 50/8.6mg Tab) 2 tab PO BID [facility] Stop: 08/20/21 08:59 Last Admin: 07/28/21 08:20 Dose: 2 tab Documented by: Torsemide (Torsemide 10 Mg Tab) 10 mg PO QAM [facility] Stop: 08/25/21 08:59 Last Admin: 07/26/21 08:59 Dose: 10 mg Documented by: Tramadol HCl (Tramadol Hcl 50 Mg Tablet) 25 - 50 mg PO Q4H PRN PRN Reason: Pain Stop: 08/20/21 05:27
[2021-07-28] MEDS ORDERED: POTASSIUM CHLORIDE CRTAB 20 MEQ TABCR PO STA (09:14)
[2021-07-28] MEDS ORDERED: MAGNESIUM OXIDE 400 MG TAB PO SCH (09:15)
[2021-07-28] MEDS ORDERED: TORSEMIDE 10 MG TAB PO ONE (09:30)
[2021-07-28] MEDS: amLODIPine BESYLATE 5 MG TAB PO SCH (21:36)
[2021-07-29] MEDS: HEPARIN SOD 5,000 UNIT/0.5 ML VIAL SQ SCH ×2 (05:19→14:50)
[2021-07-29] MEDS: carvediloL 25 MG TAB PO SCH (08:42)
[2021-07-29] MEDS: DOCUSATE SODIUM/SENNA 50/8.6MG TAB PO SCH (08:42)
[2021-07-29] MEDS: dexAMETHasone 6 MG in SYRINGE 0 ML IV SCH (08:42)
[2021-07-29] MEDS: guaiFENesin 600 MG TABCR PO SCH (08:43)
[2021-07-29] MEDS: cilostazoL 100 MG TAB PO SCH (08:43)
[2021-07-29] MEDS: RANOLAZINE 500 MG ER TAB PO SCH (08:43)
[2021-07-29] MEDS: FLUTICASONE PROPIONATE NA SPR 16 GM BTL SCH (08:43)
[2021-07-29] MEDS: ADVANCED PROBIOTIC 1250 MG CAPSULE PO SCH (08:44)
[2021-07-29] MEDS: TORSEMIDE 10 MG TAB PO SCH (08:44)
[2021-07-29] MEDS: ATORVASTATIN 40 MG TAB PO SCH (08:45)
[2021-07-29] MEDS: CLOPIDOGREL BISULFATE 75 MG TAB PO SCH (08:45)
[2021-07-29] MEDS: INSULIN HUMAN NPH SC SCH (08:47)
[2021-07-29] MEDS: INSULIN ASPART 100 UNITS/ML 3 ML PEN SC SCH ×2 (08:49→12:05)
[2021-07-29 10:41] LABS: Hematocrit (blood only) 31.4 % (42-52); Hemoglobin 9.8 g/dL (14.0-18.0); Mean Corpuscular Hemoglobin 25.2 pg (25-34); Mean Corpuscular Hgb Conc 31.2 g/dL (32-36); Mean Corpuscular Volume 80.7 fL (80-100); Mean Platelet Volume 9.4 fL (7.4-10.4); Platelet Count 114 K/uL (130-400); RDW Coefficient of Variation 17.5 % (11.5-14.5); RDW Standard Deviation 50.3 fL (36.4-46.3); Red Blood Count 3.89 M/uL (4.7-6.1); White Blood Count 8.41 K/uL (4.8-10.8)
[2021-07-29 11:12] LABS: BUN Creatinine Ratio 33.1 (10-20); Calcium 8.6 mg/dl (8.5-10.1); Creatinine Clr Calc Pharmacy 34.7 ml/min; Est GFR (African American) 40.6 ml/min; Phosphorus 3.4 mg/dl (2.5-4.9); Potassium 4.2 mmol/L (3.5-5.1)
--- NOTE | 2021-07-29 12:47 | Hospitalist Progress Note ---
Date of Service July 29, 2021 Assessment & Plan (1) Hypertensive urgency: Plan: BP improved with adjustments per cardiology (Coreg and amlodipine increased) Has type I sensitivity to hydralazine. Restart torsemide but dose daily. Daily BMP. Consider side effect of norvasc possibly contributing to edema? Continues with condom catheter which is helping with strict ins/outs. Good response to diuretics. Daily weights and low-sodium diet. In setting of chronic systolic heart failure, known valvular disease, pulmonary HTN and cardiac disease, cardiology was consulted and feels he is at his baseline with respect to his chronic comorbidities. Cont close monitoring of BP which is improved. (2) Pneumonia due to COVID-19 virus: Plan: cont steroids per plan below. (3) Hypoxia: Plan: Patient with underlying COPD and pulmonary hypertension presents with COVID-19 pneumonia. Mildly hypoxic and doing well on dexamethasone. Bronchodilator therapy as needed. Patient appears to have a viral pneumonia. Continue steroid therapy and supportive care. Started on doxy on admission, will cont. Patient encouraged to prone. Repeat CXR shows improvement, but pt cont. to be on 2L Patient has oxygen set up at home, through [facility] at home NSVT 07/28 -NSVT noted on telemetry patient asymptomatic, per RN, patient was using incentive spirometer at the time continues denies any chest pain, increase shortness of breath, dizziness lightheadedness electrolytes checked, will make sure that potassium is above 4 and magnesium above 2 (4) Chronic systolic heart failure: Plan: chronic systolic heart failure (EF 45 to 50%, TTE 2020), compensated. No evidence of acute pulmonary edema. Cont low salt diet, daily weights. 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 (6) Diabetes mellitus, type 2: Plan: DM 2 diet-controlled, patient hyperglycemic secondary to steroids. Adjust insulin accordingly to tighten coverage. Cont to monitor closely. (7) DVT prophylaxis: Plan: Heparin Full code Disposition- Plan to DC home w/ HH on suppl. O2 Admission and Anticipated Discharge Date Admission Date: July 21, 2021 Subjective 76 yo M presents with hypertensive urgency and Covid pneumonia. Currently sitting up in bed,in no acute distress He is on supplemental oxygen, currently on 2 L (seems he also has O2 at home) Denies fevers, chills, chest pain, abdominal pain, nausea vomiting He is inquiring about going home. States that he has oxygen at home and also has home health. Discussed this with daughter, plan to discharge patient later today. Review of Systems Review of Systems: All systems reviewed & are unremarkable except as noted in Subjective Physical Exam Physical Exam: CONSTITUTIONAL: WN/WD elderly M in NAD EYES: normal conjunctivae, no scleral icterus ENT: external ear and nose normal, MMM NECK: supple RESPIRATORY: CTAB, minimal rhonchi and no exp. wheezes, normal respiratory effort, on 2L of O2 CARDIOVASCULAR: regular rate and rhythm, S1 and 2 heard without murmurs, gallops or rubs, no JVD, increased peripheral edema, 1+ pitting edema bilaterally- continues to improve CHEST: inspection of chest was normal GASTROINTESTINAL: soft, nontender, ND, no guarding MUSCULOSKELETAL: strength 5/5 throughout, head is normocephalic and atraumatic SKIN: warm and dry, NEUROLOGIC:Awake and alert, answers appropriately, no facial asymmetry, speech fluent, moves extremities PSYCHIATRIC: alert cooperative and oriented to person, place and time. Results & Data Results & Data ([facility]) Vital Signs (Past 12 Hours) Vital Signs Temp Pulse Pulse Resp BP BP Pulse Ox 07/29/21 11:22 37.0 C 60 18 135/72 93 07/29/21 07:22 36.5 C 70 18 144/78 H 95 07/29/21 06:24 57 L 07/29/21 03:43 36.6 C 63 18 124/65 98 Laboratory Results 07/29/21 07/29/21 07/29/21 Range/Units 11:33 10:21 10:21 WBC 8.41 (4.8-10.8) K/uL RBC 3.89 L (4.7-6.1) M/uL Hgb 9.8 L (14.0-18.0) g/dL Hct 31.4 L (42-52) % MCV 80.7 (80-100) fL MCH 25.2 (25-34) pg MCHC 31.2 L (32-36) g/dL RDW Std Deviation 50.3 H (36.4-46.3) fL RDW Coeff of Dary 17.5 H (11.5-14.5) % Plt Count 114 L (130-400) K/uL MPV 9.4 (7.4-10.4) fL Sodium 139 (136-145) mmol/L Potassium 4.2 (3.5-5.1) mmol/L Chloride 107 (98-107) mmol/L Carbon Dioxide 27 (21-32) mmol/L Anion Gap 5 (3-11) BUN 60 H (6-23) mg/dl Creatinine 1.81 H (0.6-1.4) mg/dl Est Cr Clr Drug Dosing 34.7 ml/min Est GFR ( Amer) 40.6 ml/min Est GFR (Non-Af Amer) 35.0 ml/min BUN/Creatinine Ratio 33.1 H (10-20) Glucose 147 H (70-99) mg/dl POC Glucose 171 H (70-99) mg/dl Calcium 8.6 (8.5-10.1) mg/dl Phosphorus 3.4 (2.5-4.9) mg/dl 07/29/21 07/28/21 07/28/21 Range/Units 07:29 20:06 16:41 WBC (4.8-10.8) K/uL RBC (4.7-6.1) M/uL Hgb (14.0-18.0) g/dL Hct (42-52) % MCV (80-100) fL MCH (25-34) pg MCHC (32-36) g/dL RDW Std Deviation (36.4-46.3) fL RDW Coeff of Dary (11.5-14.5) % Plt Count (130-400) K/uL MPV (7.4-10.4) fL Sodium (136-145) mmol/L Potassium (3.5-5.1) mmol/L Chloride (98-107) mmol/L Carbon Dioxide (21-32) mmol/L Anion Gap (3-11) BUN (6-23) mg/dl Creatinine (0.6-1.4) mg/dl Est Cr Clr Drug Dosing ml/min Est GFR ( Amer) ml/min Est GFR (Non-Af Amer) ml/min BUN/Creatinine Ratio (10-20) Glucose (70-99) mg/dl POC Glucose 79 184 H 106 H (70-99) mg/dl Calcium (8.5-10.1) mg/dl Phosphorus (2.5-4.9) mg/dl Medications Administered Current Inpatient Medications Acetaminophen (Acetaminophen 325 Mg Tab) 650 mg PO Q4H PRN PRN Reason: Pain or Fever Stop: 08/20/21 05:27 Amlodipine Besylate (Amlodipine Besylate 5 Mg Tab) 10 mg PO QPM QIAN Stop: 08/20/21 20:59 Last Admin: 07/28/21 21:36 Dose: 10 mg Documented by: Atorvastatin Calcium (Atorvastatin 40 Mg Tab) 80 mg PO QAM QIAN Stop: 08/20/21 08:59 Last Admin: 07/29/21 08:45 Dose: 80 mg Documented by: Carvedilol (Carvedilol 25 Mg Tab) 25 mg PO BID QIAN Stop: 08/22/21 20:59 Last Admin: 07/29/21 08:42 Dose: 25 mg Documented by: Cilostazol (Cilostazol 100 Mg Tab) 50 mg PO BID QIAN Stop: 08/20/21 08:59 Last Admin: 07/29/21 08:43 Dose: 50 mg Documented by: Clopidogrel Bisulfate (Clopidogrel Bisulfate 75 Mg Tab) 75 mg PO DAILY QIAN Stop: 08/20/21 08:59 Last Admin: 07/29/21 08:45 Dose: 75 mg Documented by: Cyanocobalamin (Cyanocobalamin 1000 Mcg/Ml Vial) 1,000 mcg IM MO QIAN Stop: 08/20/21 08:59 Last Admin: 07/28/21 08:09 Dose: 1,000 mcg Documented by: Dextrose (Dextrose 50% 50 Ml Syringe) 25 - 50 ml IV UD PRN; Protocol PRN Reason: Hypoglycemia Protocol Stop: 08/20/21 03:59 Fluticasone Propionate (Fluticasone Propionate Na Spr 16 Gm Btl) 2 sprays NA DAILY QIAN Stop: 08/20/21 08:59 Last Admin: 07/29/21 08:43 Dose: 2 sprays Documented by: Glucagon (Glucagon For Inj 1 Mg Vial) 1 mg SQ UD PRN; Protocol PRN Reason: Hypoglycemia Protocol Stop: 08/20/21 03:59 Glucose (Glucose 10 Tabs/Tube) 4 - 8 tabs PO UD PRN; Protocol PRN Reason: Hypoglycemia Protocol Stop: 08/20/21 03:59 Glucose (Glucose 40% Gel 15 Gm Tube) 15 - 30 gm PO UD PRN; Protocol PRN Reason: Hypoglycemia Protocol Stop: 08/20/21 03:59 Guaifenesin (Guaifenesin 600 Mg Tabcr) 600 mg PO Q12 QIAN Stop: 08/25/21 20:59 Last Admin: 07/29/21 08:43 Dose: 600 mg Documented by: Guaifenesin/Codeine Phosphate (Guaifenesin/Codeine 200mg/20mg 10ml Udc) 10 ml PO Q6H PRN PRN Reason: Cough Stop: 08/20/21 13:40 Heparin Sodium (Porcine) (Heparin Sod 5,000 Unit/0.5 Ml Vial) 5,000 units SQ Q8 QIAN Stop: 08/20/21 05:59 Last Admin: 07/29/21 05:19 Dose: 5,000 units Documented by: Dexamethasone 6 mg/ Syringe 1.5 mls @ 1 mls/min IV DAILY QIAN Stop: 08/21/21 08:59 Last Admin: 07/29/21 08:42 Dose: 1 mls/min Documented by: Promethazine HCl 12.5 mg/ (Sodium Chloride) 50.5 mls @ 202 mls/hr IV Q6H PRN PRN Reason: Nausea And Vomiting Stop: 08/20/21 05:27 Insulin Aspart (Insulin Aspart 100 Units/Ml 3 Ml Pen) 0 units SC ACHS QIAN Stop: 08/25/21 16:29 Last Admin: 07/29/21 12:05 Dose: 7 units Documented by: Insulin Human NPH (Insulin Human Nph) 20 units SC DAILY QIAN Stop: 08/27/21 08:59 Last Admin: 07/29/21 08:47 Dose: 20 units Documented by: Ipratropium Astor (Ipratropium Astor Neb Soln 0.02% 2.5 Ml Vial) 0.5 mg INH Q4H PRN PRN Reason: sob/wheezing Stop: 08/20/21 05:27 Lactobacillus Acidoph/Casei/Rhamnos (Advanced Probiotic 1250 Mg Capsule) 2 cap PO DAILY QIAN Stop: 08/25/21 13:59 Last Admin: 07/29/21 08:44 Dose: 2 cap Documented by: Levalbuterol HCl (Levalbuterol 1.25mg/0.5ml Neb) 1.25 mg INH Q4H PRN PRN Reason: sob/wheezing Stop: 08/20/21 05:27 Miscellaneous (Carbohydrates For Hypoglycemia ) 15 - 30 gm PO UD PRN PRN Reason: Hypoglycemia Protocol Stop: 08/20/21 03:59 Miscellaneous Information (Pharmacy Glycemic Mgmt Consult) 1 ea N/A UD PRN PRN Reason: Consult Stop: 08/26/21 17:44 Nitroglycerin (Nitroglycerin Sl 0.4 Mg/Tab Tab) 0.4 mg SL UD PRN PRN Reason: Chest Pain Stop: 08/20/21 05:27 Ranolazine (Ranolazine 500 Mg Er Tab) 500 mg PO BID [facility] Stop: 08/20/21 07:09 Last Admin: 07/29/21 08:43 Dose: 500 mg Documented by: Senna/Docusate Sodium (Docusate Sodium/Senna 50/8.6mg Tab) 2 tab PO BID QIAN Stop: 08/20/21 08:59 Last Admin: 07/29/21 08:42 Dose: 2 tab Documented by: Torsemide (Torsemide 10 Mg Tab) 10 mg PO QAM [facility] Stop: 08/25/21 08:59 Last Admin: 07/29/21 08:44 Dose: 10 mg Documented by: Tramadol HCl (Tramadol Hcl 50 Mg Tablet) 25 - 50 mg PO Q4H PRN PRN Reason: Pain Stop: 08/20/21 05:27
--- NOTE | 2021-07-29 13:40 | Discharge Summary ---
Date of Service July 29, 2021 Admission HPI Per Admitting Provider History obtained from patient, family, and records. Medical history significant for chronic systolic heart failure (EF 45 to 50%, TTE 2020), valvular heart disease (mild AR/MR, severe on recent TTE), pulmonary hypertension, CAD status post CABG, PVD status post surgery, HTN, COPD, DM 2 diet-controlled, CRI (baseline creatinine 1.5-1.6), BPH, chronic anemia (baseline hemoglobin 9-10), chronic thrombocytopenia, past tobacco abuse. Last confinement September 2019 for syncope secondary to orthostatic dizziness. 1 week history of cough symptoms later noted to be junky with a headache, nausea, body aches, worsening shortness of breath on exertion. O2 sats 87% while walking at home. Possible COVID-19 exposure. Patient has completed COVID-19 vaccination along with booster. Outpatient COVID-19 test was negative. Outpatient CXR showed improving congestion as per note. No fluid retention as per patient. Weight stable as per patient. Decadron initiated for bronchitis by outpatient provider. Patient had worsening symptoms over the last week without chest pain or fluid retention. No fever, no chills. At the ER, patient given Solu-Medrol, neb treatment for COPD exacerbation. Nitropaste and Lasix given for possible CHF. 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 Admission Exam Per Admitting Provider GENERAL: uncomfortable, chronically ill, minimal respiratory distress SKIN: Pallor , warm HEENT: Bespectacled, pale palpebral conjunctivae, no ptosis, dry buccal mucosa, nasal cannula in place NECK : Supple, no tenderness CHEST : Decreased breath sounds, expiratory wheezes, no tenderness HEART : RRR, systolic murmur ABDOMEN: Some distention, nontender EXTREMITIES : Minimal LE swelling, no LE tenderness, no other conspicuous deformities noted NEUROLOGIC : Coherent, no facial asymmetry, no other gross focality Principal Diagnosis COVID-19 pneumonia, hypoxia Hypertensive urgency Chronic systolic heart failure History of CAD, history of DM type II Discharge Exam CONSTITUTIONAL: WN/WD elderly M in NAD EYES: normal conjunctivae, no scleral icterus ENT: external ear and nose normal, MMM NECK: supple RESPIRATORY: CTAB, minimal rhonchi and no exp. wheezes, normal respiratory effort, on 2L of O2 CARDIOVASCULAR: regular rate and rhythm, S1 and 2 heard without murmurs, gallops or rubs, no JVD, increased peripheral edema, 1+ pitting edema bilaterally- continues to improve CHEST: inspection of chest was normal GASTROINTESTINAL: soft, nontender, ND, no guarding MUSCULOSKELETAL: strength 5/5 throughout, head is normocephalic and atraumatic SKIN: warm and dry, NEUROLOGIC:Awake and alert, answers appropriately, no facial asymmetry, speech fluent, moves extremities PSYCHIATRIC: alert cooperative and oriented to person, place and time. Discharge Data Allergies Allergy/AdvReac Type Severity Reaction Status Date / Time hydralazine Allergy Hives Verified 07/21/21 03:17 Iodinated Contrast Media Allergy Unknown Verified 07/21/21 03:17 [Iodinated Contrast- Oral and IV Dye] Consultations 07/21/21 03:02 ED Decision to Admit Stat 07/21/21 14:41 Consult Cardiology Routine Hospital Course (1) Hypertensive urgency: BP improved with adjustments per cardiology (Coreg and amlodipine increased) Has type I sensitivity to hydralazine. Restart torsemide but dose daily. Daily BMP. Consider side effect of norvasc possibly contributing to edema? Continues with condom catheter which is helping with strict ins/outs. Good response to diuretics. Daily weights and low-sodium diet. In setting of chronic systolic heart failure, known valvular disease, pulmonary HTN and cardiac disease, cardiology was consulted and feels he is at his baseline with respect to his chronic comorbidities. Cont close monitoring of BP which is improved. (2) Pneumonia due to COVID-19 virus: cont steroids per plan below. (3) Hypoxia: Patient with underlying COPD and pulmonary hypertension presents with COVID-19 pneumonia. Mildly hypoxic and doing well on dexamethasone. Bronchodilator therapy as needed. Patient appears to have a viral pneumonia. Continue steroid therapy and supportive care. Started on doxy on admission, will cont. Patient encouraged to prone. Repeat CXR shows improvement, but pt cont. to be on 2L Patient has oxygen set up at home, through [facility] at home NSVT 07/28 -NSVT noted on telemetry patient asymptomatic, per RN, patient was using incentive spirometer at the time continues denies any chest pain, increase shortness of breath, dizziness lightheadedness electrolytes checked, will make sure that potassium is above 4 and magnesium above 2 (4) Chronic systolic heart failure: chronic systolic heart failure (EF 45 to 50%, TTE 2020), compensated. No evidence of acute pulmonary edema. Cont low salt diet, daily weights. 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 (6) Diabetes mellitus, type 2: DM 2 diet-controlled, patient hyperglycemic secondary to steroids. Adjust insulin accordingly to tighten coverage. Cont to monitor closely. (7) DVT prophylaxis: Heparin Full code Disposition- Plan to DC home w/ HH on suppl. O2 Total Time Total Time Spent Total Time Spent (In Minutes): 40 Discharge Plan Discharge Items Patient Disposition: Home - Self-Care Reason For Visit: RESPIRATORY FAILURE, COVID-19 Discharge Diagnosis: COVID-19 pneumonia, hypoxia Hypertensive urgency Chronic systolic heart failure History of CAD, history of DM type II Condition on Discharge: Fair Activity: Per Instructions section Non-emergency contact: Primary Care Provider Call non-emergency contact if: you have any medication questions and your symptoms worsen Follow-up/Referrals: Dalila Viera MD [Primary Care Provider] - (Date & Time 08/04/2021 3:00 PM Provider Trey Clark PA-C Department General Internal Medicine [facility] ) Diet: Carb Consistent or DM2 and Heart Healthy Addtl Attending Provider Instructions: Follow-up with your primary care doctor, the appointment was scheduled for you for August 04, 2021. Finish treatment with steroid, dexamethasone 6 mg daily for next few days, as pr escribed. Recommend to continue using guaifenesin/Mucinex. Also use your flutter valve and incentive spirometer. You will need to use oxygen, 2 L continuously. For your blood pressure, your medication: amlodipine was increased to 10 mg daily and carvedilol was increased to 25 mg daily. Pending Studies at Discharge: No Stand-Alone Forms: My [employer], Smoking Cessation Medications and DC Order Prescriptions: New amlodipine [Norvasc] 5 mg Tablet 10 mg PO QPM Qty: 30 RF: 0 carvedilol 25 mg Tablet 25 mg PO BID Qty: 60 RF: 0 Advanced Probiotic 625 mg (10 billion cell) Capsule 2 cap PO DAILY Qty: 10 RF: 0 guaifenesin [Mucinex] 600 mg Tablet Extended Release 12hr 600 mg PO Q12 Qty: 10 RF: 0 dexamethasone 6 mg tablet 6 mg PO DAILY Qty: 3 RF: 0 Continued atorvastatin 80 mg tablet 80 mg PO QAM RF: 0 torsemide 10 mg tablet 10 mg PO MOWEFR RF: 0 meclizine 12.5 mg Tablet 12.5 mg PO BID RF: 0 clopidogrel [Plavix] 75 mg Tablet 75 mg PO DAILY RF: 0 tramadol 50 mg Tablet 50 mg PO DAILY PRN (Reason: Pain) RF: 0 potassium chloride 20 mEq tablet,ER particles/crystals 20 meq PO MOWEFR RF: 0 cyanocobalamin (vitamin B-12) 1,000 mcg/mL Solution 1,000 mcg IM MO RF: 0 nitroglycerin [Nitrostat] 0.4 mg Tablet, Sublingual 0.4 mg sublingual UD PRN (Reason: Chest Pain) RF: 0 mometasone [Nasonex] 50 mcg/actuation [place],Non-Aerosol 2 spray INTRANASAL DAILY RF: 0 Flovent HFA 220 mcg/actuation HFA aerosol inhaler 2 puff INHALATION BID RF: 0 albuterol sulfate 90 mcg/actuation HFA aerosol inhaler 2 puff INHALATION Q4 PRN (Reason: Wheezing) RF: 0 ranolazine 500 mg tablet extended release 12 hr 500 mg PO BID RF: 0 cholecalciferol (vitamin D3) [Vitamin D3] 25 mcg (1,000 unit) Tablet 25 mcg PO DAILY RF: 0 calcium carbonate-vitamin D3 600 mg-20 mcg (800 unit) tablet 1 tab PO DAILY RF: 0 Vitron-C 65 mg iron- 125 mg tablet,delayed release (DR/EC) 1 tab PO Q OTHER DAY RF: 0 guaifenesin [Mucinex] 600 mg Tablet Extended Release 12hr 600 mg PO Q12H PRN (Reason: Congestion) RF: 0 Senna Plus 8.6-50 mg Capsule 2 tab-cap PO BID RF: 0 cilostazol 50 mg tablet 50 mg PO BID RF: 0 Changed amlodipine 5 mg tablet 10 mg PO QPM Qty: 0 RF: 0 carvedilol 6.25 mg tablet 25 mg PO BID Qty: 0 RF: 0 Discontinued dexamethasone 4 mg tablet 6 mg PO DAILY RF: 0 Discharge Orders: Discharge Order (Routine); Ordered 07/29/21 Ordered By: Elie Casey/Other Patient Handouts: High Blood Sugar (Hyperglycemia), Managing Type 2 Diabetes Admission Data Admit Date/Time: 07/21/21 03:55 Attending Provider: Elie Toth Admit Provider: Mukesh Wise Primary Care Provider: Dalila Viera Other Providers: Mukesh Wise ; Noe Bacon ; Zahraa Jacome
== END 2021-07-29 15:44 | disposition home or self-care (01) | DRG 177 ==
LOC: ED 02:00 → EDINP 03:55 → SUATTDRO 03:55 → 2W 17:41

== ENCOUNTER 2021-08-10 05:29 | Inpatient (IN) ==
--- NOTE | 2021-08-10 05:47 | Emergency Department Note ---
Impression & Plan Bowel and bladder incontinence, Respiratory failure Admit to the [facility] service ED Provider Note NAME: DYLON AGOSTO AGE: 76 SEX: M ARRIVES VIA: Ambulance INFORMANT: Patient and EMS ED PROVIDER(S): Nathaly Burns DO CHIEF COMPLAINT: Worsening shortness of breath PLAN: Disposition: Admit to the [facility] Condition: Stable MEDICAL DECISION MAKING: This is a 76-year-old male patient with a history of CHF on home O2 who presents to the emergency department with increasing shortness of breath and weight gain. The patient states over the past 3 days his shortness of breath has worsened. The patient also explains that over the past 2 days he has lost complete control of his bowels and bladder which has never happened to him before. He explains that he has also developed some increasing low back pain. The patient suffered from COVID approximately 2-3 weeks ago but seem to have recovered from that but the shortness of breath has worsened the past couple of days and he has developed increasing lower extremity edema. The patient's weight has increased as well. Chest x-ray shows some increased vascular congestion and lower lobe opacities. [facility] and [facility] will evaluate for further management. Triage Nursing notes reviewed and agree with them. Additional history obtained from EMS Prior medical records reviewed Vital Signs: reviewed and remarkable for no significant abnormalities Differential diagnosis: CHF, pneumonia, lumbar cord lesion Diagnostics interpreted by me: ECG: Normal sinus rhythm at a rate of 68 with a first-degree AV block. There is significant T wave inversion in leads I and aVL. This was compared to an EKG from earlier this month and is unchanged. There is no ST segment elevation. Cardiac Monitoring: Normal sinus rhythm at 72 Laboratory studies: See below Imaging studies: As per my interpretation Portable chest x-ray: Mild increased vascular congestion consistent with congestive heart failure and bilateral lower lobe opacities HPI: 76/M arrives for evaluation of worsening shortness of breath. Patient has had a significant weight gain over the past couple of days. Has become increasingly short of breath and developed a need for increased oxygen at home. Patient has difficulty lying down to sleep because of the shortness of breath. ROS: See above HPI for pertinent positives & negatives. A total of 10 systems reviewed and were otherwise negative. PAST MEDICAL HISTORY:See Below PAST SURGICAL HISTORY:See Below FAMILY HISTORY:See Below SOCIAL HISTORY:See Below HOME MEDICATIONS:See list ALLERGIES:See list VITALS:See Below PHYSICAL EXAMINATION: HEENT: Head - normocephalic and atraumatic Pupils are equal, round, and reactive to light. Extraocular eye muscles are intact, and sclera are anicteric. Nose - moist nasal mucosa without discharge. Mouth - moist buccal mucosa. Oropharynx is nonerythematous and there is no tonsillar exudate or edema noted. Neck: Supple; no JVD, nuchal rigidity, cervical lymphadenopathy, or auscultated bruits. Heart: Regular rate and rhythm. There is a normal S1 and S2 with no murmurs, clicks, or gallops appreciated. Lungs: Clear to auscultation bilaterally with no wheezes, rales, or rhonchi. Abdomen: Soft, completely nontender, nondistended, with good bowel sounds. There are no palpable pulsatile masses or hepatosplenomegaly. There is no guarding, rigidity, or rebound noted. Extremities: No evidence of cyanosis, clubbing, or edema. There are easily palpable peripheral pulses. Skin: warm and dry with good turgor and no rashes. ED COURSE: Times/Reassessments: 0540: The patient was evaluated in room B6. A complete history and physical was performed. An order was placed for continuous cardiac monitoring. The patient was in a normal sinus rhythm at a rate of 72. A twelve-lead EKG was obtained. Patient had a portable chest x-ray performed. The patient was reevaluated and went on to tell me that over the past 2 days he has lost complete control of his bowels and bladder. I did a rectal exam on him and noted that there was stool throughout his pants. The patient did have normal rectal tone. Of note, the patient did become extremely short of breath with just lying him flat in order to perform that rectal exam. [facility] and made him aware of this new complaint and that the patient would most likely require an MRI of the lumbar spine to rule out a new cord lesion. The patient did tell me that he has developed increasing low back pain over the past 2 days. Nathaly Burns DO Past Med/Surg History Medical History (Updated 08/10/21 @ 22:50 by Nathaly Burns DO) CAD (coronary artery disease) Chronic obstructive pulmonary disease mild--no inhaler CKD (chronic kidney disease), stage III COPD (chronic obstructive pulmonary disease) Diabetes mellitus, type 2 History of common carotid artery stent placement 06/2017 @ [facility] in [place], [place] Hyperlipidemia Hypertension Myocardial Infarction 1996 NSTEMI (non-ST elevated myocardial infarction) Osteoarthritis PVD (peripheral vascular disease) Stroke 08/27/2017--no deficits Thoracic ascending aortic aneurysm Surgical History Chest pain 07/09/18 CARDIAC CATH WITH 5 MORE HEART STENTS [place] [facility] [place] History of cardiac cath pt states he has had about 12 of them--last one "a couple years ago" History of cholecystectomy History of colonoscopy History of coronary artery bypass graft [place] [facility] [place] History of heart artery stent pt is unsure of how many heart stents, states around 39 stents total (including peripheral artery) History of left cataract extraction History of procedure for peripheral vascular disease pt states he has had about 6 with multiple stents placed History of tooth extraction wisdom teeth Family History Other Cancer Coronary heart disease Social History Smoking Status: Former smoker Tobacco Type: Cigarettes Cigarettes Per Day: quit 1997; Second Hand Exposure: No; Hx Alcohol Use: No Hx Substance Use: No Preferred Language: Romansh Communication Ability: Effective Cash Surrender Calculator Required: No Beliefs That Will Affect Care: None marital status: / Current Living Situation: Alone Current Living Situation Comment: [facility] How many Children do You have: 2 Feels Safe at Home: Yes Assistive Devices: Oxygen - Continuous Allergies Allergies Allergy/AdvReac Type Severity Reaction Status Date / Time hydralazine Allergy Hives Verified 07/21/21 03:17 Iodinated Contrast Media Allergy Unknown Verified 07/21/21 03:17 [Iodinated Contrast- Oral and IV Dye] Home Meds Home Medications Medication Instructions Recorded Confirmed albuterol sulfate 90 mcg/actuation 2 puff INHALATION Q4 PRN 07/21/21 08/10/21 aerosol inhaler atorvastatin 80 mg tablet 80 mg PO QAM 07/21/21 08/10/21 calcium carbonate 600 mg-vitamin 1 tab PO DAILY 07/21/21 08/10/21 D3 20 mcg (800 unit) tablet cholecalciferol (vitamin D3) 25 25 mcg PO DAILY 07/21/21 08/10/21 mcg (1,000 unit) tablet (Vitamin D3) cilostazol 50 mg tablet 50 mg PO BID 07/21/21 08/10/21 clopidogrel 75 mg tablet (Plavix) 75 mg PO DAILY 07/21/21 08/10/21 cyanocobalamin (vitamin B-12) 1,000 mcg IM MO 07/21/21 08/10/21 1,000 mcg/mL injection solution fluticasone propionate 220 2 puff INHALATION BID 07/21/21 08/10/21 mcg/actuation HFA aerosol inhaler (Flovent HFA) iron,carbonyl 65 mg-vitamin C 125 1 tab PO Q OTHER DAY 07/21/21 08/10/21 mg tablet,delayed release (Vitron-C) meclizine 12.5 mg tablet 12.5 mg PO BID 07/21/21 08/10/21 mometasone 50 mcg/actuation nasal 2 spray INTRANASAL DAILY 07/21/21 08/10/21 spray (Nasonex) nitroglycerin 0.4 mg sublingual 0.4 mg SUBLINGUAL UD PRN 07/21/21 08/10/21 tablet (Nitrostat) potassium chloride 20 mEq 20 meq PO MOWEFR 07/21/21 08/10/21 tablet,extended release(part/cryst) ranolazine 500 mg tablet,extended 500 mg PO BID 07/21/21 08/10/21 release,12 hr sennosides 8.6 mg-docusate sodium 2 tab-cap PO BID 07/21/21 08/10/21 50 mg capsule (Senna Plus) torsemide 10 mg tablet 10 mg PO MOWEFR 07/21/21 08/10/21 tramadol 50 mg tablet 50 mg PO DAILY PRN 07/21/21 08/10/21 Previous Rx's Medication Instructions Recorded L.acidop,casei,lactis,rham-B.lact,stefania 2 cap PO DAILY #10 cap 07/29/21 625 mg (10 billion cell) capsule (Advanced Probiotic) amlodipine 5 mg tablet (Norvasc) 10 mg PO QPM #30 tab 07/29/21 carvedilol 25 mg tablet 25 mg PO BID #60 tab 07/29/21 guaifenesin 600 mg tablet, 600 mg PO Q12 #10 tab 07/29/21 extended release 12 hr (Mucinex) Results & Data (ED) Vital Signs Vital Signs - 24 hr 08/10/21 05:40 08/10/21 05:45 08/10/21 06:32 Temperature 37.4 C Temperature Source Oral Pulse Rate 68 Pulse Rate [Apical] 65 Respiratory Rate 28 H 24 Blood Pressure 110/64 Blood Pressure [Right Arm] 140/65 Blood Pressure Mean 79 Blood Pressure Mean [Right Arm] 90 Blood Pressure Position [Right Arm] Pulse Oximetry 98 98 94 Oxygen Delivery Method Nasal Cannula Nasal Cannula Nasal Cannula Oxygen Flow Rate 6 6 6 Sepsis Recent Fever Within 48 Hours No Sepsis New/Unexplained Change in Mental Status No Sepsis Action Taken by Nursing No Action Required 08/10/21 07:35 Temperature Temperature Source Pulse Rate Pulse Rate [Apical] 67 Respiratory Rate Blood Pressure Blood Pressure [Right Arm] 128/54 L Blood Pressure Mean Blood Pressure Mean [Right Arm] 78 Blood Pressure Position [Right Arm] Lying Pulse Oximetry 95 Oxygen Delivery Method Nasal Cannula Oxygen Flow Rate 6 Sepsis Recent Fever Within 48 Hours Sepsis New/Unexplained Change in Mental Status Sepsis Action Taken by Nursing Laboratory Data Result diagrams: 08/10/21 05:40 08/10/21 05:40 Lab Results 08/10/21 08/10/21 08/10/21 Range/Units 05:40 05:40 05:40 WBC 3.20 L (4.8-10.8) K/uL RBC 3.49 L (4.7-6.1) M/uL Hgb 8.8 L (14.0-18.0) g/dL Hct 28.0 L (42-52) % MCV 80.2 (80-100) fL MCH 25.2 (25-34) pg MCHC 31.4 L (32-36) g/dL RDW Std Deviation 55.9 H (36.4-46.3) fL RDW Coeff of Dary 19.1 H (11.5-14.5) % Plt Count 70 L (130-400) K/uL MPV 8.6 (7.4-10.4) fL Immature Gran % (Auto) 0.3 % Neut % (Auto) 79.7 % Lymph % (Auto) 10.0 % [place] % (Auto) 8.1 % Eos % (Auto) 1.9 % Baso % (Auto) 0.0 % Neut # (Auto) 2.55 (1.4-6.5) K/uL Lymph # (Auto) 0.32 L (1.2-3.4) K/uL [place] # (Auto) 0.26 (0.11-0.59) K/uL Eos # (Auto) 0.06 (0-0.5) K/uL Baso # (Auto) 0.00 (0-0.2) K/uL Immature Gran # (Auto) 0.01 (0.00-0.02) K/uL Platelet Estimate Decreased L (Normal) Echinocytes 1+ Sodium 134 L (136-145) mmol/L Potassium 5.0 (3.5-5.1) mmol/L Chloride 100 (98-107) mmol/L Carbon Dioxide 27 (21-32) mmol/L Anion Gap 7 (3-11) BUN 39 H (6-23) mg/dl Creatinine 1.99 H (0.6-1.4) mg/dl Est Cr Clr Drug Dosing 31.8 ml/min Est GFR ( Amer) 36.2 ml/min Est GFR (Non-Af Amer) 31.2 ml/min BUN/Creatinine Ratio 19.6 (10-20) Glucose 162 H (70-99(Fasting)) mg/dl Calcium 7.6 L (8.5-10.1) mg/dl Total Bilirubin 0.9 (0.2-1.0) mg/dl AST 20 (13-39) U/L ALT 24 (7-52) U/L Alkaline Phosphatase 77 (34-104) U/L Troponin I 0.03 (0-0.04) ng/ml Total Protein 5.5 L (6.0-8.3) gm/dl Albumin 3.0 L (3.4-5.0) gm/dl Globulin 2.5 (2.5-4.0) gm/dl Albumin/Globulin Ratio 1.2 (0.9-2) Procalcitonin 0.13 (0-0.5) ng/ml Administered Medications Albuterol (Albut/Ipratrop 3mg/0.5mg Neb 3 Ml Vial) 3 ml NEB QIDR [facility]; Protocol Stop: 09/09/21 10:59 Last Admin: 08/10/21 20:11 Dose: 3 ml Documented by: [id number] Admin: 08/10/21 15:04 Dose: 3 ml Documented by: [id number] Admin: 08/10/21 12:13 Dose: 3 ml Documented by: [id number] Amlodipine Besylate (Amlodipine Besylate 5 Mg Tab) 5 mg PO QPM QIAN Stop: 09/09/21 20:59 Last Admin: 08/10/21 21:01 Dose: 5 mg Documented by: [id number] Carvedilol (Carvedilol 25 Mg Tab) 25 mg PO BID QIAN Stop: 09/09/21 20:59 Last Admin: 08/10/21 21:01 Dose: 25 mg Documented by: [id number] Cilostazol (Cilostazol 100 Mg Tab) 50 mg PO BID QIAN Stop: 09/09/21 20:59 Last Admin: 08/10/21 21:01 Dose: 50 mg Documented by: [id number] Guaifenesin (Guaifenesin 600 Mg Tabcr) 600 mg PO Q12 QIAN Stop: 09/09/21 20:59 Last Admin: 08/10/21 21:01 Dose: 600 mg Documented by: [id number] Insulin Aspart (Insulin Aspart Per Unit) 0 units SC ACHS QIAN Stop: 09/09/21 16:29 Last Admin: 08/10/21 21:04 Dose: Not Given Documented by: [id number] Admin: 08/10/21 20:55 Dose: Not Given Documented by: [id number] Meclizine HCl (Meclizine 12.5 Mg Tab) 12.5 mg PO BID [facility] Stop: 09/09/21 20:59 Last Admin: 08/10/21 21:26 Dose: 12.5 mg Documented by: [id number] Nitroglycerin (Nitroglycerin Sl 0.4 Mg/Tab Tab) 0.4 mg SL UD PRN PRN Reason: Chest Pain Stop: 09/09/21 15:54 Last Admin: 08/10/21 22:29 Dose: 0.4 mg Documented by: [id number] Admin: 08/10/21 21:28 Dose: 0.4 mg Documented by: [id number] Ranolazine (Ranolazine 500 Mg Er Tab) 500 mg PO BID QIAN Stop: 09/09/21 20:59 Last Admin: 08/10/21 21:26 Dose: 500 mg Documented by: [id number] Senna/Docusate Sodium (Docusate Sodium/Senna 50/8.6mg Tab) 2 tab PO BID QIAN Stop: 09/09/21 20:59 Last Admin: 08/10/21 21:04 Dose: Not Given Documented by: [id number] Discontinued Medications Furosemide (Furosemide 40 Mg/4 Ml Vial) 40 mg IV ONE ONE Stop: 08/10/21 10:30 Last Admin: 08/10/21 11:42 Dose: 40 mg Documented by: [id number] Lorazepam (Ativan) 0.5 mg in 1 mls @ 1 mls/min IV NOW STA Stop: 08/10/21 17:13 Last Admin: 08/10/21 17:32 Dose: 1 mls/min Documented by: [id number] Methylprednisolone (Methylprednisolone 40 Mg/Ml Vial) 40 mg IV NOW STA Stop: 08/10/21 11:37 Last Admin: 08/10/21 12:13 Dose: 40 mg Documented by: [id number] Discharge Plan Visit Data Chief Complaint: Shortness of Breath/Dyspnea Stated Complaint: BREATHING DIFFICULTY ED Provider: Nathaly Burns Discharge Problem: Bowel and bladder incontinence, Respiratory failure Patient Disposition: Admitted As Inpatient Discharge Instructions Interventions: ED Discharge Assessment Last Done: 08/10/21 15:55 Discharge Problem: Respiratory failure Qualifiers: Chronicity: acute on chronic Respiratory failure complication: unspecified whether with hypoxia or hypercapnia Qualified Code(s): J96.20 - Acute and chronic respiratory failure, unspecified whether with hypoxia or hypercapnia
[2021-08-10 05:55] LABS: Hemoglobin 8.8 g/dL (14.0-18.0); Mean Corpuscular Hemoglobin 25.2 pg (25-34); Mean Corpuscular Hgb Conc 31.4 g/dL (32-36); Mean Corpuscular Volume 80.2 fL (80-100); RDW Coefficient of Variation 19.1 % (11.5-14.5); RDW Standard Deviation 55.9 fL (36.4-46.3); Red Blood Count 3.49 M/uL (4.7-6.1)
[2021-08-10 06:25] LABS: Troponin I 0.03 ng/ml (0-0.04)
[2021-08-10 06:37] LABS: Echinocytes 1+; Eosinophils # (auto) 0.06 K/uL (0-0.5); Eosinophils % (auto) 1.9 %; Immature Granulocytes # (auto) 0.01 K/uL (0.00-0.02); Immature Granulocytes % (auto) 0.3 %; Lymphocytes # (auto) 0.32 K/uL (1.2-3.4); Mean Platelet Volume 8.6 fL (7.4-10.4); Monocytes # (auto) 0.26 K/uL (0.11-0.59); Monocytes % (auto) 8.1 %; Neutrophils # (auto) 2.55 K/uL (1.4-6.5); Neutrophils % (auto) 79.7 %; Platelet Count 70 K/uL (130-400); Platelet Estimate Decreased (Normal)
[2021-08-10 06:44] LABS: Albumin Globulin Ratio 1.2 (0.9-2); BUN Creatinine Ratio 19.6 (10-20); Bilirubin,Total 0.9 mg/dl (0.2-1.0); Calcium 7.6 mg/dl (8.5-10.1); Creatinine Clr Calc Pharmacy 31.8 ml/min; Est GFR (African American) 36.2 ml/min; Est GFR (Non-African American) 31.2 ml/min; Globulin 2.5 gm/dl (2.5-4.0); Total Protein 5.5 gm/dl (6.0-8.3)
--- NOTE | 2021-08-10 07:42 | Electrocardiogram Report ---
Test Reason : Blood Pressure : / mmHG Vent. Rate : 068 BPM Atrial Rate : 068 BPM P-R Int : 254 ms QRS Dur : 102 ms QT Int : 442 ms P-R-T Axes : 092 -15 126 degrees QTc Int : 469 ms Poor data quality, interpretation may be adversely affected Sinus rhythm with 1st degree A-V block Left ventricular hypertrophy with repolarization abnormality possible Inferior infarct , age undetermined Abnormal ECG When compared with ECG of 21-JUL-2021 02:07, Premature supraventricular complexes are no longer Present Confirmed by Aidan Ye ([id number]) on 08/10/2021 7:41:50 AM Referred By: REFERRED SELF Confirmed By:Ben Ye
--- NOTE | 2021-08-10 09:44 | History & Physical Report ---
Date of Service August 10, 2021 Assessment & Plan (1) Acute on chronic respiratory failure with hypoxia: Plan: This is a 76yo M with a PMH of recent covid pneumonia (tested positive on 07/21/20), chronic systolic heart failure (EF 45-50%, TTE 2019), valvular heart di sease (mild AR/MR, severe on recent TTE), COPD with 25 pack years, pulmonary hypertension, CAD (s/p CABG), PVD status post surgery, HTN, DM 2 diet- controlled, CKD, BPH, chronic anemia and chronic thrombocytopenia who presents with worsening shortness of breath felt to be multifactorial in setting of decompensated heart failure, recent covid pneumonia and underlying COPD. (2) Heart failure, systolic, with acute decompensation: Plan: Appears volume overloaded, increased BLE edema and JVD Given 40mg IV Lasix in ED - strict I&Os, jennings placement and daily weights to track diuresis Most recent TTE in our system from Aug 2019 with EF 45-50%, valvular heart disease Repeat TTE, appreciate input from cardiology (3) History of viral pneumonia: Plan: Recently covid + on 07/21 with pneumonia, completed steroid course but increased SOB over past week. Covid screen today is negative Afebrile, no leukocytosis, procal ordered to eval for secondary bacterial pna but WNL (4) COPD (chronic obstructive pulmonary disease): Plan: History of 25 pack years, no longer smoking. Wheezing and rhonchi on exam Duonebs, solu medrol 40mg IV x 1 today, continue with prednisone tomorrow, home inhalers, Mucinex Currently mentating at baseline, consider ABG if becomes more lethargic (5) Fall: Plan: Fell out of bed overnight onto backside, denies any LOC or head trauma Fall precautions, PT and OT evaluation as patient lives alone, ambulates with walker at baseline (6) Bowel and bladder incontinence: Plan: New for 2 days per patient. No saddle anesthesia or BLE weakness or paresthesias. MRI lumbar spine pending (7) CKD (chronic kidney disease), stage III: Plan: Cr 1.99 today, has ranged from 1.6-2 in past 6 months. Given Lasix in setting of HF. Avoid nephrotoxic agents when able. Monitor with daily BMP (8) CAD (coronary artery disease): Plan: H/o CAD status post CABG/PVD status post surgery, follows with [facility] as outpatient No CP or acute ECG changes Continue medical management per home regimen including Coreg, ranolazine, Plavix, Lipitor (9) Hypertension: Plan: BP elevated on previous admission - amlodipine increased to 10mg ( ? contributing to BLE edema), Coreg to 25mg BID (10) Diabetes mellitus, type 2: Plan: A1c 6.23 Jul 2020, diet controlled. Will add SSI due to anticipated hyperglycemia 2/2 steroids. BSG ACHS (11) PAD (peripheral artery disease): Plan: Continue plavix, cilostazol DVT Ppx: SCDs for now given worsened plt count of 70 (baseline 100) Code status: FULL PCP: Robe Taylor: Admitted to med/tele Patient seen in collaboration with Dr. Whaley. Please see addendum. History of Present Illness Chief Complaint: SOB Primary Care Provider: Dalila Viera MD This is a 76yo M with a PMH of recent covid pneumonia (tested positive on 07/21/20), chronic systolic heart failure (EF 45-50%, TTE 2019), valvular heart disease (mild AR/MR, severe on recent TTE), COPD with 25 pack years, pu lmonary hypertension, CAD (s/p CABG), PVD status post surgery, HTN, DM 2 diet- controlled, CKD, BPH, chronic anemia and chronic thrombocytopenia who presents with worsening shortness of breath. Was recently admitted to our service for hypoxia in setting of covid pneumonia and was discharged home on 2 L nasal cannula continuously. During admission, also had Coreg and amlodipine doses increased by cardiology. Heart failure felt to be compensated at that time. Follows with [facility] in outpatient setting. Since discharge home, patient is noting increased shortness of breath as well as swelling in lower extremities. Silt significantly more SOB walking in kitchen yesterday and continues to feel worn down and generally weak. Notes slight increase to lower extremity edema. No orthopnea or PND. + Wheezing and dry cough. No fever, chills, chest pain, palpitations, nausea, vomiting, abdominal pain or dysuria. + bowel and bladder incontinence new over past 2 days, per patient. Has history of chronic back pain but denies previous spinal surgery or known disc disease or stenosis. No saddle anesthesia, weakness or paresthesias in BLE. Fell out of bed last night trying to reach for cell phone and landed on backside. Has some new pain in lower back above waistband today aggravated by movement of LLE. In ED, patient is requiring 6 L of nasal cannula oxygen as compared to 2 L he was discharged home on 12 days ago. Increased work of breathing. [facility] managing [facility]. Ambulates with walker. Afebrile, pancytopenic (noted previously), hgb 8.8 (baseline 9-10), Cr 1.99 ( recent Cr ~1.6-2), BNP 329, covid screen negative today. Procalcitonin pending. ECG unchanged. CXR with bilateral lower lung predominant airspace opacities which may represent atelectasis, pneumonia, and/or aspiration. Allergies Allergy/AdvReac Type Severity Reaction Status Date / Time hydralazine Allergy Hives Verified 07/21/21 03:17 Iodinated Contrast Media Allergy Unknown Verified 07/21/21 03:17 [Iodinated Contrast- Oral and IV Dye] Home Medications Medication Instructions Recorded Confirmed Type albuterol sulfate 90 mcg/actuation 2 puff INHALATION Q4 PRN 07/21/21 08/10/21 History aerosol inhaler atorvastatin 80 mg tablet 80 mg PO QAM 07/21/21 08/10/21 History calcium carbonate 600 mg-vitamin 1 tab PO DAILY 07/21/21 08/10/21 History D3 20 mcg (800 unit) tablet cholecalciferol (vitamin D3) 25 25 mcg PO DAILY 07/21/21 08/10/21 History mcg (1,000 unit) tablet (Vitamin D3) cilostazol 50 mg tablet 50 mg PO BID 07/21/21 08/10/21 History clopidogrel 75 mg tablet (Plavix) 75 mg PO DAILY 07/21/21 08/10/21 History cyanocobalamin (vitamin B-12) 1,000 mcg IM MO 07/21/21 08/10/21 History 1,000 mcg/mL injection solution fluticasone propionate 220 2 puff INHALATION BID 07/21/21 08/10/21 History mcg/actuation HFA aerosol inhaler (Flovent HFA) iron,carbonyl 65 mg-vitamin C 125 1 tab PO Q OTHER DAY 07/21/21 08/10/21 History mg tablet,delayed release (Vitron-C) meclizine 12.5 mg tablet 12.5 mg PO BID 07/21/21 08/10/21 History mometasone 50 mcg/actuation nasal 2 spray INTRANASAL DAILY 07/21/21 08/10/21 History spray (Nasonex) nitroglycerin 0.4 mg sublingual 0.4 mg SUBLINGUAL UD PRN 07/21/21 08/10/21 History tablet (Nitrostat) potassium chloride 20 mEq 20 meq PO MOWEFR 07/21/21 08/10/21 History tablet,extended release(part/cryst) ranolazine 500 mg tablet,extended 500 mg PO BID 07/21/21 08/10/21 History release,12 hr sennosides 8.6 mg-docusate sodium 2 tab-cap PO BID 07/21/21 08/10/21 History 50 mg capsule (Senna Plus) torsemide 10 mg tablet 10 mg PO MOWEFR 07/21/21 08/10/21 History tramadol 50 mg tablet 50 mg PO DAILY PRN 07/21/21 08/10/21 History L.acidop,casei,lactis,rham-B.lact,stefania 2 cap PO DAILY #10 cap 07/29/21 08/10/21 Rx 625 mg (10 billion cell) capsule (Advanced Probiotic) amlodipine 5 mg tablet (Norvasc) 10 mg PO QPM #30 tab 07/29/21 08/10/21 Rx carvedilol 25 mg tablet 25 mg PO BID #60 tab 07/29/21 08/10/21 Rx guaifenesin 600 mg tablet, 600 mg PO Q12 #10 tab 07/29/21 08/10/21 Rx extended release 12 hr (Mucinex) Past Med/Surg History Medical History (Updated 08/10/21 @ 15:16 by Tommy Rock MD) CAD (coronary artery disease) Chronic obstructive pulmonary disease mild--no inhaler CKD (chronic kidney disease), stage III COPD (chronic obstructive pulmonary disease) Diabetes mellitus, type 2 History of common carotid artery stent placement 06/2017 @ [facility] in [place], [place] Hyperlipidemia Hypertension Myocardial Infarction 1996 NSTEMI (non-ST elevated myocardial infarction) Osteoarthritis PVD (peripheral vascular disease) Stroke 08/27/2017--no deficits Thoracic ascending aortic aneurysm Surgical History Chest pain 07/09/18 CARDIAC CATH WITH 5 MORE HEART STENTS PLACED [facility] [place] History of cardiac cath pt states he has had about 12 of them--last one "a couple years ago" History of cholecystectomy History of colonoscopy History of coronary artery bypass graft 1996 @ [facility] [place] quadruple bypass History of heart artery stent pt is unsure of how many heart stents, states around 39 stents total (including peripheral artery) History of left cataract extraction History of procedure for peripheral vascular disease pt states he has had about 6 with multiple stents placed History of tooth extraction wisdom teeth Family History Other Cancer Coronary heart disease Social History Smoking Status: Former smoker Tobacco Type: Cigarettes Cigarettes Per Day: quit 1997; Second Hand Exposure: No; Hx Alcohol Use: No Hx Substance Use: No Preferred Language: Persian Communication Ability: Effective 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 Physical Exam Physical Exam: General Appearance: WD/WN, vitals as above, sitting up in bed, conversational dyspnea Head: normocephalic, atraumatic Eyes: normal inspection, PERRL, conjunctivae normal, anicteric sclerae ENT: external ear and nose normal, oropharynx normal Neck: normal visual inspection, trachea midline, no thyromegaly Respiratory: increased respiratory effort, diffuse rhonchi with expiratory wheezing, rales noted at R base. + accessory muscle use with abdominal breathing Cardiovascular: regular rate, rhythm, no murmur, normal peripheral pulses, 2+ BLE edema. Vessels: + JVD Chest: normal inspection of chest Abdomen/GI: normal bowel sounds, soft, nontender, no hepatosplenomegaly Extremities/Musculoskeletal: + TTP along bony processes lower lumbar spine, no deformities or lesions noted. No cyanosis or clubbing, extremities motor strength 5/5 Neurologic: PERRL, EOMI, accommodation nl, no face palsy, no dysarthria, CN's II-XI intact bilaterally and moves all extremities, no sensory deficits noted Psychiatric: A+Ox3, euthymic affect Skin: no rashes, normal color, warm/dry Results & Data Results & Data ([facility]) Vital Signs (Past 12 Hours) Vital Signs Temp Pulse Pulse Resp BP BP Pulse Ox 08/10/21 09:07 69 138/56 L 99 08/10/21 07:35 67 128/54 L 95 08/10/21 06:32 65 24 140/65 94 08/10/21 05:45 98 08/10/21 05:40 37.4 C 68 28 H 110/64 98 Laboratory Results Short CBC 08/10/21 08/10/21 Range/Units 05:40 05:40 WBC 3.20 L (4.8-10.8) K/uL Hgb 8.8 L (14.0-18.0) g/dL Hct 28.0 L (42-52) % Plt Count 70 L (130-400) K/uL Creatinine 1.99 H (0.6-1.4) mg/dl BMP 08/10/21 05:40 Sodium 134 L Potassium 5.0 Chloride 100 Carbon Dioxide 27 BUN 39 H Creatinine 1.99 H Glucose 162 H Calcium 7.6 L Cardiac Enzymes 08/10/21 Range/Units 05:40 Troponin I 0.03 (0-0.04) ng/ml Liver Function 08/10/21 Range/Units 05:40 Total Bilirubin 0.9 (0.2-1.0) mg/dl AST 20 (13-39) U/L ALT 24 (7-52) U/L Alkaline Phosphatase 77 (34-104) U/L Albumin 3.0 L (3.4-5.0) gm/dl Diagnostic Findings Chest X-Ray 08/10/21 05:44 XR chest 1V portable CLINICAL HISTORY: Dyspnea TECHNIQUE: Single frontal radiograph of the chest was obtained. Comparison: Comparison is made to chest one view 07/27/2021 FINDINGS: Median sternotomy wires are again seen including fractured third wire. Cardiomegaly is noted. Bilateral lower lung predominant airspace opacities are seen. No evidence of pleural effusion or pneumothorax. IMPRESSION: Bilateral lower lung predominant airspace opacities which may represent atelectasis, pneumonia, and/or aspiration. ACT 112: Negative or not required by law. Electronically signed by: Wyatt Arora M.D. 08/10/2021 10:27 AM ECG Additional Comments: SR with first degree AV block, Code Status & VTE Plan VTE Prophylaxis Plan VTE Prophylaxis will be ordered: Yes Supervising Physician Co-Signing Physician Notes History and physical exam performed by me as detailed by Anika Washington PA-C. History notable for recent COVID-19 pneumonia [07/21/2021 to 07/29/2021] chronic systolic heart failure COPD with 25 pack years who presented with worsening shortness of breath. Physical exam notable for nasal cannula 6 L [was discharged on 2 L 12 days ago], tachypnea, wheezing, basilar crackles, bilateral pitting pedal edema Labs notable for pancytopenia, creatinine of 1.99, BNP of 329. COVID test today is negative. Acute on chronic hypoxic respiratory failure Acute on chronic systolic heart failure Continue oxygen supplementation Patient on torsemide 3 days a week at home. Give IV Lasix. Monitor renal function Monitor I's and O's Appreciate cardiology evaluation Possible COPD exacerbation. Give steroid and continue nebs Agree with other plans as detailed by Anika Washington PA-C (1) Fall Encounter type: initial encounter Qualified Code(s): W19.XXXA - Unspecified fall, initial encounter
--- NOTE | 2021-08-10 10:28 | XRay Report ---
XR chest 1V portable CLINICAL HISTORY: Dyspnea TECHNIQUE: Single frontal radiograph of the chest was obtained. Comparison: Comparison is made to chest one view 07/27/2021 FINDINGS: Median sternotomy wires are again seen including fractured third wire. Cardiomegaly is noted. Bilater al lower lung predominant airspace opacities are seen. No evidence of pleural effusion or pneumothora x. IMPRESSION: Bilateral lower lung predominant airspace opacities which may represent atelectasis, pneumonia, and/o r aspiration. ACT 112: Negative or not required by law. Electronically signed by: Wyatt Arora M.D. 08/10/2021 10:27 AM
[2021-08-10] MEDS ORDERED: FUROSEMIDE 40 MG/4 ML VIAL IV ONE (10:29)
[2021-08-10 11:49] LABS: Appearance Urine Clear (Clear); Bacteria Urine Automated Negative (Negative); Bilirubin Urine Negative (Negative); Blood Urine Negative (Negative); Color Urine Dark Yellow; Glucose Urine UA Negative (Negative); Ketones Urine Trace (Negative); Leukocyte Esterase Urine Trace (Negative); Nitrite Urine Negative (Negative); Protein Urine 1+ (Negative); RBC Urine Automated 0-4 /hpf (0-4); Specific Gravity Urine 1.019 (1.000-1.030); Urobilinogen Urine Negative (Negative)
[2021-08-10] MEDS: ALBUT/IPRATROP 3MG/0.5MG NEB 3 ML VIAL NEB SCH ×3 (12:13→20:11)
--- NOTE | 2021-08-10 14:41 | Cardiology Consultation ---
Date of Consultation August 10, 2021 Assessment & Plan (1) Acute on chronic respiratory failure with hypoxia: (2) Heart failure, systolic, with acute decompensation: (3) Ischemic cardiomyopathy: (4) Renal vascular disease: (5) Aortic stenosis: (6) CAD (coronary artery disease): Patient is a 76-year-old male with an extremely complex history of underlying medical issues and vascular issues recently hospitalized with acute COVID-pneumonia. Patient presents with hypoxic respiratory failure subacute in onset with gradually worsening symptoms of several days duration. Exam does suggest mild volume overload superimposed on underlying respiratory issues complicated by vascular and valvular heart disease, possible right diaphragmatic paresis Plan: Agree with orders as issued patient received furosemide 40 mg in ER will likely get an additional dose this evening depending on response. Echocardiogram will be reviewed. Subacute onset does not suggest acute pulmonary embolus though patient with multiple risk factors. No ischemic changes on EKG or cardiac enzymes chronic renal insufficiency will need to be followed closely Patient high risk for further clinical decline Cardiology will follow in hospital History of Present Illness Reason for Consultation: Acute hypoxic respiratory distress Requesting Physician: Anila Whaley MD Attending Physician: Anila Whaley MD History of Present Illness Patient is an extremely complex 76-year-old male with longstanding history of diffuse vascular disease with summary of issues 1. Severe multivessel coronary disease status post c coronary bypass grafting 1996 all grafts known to be occluded, multiple coronary interventions most recent August 2019, undergoing balloon angioplasty of the left left main, ostial left circumflex (previously stented) mid and distal left anterior descending with stenting of the distal lesion 2. Atherosclerotic carotid disease status post right carotid artery stent 2017 with past stroke 3. Peripheral vascular disease multiple lower extremity interventions 4. Ischemic cardiomyopathy 5. Mixed valvular disease including moderate aortic stenosis, moderate pulmonary pretension 6. Chronic obstructive/restrictive lung disease with chronic right hemid iaphragm elevation 7. Hypertension with past hypertensive urgency 8. Pancytopenia 9. 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 Acute hospitalization with pneumonia secondary to COVID 07/21/2021 Patient presents today with worsening respiratory distress. Note following recent hospitalization was discharged on oxygen and had been wearing it intermittently at home. Dyspnea however been progressively worsening has had lower extremity edema until today presented due to "unable to breathe". Notes difficulties with mobility about home and fell out of bed in the past 2 days. No syncope or near syncope. No chest pains. No sensed tachypalpitations. No overt bleeding. Does bruise easily. Appetite is only fair. Has had difficulties with marked diarrhea. Patient compliant with medications with aid in home nursing Patient in moderate respiratory distress in the ER with coarse rhonchi audible. Allergies Allergy/AdvReac Type Severity Reaction Status Date / Time hydralazine Allergy Hives Verified 07/21/21 03:17 Iodinated Contrast Media Allergy Unknown Verified 07/21/21 03:17 [Iodinated Contrast- Oral and IV Dye] Home Medications Medication Instructions Recorded Confirmed Type albuterol sulfate 90 mcg/actuation 2 puff INHALATION Q4 PRN 07/21/21 08/10/21 History aerosol inhaler atorvastatin 80 mg tablet 80 mg PO QAM 07/21/21 08/10/21 History calcium carbonate 600 mg-vitamin 1 tab PO DAILY 07/21/21 08/10/21 History D3 20 mcg (800 unit) tablet cholecalciferol (vitamin D3) 25 25 mcg PO DAILY 07/21/21 08/10/21 History mcg (1,000 unit) tablet (Vitamin D3) cilostazol 50 mg tablet 50 mg PO BID 07/21/21 08/10/21 History clopidogrel 75 mg tablet (Plavix) 75 mg PO DAILY 07/21/21 08/10/21 History cyanocobalamin (vitamin B-12) 1,000 mcg IM MO 07/21/21 08/10/21 History 1,000 mcg/mL injection solution fluticasone propionate 220 2 puff INHALATION BID 07/21/21 08/10/21 History mcg/actuation HFA aerosol inhaler (Flovent HFA) iron,carbonyl 65 mg-vitamin C 125 1 tab PO Q OTHER DAY 07/21/21 08/10/21 History mg tablet,delayed release (Vitron-C) meclizine 12.5 mg tablet 12.5 mg PO BID 07/21/21 08/10/21 History mometasone 50 mcg/actuation nasal 2 spray INTRANASAL DAILY 07/21/21 08/10/21 History spray (Nasonex) nitroglycerin 0.4 mg sublingual 0.4 mg SUBLINGUAL UD PRN 07/21/21 08/10/21 History tablet (Nitrostat) potassium chloride 20 mEq 20 meq PO MOWEFR 07/21/21 08/10/21 History tablet,extended release(part/cryst) ranolazine 500 mg tablet,extended 500 mg PO BID 07/21/21 08/10/21 History release,12 hr sennosides 8.6 mg-docusate sodium 2 tab-cap PO BID 07/21/21 08/10/21 History 50 mg capsule (Senna Plus) torsemide 10 mg tablet 10 mg PO MOWEFR 07/21/21 08/10/21 History tramadol 50 mg tablet 50 mg PO DAILY PRN 07/21/21 08/10/21 History L.acidop,casei,lactis,rham-B.lact,stefania 2 cap PO DAILY #10 cap 07/29/21 08/10/21 Rx 625 mg (10 billion cell) capsule (Advanced Probiotic) amlodipine 5 mg tablet (Norvasc) 10 mg PO QPM #30 tab 07/29/21 08/10/21 Rx carvedilol 25 mg tablet 25 mg PO BID #60 tab 07/29/21 08/10/21 Rx guaifenesin 600 mg tablet, 600 mg PO Q12 #10 tab 07/29/21 08/10/21 Rx extended release 12 hr (Mucinex) Patient History Medical History (Updated 08/10/21 @ 15:16 by Tommy Rock MD) CAD (coronary artery disease) Chronic obstructive pulmonary disease mild--no inhaler CKD (chronic kidney disease), stage III COPD (chronic obstructive pulmonary disease) Diabetes mellitus, type 2 History of common carotid artery stent placement 06/2017 @ [facility] in [place], [place] Hyperlipidemia Hypertension Myocardial Infarction 1996 NSTEMI (non-ST elevated myocardial infarction) Osteoarthritis PVD (peripheral vascular disease) Stroke 08/27/2017--no deficits Thoracic ascending aortic aneurysm Surgical History Chest pain 07/09/18 CARDIAC CATH WITH 5 MORE HEART STENTS PLACED [facility] [place] History of cardiac cath pt states he has had about 12 of them--last one "a couple years ago" History of cholecystectomy History of colonoscopy History of coronary artery bypass graft 1996 @ [facility] [place] quadruple bypass History of heart artery stent pt is unsure of how many heart stents, states around 39 stents total (including peripheral artery) History of left cataract extraction History of procedure for peripheral vascular disease pt states he has had about 6 with multiple stents placed History of tooth extraction wisdom teeth Family History Other Cancer Coronary heart disease Social History Smoking Status: Former smoker Tobacco Type: Cigarettes Cigarettes Per Day: quit 1997; Second Hand Exposure: No; Hx Alcohol Use: No Hx Substance Use: No Preferred Language: Argentine Communication Ability: Effective 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 Required: No Beliefs That Will Affect Care: None marital status: / Current Living Situation: Alone Current Living Situation Comment: [facility] How many Children do You have: 2 Feels Safe at Home: Yes Assistive Devices: Oxygen - Continuous Review of Systems Review of Systems: All systems reviewed & are unremarkable except as noted in HPI & below Physical Exam Constitutional: Obese ill-appearing male in moderate respiratory distress Eyes: PERRL, conjunctivae normal, anicteric sclerae ENMT: external ear and nose normal, oropharynx normal Neck: trachea midline, no thyromegaly Respiratory: + labored breathing and + audible wheezes Auscultation: + rhonchi Cardiovascular: Rate/Rhythm: regular rate and regular rhythm Heart Sounds: normal S1, normal S2 and + murmur (Grade 2/6 to 3/6 systolic murmur) Vessels: + JVD and + carotid bruit Extremities: + edema (2+ doughy edema lower extremi ty) Gastrointestinal (Abdomen): normal bowel sounds, soft, nontender, no hepatosplenomegaly Musculoskeletal: Head/Neck/Chest: normocephalic and head atraumatic Psychiatric: A+Ox3, euthymic affect Results & Data ([facility]) Vital Signs (Past 12 Hours) Vital Signs Temp Pulse Pulse Resp BP BP Pulse Ox 08/10/21 13:00 73 129/69 08/10/21 11:00 70 147/56 H 97 08/10/21 09:07 69 138/56 L 99 08/10/21 07:35 67 128/54 L 95 08/10/21 06:32 65 24 140/65 94 08/10/21 05:45 98 08/10/21 05:40 37.4 C 68 28 H 110/64 98 Laboratory Results Laboratory Results - last 24 hr 08/10/21 08/10/21 08/10/21 05:40 05:40 05:40 WBC 3.20 L RBC 3.49 L Hgb 8.8 L Hct 28.0 L MCV 80.2 MCH 25.2 MCHC 31.4 L RDW Std Deviation 55.9 H RDW Coeff of Dary 19.1 H Plt Count 70 L MPV 8.6 Immature Gran % (Auto) 0.3 Neut % (Auto) 79.7 Lymph % (Auto) 10.0 [place] % (Auto) 8.1 Eos % (Auto) 1.9 Baso % (Auto) 0.0 Neut # (Auto) 2.55 Lymph # (Auto) 0.32 L [place] # (Auto) 0.26 Eos # (Auto) 0.06 Baso # (Auto) 0.00 Immature Gran # (Auto) 0.01 Platelet Estimate Decreased L Echinocytes 1+ Sodium 134 L Potassium 5.0 Chloride 100 Carbon Dioxide 27 Anion Gap 7 BUN 39 H Creatinine 1.99 H Est Cr Clr Drug Dosing 31.8 Est GFR ( Amer) 36.2 Est GFR (Non-Af Amer) 31.2 BUN/Creatinine Ratio 19.6 Glucose 162 H POC Glucose Calcium 7.6 L Total Bilirubin 0.9 AST 20 ALT 24 Alkaline Phosphatase 77 Troponin I 0.03 B-Natriuretic Peptide Total Protein 5.5 L Albumin 3.0 L Globulin 2.5 Albumin/Globulin Ratio 1.2 Procalcitonin 0.13 Urine Color Urine Appearance Urine pH Ur Specific [place] Urine Protein Urine Glucose (UA) Urine Ketones Urine Blood Urine Nitrite Urine Bilirubin Urine Urobilinogen Ur Leukocyte Esterase Urine WBC (Auto) Urine RBC (Auto) U Hyaline Cast (Auto) U Epithel Cells (Auto) Urine Bacteria (Auto) SARS-CoV-2, RNA, NAAT 08/10/21 08/10/21 08/10/21 08:45 08:52 11:35 WBC RBC Hgb Hct MCV MCH MCHC RDW Std Deviation RDW Coeff of Dary Plt Count MPV Immature Gran % (Auto) Neut % (Auto) Lymph % (Auto) [place] % (Auto) Eos % (Auto) Baso % (Auto) Neut # (Auto) Lymph # (Auto) [place] # (Auto) Eos # (Auto) Baso # (Auto) Immature Gran # (Auto) Platelet Estimate Echinocytes Sodium Potassium Chloride Carbon Dioxide Anion Gap BUN Creatinine Est Cr Clr Drug Dosing Est GFR ( Amer) Est GFR (Non-Af Amer) BUN/Creatinine Ratio Glucose POC Glucose Calcium Total Bilirubin AST ALT Alkaline Phosphatase Troponin I B-Natriuretic Peptide 329 H Total Protein Albumin Globulin Albumin/Globulin Ratio Procalcitonin Urine Color Dark Yellow Urine Appearance Clear Urine pH 5.0 Ur Specific [place] 1.019 Urine Protein 1+ H Urine Glucose (UA) Negative Urine Ketones Trace H Urine Blood Negative Urine Nitrite Negative Urine Bilirubin Negative Urine Urobilinogen Negative Ur Leukocyte Esterase Trace H Urine WBC (Auto) 1-5 Urine RBC (Auto) 0-4 U Hyaline Cast (Auto) 1-5 U Epithel Cells (Auto) 5-10 H Urine Bacteria (Auto) Negative SARS-CoV-2, RNA, NAAT NEGATIVE 08/10/21 13:35 WBC RBC Hgb Hct MCV MCH MCHC RDW Std Deviation RDW Coeff of Dary Plt Count MPV Immature Gran % (Auto) Neut % (Auto) Lymph % (Auto) [place] % (Auto) Eos % (Auto) Baso % (Auto) Neut # (Auto) Lymph # (Auto) [place] # (Auto) Eos # (Auto) Baso # (Auto) Immature Gran # (Auto) Platelet Estimate Echinocytes Sodium Potassium Chloride Carbon Dioxide Anion Gap BUN Creatinine Est Cr Clr Drug Dosing Est GFR ( Amer) Est GFR (Non-Af Amer) BUN/Creatinine Ratio Glucose POC Glucose 120 H Calcium Total Bilirubin AST ALT Alkaline Phosphatase Troponin I B-Natriuretic Peptide Total Protein Albumin Globulin Albumin/Globulin Ratio Procalcitonin Urine Color Urine Appearance Urine pH Ur Specific [place] Urine Protein Urine Glucose (UA) Urine Ketones Urine Blood Urine Nitrite Urine Bilirubin Urine Urobilinogen Ur Leukocyte Esterase Urine WBC (Auto) Urine RBC (Auto) U Hyaline Cast (Auto) U Epithel Cells (Auto) Urine Bacteria (Auto) SARS-CoV-2, RNA, NAAT Diagnostic Findings Echocardiogram 03/21/2021 The left ventricular cavity size is normal. The LV wall thickness is moderately increased (concentric). There is mild diffuse left ventricular hypokinesis. The qualitative LV ejection fraction is 45-49% (mildly reduced). The left ventricular diastolic function is moderately abnormal (grade II). The left atrium is moderately enlarged (42-48 ml/m^2). The aortic valve is severely calcified. The aortic valve opening is moderately reduced. Mild aortic valve regurgitation is present. Image and Doppler assessment of aortic stenosis severity is discordant: Moderate aortic stenosis is present. Mild mitral regurgitation is present. The aortic root is mildly enlarged (4.2 cm). The proximal ascending thoracic aorta is mildly enlarged (4.5 cm). Indeterminate IVC size and collapsability. Right atrial pressure estimated at 8 mmHg. The estimated pulmonary artery systolic pressure is 45-50mm Hg. ECG Additional Comments: Sinus rhythm with 1st degree A-V block Left ventricular hypertrophy with repolarization abnormality possible Inferior infarct , age undetermined Abnormal ECG When compared with ECG of 21-JUL-2021 02:07, Premature supraventricular complexes are no longer Present
[2021-08-10] MEDS ORDERED: traMADol HCL 50 MG TABLET PO PRN (15:55)
[2021-08-10] MEDS ORDERED: POLYETHYLENE (MIRALAX) 17 GM PACK PO PRN (15:55)
[2021-08-10] MEDS ORDERED: GLUCAGON FOR INJ 1 MG VIAL SQ PRN (15:55)
[2021-08-10] MEDS ORDERED: GLUCOSE 40% GEL 15 GM TUBE PO PRN (15:55)
[2021-08-10] MEDS ORDERED: ACETAMINOPHEN 325 MG TAB PO PRN (15:55)
[2021-08-10] MEDS ORDERED: GLUCOSE 10 TABS/TUBE PO PRN (15:55)
[2021-08-10] MEDS ORDERED: ONDANSETRON INJ 2 MG/ML 2 ML VIAL IV PRN (15:55)
[2021-08-10] MEDS ORDERED: CARBOHYDRATES FOR HYPOGLYCEMIA PO PRN (15:55)
[2021-08-10] MEDS ORDERED: ALBUTEROL HFA 8 GM INHALER INH PRN (15:55)
[2021-08-10] MEDS ORDERED: NON-FORMULARY MEDICATION (Iron,Carbonyl-Vitamin C [Vitron-C] 65 mg iron- 125 mg tablet,del PO SCH (15:55)
[2021-08-10] MEDS ORDERED: DEXTROSE 50% 50 ML SYRINGE IV PRN (15:55)
[2021-08-10] MEDS ORDERED: LORazepam 0.5 MG/1 ML VIAL IV STA (17:12)
--- NOTE | 2021-08-10 20:03 | Magnetic Resonance Report ---
MR lumbar spine wo con CLINICAL HISTORY: lumbar spinal pain, new bowel incontinence TECHNIQUE: Multiplanar sequences through the lumbar spine were obtained, without intravenous contrast . Comparison: None available at the time of this dictation. FINDINGS: Exam is highly limited by patient motion. The alignment is anatomical. Mild degenerative changes are seen. L1-L2: No significant abnormality. L2-L3: No significant abnormality. L3-L4: Facet arthropathy is seen with suggestion of mild neuroforaminal stenosis bilaterally. L4-L5: Small posterior disc bulge is seen without significant spinal stenosis. There is likely mild n euroforaminal stenosis bilaterally. L5-S1: Small posterior disc bulge is seen without significant spinal stenosis. The spinal ligaments are intact, without evidence of disruption or abnormal signal intensity. The spi nal cord is normal in signal intensity and there is no evidence of cord contusion. There is no eviden ce of an extradural, intradural, extramedullary or intramedullary lesion. Visualized soft tissues are normal. IMPRESSION: Highly limited exam. No evidence of significant spinal stenosis. Mild neuroforaminal stenosis is sugg ested at and L3-L4 and L4-L5. ACT 112: Negative or not required by law. Electronically signed by: Wyatt Arora M.D. 08/10/2021 8:01 PM
[2021-08-10] MEDS: INSULIN ASPART PER UNIT SC SCH ×2 (20:55→21:04)
[2021-08-10] MEDS ORDERED: amLODIPine BESYLATE 5 MG TAB PO SCH (21:00)
[2021-08-10] MEDS: guaiFENesin 600 MG TABCR PO SCH (21:01)
[2021-08-10] MEDS: carvediloL 25 MG TAB PO SCH (21:01)
[2021-08-10] MEDS: cilostazoL 100 MG TAB PO SCH (21:01)
[2021-08-10] MEDS: DOCUSATE SODIUM/SENNA 50/8.6MG TAB PO SCH ×2 (21:01→21:04)
[2021-08-10] MEDS: MECLIZINE 12.5 MG TAB PO SCH (21:26)
[2021-08-10] MEDS: RANOLAZINE 500 MG ER TAB PO SCH (21:26)
[2021-08-10] MEDS: NITROGLYCERIN SL 0.4 MG/TAB TAB SL PRN ×2 (21:28→22:29)
[2021-08-10] MEDS ORDERED: SODIUM BICARB 8.4% INJ 50 MEQ/50 ML SYR IV ONE (23:29)
[2021-08-10] MEDS ORDERED: CALCIUM CHLORIDE 10% 10 ML SYR IV ONE (23:29)
[2021-08-10] MEDS ORDERED: SODIUM CHLORIDE 0.9% 10ML FLUSH IV ONE (23:29)
[2021-08-11] MEDS ORDERED: ISOSORBIDE DINITRATE 20 MG TAB PO SCH (07:00)
[2021-08-11 07:09] LABS: Hematocrit (blood only) 29.3 % (42-52); Hemoglobin 9.2 g/dL (14.0-18.0); Mean Corpuscular Hemoglobin 25.3 pg (25-34); Mean Corpuscular Hgb Conc 31.4 g/dL (32-36); Mean Corpuscular Volume 80.5 fL (80-100); Mean Platelet Volume 8.8 fL (7.4-10.4); Platelet Count 113 K/uL (130-400); RDW Coefficient of Variation 18.8 % (11.5-14.5); RDW Standard Deviation 55.2 fL (36.4-46.3); Red Blood Count 3.64 M/uL (4.7-6.1); White Blood Count 5.82 K/uL (4.8-10.8)
[2021-08-11] MEDS: ALBUT/IPRATROP 3MG/0.5MG NEB 3 ML VIAL NEB SCH ×3 (07:11→15:02)
[2021-08-11] MEDS: RANOLAZINE 500 MG ER TAB PO SCH (07:46)
[2021-08-11 07:47] LABS: BUN Creatinine Ratio 21.5 (10-20); Calcium 7.4 mg/dl (8.5-10.1); Creatinine Clr Calc Pharmacy 22.6 ml/min; Est GFR (African American) 23.5 ml/min; Est GFR (Non-African American) 20.3 ml/min; Potassium 4.9 mmol/L (3.5-5.1); Troponin I 0.04 ng/ml (0-0.04)
[2021-08-11] MEDS: cilostazoL 100 MG TAB PO SCH (07:47)
[2021-08-11] MEDS: guaiFENesin 600 MG TABCR PO SCH (07:48)
[2021-08-11] MEDS: carvediloL 25 MG TAB PO SCH (07:49)
[2021-08-11] MEDS: DOCUSATE SODIUM/SENNA 50/8.6MG TAB PO SCH (07:49)
[2021-08-11] MEDS: MECLIZINE 12.5 MG TAB PO SCH (07:50)
[2021-08-11] MEDS: INSULIN ASPART PER UNIT SC SCH ×3 (08:42→16:49)
[2021-08-11] MEDS ORDERED: CHOLECALCIFEROL 1,000 UNITS 25 MCG TAB PO SCH (09:00)
[2021-08-11] MEDS ORDERED: predniSONE 20 MG TAB PO SCH (09:00)
[2021-08-11] MEDS ORDERED: ADVANCED PROBIOTIC 1250 MG CAPSULE PO SCH (09:00)
[2021-08-11] MEDS ORDERED: CALCIUM 600MG + VIT D 400 IU TAB PO SCH (09:00)
[2021-08-11] MEDS ORDERED: POTASSIUM CHLORIDE CRTAB 20 MEQ TABCR PO SCH (09:00)
[2021-08-11] MEDS ORDERED: ATORVASTATIN 40 MG TAB PO SCH (09:00)
[2021-08-11] MEDS ORDERED: FLUTICASONE FUROATE 200MCG 14 PUFFS/INHALER INH SCH (09:00)
[2021-08-11] MEDS ORDERED: FLUTICASONE PROPIONATE NA SPR 16 GM BTL SCH (09:00)
[2021-08-11] MEDS ORDERED: CLOPIDOGREL BISULFATE 75 MG TAB PO SCH (09:00)
[2021-08-11] MEDS ORDERED: FERROUS SULFATE 325 MG TAB PO SCH (09:00)
[2021-08-11] MEDS ORDERED: ASCORBIC ACID 500 MG TAB PO SCH (09:00)
[2021-08-11] MEDS ORDERED: MICONAZOLE NITRATE POWDER 43 GM EXT PRN (09:06)
--- NOTE | 2021-08-11 09:48 | Electrocardiogram Report ---
Test Reason : Blood Pressure : / mmHG Vent. Rate : 081 BPM Atrial Rate : 081 BPM P-R Int : 174 ms QRS Dur : 102 ms QT Int : 414 ms P-R-T Axes : 037 -03 179 degrees QTc Int : 480 ms Sinus rhythm with Premature atrial complexes Prolonged QT Abnormal ECG When compared with ECG of 10-AUG-2021 05:38, Premature atrial complexes are now Present WI interval has decreased Criteria for Inferior infarct are no longer Present Confirmed by iAdan Ye ([id number]) on 08/11/2021 9:48:41 AM Referred By: REFERRED SELF Confirmed By:Ben Ye
--- NOTE | 2021-08-11 10:47 | Hospitalist Progress Note ---
Date of Service August 11, 2021 Assessment & Plan (1) Acute on chronic respiratory failure with hypoxia: Plan: 76yo M with a PMH of recent covid pneumonia (tested positive on 07/21/20), chronic systolic heart failure (EF 45-50%, TTE 2019), valvular heart disease (mild AR/MR, severe on recent TTE), COPD with 25 pack years, pulmonary hypertension, CAD (s/p CABG), PVD status post surgery, HTN, DM 2 diet- controlled, CKD, BPH, chronic anemia and chronic thrombocytopenia who presents with worsening shortness of breath felt to be multifactorial in setting of decompensated heart failure, recent covid pneumonia and underlying COPD. 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 Continue nebs and prednisone (5) Bowel and bladder incontinence: (6) Fall: Plan: Fell out of bed overnight onto backside prior to presentation Denied any LOC or head trauma Fall precautions, PT and OT evaluation as patient lives alone, ambulates with walker at baseline Lumbar MRI did not show acute abnormalities and no significant spinal stenosis (7) CKD (chronic kidney disease), stage III: Plan: Cr 1.99 on admission, has ranged from 1.6-2 in past 6 months. Cr from 1.99 on admission to 2.84 today Avoid nephrotoxic agents when able. 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 Will continue on discharge. Patient advised to stop taking sl nitro on a regular basis as he reported (9) Hypertension: Plan: Continue amlodipine, carvedilol Monitor BP (10) Diabetes mellitus, type 2: Plan: A1c 6.23 Jul 2020, diet controlled. Glycemic pharm for inpatient glycemic control while on steroid (11) PAD (peripheral artery disease): Plan: Continue plavix, cilostazol DVT Ppx: Hep sc Code status: FULL PCP: [facility] Dispo: med/tele Admission and Anticipated Discharge Date Admission Date: August 10, 2021 Subjective Patient seen and examined Reports cough and shortness of breath are much improved Denied any chest pain, palpitation Denied dizziness Denied any fevers, chills, nausea, vomiting, abd pain, diarrhea Denied dysuria, freq, urgency Physical Exam Constitutional: + well hydrated; no acute distress Eyes: PERRL, conjunctivae normal, anicteric sclerae Respiratory: normal respiratory effort; no respiratory distress +wheeze Cardiovascular: RRR S1 S2, systolic murmur Gastrointestinal (Abdomen): normal bowel sounds, soft, nontender, no hepatosplenomegaly Musculoskeletal: Pedal edema b/l Neurologic: PERRL, EOMI, accommodation nl, no face palsy, no dysarthria Psychiatric: A+Ox3, euthymic affect Results & Data Results & Data ([facility]) Vital Signs (Past 12 Hours) Vital Signs Temp Pulse Pulse Resp BP BP Pulse Ox 08/11/21 10:05 81 20 94 08/11/21 08:00 36.3 C L 79 18 122/72 93 08/11/21 07:12 82 20 94 08/11/21 06:49 36.8 C 81 20 129/81 95 08/11/21 05:40 84 22 95 08/11/21 04:21 36.4 C L 86 18 107/61 91 08/10/21 23:20 36.4 C L 83 20 109/70 93 Laboratory Results Abnormal lab results 08/11/21 08/11/21 08/11/21 Range/Units 06:47 06:47 07:24 RBC 3.64 L (4.7-6.1) M/uL Hgb 9.2 L (14.0-18.0) g/dL Hct 29.3 L (42-52) % MCHC 31.4 L (32-36) g/dL RDW Std Deviation 55.2 H (36.4-46.3) fL RDW Coeff of Dary 18.8 H (11.5-14.5) % Plt Count 113 L D (130-400) K/uL Sodium 134 L (136-145) mmol/L Anion Gap 12 H (3-11) BUN 61 H D (6-23) mg/dl Creatinine 2.84 H D (0.6-1.4) mg/dl BUN/Creatinine Ratio 21.5 H (10-20) Glucose 213 H (70-99(Fasting)) mg/dl POC Glucose 217 H (70-99) mg/dl Calcium 7.4 L (8.5-10.1) mg/dl 08/11/21 Range/Units 11:35 RBC (4.7-6.1) M/uL Hgb (14.0-18.0) g/dL Hct (42-52) % MCHC (32-36) g/dL RDW Std Deviation (36.4-46.3) fL RDW Coeff of Dary (11.5-14.5) % Plt Count (130-400) K/uL Sodium (136-145) mmol/L Anion Gap (3-11) BUN (6-23) mg/dl Creatinine (0.6-1.4) mg/dl BUN/Creatinine Ratio (10-20) Glucose (70-99(Fasting)) mg/dl POC Glucose 236 H (70-99) mg/dl Calcium (8.5-10.1) mg/dl (1) Fall Encounter type: initial encounter Qualified Code(s): W19.XXXA - Unspecified fall, initial encounter
--- NOTE | 2021-08-11 10:53 | Cardiology Progress Note ---
Date of Service August 11, 2021 Assessment & Plan (1) Acute on chronic respiratory failure with hypoxia: (2) Heart failure, systolic, with acute decompensation: (3) Ischemic cardiomyopathy: (4) Renal vascular disease: (5) Aortic stenosis: (6) CAD (coronary artery disease): Plan: Patient is a 76-year-old male with an extremely complex history of underlying medical issues and vascular issues recently hospitalized with acute COVID- pneumonia. Patient presents with hypoxic respiratory failure. Symptoms improved since admission with steroids, nebs, and IV lasix. Unfortunately creatinine trended higher with just one dose IV lasix. Will hold additional diuretics at this time. Does not examine as significantly volume overloaded. Ongoing wheeze noted. May benefit from additional nebs, steroids. Isordil added for chronic anginal symptoms. No evidence of acute ACS with unremarkable enzymes and echo findings actually improved from prior evaluation. Case discussed with Dr. Rock. Will follow. l Admission and Anticipated Discharge Date Admission Date: August 10, 2021 Supervising Physician Co-Signing Physician Notes Patient was seen and examined, chart, medications, telemetry reviewed. Full assessment as above. Clinically appears improved from day prior but persistent cough and wheezing Current examination does not suggest volume overload and diuretics as above have been held after rising creatinine. Continue therapies as noted Subjective Patient sleeping supine and comfortably upon evaluation. Awakens easily and reports feeling "much better". Reports SOB has improved, nearing baseline. No chest pain overnight. Ongoing cough and wheeze reported. No orthopnea, PND or increased edema. No dizziness. Review of Systems Review of Systems: All systems reviewed & are unremarkable except as noted in HPI & below Physical Exam Constitutional: WD/WN, vitals as above well developed; no acute distress Eyes: PERRL, conjunctivae normal, anicteric sclerae ENMT: external ear and nose normal, oropharynx normal Neck: trachea midline, no thyromegaly Respiratory: normal respiratory effort and + audible wheezes Auscultation: + rhonchi Cardiovascular: Rate/Rhythm: regular rate and regular rhythm Heart Sounds: normal S1, normal S2 and + murmur (Grade 2/6 to 3/6 systolic murmur) Vessels: + JVD and + carotid bruit Extremities: + edema (1+ left greater than right LE edema) Gastrointestinal (Abdomen): normal bowel sounds, soft, nontender, no hepatosplenomegaly Musculoskeletal: Head/Neck/Chest: normocephalic and head atraumatic Neurologic: PERRL, EOMI, accommodation nl, no face palsy, no dysarthria Psychiatric: A+Ox3, euthymic affect Results & Data ([facility]) Vital Signs (Past 12 Hours) Vital Signs Temp Pulse Pulse Resp BP BP Pulse Ox 08/11/21 10:05 81 20 94 08/11/21 08:00 36.3 C L 79 18 122/72 93 08/11/21 07:12 82 20 94 08/11/21 06:49 36.8 C 81 20 129/81 95 08/11/21 05:40 84 22 95 08/11/21 04:21 36.4 C L 86 18 107/61 91 08/10/21 23:20 36.4 C L 83 20 109/70 93 Laboratory Results 08/11/21 08/11/21 08/11/21 Range/Units 07:24 06:47 06:47 WBC 5.82 (4.8-10.8) K/uL RBC 3.64 L (4.7-6.1) M/uL Hgb 9.2 L (14.0-18.0) g/dL Hct 29.3 L (42-52) % MCV 80.5 (80-100) fL MCH 25.3 (25-34) pg MCHC 31.4 L (32-36) g/dL RDW Std Deviation 55.2 H (36.4-46.3) fL RDW Coeff of Dary 18.8 H (11.5-14.5) % Plt Count 113 L D (130-400) K/uL MPV 8.8 (7.4-10.4) fL Sodium 134 L (136-145) mmol/L Potassium 4.9 (3.5-5.1) mmol/L Chloride 99 (98-107) mmol/L Carbon Dioxide 23 (21-32) mmol/L Anion Gap 12 H (3-11) BUN 61 H D (6-23) mg/dl Creatinine 2.84 H D (0.6-1.4) mg/dl Est Cr Clr Drug Dosing 22.6 ml/min Est GFR ( Amer) 23.5 ml/min Est GFR (Non-Af Amer) 20.3 ml/min BUN/Creatinine Ratio 21.5 H (10-20) Glucose 213 H (70-99(Fasting)) mg/dl POC Glucose 217 H (70-99) mg/dl Calcium 7.4 L (8.5-10.1) mg/dl Troponin I 0.04 (0-0.04) ng/ml Procalcitonin (0-0.5) ng/ml Urine Color Urine Appearance (Clear) Urine pH (4.5-7.5) Ur Specific Roebling (1.000-1.030) Urine Protein (Negative) Urine Glucose (UA) (Negative) Urine Ketones (Negative) Urine Blood (Negative) Urine Nitrite (Negative) Urine Bilirubin (Negative) Urine Urobilinogen (Negative) Ur Leukocyte Esterase (Negative) Urine WBC (Auto) (0-5) /hpf Urine RBC (Auto) (0-4) /hpf U Hyaline Cast (Auto) (0-5) /lpf U Epithel Cells (Auto) (0-5) /lpf Urine Bacteria (Auto) (Negative) 08/10/21 08/10/21 08/10/21 Range/Units 23:09 13:35 11:35 WBC (4.8-10.8) K/uL RBC (4.7-6.1) M/uL Hgb (14.0-18.0) g/dL Hct (42-52) % MCV (80-100) fL MCH (25-34) pg MCHC (32-36) g/dL RDW Std Deviation (36.4-46.3) fL RDW Coeff of Dary (11.5-14.5) % Plt Count (130-400) K/uL MPV (7.4-10.4) fL Sodium (136-145) mmol/L Potassium (3.5-5.1) mmol/L Chloride (98-107) mmol/L Carbon Dioxide (21-32) mmol/L Anion Gap (3-11) BUN (6-23) mg/dl Creatinine (0.6-1.4) mg/dl Est Cr Clr Drug Dosing ml/min Est GFR ( Amer) ml/min Est GFR (Non-Af Amer) ml/min BUN/Creatinine Ratio (10-20) Glucose (70-99(Fasting)) mg/dl POC Glucose 120 H (70-99) mg/dl Calcium (8.5-10.1) mg/dl Troponin I < 0.03 (0-0.04) ng/ml Procalcitonin (0-0.5) ng/ml Urine Color Dark Yellow Urine Appearance Clear (Clear) Urine pH 5.0 (4.5-7.5) Ur Specific Roebling 1.019 (1.000-1.030) Urine Protein 1+ H (Negative) Urine Glucose (UA) Negative (Negative) Urine Ketones Trace H (Negative) Urine Blood Negative (Negative) Urine Nitrite Negative (Negative) Urine Bilirubin Negative (Negative) Urine Urobilinogen Negative (Negative) Ur Leukocyte Esterase Trace H (Negative) Urine WBC (Auto) 1-5 (0-5) /hpf Urine RBC (Auto) 0-4 (0-4) /hpf U Hyaline Cast (Auto) 1-5 (0-5) /lpf U Epithel Cells (Auto) 5-10 H (0-5) /lpf Urine Bacteria (Auto) Negative (Negative) 08/10/21 Range/Units 05:40 WBC (4.8-10.8) K/uL RBC (4.7-6.1) M/uL Hgb (14.0-18.0) g/dL Hct (42-52) % MCV (80-100) fL MCH (25-34) pg MCHC (32-36) g/dL RDW Std Deviation (36.4-46.3) fL RDW Coeff of Dary (11.5-14.5) % Plt Count (130-400) K/uL MPV (7.4-10.4) fL Sodium (136-145) mmol/L Potassium (3.5-5.1) mmol/L Chloride (98-107) mmol/L Carbon Dioxide (21-32) mmol/L Anion Gap (3-11) BUN (6-23) mg/dl Creatinine (0.6-1.4) mg/dl Est Cr Clr Drug Dosing ml/min Est GFR ( Amer) ml/min Est GFR (Non-Af Amer) ml/min BUN/Creatinine Ratio (10-20) Glucose (70-99(Fasting)) mg/dl POC Glucose (70-99) mg/dl Calcium (8.5-10.1) mg/dl Troponin I (0-0.04) ng/ml Procalcitonin 0.13 (0-0.5) ng/ml Urine Color Urine Appearance (Clear) Urine pH (4.5-7.5) Ur Specific Roebling (1.000-1.030) Urine Protein (Negative) Urine Glucose (UA) (Negative) Urine Ketones (Negative) Urine Blood (Negative) Urine Nitrite (Negative) Urine Bilirubin (Negative) Urine Urobilinogen (Negative) Ur Leukocyte Esterase (Negative) Urine WBC (Auto) (0-5) /hpf Urine RBC (Auto) (0-4) /hpf U Hyaline Cast (Auto) (0-5) /lpf U Epithel Cells (Auto) (0-5) /lpf Urine Bacteria (Auto) (Negative) Diagnostic Findings Telemetry reviewed - NSR in the 80's. Rare ectopy. No concerning arrhyhtmias. LV is normal in size. Mod concentric LVH Inferior wall is akinetic at the base and hypokinetic at the mid level. Posterior wall and inferoseptal de la rosa are very mildly hypokinetic at the base and mid level, all the other wall segements contract normally. Prior noted septal and apical wall motion abnormalities are not present. EF 450-50% aortic valve leaflets are calcified. Moderate . Mild to mod AI Mild MR Severe TR RV systolic pressure is 40-50mmHg Mild aortic root and ascending aorta dilatation Medications Administered Current Inpatient Medications Acetaminophen (Acetaminophen 325 Mg Tab) 650 mg PO Q4H PRN PRN Reason: Pain or Fever Stop: 09/09/21 15:54 Albuterol (Albut/Ipratrop 3mg/0.5mg Neb 3 Ml Vial) [address] [facility]; Protocol Stop: 09/09/21 10:59 Last Admin: 08/11/21 10:04 Dose: 3 ml Documented by: Albuterol (Albuterol Hfa 8 Gm Inhaler) 2 puffs INH Q4 PRN PRN Reason: Wheezing Stop: 09/09/21 15:54 Last Admin: 08/11/21 05:39 Dose: 2 puffs Documented by: Amlodipine Besylate (Amlodipine Besylate 5 Mg Tab) 5 mg PO QPM QIAN Stop: 09/09/21 20:59 Last Admin: 08/10/21 21:01 Dose: 5 mg Documented by: Ascorbic Acid (Ascorbic Acid 500 Mg Tab) [address] [facility] Stop: 09/10/21 08:59 Last Admin: 08/11/21 07:48 Dose: 125 mg Documented by: Atorvastatin Calcium (Atorvastatin 40 Mg Tab) 80 mg PO QAM QIAN Stop: 09/10/21 08:59 Last Admin: 08/11/21 07:47 Dose: 80 mg Documented by: Carvedilol (Carvedilol 25 Mg Tab) 25 mg PO BID QIAN Stop: 09/09/21 20:59 Last Admin: 08/11/21 07:49 Dose: 25 mg Documented by: Cilostazol (Cilostazol 100 Mg Tab) 50 mg PO BID QIAN Stop: 09/09/21 20:59 Last Admin: 08/11/21 07:47 Dose: 50 mg Documented by: Clopidogrel Bisulfate (Clopidogrel Bisulfate 75 Mg Tab) [address] [facility] Stop: 09/10/21 08:59 Last Admin: 08/11/21 07:47 Dose: 75 mg Documented by: Dextrose (Dextrose 50% 50 Ml Syringe) 25 - 50 ml IV UD PRN; Protocol PRN Reason: Hypoglycemia Protocol Stop: 09/09/21 15:54 Ferrous Sulfate (Ferrous Sulfate 325 Mg Tab) 325 mg PO Q2D@0900 [facility] Stop: 09/10/21 08:59 Last Admin: 08/11/21 07:48 Dose: 325 mg Documented by: Fluticasone Furoate (Fluticasone Furoate 200mcg 14 Puffs/Inhaler) [address] [facility] Stop: 09/10/21 08:59 Last Admin: 08/11/21 07:50 Dose: 1 puffs Documented by: Fluticasone Propionate (Fluticasone Propionate Na Spr 16 Gm Btl) [address] [facility] Stop: 09/10/21 08:59 Last Admin: 08/11/21 07:50 Dose: 2 sprays Documented by: Glucagon (Glucagon For Inj 1 Mg Vial) 1 mg SQ UD PRN; Protocol PRN Reason: Hypoglycemia Protocol Stop: 09/09/21 15:54 Glucose (Glucose 10 Tabs/Tube) 4 - 8 tabs PO UD PRN; Protocol PRN Reason: Hypoglycemia Protocol Stop: 09/09/21 15:54 Glucose (Glucose 40% Gel 15 Gm Tube) 15 - 30 gm PO UD PRN; Protocol PRN Reason: Hypoglycemia Protocol Stop: 09/09/21 15:54 Guaifenesin (Guaifenesin 600 Mg Tabcr) [address] [facility] Stop: 09/09/21 20:59 Last Admin: 08/11/21 07:48 Dose: 600 mg Documented by: Insulin Aspart (Insulin Aspart Per Unit) [address] [facility] Stop: 09/09/21 16:29 Last Admin: 08/11/21 08:42 Dose: 7 units Documented by: Isosorbide Dinitrate (Isosorbide Dinitrate 20 Mg Tab) 20 mg PO TID@0700,1200,1700 [facility] Stop: 09/10/21 11:59 Lactobacillus Acidoph/Casei/Rhamnos (Advanced Probiotic 1250 Mg Capsule) [address] [facility] Stop: 09/10/21 08:59 Last Admin: 08/11/21 07:47 Dose: 2 cap Documented by: Meclizine HCl (Meclizine 12.5 Mg Tab) 12.[address] [facility] Stop: 09/09/21 20:59 Last Admin: 08/11/21 07:50 Dose: 12.5 mg Documented by: Miconazole Nitrate (Miconazole Nitrate Powder 43 Gm) 1 appln EXT PRN PRN PRN Reason: Affected Skin Folds Stop: 09/10/21 09:05 Miscellaneous (Carbohydrates For Hypoglycemia ) 15 - 30 gm PO UD PRN PRN Reason: Hypoglycemia Protocol Stop: 09/09/21 15:54 Multivitamins/Minerals (Calcium 600mg + Vit D 400 Iu Tab) [address] [facility] Stop: 09/10/21 08:59 Last Admin: 08/11/21 07:47 Dose: 1 tab Documented by: Nitroglycerin (Nitroglycerin Sl 0.4 Mg/Tab Tab) 0.4 mg SL UD PRN PRN Reason: Chest Pain Stop: 09/09/21 15:54 Last Admin: 08/10/21 22:29 Dose: 0.4 mg Documented by: Ondansetron HCl (Ondansetron Inj 2 Mg/Ml 2 Ml Vial) 4 mg IV Q6H PRN PRN Reason: Nausea Stop: 09/09/21 15:54 Polyethylene Glycol (Polyethylene (Miralax) 17 Gm Pack) 17 gm PO DAILY PRN PRN Reason: Constipation Stop: 09/09/21 15:54 Potassium Chloride (Potassium Chloride Crtab 20 Meq Tabcr) 20 meq PO MoWeFr@0900 [facility] Stop: 09/10/21 08:59 Prednisone (Prednisone 20 Mg Tab) 40 mg PO DAILY QIAN Stop: 09/10/21 08:59 Last Admin: 08/11/21 07:48 Dose: 40 mg Documented by: Ranolazine (Ranolazine 500 Mg Er Tab) 500 mg PO BID QIAN Stop: 09/09/21 20:59 Last Admin: 08/11/21 07:46 Dose: 500 mg Documented by: Senna/Docusate Sodium (Docusate Sodium/Senna 50/8.6mg Tab) [address] [facility] Stop: 09/09/21 20:59 Last Admin: 08/11/21 07:49 Dose: 2 tab Documented by: Tramadol HCl (Tramadol Hcl 50 Mg Tablet) 50 mg PO DAILY PRN PRN Reason: Pain Stop: 09/09/21 15:54 Vitamin D (Cholecalciferol 1,000 Units 25 Mcg Tab) 1,000 units PO DAILY QIAN Stop: 09/10/21 08:59 Last Admin: 08/11/21 07:47 Dose: 1,000 units Documented by:
[2021-08-11] MEDS: ISOSORBIDE DINITRATE 20 MG TAB PO SCH ×2 (12:15→16:47)
[2021-08-11] MEDS ORDERED: PHARMACY GLYCEMIC MGMT CONSULT PRN (15:48)
[2021-08-11] MEDS ORDERED: LANTUS PER UNIT CHARGE SQ ONE (16:15)
[2021-08-11] MEDS ORDERED: HEPARIN SOD 5,000 UNIT/0.5 ML VIAL SQ SCH (21:00)
--- NOTE | 2021-08-11 21:09 | Emergency Department Note ---
ED Visit Note Endotracheal Intubation Indication: Code blue. Suction, airway equipment, respiratory equipment, and appropriate personnel were prepared prior to the initiation of the procedure. The airway was easily visualized utilizing a C mac. A 7.0 size ETT tube was placed atraumatically to 22 cm using standard technique. The cuff inflated without signs of malfunction. There were bilateral breath sounds, positive colormetric change, no gastric sounds, a good capnography waveform. There were no complications. . : Respiratory failure Qualifiers: Chronicity: acute on chronic Respiratory failure complication: unspecified whether with hypoxia or hypercapnia Qualified Code(s): J96.20 - Acute and chronic respiratory failure, unspecified whether with hypoxia or hypercapnia
--- NOTE | 2021-08-11 21:35 | Communication Note ---
Date of Service: August 11, 2021 DEIDRA NEWELL was called overhead. I did arrive at bedside where high-quality chest compressions were initiated by nursing staff. Defibrillator pads were in place. Patient was actively receiving first round of epinephrine. Patient being bagged by respiratory therapy. Additional IV site established by IV team. Labs obtained. Patient was pulseless. On initial pulse check, PEA noted. Compressions were continued. Patient received a total of 6 rounds of epinephrine, 3 bicarb, and 1 of calcium chloride. Patient intubated by emergency room physician. Please see separate note. Bob attending did reach out to family during code. I did personally review patient's labs which demonstrated likely HARJEET without any significant electrolyte derangements. Patient received high-quality CPR for the duration of greater than 20 minutes of resuscitative efforts. Despite appropriate pulse checks and rhythm checks, appropriately followed ACLS guidelines, establishment of airway, and attempted ventilation, the patient remained pulseless and lost rhythm completely. Discussion amongst nursing and provider staff at bedside had without any further recommendations or suggestions at this time. Patient had pupils that were dilated and unresponsive bilaterally. No respiratory effort against bagging. Patient had no rhythm. No pulses. No response to painful stimuli. Family did confirm to discontinue efforts. Decision was made to stop efforts at this time. Of note, the patient was noted to have frothy bloody discharge from his ET tube. Time of 2028. I have personally spent 32 minutes of critical care time in the direct management of this patient. This is a life/limb threatening event. This includes time spent evaluating patient, direct bedside care, chart review, placing orders, interpretation of diagnostic studies, discussion with consultants, patient, and family members, as well as other required patient management activities. This time is exclusive of all separately billable procedures, and teaching time and separate from and in addition to any other critical care service time. Coding Level of Care Code Critical Care 1st 30-74 mins Time Spent (min) 32
[2021-08-12] MEDS ORDERED: INSULIN HUMAN NPH SC SCH (07:30)
--- NOTE | 2021-08-12 07:52 | Hospitalist Progress Note ---
Date of Service August 12, 2021 Assessment & Plan Admission and Anticipated Discharge Date Admission Date: August 10, 2021 Subjective Code [place] was called around 8:10pm last night as patinet was found unresponsive in the room. CPR was initiated immediately. Few rounds of epinephrine given and patient was intubated. patient remained asystole even after about 20minutes of resuscitation per acls protocol. Called Daughter and she after speaking with her brother were ok to terminate the code. Patient at 8:30Pm Aug 10 2021. Results & Data Results & Data ([facility]) Vital Signs (Past 12 Hours) Vital Signs Temp Pulse Resp BP Pulse Ox 08/11/21 20:00 36.6 C 79 18 104/72 92
--- NOTE | 2021-08-12 07:55 | Death Pronouncement Note ---
Date of Service August 12, 2021 Pronouncement Note Admission Date Admission Date: August 10, 2021 Date and Time of Date of : 08/11/21 Time of : 20:10 Contributing Factors (1) Acute on chronic respiratory failure with hypoxia: (2) Heart failure, systolic, with acute decompensation: (3) History of viral pneumonia: (4) COPD (chronic obstructive pulmonary disease): (5) Bowel and bladder incontinence: (6) Fall: (7) CKD (chronic kidney disease), stage III: (8) CAD (coronary artery disease): (9) Hypertension: (10) Diabetes mellitus, type 2: (11) PAD (peripheral artery disease): Additional Data Confirmation of : no pulse and other Family: contacted Attending physician: Anila Whaley MD Was code activated?: Yes
--- NOTE | 2021-08-12 07:57 | Hospitalist Progress Note ---
Date of Service August 12, 2021 Assessment & Plan Admission and Anticipated Discharge Date Admission Date: August 10, 2021 Subjective Correction of error from previous progress note.Tiara on: Aug 11 2021, 08:10pm. Results & Data Results & Data ([facility]) Vital Signs (Past 12 Hours) Vital Signs Temp Pulse Resp BP Pulse Ox 08/11/21 20:00 36.6 C 79 18 104/72 92
--- NOTE | 2021-08-12 17:56 | Discharge Summary ---
Date of Service August 12, 2021 Admission HPI Per Admitting Provider This is a 76yo M with a PMH of recent covid pneumonia (tested positive on 07/21/20), chronic systolic heart failure (EF 45-50%, TTE 2019), valvular heart disease (mild AR/MR, severe on recent TTE), COPD with 25 pack years, pulmonary hypertension, CAD (s/p CABG), PVD status post surgery, HTN, DM 2 diet- controlled, CKD, BPH, chronic anemia and chronic thrombocytopenia who presents with worsening shortness of breath. Was recently admitted to our service for hypoxia in setting of covid pneumonia and was discharged home on 2 L nasal cannula continuously. During admission, also had Coreg and amlodipine doses increased by cardiology. Heart failure felt to be compensated at that time. Follows with [facility] cardiology in outpatient setting. Since discharge home, patient is noting increased shortness of breath as well as swelling in lower extremities. [place] significantly more SOB walking in kitchen yesterday and continues to feel worn down and generally weak. Notes slight increase to lower extremity edema. No orthopnea or PND. + Wheezing and dry cough. No fever, chills, chest pain, palpitations, nausea, vomiting, abdominal pain or dysuria. + bowel and bladder incontinence new over past 2 days, per patient. Has history of chronic back pain but denies previous spinal surgery or known disc disease or stenosis. No saddle anesthesia, weakness or paresthesias in BLE. Fell out of bed last night trying to reach for cell phone and landed on backside. Has some new pain in lower back above waistband today aggravated by movement of LLE. In ED, patient is requiring 6 L of nasal cannula oxygen as compared to 2 L he was discharged home on 12 days ago. Increased work of breathing. Lives alone at home with [facility] nursing staff managing medications. Ambulates with walker. Afebrile, pancytopenic (noted previously), hgb 8.8 (baseline 9-10), Cr 1.99 ( recent Cr ~1.6-2), BNP 329, covid screen negative today. Procalcitonin pending. ECG unchanged. CXR with bilateral lower lung predominant airspace opacities which may represent atelectasis, pneumonia, and/or aspiration. Admission Exam Per Admitting Provider General Appearance:WD/WN, vitals as above, sitting up in bed, conversational dyspnea Head: normocephalic, atraumatic Eyes:normal inspection, PERRL, conjunctivae normal, anicteric sclerae ENT: external ear and nose normal, oropharynx normal Neck: normal visual inspection, trachea midline, no thyromegaly Respiratory:increased respiratory effort, diffuse rhonchi with expiratory wheezing, rales noted at R base. + accessory muscle use with abdominal breathing Cardiovascular: regular rate, rhythm, no murmur, normal peripheral pulses, 2+ BLE edema. Vessels: + JVD Chest: normal inspection of chest Abdomen/GI: normal bowel sounds, soft, nontender, no hepatosplenomegaly Extremities/Musculoskeletal:+ TTP along bony processes lower lumbar spine, no deformities or lesions noted. No cyanosis or clubbing, extremities motor strength 5/5 Neurologic: PERRL, EOMI, accommodation nl, no face palsy, no dysarthria, CN's II-XI intact bilaterally and moves all extremities, no sensory deficits noted Psychiatric:A+Ox3, euthymic affect Skin: no rashes, normal color, warm/dry Principal Diagnosis Acute on chronic systolic heart failure Acute on chronic respiratory failure PEA arrest Discharge Exam Patient Discharge Data Allergies Allergy/AdvReac Type Severity Reaction Status Date / Time hydralazine Allergy Hives Verified 07/21/21 03:17 Iodinated Contrast Media Allergy Unknown Verified 07/21/21 03:17 [Iodinated Contrast- Oral and IV Dye] Consultations 08/10/21 08:28 ED Decision to Admit Stat 08/10/21 10:30 Consult Cardiology Routine Ordered Studies 08/10/21 10:49 MR lumbar spine wo con Urgent Hospital Course (1) Acute on chronic respiratory failure with hypoxia: (2) Heart failure, systolic, with acute decompensation: (3) History of viral pneumonia: (4) COPD (chronic obstructive pulmonary disease): (5) Bowel and bladder incontinence: (6) Fall: (7) CKD (chronic kidney disease), stage III: (8) CAD (coronary artery disease): (9) Hypertension: (10) Diabetes mellitus, type 2: (11) PAD (peripheral artery disease): 76yo M with a PMH of recent covid pneumonia (tested positive on 07/21/20), chronic systolic heart failure (EF 45-50%, TTE 2019), valvular heart disease (mild AR/MR, severe on recent TTE), COPD with 25 pack years, pulmonary hypertension, CAD (s/p CABG), PVD status post surgery, HTN, DM 2 diet- controlled, CKD, BPH, chronic anemia and chronic thrombocytopenia who presents with worsening shortness of breath felt to be multifactorial in setting of decompensated heart failure, recent covid pneumonia and underlying COPD. Respiratory symptoms due to acute on chronic systolic HF COPD exacerbation Recent COVID pneumonia Got one dose 40mg IV Lasix in ED Diuretics were held due to bump in Cr Was evaluated by Traffic Investigator and Echo done Patient was also started on prednisone and nebs Patient was feeling better during the day on 08/11/21 However, patient was reported to be found unresponsive at night. CODE [place] was called Per chart review, patient was in PEA arrest Cardiac resuscitation was initiated. However, ROS was not achieved and patient . Configuration Management Analyst informed family and completed certificate Total Time Total Time Spent Total Time Spent (In Minutes): 15 Total Time Includes: Other Discharge Plan Discharge Items Patient Disposition: Other Date/Time: 08/11/21 20:29
== END 2021-08-11 23:30 | disposition expired | DRG 291 ==
LOC: ED 05:29 → EDINP 08:29 → 2N 19:56
DX: I13.0 Hypertensive heart and chronic kidney disease with heart failure and stage 1 through stage 4 chronic kidney disease, or unspecified chronic kidney disease; Z95.5 Presence of coronary angioplasty implant and graft; I35.0 Nonrheumatic aortic (valve) stenosis; Z91.041 Radiographic dye allergy status; I25.2 Old myocardial infarction; R15.9 Full incontinence of feces; Z79.02 Long term (current) use of antithrombotics/antiplatelets; I27.20 Pulmonary hypertension, unspecified; E11.22 Type 2 diabetes mellitus with diabetic chronic kidney disease; Z86.73 Personal history of transient ischemic attack (TIA), and cerebral infarction without residual deficits; I70.1 Atherosclerosis of renal artery; J44.9 Chronic obstructive pulmonary disease, unspecified; E11.51 Type 2 diabetes mellitus with diabetic peripheral angiopathy without gangrene; Z79.899 Other long term (current) drug therapy; I71.2 Thoracic aortic aneurysm, without rupture; Z86.16 Personal history of COVID-19; I50.23 Acute on chronic systolic (congestive) heart failure; N18.4 Chronic kidney disease, stage 4 (severe); I25.10 Atherosclerotic heart disease of native coronary artery without angina pectoris; I25.5 Ischemic cardiomyopathy; J96.21 Acute and chronic respiratory failure with hypoxia; N40.0 Benign prostatic hyperplasia without lower urinary tract symptoms; Z98.84 Bariatric surgery status